=== PATIENT | female | born 1940 | race Hispanic/Latino ===

== ENCOUNTER 2018-12-24 17:27 | Inpatient (IN) | payer MEDICARE, OTHER ==
[~2018-12-24] VITALS: Ht 157.5 cm; Wt 79.4 kg
--- OUTSIDE RECORDS SUMMARY | 2018-12-24 17:30 | XMS REPORT | Summary of Care ---
Author Organization Unknown Address Unknown Phone Unavailable Encounter HQ Encntr_charito([facility]) [id number] Date(s): 07/16/14 - 07/16/14 [facility] Outpatient Imaging - [address] [address]- [place] Discharge Disposition: Home Physician Attending: Miki Hathaway MD Reason for Visit 719.46 - JOINT PAIN-L/LE 443.8 - PERIPH VASCULAR Problem List No data available for this section Allergies, Adverse Reactions, Alerts No data available for this section Medications No data available for this section Medications Administered During Your Visit No data available for this section Immunizations No data available for this section
--- OUTSIDE RECORDS SUMMARY | 2018-12-24 17:30 | XMS REPORT | Summary of Care ---
Author Author [facility] [place] Organization [facility] [place] Address Unknown Phone Unavailable Encounter HQ Encntr_alias(FIN) [id number] Date(s): 10/06/18 - 10/06/18 [facility] - [place] [address] [place] [address] [phone] Discharge Disposition: Home or Self Care Attending Physician: Miki Hathaway MD Referring Physician: Miki Hathaway MD Vital Signs No data available for this section Problem List No data available for this section Allergies, Adverse Reactions, Alerts No data available for this section Medications No data available for this section Results No data available for this section Immunizations No data available for this section Procedures No data available for this section Social History No data available for this section Assessment and Plan No data available for this section
--- OUTSIDE RECORDS SUMMARY | 2018-12-24 17:30 | XMS REPORT | Continuity of Care Document ---
Author Author Madhu gus [facility] Interface Address Unknown Phone Unavailable Problems Problem Status Onset Date Classification Date Reported Comments Source Bronchitis, not specified as acute or chronic 06/10/2018 12/22/2018 [facility] Z00.00 - [facility] Active 12/06/2016 [facility] Spencer Medications Medication Details Route Status Patient Instructions Ordering Provider Order Date Source Allergies, Adverse Reactions, Alerts Substance Category Reaction Severity Reaction type Status Date Reported Comments Source Immunizations Immunization Date Given Site Status Last Updated Comments Source Results Order Name Results Value Reference Range Date Interpretation Comments Source Chest 2 views DX Chest 2 views DX STUDY: Chest, 2 views. COMPARISON: 10/06/2018 HISTORY: - J44.9 Chronic obstructive pulmonary disease, unspecified; J96.11 Chronic respiratory failure with hypoxia. FINDINGS: Prominent lung interstitium, likely related to chronic obstructive pulmonary disease. Small bilateral pleural effusions with bibasilar opacities suggestive of bibasilar subsegmental atelectasis versus consolidations. No pneumothorax is seen. Mild cardiomegaly. No pulmonary edema. Degenerative changes of spine are seen. IMPRESSION: Prominent lung interstitium, likely related to chronic obstructive pulmonary disease. Small bilateral pleural effusions with bibasilar subsegmental atelectasis versus consolidations. Mild cardiomegaly. No pulmonary edema. 12/22/2018 - - Read by: Tasha Garduno MD Dictated Date/time: 12/22/18 13:10 Electronically Signed by: Tasha Garduno MD 12/22/18 13:42 FINAL REPORT C[facility] Spencer Bone Density DXA [employer] MA Bone Density [employer] MA BONE DENSITY ASSESSMENT: 10/06/2018 CLINICAL DATA: Post menopausal and clinical risk for osteoporosis. Encounter For Screening For Osteoporosis, Age-Related Osteoporosis Without Current Pathological Fracture/Z13.820,M81.0 FINDINGS: Bone density evaluation was performed 10/06/2018 on the right femur neck using a Hologic unit. The BMD average for the exam is 0.785 g/cm2. The T-score is -0.60 and the Z-score is 1.50. This matches the World Health Organization's criteria for normal bone density and places the patient within normal limits of fracture risk. An additional bone density evaluation was performed 10/06/2018 on the left femur neck using a Hologic unit. The BMD average for the exam is 0.725 g/cm2. The T- score is -1.10 and the Z-score is 1.00. This matches the World Health Organization's criteria for osteopenia and places the patient at a medium risk for fracture. An additional bone density evaluation was performed 10/06/2018 on the right hip using a Hologic unit. The BMD average for the exam is 0.825 g/cm2. The T-score is -1.00 and the Z-score is 1.00. This matches the World Health Organization's criteria for normal bone density and places the patient within normal limits of fracture risk. An additional bone density evaluation was performed 10/06/2018 on the left hip using a Hologic unit. The BMD average for the exam is 0.767 g/cm2. The T-score is -1.40 and the Z-score is 0.60. This matches the World Health Organization's criteria for osteopenia and places the patient at a medium risk for fracture. An additional bone density evaluation was performed 10/06/2018 on the AP L1-L4 region of spine using a Hologic unit. The BMD average for the exam is 0.923 g/cm2. The T-score is -1.10 and the Z-score is 1.60. This matches the World Health Organization's criteria for osteopenia and places the patient at a medium risk for fracture. FRAX 10 year probability of major osteoporotic fracture is 6.3% and hip fracture is 1.1%. IMPRESSION: OSTEOPENIA Patient is at medium risk for fracture. Patient consult w/primary care provider is recommended. This exam was interpreted at [id number] for ERIC Spencer 15. Rena Dunham M.D., ms/bam:10/06/2018 09:34:51 Dispatcher Maintenance Service(s): Irais LUCIANO(Virgil)(M), [facility] 10/06/2018 - - Read by: Rena Dunham MD Dictated Date/time: 10/06/18 09:34 Electronically Signed by: Rena Dunham MD 10/06/18 09:34 FINAL REPORT [place] Spencer Chest 2 views DX Chest 2 views DX EXAM: Chest 2 views DX HISTORY: - Z00.00 Encounter for general adult medical examination without abnormal findings COMPARISON: 06/04/2018 Cardiac silhouette is at the upper limits of normal for size. Mild pulmonary vascular congestion. No pleural effusion identified. No appreciable evidence seen for pneumothorax. Mild amount of calcified plaque seen within the thoracic aortic arch. No acute bony abnormalities. IMPRESSION: Mild pulmonary vascular congestion. 10/06/2018 - - Read by: Ian Holcomb MD Dictated Date/time: 10/06/18 08:54 Electronically Signed by: Ian Holcomb MD 10/06/18 08:56 FINAL REPORT [place] Spencer Chest 2 views DX Chest 2 views DX Exam: Two-view chest x-ray Reason for Exam: - J40 Bronchitis, not specified as acute or chronic Comparison Exam: X-ray 01/04/2017 Discussion: Cardiac silhouette is at the upper limits of normal for size. Mild pulmonary vascular congestion. No pleural effusion identified. No appreciable evidence seen for pneumothorax. Mild amount of calcified plaque seen within the thoracic aortic arch. No acute bony abnormalities. Impression: 1. Mild pulmonary vascular congestion. 06/04/2018 - - Read by: Marek Gardner MD Dictated Date/time: 06/04/18 16:10 Electronically Signed by: Marek Gardner MD 06/04/18 16:50 FINAL REPORT [place] Spencer Chest 2 views DX Chest 2 views DX EXAM: XR CHEST 2 VIEWS DATE: 01/04/2017 10:45 AM CDT INDICATION: Z00.00 Encounter for general adult medical examination without abnormal findings COMPARISON: 12/06/2016 TECHNIQUE: PA and lateral chest radiographs FINDINGS: The lungs are clear without focal consolidation or pleural effusion. The cardiomediastinal silhouette is stable. The hilar regions are again noted to be prominent, likely due to prominent vascular structures. There is no acute bony abnormality. IMPRESSION: No acute abnormality SL: [id number] 01/04/2017 - - Read by: Bryan Davies Dictated Date/time: 01/04/17 12:55 Electronically Signed by: Bryan Davies 01/04/17 12:56 FINAL REPORT CARROLL Corbina Chest 2 views DX Chest 2 views DX EXAM: 2 view(s) of the chest. CLINICAL HX: Z00.00 Encounter for general adult medical examination without abnormal findings. . . COMPARISON: Chest x-ray: 05/31/2016. FINDINGS: Support apparatus: None. Cardiac silhouette: Unremarkable. Mediastinum: -- Lorrie: Bronchial wall thickening. -- Other: None. Lungs: -- Consolidation: Negative. -- Pleural effusion: Negative. -- Pneumothorax: Negative. -- Other: Negative. Bones: Unremarkable. Other: None. IMPRESSION: 1. Bronchial wall thickening which can be seen with bronchitis/bronchiolitis and mild interstitial edema. 12/06/2016 - - Read by: Aaron Alanis MD Dictated Date/time: 12/06/16 11:10 Electronically Signed by: Aaron Alanis MD 12/06/16 11:23 FINAL REPORT RUPALIDixie Johanna Chest 2 views DX Chest 2 views DX Exam: Two-view chest x-ray Reason for Exam: R07.9 Chest pain, unspecified Comparison Exam: 05/04/2013 Discussion: Cardiac silhouette is at upper limits of normal for size. Mild pulmonary vascular congestion. No pleural effusions nor focal lung consolidations identified. No appreciable evidence seen for pneumothorax. Mild amount of calcified plaque seen within the thoracic aortic arch. Mild multilevel degenerative disc disease seen within the thoracic spine. No acute bony abnormalities. Impression: 1. Mild pulmonary vascular congestion. 05/31/2016 - - Read by: Marek Gardner MD Dictated Date/time: 05/31/16 09:56 Electronically Signed by: Marek Gardner MD 05/31/16 09:58 FINAL REPORT CARROLL Johanna Spine lumbar series DX Spine lumbar series DX EXAM: Spine lumbar series DX HISTORY: M54.9 Dorsalgia, unspecified COMPARISON: 05/10/2011 AP alignment is normal. No fracture is seen. There is disc space narrowing at L5-S1. Vertebral body heights are maintained. Mild discogenic degenerative changes are present throughout the spine. There are advanced facet degenerative changes of the lower lumbar spine. IMPRESSION: Degenerative change as above. 09/29/2015 - - Read by: Ian Holcomb MD Dictated Date/time: 09/29/15 12:34 Electronically Signed by: Ian Holcomb MD 09/29/15 12:35 FINAL REPORT [place] C[facility] Spencer Foot series DX Foot series DX EXAMINATION: Right foot series. HISTORY: Right foot pain. FINDINGS: 3 view nonweightbearing examination of the right foot is performed without comparison. There are no acute fractures or dislocations. There is mild periosteal thickening along the third and fourth metatarsal shafts which may represent old healed metatarsal fractures. 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 There is mild interphalangeal joint osteoarthritis. There is no ankle effusion. There is heterotopic ossification at the Achilles insertion. There are no radiopaque foreign bodies identified. IMPRESSION: 1. Mild periosteal thickening along the right third and fourth metatarsal shafts which represent old healed metatarsal fractures. There are no acute fractures or dislocations of the right foot. 2. 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 12/07/2014 - - Read by: Rashi Hutchins MD Dictated Date/time: 12/07/14 12:34 Electronically Signed by: Rashi Hutchins MD 12/07/14 12:37 FINAL REPORT [place] CARRO[facility] Spencer Ext Lower Venous Doppler Bilat US Ext Lower Venous Doppler Bilat US EXAM: Bilateral lower extremity venous doppler. INDICATION: Pain. TECHNIQUE: The bilateral lower extremity deep venous system was evaluated with grayscale and Doppler ultrasound. FINDINGS: No evidence of DVT. IMPRESSION: 1. No evidence of DVT. 07/16/2014 - - Read by: Aaron Alanis MD Dictated Date/time: 07/16/14 15:11 Electronically Signed by: Aaron Alanis MD 07/16/14 15:12 FINAL REPORT [place] Spencer Chest 2 views Chest 2 views Exam: Two-view chest x-ray Reason for Exam: Hypertensive heart disease Comparison Exam: None Discussion: Cardiac silhouette is enlarged. Mild pulmonary vascular congestion. Both hemidiaphragms well visualized. No pulmonary edema or pleural effusions. No focal lung consolidations. Trachea is midline. No acute bony abnormalities. Impression: 1. Cardiac silhouette is enlarged. Mild pulmonary vascular congestion. 09/30/2013 - - Read by: Marek Gardner Dictated Date/time: 09/30/13 09:00 Electronically Signed by: Marek Gardner MD 09/30/13 09:01 FINAL REPORT [facility] [place] Vital Signs Vital Sign Value Date Comments Source Encounters Location Location Details Encounter Type Encounter Number Reason For Visit Attending Provider ADM Date DC Date Status Source [facility] [place] [facility] [id number] Miki Hathaway 07/16/2014 07/17/2014 [facility] [place] [facility] [place] [facility] [id number] Miki Hathaway 12/07/2014 12/08/2014 [facility] [place] [facility] [place] [facility] [id number] Miki Hathaway 09/29/2015 09/30/2015 [facility] [place] [facility] [place] [facility] [id number] Miki Hathaway 05/31/2016 06/01/2016 [facility] [place] [facility] [place] [facility] [id number] Miki Hathaway 12/06/2016 12/07/2016 [facility] [place] [facility] [place] [facility] [id number] Miki Hathaway 01/04/2017 01/05/2017 [facility] [place] [facility] [place] [facility] [id number] Miki Hathaway 06/04/2018 06/05/2018 [facility] [place] [facility] [place] [facility] [id number] Miki Hathaway 10/06/2018 10/07/2018 [facility] [place] Procedures Procedure Code Date Perfomer Comments Source
--- OUTSIDE RECORDS SUMMARY | 2018-12-24 17:30 | XMS REPORT | Summary of Care ---
Author Author [facility] - [place] Organization [facility] [place] Address Unknown Phone Unavailable Encounter HQ Encntr_charito(FIN) [id number] Date(s): 05/31/16 - 05/31/16 [facility] Outpatient Imaging - [place] [address] [place] [address] [phone] Discharge Disposition: Home or Self Care Attending Physician: Miki Hathaway MD Vital Signs No [...]
--- OUTSIDE RECORDS SUMMARY | 2018-12-24 17:30 | XMS REPORT | Summary of Care ---
Author Organization Unknown Address Unknown Phone Unavailable Encounter HQ Encntr_alias([facility]) [id number] Date(s): 12/07/14 - 12/07/14 [facility] Outpatient Imaging - [address] [address]- [facility] [phone] Discharge Disposition: Home Physician Attending: Miki Hathaway MD Vital Signs No data [...]
--- OUTSIDE RECORDS SUMMARY | 2018-12-24 17:30 | XMS REPORT | Summary of Care ---
Author Author [facility] Outpatient Imaging - [place] Organization [facility] - [place] Address Unknown Phone Unavailable Encounter HQ Encntr_alicriselda(FIN) [id number] Date(s): 01/04/17 - 01/04/17 [facility] Outpatient Imaging - [place] [address] [place] [address] [phone] Discharge Disposition: Home or Self Care Attending [...]
--- OUTSIDE RECORDS SUMMARY | 2018-12-24 17:30 | XMS REPORT | Summary of Care ---
Author Author [facility] Outpatient Imaging - [place] Organization [facility] - [place] Address Unknown Phone Unavailable Encounter HQ Encntr_charito([place]) [id number] Date(s): 09/29/15 - 09/29/15 [facility] Outpatient Imaging - [place] [address] [place] [address] [phone] Discharge Disposition: Home Attending Physician: Miki Hathaway MD Vital Signs [...]
--- OUTSIDE RECORDS SUMMARY | 2018-12-24 17:30 | XMS REPORT | Summary of Care ---
Author Author [facility] - [place] Organization [facility] [place] Address Unknown Phone Unavailable Encounter HQ Encntr_alicriselda(FIN) [id number] Date(s): 12/06/16 - 12/06/16 [facility] Out[facility] - [place] [address] [place] [address]- [phone] Discharge Disposition: Home or Self Care Attending [...]
--- OUTSIDE RECORDS SUMMARY | 2018-12-24 17:30 | XMS REPORT | Summary of Care ---
Author Author [facility] - [place] Organization [facility] [place] Address Unknown Phone Unavailable Encounter HQ Encntr_alicriselda(FIN) [id number] Date(s): 06/04/18 - 06/04/18 [facility] - [place] [address] [place] [address] [phone] Encounter Diagnosis Bronchitis, not specified as acute or chronic (Final) - 06/09/18 Discharge Disposition: Home or Self Care Attending [...]
--- OUTSIDE RECORDS SUMMARY | 2018-12-24 17:34 | XMS REPORT ---
[facility] Address Unknown Phone Unavailable Care Team Providers Care Plastering Contractor Name Role Phone Unavailable Unavailable Payers Payer Name Policy Type Policy Number Effective Date Expiration Date Problems This patient has no known problems. Allergies, Adverse Reactions, Alerts Allergy Name Allergy Type Status Severity Reaction(s) Onset Date Inactive Date Treating Clinician Comments No Known Allergies DA Active U 2018-11-04 00:00:00 No Known Allergies DA Active U 2018-11-03 00:00:00 No Known Allergies DA Active U 2017-01-15 00:00:00 Medications This patient has no known medications. Results Test Description Test Time Test Comments Text Results Atomic Results Result Comments GLUBED 2018-11-20 16:46:00 GLUBED (test code=GLUBED) 194 mg/dL 74-[address] 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 [facility] [id number] 11:52:00* Test Item Value Reference Range Comments GLUBED (test code=GLUBED) 278 mg/dL 74-[address] 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 [facility] [id number] 09:47:00* Test Item Value Reference Range Comments GLUBED (test code=GLUBED) 209 mg/dL 74-[address] 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 [facility] BASIC METABOLIC [id number] 06:18:00* Test Item Value Reference Range Comments SODIUM (test code=NA) 134 mmol/L 136-145 POTASSIUM (test code=K) 4.1 mmol/L 3.5-5.1 CHLORIDE (test code=CL) 100.0 mmol/L 98-107 CARBON DIOXIDE (test code=CO2) 26.0 mmol/L 21-32 ANION GAP (test code=GAP) 12.1 10-20 GLUCOSE (test code=GLU) 210 mg/dL 74-106 BLOOD UREA NITROGEN (test code=BUN) 46 mg/dL 7-18 GLOMERULAR FILTRATION RATE (test code=GFR) 20 mL/min >=60 Estimated GFR by using Modified MDRD formula.Chronic kidney disease is defined as either kidney damageor GFR <60 mL/min/1.73 m2 for >3 months. CREATININE (test code=CREAT) 2.30 mg/dL 0.55-1.02 Note change in reference range due to change in reagent. BUN/CREATININE RATIO (test code=BUN/CREA) 20.0 10-20 CALCIUM (test code=CA) 8.6 mg/dL 8.5-10.1 BASIC METABOLIC [id number] 06:07:00* Test Item Value Reference Range Comments SODIUM (test code=NA) 134 mmol/L 136-145 POTASSIUM (test code=K) 4.1 mmol/L 3.5-5.1 CHLORIDE (test code=CL) 100.0 mmol/L 98-107 CARBON DIOXIDE (test code=CO2) mmol/L 21-32 ANION GAP (test code=GAP) 10-20 GLUCOSE (test code=GLU) mg/dL 74-106 BLOOD UREA NITROGEN (test code=BUN) mg/dL 7-18 GLOMERULAR FILTRATION RATE (test code=GFR) mL/min >=60 CREATININE (test code=CREAT) mg/dL 0.55-1.02 BUN/CREATININE RATIO (test code=BUN/CREA) 10-20 CALCIUM (test code=CA) mg/dL 8.5-10.1 [id number] 21:17:00* Test Item Value Reference Range Comments GLUBED (test code=GLUBED) 262 mg/dL 74-[address] 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 [facility] [id number] 17:37:00* Test Item Value Reference Range Comments GLUBED (test code=GLUBED) 262 mg/dL 74-[address] 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 [facility] [id number] 11:56:00* Test Item Value Reference Range Comments GLUBED (test code=GLUBED) 176 mg/dL 74-[address] 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 [facility] [id number] 08:59:00* Test Item Value Reference Range Comments GLUBED (test code=GLUBED) 202 mg/dL 74-[address] 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 [facility] BASIC METABOLIC [id number] 07:32:00* Test Item Value Reference Range Comments SODIUM (test code=NA) 135 mmol/L 136-145 POTASSIUM (test code=K) 4.6 mmol/L 3.5-5.1 CHLORIDE (test code=CL) 102.0 mmol/L 98-107 CARBON DIOXIDE (test code=CO2) 25.0 mmol/L 21-32 ANION GAP (test code=GAP) 12.6 10-20 GLUCOSE (test code=GLU) 205 mg/dL 74-106 BLOOD UREA NITROGEN (test code=BUN) 46 mg/dL 7-18 GLOMERULAR FILTRATION RATE (test code=GFR) 25 mL/min >=60 Estimated GFR by using Modified MDRD formula.Chronic kidney disease is defined as either kidney damageor GFR <60 mL/min/1.73 m2 for >3 months. CREATININE (test code=CREAT) 1.90 mg/dL 0.55-1.02 Note change in reference range due to change in reagent. BUN/CREATININE RATIO (test code=BUN/CREA) 24.2 10-20 CALCIUM (test code=CA) 8.7 mg/dL 8.5-10.1 BASIC METABOLIC [id number] 07:24:00* Test Item Value Reference Range Comments SODIUM (test code=NA) 135 mmol/L 136-145 POTASSIUM (test code=K) 4.6 mmol/L 3.5-5.1 CHLORIDE (test code=CL) 102.0 mmol/L 98-107 CARBON DIOXIDE (test code=CO2) mmol/L 21-32 ANION GAP (test code=GAP) 10-20 GLUCOSE (test code=GLU) mg/dL 74-106 BLOOD UREA NITROGEN (test code=BUN) mg/dL 7-18 GLOMERULAR FILTRATION RATE (test code=GFR) mL/min >=60 CREATININE (test code=CREAT) mg/dL 0.55-1.02 BUN/CREATININE RATIO (test code=BUN/CREA) 10-20 CALCIUM (test code=CA) mg/dL 8.5-10.1 CBC W/AUTO [id number] 06:59:00* Test Item Value Reference Range Comments WHITE BLOOD CELL (test code=WBC) 8.7 K/mm3 4.5-12.5 RED BLOOD CELL (test code=RBC) 3.06 mill/mm3 3.7-5.2 HEMOGLOBIN (test code=HGB) 8.9 gram/dL 11.5-15.5 HEMATOCRIT (test code=HCT) 29.5 % 36.0-46.0 MEAN CELL VOLUME (test code=MCV) 96.4 fL 80-98 MEAN CELL HGB (test code=MCH) 29.1 picogram 27.0-33.0 MEAN CELL HGB CONCETRATION (test code=MCHC) 30.2 gram/dL 33.0-36.0 RED CELL DISTRIBUTION WIDTH (test code=RDW) 17.9 % 11.6-16.2 RED CELL DISTRIBUTION WIDTH SD (test code=RDW-SD) 63.1 fL 37.0-51.0 PLATELET COUNT (test code=PLT) 148 K/mm3 150-450 MEAN PLATELET VOLUME (test code=MPV) 11.4 fL 6.7-11.0 NEUTROPHIL % (test code=NT%) 79.8 % 39.0-69.0 IMMATURE GRANULOCYTE % (test code=IG%) 0.7 % 0.0-5.0 LYMPHOCYTE % (test code=LY%) 8.3 % 25.0-55.0 MONOCYTE % (test code=MO%) 10.0 % 0.0-10.0 EOSINOPHIL % (test code=EO%) 1.0 % 0.0-5.0 BASOPHIL % (test code=BA%) 0.2 % 0.0-1.0 NUCLEATED RBC % (test code=NRBC%) 0.0 % 0-0 NEUTROPHIL # (test code=NT#) 6.91 K/mm3 1.8-7.7 IMMATURE GRANULOCYTE # (test code=IG#) 0.06 x10 3/uL 0-0.03 LYMPHOCYTE # (test code=LY#) 0.72 K/mm3 1.0-5.0 MONOCYTE # (test code=MO#) 0.87 K/mm3 0-0.8 EOSINOPHIL # (test code=EO#) 0.09 K/mm3 0.0-0.5 BASOPHIL # (test code=BA#) 0.02 K/mm3 0.0-0.2 NUCLEATED RBC # (test code=NRBC#) 0.00 K/mm3 0.0-0.1 MANUAL DIFF REQUIRED (test code=MDIFF) NO [id number] 00:21:00* Test Item Value Reference Range Comments GLUBED (test code=GLUBED) 246 mg/dL 74-[address] 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 [facility] [id number] 16:41:00* Test Item Value Reference Range Comments GLUBED (test code=GLUBED) 179 mg/dL 74-[address] 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 [facility] [id number] 11:15:00* Test Item Value Reference Range Comments GLUBED (test code=GLUBED) 190 mg/dL 74-[address] 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 [facility] [id number] 06:43:00* Test Item Value Reference Range Comments GLUBED (test code=GLUBED) 142 mg/dL 74-[address] 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 [facility] BASIC METABOLIC [id number] 06:21:00* Test Item Value Reference Range Comments SODIUM (test code=NA) 135 mmol/L 136-145 POTASSIUM (test code=K) 4.1 mmol/L 3.5-5.1 CHLORIDE (test code=CL) 101.0 mmol/L 98-107 CARBON DIOXIDE (test code=CO2) 27.0 mmol/L 21-32 ANION GAP (test code=GAP) 11.1 10-20 GLUCOSE (test code=GLU) 119 mg/dL 74-106 BLOOD UREA NITROGEN (test code=BUN) 48 mg/dL 7-18 GLOMERULAR FILTRATION RATE (test code=GFR) 25 mL/min >=60 Estimated GFR by using Modified MDRD formula.Chronic kidney disease is defined as either kidney damageor GFR <60 mL/min/1.73 m2 for >3 months. CREATININE (test code=CREAT) 1.90 mg/dL 0.55-1.02 Note change in reference range due to change in reagent. BUN/CREATININE RATIO (test code=BUN/CREA) 25.3 10-20 CALCIUM (test code=CA) 9.0 mg/dL 8.5-10.1 BASIC METABOLIC [id number] 06:14:00* Test Item Value Reference Range Comments SODIUM (test code=NA) 135 mmol/L 136-145 POTASSIUM (test code=K) 4.1 mmol/L 3.5-5.1 CHLORIDE (test code=CL) 101.0 mmol/L 98-107 CARBON DIOXIDE (test code=CO2) mmol/L 21-32 ANION GAP (test code=GAP) 10-20 GLUCOSE (test code=GLU) mg/dL 74-106 BLOOD UREA NITROGEN (test code=BUN) mg/dL 7-18 GLOMERULAR FILTRATION RATE (test code=GFR) mL/min >=60 CREATININE (test code=CREAT) mg/dL 0.55-1.02 BUN/CREATININE RATIO (test code=BUN/CREA) 10-20 CALCIUM (test code=CA) mg/dL 8.5-10.1 [id number] 02:29:00* Test Item Value Reference Range Comments GLUBED (test code=GLUBED) 196 mg/dL 74-[address] 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 [facility] [id number] 16:15:00* Test Item Value Reference Range Comments GLUBED (test code=GLUBED) 241 mg/dL 74-[address] 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 [facility] [id number] 14:39:00* Test Item Value Reference Range Comments GLUBED (test code=GLUBED) 222 mg/dL 74-[address] 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 [facility] UR CREATININE CLEARANCE [id number] 10:16:00* Test Item Value Reference Range Comments CREATININE CLEARANCE RESULT (test code=CREATCLR) 26 mL/min 100-120 CREATININE (test code=CREAT) 2.20 mg/dL 0.55-1.02 Note change in reference range due to change in reagent. UR CREATININE RANDOM (test code=CREATU) 101.0 mg/dL 30-125 UR VOLUME 24HR (test code=VOL) 800 mL/24hrs [id number] UR CREATININE CLEARANCE [id number] 09:59:00* Test Item Value Reference Range Comments CREATININE CLEARANCE RESULT (test code=CREATCLR) mL/min 100-120 CREATININE (test code=CREAT) mg/dL 0.55-1.02 UR CREATININE RANDOM (test code=CREATU) 101.0 mg/dL 30-125 UR VOLUME 24HR (test code=VOL) mL/24hrs 3054-8074 BASIC METABOLIC [id number] 06:28:00* Test Item Value Reference Range Comments SODIUM (test code=NA) 133 mmol/L 136-145 POTASSIUM (test code=K) 4.3 mmol/L 3.5-5.1 CHLORIDE (test code=CL) 99.0 mmol/L 98-107 CARBON DIOXIDE (test code=CO2) 25.0 mmol/L 21-32 ANION GAP (test code=GAP) 13.3 10-20 GLUCOSE (test code=GLU) 263 mg/dL 74-106 BLOOD UREA NITROGEN (test code=BUN) 51 mg/dL 7-18 GLOMERULAR FILTRATION RATE (test code=GFR) 21 mL/min >=60 Estimated GFR by using Modified MDRD formula.Chronic kidney disease is defined as either kidney damageor GFR <60 mL/min/1.73 m2 for >3 months. CREATININE (test code=CREAT) 2.20 mg/dL 0.55-1.02 Note change in reference range due to change in reagent. BUN/CREATININE RATIO (test code=BUN/CREA) 23.2 10-20 CALCIUM (test code=CA) 9.3 mg/dL 8.5-10.1 BASIC METABOLIC [id number] 06:22:00* Test Item Value Reference Range Comments SODIUM (test code=NA) 133 mmol/L 136-145 POTASSIUM (test code=K) 4.3 mmol/L 3.5-5.1 CHLORIDE (test code=CL) 99.0 mmol/L 98-107 CARBON DIOXIDE (test code=CO2) mmol/L 21-32 ANION GAP (test code=GAP) 10-20 GLUCOSE (test code=GLU) mg/dL 74-106 BLOOD UREA NITROGEN (test code=BUN) mg/dL 7-18 GLOMERULAR FILTRATION RATE (test code=GFR) mL/min >=60 CREATININE (test code=CREAT) mg/dL 0.55-1.02 BUN/CREATININE RATIO (test code=BUN/CREA) 10-20 CALCIUM (test code=CA) mg/dL 8.5-10.1 [id number] 06:00:00* Test Item Value Reference Range Comments GLUBED (test code=GLUBED) 273 mg/dL 74-[address] 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 [facility] [id number] 20:30:00* Test Item Value Reference Range Comments GLUBED (test code=GLUBED) 181 mg/dL 74-[address] 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 [facility] [id number] 16:15:00* Test Item Value Reference Range Comments GLUBED (test code=GLUBED) 207 mg/dL 74-[address] 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 [facility] [id number] 11:43:00* Test Item Value Reference Range Comments GLUBED (test code=GLUBED) 197 mg/dL 74-[address] 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 [facility] [id number] 06:14:00* Test Item Value Reference Range Comments GLUBED (test code=GLUBED) 242 mg/dL 74-[address] 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 [facility] BASIC METABOLIC [id number] 05:22:00* Test Item Value Reference Range Comments SODIUM (test code=NA) 134 mmol/L 136-145 POTASSIUM (test code=K) 4.1 mmol/L 3.5-5.1 CHLORIDE (test code=CL) 100.0 mmol/L 98-107 CARBON DIOXIDE (test code=CO2) 27.0 mmol/L 21-32 ANION GAP (test code=GAP) 11.1 10-20 GLUCOSE (test code=GLU) 236 mg/dL 74-106 BLOOD UREA NITROGEN (test code=BUN) 44 mg/dL 7-18 RESULT VERIFIED BY REPEAT ANALYSIS GLOMERULAR FILTRATION RATE (test code=GFR) 23 mL/min >=60 Estimated GFR by using Modified MDRD formula.Chronic kidney disease is defined as either kidney damageor GFR <60 mL/min/1.73 m2 for >3 months. CREATININE (test code=CREAT) 2.10 mg/dL 0.55-1.02 Note change in reference range due to change in reagent. BUN/CREATININE RATIO (test code=BUN/CREA) 21.0 10-20 CALCIUM (test code=CA) 8.5 mg/dL 8.5-10.1 [id number] 22:12:00* Test Item Value Reference Range Comments GLUBED (test code=GLUBED) 216 mg/dL 74-[address] 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 [facility] [id number] 16:38:00* Test Item Value Reference Range Comments GLUBED (test code=GLUBED) 210 mg/dL 74-[address] 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 [facility] [id number] 11:30:00* Test Item Value Reference Range Comments GLUBED (test code=GLUBED) 239 mg/dL 74-[address] 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 [facility] BASIC METABOLIC [id number] 07:51:00* Test Item Value Reference Range Comments SODIUM (test code=NA) 137 mmol/L 136-145 POTASSIUM (test code=K) 3.9 mmol/L 3.5-5.1 CHLORIDE (test code=CL) 104.0 mmol/L 98-107 CARBON DIOXIDE (test code=CO2) 28.0 mmol/L 21-32 ANION GAP (test code=GAP) 8.9 10-20 GLUCOSE (test code=GLU) 176 mg/dL 74-106 BLOOD UREA NITROGEN (test code=BUN) 32 mg/dL 7-18 RESULT VERIFIED BY REPEAT ANALYSIS GLOMERULAR FILTRATION RATE (test code=GFR) 27 mL/min >=60 Estimated GFR by using Modified MDRD formula.Chronic kidney disease is defined as either kidney damageor GFR <60 mL/min/1.73 m2 for >3 months. CREATININE (test code=CREAT) 1.80 mg/dL 0.55-1.02 Note change in reference range due to change in reagent. BUN/CREATININE RATIO (test code=BUN/CREA) 17.8 10-20 CALCIUM (test code=CA) 8.1 mg/dL 8.5-10.1 BASIC METABOLIC [id number] 07:31:00* Test Item Value Reference Range Comments SODIUM (test code=NA) 137 mmol/L 136-145 POTASSIUM (test code=K) 3.9 mmol/L 3.5-5.1 CHLORIDE (test code=CL) 104.0 mmol/L 98-107 CARBON DIOXIDE (test code=CO2) mmol/L 21-32 ANION GAP (test code=GAP) 10-20 GLUCOSE (test code=GLU) mg/dL 74-106 BLOOD UREA NITROGEN (test code=BUN) mg/dL 7-18 GLOMERULAR FILTRATION RATE (test code=GFR) mL/min >=60 CREATININE (test code=CREAT) mg/dL 0.55-1.02 BUN/CREATININE RATIO (test code=BUN/CREA) 10-20 CALCIUM (test code=CA) mg/dL 8.5-10.1 [id number] 05:45:00* Test Item Value Reference Range Comments GLUBED (test code=GLUBED) 155 mg/dL 74-[address] 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 [facility] [id number] 20:19:00* Test Item Value Reference Range Comments GLUBED (test code=GLUBED) 264 mg/dL 74-[address] 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 [facility] [id number] 16:08:00* Test Item Value Reference Range Comments GLUBED (test code=GLUBED) 277 mg/dL 74-[address] 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 [facility] BASIC METABOLIC [id number] 12:21:00* Test Item Value Reference Range Comments SODIUM (test code=NA) 134 mmol/L 136-145 POTASSIUM (test code=K) 4.0 mmol/L 3.5-5.1 CHLORIDE (test code=CL) 99.0 mmol/L 98-107 CARBON DIOXIDE (test code=CO2) 30.0 mmol/L 21-32 ANION GAP (test code=GAP) 9.0 10-20 GLUCOSE (test code=GLU) 289 mg/dL 74-106 BLOOD UREA NITROGEN (test code=BUN) 53 mg/dL 7-18 GLOMERULAR FILTRATION RATE (test code=GFR) 25 mL/min >=60 Estimated GFR by using Modified MDRD formula.Chronic kidney disease is defined as either kidney damageor GFR <60 mL/min/1.73 m2 for >3 months. CREATININE (test code=CREAT) 1.90 mg/dL 0.55-1.02 Note change in reference range due to change in reagent. BUN/CREATININE RATIO (test code=BUN/CREA) 27.9 10-20 CALCIUM (test code=CA) 8.5 mg/dL 8.5-10.1 11/14/18 0649CBC W/AUTO [id number] 11:09:00* Test Item Value Reference Range Comments WHITE BLOOD CELL (test code=WBC) 11.6 K/mm3 4.5-12.5 RED BLOOD CELL (test code=RBC) 3.01 mill/mm3 3.7-5.2 HEMOGLOBIN (test code=HGB) 8.7 gram/dL 11.5-15.5 HEMATOCRIT (test code=HCT) 28.4 % 36.0-46.0 MEAN CELL VOLUME (test code=MCV) 94.4 fL 80-98 MEAN CELL HGB (test code=MCH) 28.9 picogram 27.0-33.0 MEAN CELL HGB CONCETRATION (test code=MCHC) 30.6 gram/dL 33.0-36.0 RED CELL DISTRIBUTION WIDTH (test code=RDW) 15.9 % 11.6-16.2 RED CELL DISTRIBUTION WIDTH SD (test code=RDW-SD) 53.7 fL 37.0-51.0 PLATELET COUNT (test code=PLT) 132 K/mm3 150-450 RESULT VERIFIED BY REPEAT ANALYSIS MEAN PLATELET VOLUME (test code=MPV) 11.5 fL 6.7-11.0 NEUTROPHIL % (test code=NT%) 77.4 % 39.0-69.0 IMMATURE GRANULOCYTE % (test code=IG%) 1.7 % 0.0-5.0 LYMPHOCYTE % (test code=LY%) 11.1 % 25.0-55.0 MONOCYTE % (test code=MO%) 7.9 % 0.0-10.0 EOSINOPHIL % (test code=EO%) 1.8 % 0.0-5.0 BASOPHIL % (test code=BA%) 0.1 % 0.0-1.0 NUCLEATED RBC % (test code=NRBC%) 0.0 % 0-0 NEUTROPHIL # (test code=NT#) 8.98 K/mm3 1.8-7.7 IMMATURE GRANULOCYTE # (test code=IG#) 0.20 x10 3/uL 0-0.03 LYMPHOCYTE # (test code=LY#) 1.29 K/mm3 1.0-5.0 MONOCYTE # (test code=MO#) 0.92 K/mm3 0-0.8 EOSINOPHIL # (test code=EO#) 0.21 K/mm3 0.0-0.5 BASOPHIL # (test code=BA#) 0.01 K/mm3 0.0-0.2 NUCLEATED RBC # (test code=NRBC#) 0.00 K/mm3 0.0-0.1 MANUAL DIFF REQUIRED (test code=MDIFF) [place] [id number] 09:19:00* Test Item Value Reference Range Comments GLUBED (test code=GLUBED) 221 mg/dL 74-[address] 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 [facility] HEPATITIS B [id number] 05:14:00* Test Item Value Reference Range Comments AB HEPATITIS B SURFACE (test code=HBSAB) Non Reactive () Non Reactive: Inconsistent with immunity, less than 10 mIU/mL Reactive: Consistent with immunity, greater than 9.9 mIU/mLPerformed At: [facility] [address] [id number] Kyle L MD Ph:[phone] At: [facility] [address] [id number] Sanjai MD P h:[phone] AG HEPAT B SURF (test code=HBSAG) Negative Negative HEPATITIS B CORE ANTIBODY,TOT (test code=HBCAB) Negative Negative HEPATITIS B CORE ANTIBODY,IGM (test code=HBCMAB) Negative Negative AG HEPATITIS BE (test code=HBEAG) Negative Negative AB HEPATITIS BE (test code=HBEAB) Negative Negative [id number] 21:19:00* Test Item Value Reference Range Comments GLUBED (test code=GLUBED) 229 mg/dL 74-[address] 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 [facility] [id number] 16:12:00* Test Item Value Reference Range Comments GLUBED (test code=GLUBED) 374 mg/dL 74-[address] 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 [facility] CBC W/AUTO [id number] 07:19:00* Test Item Value Reference Range Comments WHITE BLOOD CELL (test code=WBC) 8.0 K/mm3 4.5-12.5 RED BLOOD CELL (test code=RBC) 2.97 mill/mm3 3.7-5.2 HEMOGLOBIN (test code=HGB) 8.6 gram/dL 11.5-15.5 HEMATOCRIT (test code=HCT) 27.7 % 36.0-46.0 MEAN CELL VOLUME (test code=MCV) 93.3 fL 80-98 MEAN CELL HGB (test code=MCH) 29.0 picogram 27.0-33.0 MEAN CELL HGB CONCETRATION (test code=MCHC) 31.0 gram/dL 33.0-36.0 RED CELL DISTRIBUTION WIDTH (test code=RDW) 15.9 % 11.6-16.2 RED CELL DISTRIBUTION WIDTH SD (test code=RDW-SD) 52.8 fL 37.0-51.0 PLATELET COUNT (test code=PLT) 86 K/mm3 150-450 MEAN PLATELET VOLUME (test code=MPV) 11.7 fL 6.7-11.0 NEUTROPHIL % (test code=NT%) 69.9 % 39.0-69.0 IMMATURE GRANULOCYTE % (test code=IG%) 2.0 % 0.0-5.0 LYMPHOCYTE % (test code=LY%) 14.0 % 25.0-55.0 MONOCYTE % (test code=MO%) 11.1 % 0.0-10.0 EOSINOPHIL % (test code=EO%) 2.9 % 0.0-5.0 BASOPHIL % (test code=BA%) 0.1 % 0.0-1.0 NUCLEATED RBC % (test code=NRBC%) 0.0 % 0-0 NEUTROPHIL # (test code=NT#) 5.59 K/mm3 1.8-7.7 IMMATURE GRANULOCYTE # (test code=IG#) 0.16 x10 3/uL 0-0.03 LYMPHOCYTE # (test code=LY#) 1.12 K/mm3 1.0-5.0 MONOCYTE # (test code=MO#) 0.89 K/mm3 0-0.8 EOSINOPHIL # (test code=EO#) 0.23 K/mm3 0.0-0.5 BASOPHIL # (test code=BA#) 0.01 K/mm3 0.0-0.2 NUCLEATED RBC # (test code=NRBC#) 0.00 K/mm3 0.0-0.1 MANUAL DIFF REQUIRED (test code=MDIFF) NO, ONLY SCAN NEEDED DIFFERENTIAL [id number] 07:19:00* Test Item Value Reference Range Comments STAIN ACCEPTABILITY (test code=STN ACCEPTABLE) STAIN ACCEPTABLE CRENATED CELLS (test code=CREN) 1+ PLATELET ESTIMATE (test code=PLTEST) DECREASED PLATELET MORPHOLOGY (test code=PLTMORPH) NORMAL BASIC METABOLIC [id number] 06:15:00* Test Item Value Reference Range Comments SODIUM (test code=NA) 137 mmol/L 136-145 POTASSIUM (test code=K) 3.9 mmol/L 3.5-5.1 CHLORIDE (test code=CL) 103.0 mmol/L 98-107 CARBON DIOXIDE (test code=CO2) 30.0 mmol/L 21-32 ANION GAP (test code=GAP) 7.9 10-20 GLUCOSE (test code=GLU) 200 mg/dL 74-106 BLOOD UREA NITROGEN (test code=BUN) 30 mg/dL 7-18 GLOMERULAR FILTRATION RATE (test code=GFR) 36 mL/min >=60 Estimated GFR by using Modified MDRD formula.Chronic kidney disease is defined as either kidney damageor GFR <60 mL/min/1.73 m2 for >3 months. CREATININE (test code=CREAT) 1.40 mg/dL 0.55-1.02 Note change in reference range due to change in reagent. BUN/CREATININE RATIO (test code=BUN/CREA) 22.2 10-20 CALCIUM (test code=CA) 8.0 mg/dL 8.5-10.1 CBC W/AUTO [id number] 05:41:00* Test Item Value Reference Range Comments WHITE BLOOD CELL (test code=WBC) 8.0 K/mm3 4.5-12.5 RED BLOOD CELL (test code=RBC) 2.97 mill/mm3 3.7-5.2 HEMOGLOBIN (test code=HGB) 8.6 gram/dL 11.5-15.5 HEMATOCRIT (test code=HCT) 27.7 % 36.0-46.0 MEAN CELL VOLUME (test code=MCV) 93.3 fL 80-98 MEAN CELL HGB (test code=MCH) 29.0 picogram 27.0-33.0 MEAN CELL HGB CONCETRATION (test code=MCHC) 31.0 gram/dL 33.0-36.0 RED CELL DISTRIBUTION WIDTH (test code=RDW) 15.9 % 11.6-16.2 RED CELL DISTRIBUTION WIDTH SD (test code=RDW-SD) 52.8 fL 37.0-51.0 PLATELET COUNT (test code=PLT) 86 K/mm3 150-450 MEAN PLATELET VOLUME (test code=MPV) 11.7 fL 6.7-11.0 NEUTROPHIL % (test code=NT%) 69.9 % 39.0-69.0 IMMATURE GRANULOCYTE % (test code=IG%) 2.0 % 0.0-5.0 LYMPHOCYTE % (test code=LY%) 14.0 % 25.0-55.0 MONOCYTE % (test code=MO%) 11.1 % 0.0-10.0 EOSINOPHIL % (test code=EO%) 2.9 % 0.0-5.0 BASOPHIL % (test code=BA%) 0.1 % 0.0-1.0 NUCLEATED RBC % (test code=NRBC%) 0.0 % 0-0 NEUTROPHIL # (test code=NT#) 5.59 K/mm3 1.8-7.7 IMMATURE GRANULOCYTE # (test code=IG#) 0.16 x10 3/uL 0-0.03 LYMPHOCYTE # (test code=LY#) 1.12 K/mm3 1.0-5.0 MONOCYTE # (test code=MO#) 0.89 K/mm3 0-0.8 EOSINOPHIL # (test code=EO#) 0.23 K/mm3 0.0-0.5 BASOPHIL # (test code=BA#) 0.01 K/mm3 0.0-0.2 NUCLEATED RBC # (test code=NRBC#) 0.00 K/mm3 0.0-0.1 MANUAL DIFF REQUIRED (test code=MDIFF) NO, ONLY SCAN NEEDED DIFFERENTIAL [id number] 05:41:00* Test Item Value Reference Range Comments STAIN ACCEPTABILITY (test code=STN ACCEPTABLE) CABOT RINGS (test code=CAB) MORPHOLOGY COMMENT (test code=MOC) PLATELET ESTIMATE (test code=PLTEST) PLATELET MORPHOLOGY (test code=PLTMORPH) CBC W/AUTO [id number] 05:41:00* Test Item Value Reference Range Comments WHITE BLOOD CELL (test code=WBC) 8.0 K/mm3 4.5-12.5 RED BLOOD CELL (test code=RBC) 2.97 mill/mm3 3.7-5.2 HEMOGLOBIN (test code=HGB) 8.6 gram/dL 11.5-15.5 HEMATOCRIT (test code=HCT) 27.7 % 36.0-46.0 MEAN CELL VOLUME (test code=MCV) 93.3 fL 80-98 MEAN CELL HGB (test code=MCH) 29.0 picogram 27.0-33.0 MEAN CELL HGB CONCETRATION (test code=MCHC) 31.0 gram/dL 33.0-36.0 RED CELL DISTRIBUTION WIDTH (test code=RDW) 15.9 % 11.6-16.2 RED CELL DISTRIBUTION WIDTH SD (test code=RDW-SD) 52.8 fL 37.0-51.0 PLATELET COUNT (test code=PLT) 86 K/mm3 150-450 MEAN PLATELET VOLUME (test code=MPV) 11.7 fL 6.7-11.0 NEUTROPHIL % (test code=NT%) 69.9 % 39.0-69.0 IMMATURE GRANULOCYTE % (test code=IG%) 2.0 % 0.0-5.0 LYMPHOCYTE % (test code=LY%) 14.0 % 25.0-55.0 MONOCYTE % (test code=MO%) 11.1 % 0.0-10.0 EOSINOPHIL % (test code=EO%) 2.9 % 0.0-5.0 BASOPHIL % (test code=BA%) 0.1 % 0.0-1.0 NUCLEATED RBC % (test code=NRBC%) 0.0 % 0-0 NEUTROPHIL # (test code=NT#) 5.59 K/mm3 1.8-7.7 IMMATURE GRANULOCYTE # (test code=IG#) 0.16 x10 3/uL 0-0.03 LYMPHOCYTE # (test code=LY#) 1.12 K/mm3 1.0-5.0 MONOCYTE # (test code=MO#) 0.89 K/mm3 0-0.8 EOSINOPHIL # (test code=EO#) 0.23 K/mm3 0.0-0.5 BASOPHIL # (test code=BA#) 0.01 K/mm3 0.0-0.2 NUCLEATED RBC # (test code=NRBC#) 0.00 K/mm3 0.0-0.1 MANUAL DIFF REQUIRED (test code=MDIFF) NO, ONLY SCAN NEEDED DIFFERENTIAL [id number] 05:41:00* Test Item Value Reference Range Comments STAIN ACCEPTABILITY (test code=STN ACCEPTABLE) MORPHOLOGY COMMENT (test code=MOC) PLATELET ESTIMATE (test code=PLTEST) PLATELET MORPHOLOGY (test code=PLTMORPH) CBC W/AUTO [id number] 05:40:00* Test Item Value Reference Range Comments WHITE BLOOD CELL (test code=WBC) 8.0 K/mm3 4.5-12.5 RED BLOOD CELL (test code=RBC) 2.97 mill/mm3 3.7-5.2 HEMOGLOBIN (test code=HGB) 8.6 gram/dL 11.5-15.5 HEMATOCRIT (test code=HCT) 27.7 % 36.0-46.0 MEAN CELL VOLUME (test code=MCV) 93.3 fL 80-98 MEAN CELL HGB (test code=MCH) 29.0 picogram 27.0-33.0 MEAN CELL HGB CONCETRATION (test code=MCHC) 31.0 gram/dL 33.0-36.0 RED CELL DISTRIBUTION WIDTH (test code=RDW) 15.9 % 11.6-16.2 RED CELL DISTRIBUTION WIDTH SD (test code=RDW-SD) 52.8 fL 37.0-51.0 PLATELET COUNT (test code=PLT) 86 K/mm3 150-450 MEAN PLATELET VOLUME (test code=MPV) 11.7 fL 6.7-11.0 NEUTROPHIL % (test code=NT%) 69.9 % 39.0-69.0 IMMATURE GRANULOCYTE % (test code=IG%) 2.0 % 0.0-5.0 LYMPHOCYTE % (test code=LY%) 14.0 % 25.0-55.0 MONOCYTE % (test code=MO%) 11.1 % 0.0-10.0 EOSINOPHIL % (test code=EO%) 2.9 % 0.0-5.0 BASOPHIL % (test code=BA%) 0.1 % 0.0-1.0 NUCLEATED RBC % (test code=NRBC%) 0.0 % 0-0 NEUTROPHIL # (test code=NT#) 5.59 K/mm3 1.8-7.7 IMMATURE GRANULOCYTE # (test code=IG#) 0.16 x10 3/uL 0-0.03 LYMPHOCYTE # (test code=LY#) 1.12 K/mm3 1.0-5.0 MONOCYTE # (test code=MO#) 0.89 K/mm3 0-0.8 EOSINOPHIL # (test code=EO#) 0.23 K/mm3 0.0-0.5 BASOPHIL # (test code=BA#) 0.01 K/mm3 0.0-0.2 NUCLEATED RBC # (test code=NRBC#) 0.00 K/mm3 0.0-0.1 MANUAL DIFF REQUIRED (test code=MDIFF) NO, ONLY SCAN NEEDED DIFFERENTIAL [id number] 05:40:00* Test Item Value Reference Range Comments STAIN ACCEPTABILITY (test code=STN ACCEPTABLE) CABOT RINGS (test code=CAB) MORPHOLOGY COMMENT (test code=MOC) PLATELET ESTIMATE (test code=PLTEST) PLATELET MORPHOLOGY (test code=PLTMORPH) CBC W/AUTO [id number] 05:40:00* Test Item Value Reference Range Comments WHITE BLOOD CELL (test code=WBC) 8.0 K/mm3 4.5-12.5 RED BLOOD CELL (test code=RBC) 2.97 mill/mm3 3.7-5.2 HEMOGLOBIN (test code=HGB) 8.6 gram/dL 11.5-15.5 HEMATOCRIT (test code=HCT) 27.7 % 36.0-46.0 MEAN CELL VOLUME (test code=MCV) 93.3 fL 80-98 MEAN CELL HGB (test code=MCH) 29.0 picogram 27.0-33.0 MEAN CELL HGB CONCETRATION (test code=MCHC) 31.0 gram/dL 33.0-36.0 RED CELL DISTRIBUTION WIDTH (test code=RDW) 15.9 % 11.6-16.2 RED CELL DISTRIBUTION WIDTH SD (test code=RDW-SD) 52.8 fL 37.0-51.0 PLATELET COUNT (test code=PLT) 86 K/mm3 150-450 MEAN PLATELET VOLUME (test code=MPV) 11.7 fL 6.7-11.0 NEUTROPHIL % (test code=NT%) 69.9 % 39.0-69.0 IMMATURE GRANULOCYTE % (test code=IG%) 2.0 % 0.0-5.0 LYMPHOCYTE % (test code=LY%) 14.0 % 25.0-55.0 MONOCYTE % (test code=MO%) 11.1 % 0.0-10.0 EOSINOPHIL % (test code=EO%) 2.9 % 0.0-5.0 BASOPHIL % (test code=BA%) 0.1 % 0.0-1.0 NUCLEATED RBC % (test code=NRBC%) 0.0 % 0-0 NEUTROPHIL # (test code=NT#) 5.59 K/mm3 1.8-7.7 IMMATURE GRANULOCYTE # (test code=IG#) 0.16 x10 3/uL 0-0.03 LYMPHOCYTE # (test code=LY#) 1.12 K/mm3 1.0-5.0 MONOCYTE # (test code=MO#) 0.89 K/mm3 0-0.8 EOSINOPHIL # (test code=EO#) 0.23 K/mm3 0.0-0.5 BASOPHIL # (test code=BA#) 0.01 K/mm3 0.0-0.2 NUCLEATED RBC # (test code=NRBC#) 0.00 K/mm3 0.0-0.1 MANUAL DIFF REQUIRED (test code=MDIFF) NO, ONLY SCAN NEEDED DIFFERENTIAL [id number] 05:40:00* Test Item Value Reference Range Comments STAIN ACCEPTABILITY (test code=STN ACCEPTABLE) CABOT RINGS (test code=CAB) MORPHOLOGY COMMENT (test code=MOC) PLATELET ESTIMATE (test code=PLTEST) PLATELET MORPHOLOGY (test code=PLTMORPH) [id number] 05:17:00* Test Item Value Reference Range Comments GLUBED (test code=GLUBED) 202 mg/dL 74-[address] 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 [facility] [id number] 23:43:00* Test Item Value Reference Range Comments GLUBED (test code=GLUBED) 167 mg/dL 74-[address] 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 [facility] [id number] 16:41:00* Test Item Value Reference Range Comments GLUBED (test code=GLUBED) 214 mg/dL 74-[address] 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 [facility] [id number] 06:09:00* Test Item Value Reference Range Comments GLUBED (test code=GLUBED) 216 mg/dL 74-[address] 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 [facility] CBC W/AUTO [id number] 05:23:00* Test Item Value Reference Range Comments WHITE BLOOD CELL (test code=WBC) 8.7 K/mm3 4.5-12.5 RED BLOOD CELL (test code=RBC) 3.09 mill/mm3 3.7-5.2 HEMOGLOBIN (test code=HGB) 8.6 gram/dL 11.5-15.5 HEMATOCRIT (test code=HCT) 29.3 % 36.0-46.0 MEAN CELL VOLUME (test code=MCV) 94.8 fL 80-98 MEAN CELL HGB (test code=MCH) 27.8 picogram 27.0-33.0 MEAN CELL HGB CONCETRATION (test code=MCHC) 29.4 gram/dL 33.0-36.0 RED CELL DISTRIBUTION WIDTH (test code=RDW) 15.8 % 11.6-16.2 RED CELL DISTRIBUTION WIDTH SD (test code=RDW-SD) 52.6 fL 37.0-51.0 PLATELET COUNT (test code=PLT) 87 K/mm3 150-450 RESULT VERIFIED BY REPEAT ANALYSIS MEAN PLATELET VOLUME (test code=MPV) 12.0 fL 6.7-11.0 NEUTROPHIL % (test code=NT%) 68.5 % 39.0-69.0 IMMATURE GRANULOCYTE % (test code=IG%) 3.3 % 0.0-5.0 LYMPHOCYTE % (test code=LY%) 12.8 % 25.0-55.0 MONOCYTE % (test code=MO%) 12.0 % 0.0-10.0 EOSINOPHIL % (test code=EO%) 3.3 % 0.0-5.0 BASOPHIL % (test code=BA%) 0.1 % 0.0-1.0 NUCLEATED RBC % (test code=NRBC%) 0.0 % 0-0 NEUTROPHIL # (test code=NT#) 5.96 K/mm3 1.8-7.7 IMMATURE GRANULOCYTE # (test code=IG#) 0.29 x10 3/uL 0-0.03 LYMPHOCYTE # (test code=LY#) 1.12 K/mm3 1.0-5.0 MONOCYTE # (test code=MO#) 1.05 K/mm3 0-0.8 EOSINOPHIL # (test code=EO#) 0.29 K/mm3 0.0-0.5 BASOPHIL # (test code=BA#) 0.01 K/mm3 0.0-0.2 NUCLEATED RBC # (test code=NRBC#) 0.00 K/mm3 0.0-0.1 MANUAL DIFF REQUIRED (test code=MDIFF) NO, ONLY SCAN NEEDED DIFFERENTIAL [id number] 05:23:00* Test Item Value Reference Range Comments STAIN ACCEPTABILITY (test code=STN ACCEPTABLE) STAIN NOT PERFORMED ANISOCYTOSIS (test code=ANISO) 1+ MACROCYTOSIS (test code=MACR) 1+ PLATELET ESTIMATE (test code=PLTEST) DECREASED PLATELET MORPHOLOGY (test code=PLTMORPH) NORMAL BASIC METABOLIC [id number] 05:10:00* Test Item Value Reference Range Comments SODIUM (test code=NA) 135 mmol/L 136-145 POTASSIUM (test code=K) 4.1 mmol/L 3.5-5.1 CHLORIDE (test code=CL) 102.0 mmol/L 98-107 CARBON DIOXIDE (test code=CO2) 27.0 mmol/L 21-32 ANION GAP (test code=GAP) 10.1 10-20 GLUCOSE (test code=GLU) 166 mg/dL 74-106 BLOOD UREA NITROGEN (test code=BUN) 52 mg/dL 7-18 RESULT VERIFIED BY REPEAT ANALYSIS GLOMERULAR FILTRATION RATE (test code=GFR) 24 mL/min >=60 Estimated GFR by using Modified MDRD formula.Chronic kidney disease is defined as either kidney damageor GFR <60 mL/min/1.73 m2 for >3 months. CREATININE (test code=CREAT) 2.00 mg/dL 0.55-1.02 Note change in reference range due to change in reagent. BUN/CREATININE RATIO (test code=BUN/CREA) 26.0 10-20 CALCIUM (test code=CA) 8.2 mg/dL 8.5-10.1 BASIC METABOLIC [id number] 04:55:00* Test Item Value Reference Range Comments SODIUM (test code=NA) 135 mmol/L 136-145 POTASSIUM (test code=K) 4.1 mmol/L 3.5-5.1 CHLORIDE (test code=CL) 102.0 mmol/L 98-107 CARBON DIOXIDE (test code=CO2) mmol/L 21-32 ANION GAP (test code=GAP) 10-20 GLUCOSE (test code=GLU) mg/dL 74-106 BLOOD UREA NITROGEN (test code=BUN) mg/dL 7-18 GLOMERULAR FILTRATION RATE (test code=GFR) mL/min >=60 CREATININE (test code=CREAT) mg/dL 0.55-1.02 BUN/CREATININE RATIO (test code=BUN/CREA) 10-20 CALCIUM (test code=CA) mg/dL 8.5-10.1 CBC W/AUTO [id number] 04:40:00* Test Item Value Reference Range Comments WHITE BLOOD CELL (test code=WBC) 8.7 K/mm3 4.5-12.5 RED BLOOD CELL (test code=RBC) 3.09 mill/mm3 3.7-5.2 HEMOGLOBIN (test code=HGB) 8.6 gram/dL 11.5-15.5 HEMATOCRIT (test code=HCT) 29.3 % 36.0-46.0 MEAN CELL VOLUME (test code=MCV) 94.8 fL 80-98 MEAN CELL HGB (test code=MCH) 27.8 picogram 27.0-33.0 MEAN CELL HGB CONCETRATION (test code=MCHC) 29.4 gram/dL 33.0-36.0 RED CELL DISTRIBUTION WIDTH (test code=RDW) 15.8 % 11.6-16.2 RED CELL DISTRIBUTION WIDTH SD (test code=RDW-SD) 52.6 fL 37.0-51.0 PLATELET COUNT (test code=PLT) 87 K/mm3 150-450 RESULT VERIFIED BY REPEAT ANALYSIS MEAN PLATELET VOLUME (test code=MPV) 12.0 fL 6.7-11.0 NEUTROPHIL % (test code=NT%) 68.5 % 39.0-69.0 IMMATURE GRANULOCYTE % (test code=IG%) 3.3 % 0.0-5.0 LYMPHOCYTE % (test code=LY%) 12.8 % 25.0-55.0 MONOCYTE % (test code=MO%) 12.0 % 0.0-10.0 EOSINOPHIL % (test code=EO%) 3.3 % 0.0-5.0 BASOPHIL % (test code=BA%) 0.1 % 0.0-1.0 NUCLEATED RBC % (test code=NRBC%) 0.0 % 0-0 NEUTROPHIL # (test code=NT#) 5.96 K/mm3 1.8-7.7 IMMATURE GRANULOCYTE # (test code=IG#) 0.29 x10 3/uL 0-0.03 LYMPHOCYTE # (test code=LY#) 1.12 K/mm3 1.0-5.0 MONOCYTE # (test code=MO#) 1.05 K/mm3 0-0.8 EOSINOPHIL # (test code=EO#) 0.29 K/mm3 0.0-0.5 BASOPHIL # (test code=BA#) 0.01 K/mm3 0.0-0.2 NUCLEATED RBC # (test code=NRBC#) 0.00 K/mm3 0.0-0.1 MANUAL DIFF REQUIRED (test code=MDIFF) NO, ONLY SCAN NEEDED DIFFERENTIAL [id number] 04:40:00* Test Item Value Reference Range Comments STAIN ACCEPTABILITY (test code=STN ACCEPTABLE) MORPHOLOGY COMMENT (test code=MOC) PLATELET ESTIMATE (test code=PLTEST) PLATELET MORPHOLOGY (test code=PLTMORPH) CBC W/AUTO [id number] 04:38:00* Test Item Value Reference Range Comments WHITE BLOOD CELL (test code=WBC) 8.7 K/mm3 4.5-12.5 RED BLOOD CELL (test code=RBC) 3.09 mill/mm3 3.7-5.2 HEMOGLOBIN (test code=HGB) 8.6 gram/dL 11.5-15.5 HEMATOCRIT (test code=HCT) 29.3 % 36.0-46.0 MEAN CELL VOLUME (test code=MCV) 94.8 fL 80-98 MEAN CELL HGB (test code=MCH) 27.8 picogram 27.0-33.0 MEAN CELL HGB CONCETRATION (test code=MCHC) 29.4 gram/dL 33.0-36.0 RED CELL DISTRIBUTION WIDTH (test code=RDW) 15.8 % 11.6-16.2 RED CELL DISTRIBUTION WIDTH SD (test code=RDW-SD) 52.6 fL 37.0-51.0 PLATELET COUNT (test code=PLT) 87 K/mm3 150-450 RESULT VERIFIED BY REPEAT ANALYSIS MEAN PLATELET VOLUME (test code=MPV) 12.0 fL 6.7-11.0 NEUTROPHIL % (test code=NT%) 68.5 % 39.0-69.0 IMMATURE GRANULOCYTE % (test code=IG%) 3.3 % 0.0-5.0 LYMPHOCYTE % (test code=LY%) 12.8 % 25.0-55.0 MONOCYTE % (test code=MO%) 12.0 % 0.0-10.0 EOSINOPHIL % (test code=EO%) 3.3 % 0.0-5.0 BASOPHIL % (test code=BA%) 0.1 % 0.0-1.0 NUCLEATED RBC % (test code=NRBC%) 0.0 % 0-0 NEUTROPHIL # (test code=NT#) 5.96 K/mm3 1.8-7.7 IMMATURE GRANULOCYTE # (test code=IG#) 0.29 x10 3/uL 0-0.03 LYMPHOCYTE # (test code=LY#) 1.12 K/mm3 1.0-5.0 MONOCYTE # (test code=MO#) 1.05 K/mm3 0-0.8 EOSINOPHIL # (test code=EO#) 0.29 K/mm3 0.0-0.5 BASOPHIL # (test code=BA#) 0.01 K/mm3 0.0-0.2 NUCLEATED RBC # (test code=NRBC#) 0.00 K/mm3 0.0-0.1 MANUAL DIFF REQUIRED (test code=MDIFF) NO, ONLY SCAN NEEDED DIFFERENTIAL [id number] 04:38:00* Test Item Value Reference Range Comments STAIN ACCEPTABILITY (test code=STN ACCEPTABLE) CABOT RINGS (test code=CAB) MORPHOLOGY COMMENT (test code=MOC) PLATELET ESTIMATE (test code=PLTEST) PLATELET MORPHOLOGY (test code=PLTMORPH) CBC W/AUTO [id number] 04:38:00* Test Item Value Reference Range Comments WHITE BLOOD CELL (test code=WBC) 8.7 K/mm3 4.5-12.5 RED BLOOD CELL (test code=RBC) 3.09 mill/mm3 3.7-5.2 HEMOGLOBIN (test code=HGB) 8.6 gram/dL 11.5-15.5 HEMATOCRIT (test code=HCT) 29.3 % 36.0-46.0 MEAN CELL VOLUME (test code=MCV) 94.8 fL 80-98 MEAN CELL HGB (test code=MCH) 27.8 picogram 27.0-33.0 MEAN CELL HGB CONCETRATION (test code=MCHC) 29.4 gram/dL 33.0-36.0 RED CELL DISTRIBUTION WIDTH (test code=RDW) 15.8 % 11.6-16.2 RED CELL DISTRIBUTION WIDTH SD (test code=RDW-SD) 52.6 fL 37.0-51.0 PLATELET COUNT (test code=PLT) 87 K/mm3 150-450 RESULT VERIFIED BY REPEAT ANALYSIS MEAN PLATELET VOLUME (test code=MPV) 12.0 fL 6.7-11.0 NEUTROPHIL % (test code=NT%) 68.5 % 39.0-69.0 IMMATURE GRANULOCYTE % (test code=IG%) 3.3 % 0.0-5.0 LYMPHOCYTE % (test code=LY%) 12.8 % 25.0-55.0 MONOCYTE % (test code=MO%) 12.0 % 0.0-10.0 EOSINOPHIL % (test code=EO%) 3.3 % 0.0-5.0 BASOPHIL % (test code=BA%) 0.1 % 0.0-1.0 NUCLEATED RBC % (test code=NRBC%) 0.0 % 0-0 NEUTROPHIL # (test code=NT#) 5.96 K/mm3 1.8-7.7 IMMATURE GRANULOCYTE # (test code=IG#) 0.29 x10 3/uL 0-0.03 LYMPHOCYTE # (test code=LY#) 1.12 K/mm3 1.0-5.0 MONOCYTE # (test code=MO#) 1.05 K/mm3 0-0.8 EOSINOPHIL # (test code=EO#) 0.29 K/mm3 0.0-0.5 BASOPHIL # (test code=BA#) 0.01 K/mm3 0.0-0.2 NUCLEATED RBC # (test code=NRBC#) 0.00 K/mm3 0.0-0.1 MANUAL DIFF REQUIRED (test code=MDIFF) NO, ONLY SCAN NEEDED DIFFERENTIAL [id number] 04:38:00* Test Item Value Reference Range Comments STAIN ACCEPTABILITY (test code=STN ACCEPTABLE) MORPHOLOGY COMMENT (test code=MOC) PLATELET ESTIMATE (test code=PLTEST) PLATELET MORPHOLOGY (test code=PLTMORPH) CBC W/AUTO [id number] 04:38:00* Test Item Value Reference Range Comments WHITE BLOOD CELL (test code=WBC) 8.7 K/mm3 4.5-12.5 RED BLOOD CELL (test code=RBC) 3.09 mill/mm3 3.7-5.2 HEMOGLOBIN (test code=HGB) 8.6 gram/dL 11.5-15.5 HEMATOCRIT (test code=HCT) 29.3 % 36.0-46.0 MEAN CELL VOLUME (test code=MCV) 94.8 fL 80-98 MEAN CELL HGB (test code=MCH) 27.8 picogram 27.0-33.0 MEAN CELL HGB CONCETRATION (test code=MCHC) 29.4 gram/dL 33.0-36.0 RED CELL DISTRIBUTION WIDTH (test code=RDW) 15.8 % 11.6-16.2 RED CELL DISTRIBUTION WIDTH SD (test code=RDW-SD) 52.6 fL 37.0-51.0 PLATELET COUNT (test code=PLT) 87 K/mm3 150-450 RESULT VERIFIED BY REPEAT ANALYSIS MEAN PLATELET VOLUME (test code=MPV) 12.0 fL 6.7-11.0 NEUTROPHIL % (test code=NT%) 68.5 % 39.0-69.0 IMMATURE GRANULOCYTE % (test code=IG%) 3.3 % 0.0-5.0 LYMPHOCYTE % (test code=LY%) 12.8 % 25.0-55.0 MONOCYTE % (test code=MO%) 12.0 % 0.0-10.0 EOSINOPHIL % (test code=EO%) 3.3 % 0.0-5.0 BASOPHIL % (test code=BA%) 0.1 % 0.0-1.0 NUCLEATED RBC % (test code=NRBC%) 0.0 % 0-0 NEUTROPHIL # (test code=NT#) 5.96 K/mm3 1.8-7.7 IMMATURE GRANULOCYTE # (test code=IG#) 0.29 x10 3/uL 0-0.03 LYMPHOCYTE # (test code=LY#) 1.12 K/mm3 1.0-5.0 MONOCYTE # (test code=MO#) 1.05 K/mm3 0-0.8 EOSINOPHIL # (test code=EO#) 0.29 K/mm3 0.0-0.5 BASOPHIL # (test code=BA#) 0.01 K/mm3 0.0-0.2 NUCLEATED RBC # (test code=NRBC#) 0.00 K/mm3 0.0-0.1 MANUAL DIFF REQUIRED (test code=MDIFF) NO, ONLY SCAN NEEDED DIFFERENTIAL [id number] 04:38:00* Test Item Value Reference Range Comments STAIN ACCEPTABILITY (test code=STN ACCEPTABLE) CABOT RINGS (test code=CAB) MORPHOLOGY COMMENT (test code=MOC) PLATELET ESTIMATE (test code=PLTEST) PLATELET MORPHOLOGY (test code=PLTMORPH) [id number] 21:37:00* Test Item Value Reference Range Comments GLUBED (test code=GLUBED) 224 mg/dL 74-[address] 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 [facility] [id number] 19:17:00* Test Item Value Reference Range Comments GLUBED (test code=GLUBED) 253 mg/dL 74-[address] 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 [facility] [id number] 19:17:00* Test Item Value Reference Range Comments GLUBED (test code=GLUBED) 256 mg/dL 74-[address] 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 [facility] [id number] 12:49:00* Test Item Value Reference Range Comments GLUBED (test code=GLUBED) 235 mg/dL 74-[address] 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 [facility] BASIC METABOLIC [id number] 10:05:00* Test Item Value Reference Range Comments SODIUM (test code=NA) 136 mmol/L 136-145 POTASSIUM (test code=K) 4.0 mmol/L 3.5-5.1 CHLORIDE (test code=CL) 102.0 mmol/L 98-107 CARBON DIOXIDE (test code=CO2) 29.0 mmol/L 21-32 ANION GAP (test code=GAP) 9.0 10-20 GLUCOSE (test code=GLU) 310 mg/dL 74-106 BLOOD UREA NITROGEN (test code=BUN) 42 mg/dL 7-18 GLOMERULAR FILTRATION RATE (test code=GFR) 29 mL/min >=60 Estimated GFR by using Modified MDRD formula.Chronic kidney disease is defined as either kidney damageor GFR <60 mL/min/1.73 m2 for >3 months. CREATININE (test code=CREAT) 1.70 mg/dL 0.55-1.02 Note change in reference range due to change in reagent. BUN/CREATININE RATIO (test code=BUN/CREA) 24.7 10-20 CALCIUM (test code=CA) 8.0 mg/dL 8.5-10.1 BASIC METABOLIC [id number] 10:02:00* Test Item Value Reference Range Comments SODIUM (test code=NA) 136 mmol/L 136-145 POTASSIUM (test code=K) 4.0 mmol/L 3.5-5.1 CHLORIDE (test code=CL) 102.0 mmol/L 98-107 CARBON DIOXIDE (test code=CO2) mmol/L 21-32 ANION GAP (test code=GAP) 10-20 GLUCOSE (test code=GLU) mg/dL 74-106 BLOOD UREA NITROGEN (test code=BUN) mg/dL 7-18 GLOMERULAR FILTRATION RATE (test code=GFR) mL/min >=60 CREATININE (test code=CREAT) mg/dL 0.55-1.02 BUN/CREATININE RATIO (test code=BUN/CREA) 10-20 CALCIUM (test code=CA) 8.0 mg/dL 8.5-10.1 CBC W/AUTO [id number] 09:48:00* Test Item Value Reference Range Comments WHITE BLOOD CELL (test code=WBC) 7.1 K/mm3 4.5-12.5 RED BLOOD CELL (test code=RBC) 2.86 mill/mm3 3.7-5.2 HEMOGLOBIN (test code=HGB) 8.1 gram/dL 11.5-15.5 HEMATOCRIT (test code=HCT) 27.0 % 36.0-46.0 MEAN CELL VOLUME (test code=MCV) 94.4 fL 80-98 MEAN CELL HGB (test code=MCH) 28.3 picogram 27.0-33.0 MEAN CELL HGB CONCETRATION (test code=MCHC) 30.0 gram/dL 33.0-36.0 RED CELL DISTRIBUTION WIDTH (test code=RDW) 15.9 % 11.6-16.2 RED CELL DISTRIBUTION WIDTH SD (test code=RDW-SD) 52.6 fL 37.0-51.0 PLATELET COUNT (test code=PLT) 60 K/mm3 150-450 MEAN PLATELET VOLUME (test code=MPV) 12.0 fL 6.7-11.0 NEUTROPHIL % (test code=NT%) 75.4 % 39.0-69.0 IMMATURE GRANULOCYTE % (test code=IG%) 2.0 % 0.0-5.0 LYMPHOCYTE % (test code=LY%) 10.6 % 25.0-55.0 MONOCYTE % (test code=MO%) 9.9 % 0.0-10.0 EOSINOPHIL % (test code=EO%) 2.0 % 0.0-5.0 BASOPHIL % (test code=BA%) 0.1 % 0.0-1.0 NUCLEATED RBC % (test code=NRBC%) 0.0 % 0-0 NEUTROPHIL # (test code=NT#) 5.31 K/mm3 1.8-7.7 IMMATURE GRANULOCYTE # (test code=IG#) 0.14 x10 3/uL 0-0.03 LYMPHOCYTE # (test code=LY#) 0.75 K/mm3 1.0-5.0 MONOCYTE # (test code=MO#) 0.70 K/mm3 0-0.8 EOSINOPHIL # (test code=EO#) 0.14 K/mm3 0.0-0.5 BASOPHIL # (test code=BA#) 0.01 K/mm3 0.0-0.2 NUCLEATED RBC # (test code=NRBC#) 0.00 K/mm3 0.0-0.1 MANUAL DIFF REQUIRED (test code=MDIFF) NO [id number] 06:01:00* Test Item Value Reference Range Comments GLUBED (test code=GLUBED) 217 mg/dL 74-[address] 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 [facility] [id number] 21:42:00* Test Item Value Reference Range Comments GLUBED (test code=GLUBED) 196 mg/dL 74-[address] 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 [facility] [id number] 16:46:00* Test Item Value Reference Range Comments GLUBED (test code=GLUBED) 225 mg/dL 74-[address] 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 [facility] VANCOMYCIN [id number] 15:12:00* Test Item Value Reference Range Comments VANCOMYCIN TROUGH (test code=VANCT) 3.3 ug/mL 10-20 [id number] 06:56:00* Test Item Value Reference Range Comments GLUBED (test code=GLUBED) 265 mg/dL 74-[address] 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 [facility] CBC W/AUTO [id number] 05:22:00* Test Item Value Reference Range Comments WHITE BLOOD CELL (test code=WBC) 11.3 K/mm3 4.5-12.5 RED BLOOD CELL (test code=RBC) 3.29 mill/mm3 3.7-5.2 HEMOGLOBIN (test code=HGB) 9.2 gram/dL 11.5-15.5 HEMATOCRIT (test code=HCT) 30.3 % 36.0-46.0 MEAN CELL VOLUME (test code=MCV) 92.1 fL 80-98 MEAN CELL HGB (test code=MCH) 28.0 picogram 27.0-33.0 MEAN CELL HGB CONCETRATION (test code=MCHC) 30.4 gram/dL 33.0-36.0 RED CELL DISTRIBUTION WIDTH (test code=RDW) 15.2 % 11.6-16.2 RED CELL DISTRIBUTION WIDTH SD (test code=RDW-SD) 49.1 fL 37.0-51.0 PLATELET COUNT (test code=PLT) 59 K/mm3 150-450 MEAN PLATELET VOLUME (test code=MPV) 11.5 fL 6.7-11.0 NEUTROPHIL % (test code=NT%) 75.6 % 39.0-69.0 IMMATURE GRANULOCYTE % (test code=IG%) 4.0 % 0.0-5.0 LYMPHOCYTE % (test code=LY%) 10.2 % 25.0-55.0 MONOCYTE % (test code=MO%) 9.3 % 0.0-10.0 EOSINOPHIL % (test code=EO%) 0.5 % 0.0-5.0 BASOPHIL % (test code=BA%) 0.4 % 0.0-1.0 NUCLEATED RBC % (test code=NRBC%) 0.3 % 0-0 NEUTROPHIL # (test code=NT#) 8.58 K/mm3 1.8-7.7 IMMATURE GRANULOCYTE # (test code=IG#) 0.45 x10 3/uL 0-0.03 LYMPHOCYTE # (test code=LY#) 1.15 K/mm3 1.0-5.0 MONOCYTE # (test code=MO#) 1.05 K/mm3 0-0.8 EOSINOPHIL # (test code=EO#) 0.06 K/mm3 0.0-0.5 BASOPHIL # (test code=BA#) 0.04 K/mm3 0.0-0.2 NUCLEATED RBC # (test code=NRBC#) 0.03 K/mm3 0.0-0.1 MANUAL DIFF REQUIRED (test code=MDIFF) NO, ONLY SCAN NEEDED DIFFERENTIAL [id number] 05:22:00* Test Item Value Reference Range Comments STAIN ACCEPTABILITY (test code=STN ACCEPTABLE) STAIN ACCEPTABLE PLATELET ESTIMATE (test code=PLTEST) DECREASED PLATELET MORPHOLOGY (test code=PLTMORPH) NORMAL COMPREHENSIVE METABOLIC [id number] 05:21:00* Test Item Value Reference Range Comments SODIUM (test code=NA) 137 mmol/L 136-145 POTASSIUM (test code=K) 4.2 mmol/L 3.5-5.1 CHLORIDE (test code=CL) 103.0 mmol/L 98-107 CARBON DIOXIDE (test code=CO2) 26.0 mmol/L 21-32 ANION GAP (test code=GAP) 12.2 10-20 GLUCOSE (test code=GLU) 225 mg/dL 74-106 BLOOD UREA NITROGEN (test code=BUN) 61 mg/dL 7-18 GLOMERULAR FILTRATION RATE (test code=GFR) 24 mL/min >=60 Estimated GFR by using Modified MDRD formula.Chronic kidney disease is defined as either kidney damageor GFR <60 mL/min/1.73 m2 for >3 months. CREATININE (test code=CREAT) 2.00 mg/dL 0.55-1.02 Note change in reference range due to change in reagent. BUN/CREATININE RATIO (test code=BUN/CREA) 31.1 10-20 TOTAL PROTEIN (test code=PROT) 5.9 gram/dL 6.4-8.2 ALBUMIN (test code=ALB) 2.7 g/dL 3.4-5.0 GLOBULIN (test code=GLOB) 3.2 gram/dL 2.7-4.2 ALBUMIN/GLOBULIN RATIO (test code=A/G) 0.8 0.75-1.50 CALCIUM (test code=CA) 8.2 mg/dL 8.5-10.1 BILIRUBIN TOTAL (test code=BILT) 1.90 mg/dL 0.0-1.0 SGOT/AST (test code=AST) 74 IUnit/L 15-37 SGPT/ALT (test code=ALT) 299 IUnit/L 12-78 ALKALINE PHOSPHATASE TOTAL (test code=ALKP) 78 IUnit/L 45-117 Note change in reference range due to change in reagent. COMPREHENSIVE METABOLIC [id number] 05:08:00* Test Item Value Reference Range Comments SODIUM (test code=NA) 137 mmol/L 136-145 POTASSIUM (test code=K) 4.2 mmol/L 3.5-5.1 CHLORIDE (test code=CL) 103.0 mmol/L 98-107 CARBON DIOXIDE (test code=CO2) mmol/L 21-32 ANION GAP (test code=GAP) 10-20 GLUCOSE (test code=GLU) mg/dL 74-106 BLOOD UREA NITROGEN (test code=BUN) mg/dL 7-18 GLOMERULAR FILTRATION RATE (test code=GFR) mL/min >=60 CREATININE (test code=CREAT) mg/dL 0.55-1.02 BUN/CREATININE RATIO (test code=BUN/CREA) 10-20 TOTAL PROTEIN (test code=PROT) gram/dL 6.4-8.2 ALBUMIN (test code=ALB) g/dL 3.4-5.0 GLOBULIN (test code=GLOB) gram/dL 2.7-4.2 ALBUMIN/GLOBULIN RATIO (test code=A/G) 0.75-1.50 CALCIUM (test code=CA) mg/dL 8.5-10.1 BILIRUBIN TOTAL (test code=BILT) mg/dL 0.0-1.0 SGOT/AST (test code=AST) IUnit/L 15-37 SGPT/ALT (test code=ALT) IUnit/L 12-78 ALKALINE PHOSPHATASE TOTAL (test code=ALKP) IUnit/L 45-117 CBC W/AUTO [id number] 04:44:00* Test Item Value Reference Range Comments WHITE BLOOD CELL (test code=WBC) 11.3 K/mm3 4.5-12.5 RED BLOOD CELL (test code=RBC) 3.29 mill/mm3 3.7-5.2 HEMOGLOBIN (test code=HGB) 9.2 gram/dL 11.5-15.5 HEMATOCRIT (test code=HCT) 30.3 % 36.0-46.0 MEAN CELL VOLUME (test code=MCV) 92.1 fL 80-98 MEAN CELL HGB (test code=MCH) 28.0 picogram 27.0-33.0 MEAN CELL HGB CONCETRATION (test code=MCHC) 30.4 gram/dL 33.0-36.0 RED CELL DISTRIBUTION WIDTH (test code=RDW) 15.2 % 11.6-16.2 RED CELL DISTRIBUTION WIDTH SD (test code=RDW-SD) 49.1 fL 37.0-51.0 PLATELET COUNT (test code=PLT) 59 K/mm3 150-450 MEAN PLATELET VOLUME (test code=MPV) 11.5 fL 6.7-11.0 NEUTROPHIL % (test code=NT%) 75.6 % 39.0-69.0 IMMATURE GRANULOCYTE % (test code=IG%) 4.0 % 0.0-5.0 LYMPHOCYTE % (test code=LY%) 10.2 % 25.0-55.0 MONOCYTE % (test code=MO%) 9.3 % 0.0-10.0 EOSINOPHIL % (test code=EO%) 0.5 % 0.0-5.0 BASOPHIL % (test code=BA%) 0.4 % 0.0-1.0 NUCLEATED RBC % (test code=NRBC%) 0.3 % 0-0 NEUTROPHIL # (test code=NT#) 8.58 K/mm3 1.8-7.7 IMMATURE GRANULOCYTE # (test code=IG#) 0.45 x10 3/uL 0-0.03 LYMPHOCYTE # (test code=LY#) 1.15 K/mm3 1.0-5.0 MONOCYTE # (test code=MO#) 1.05 K/mm3 0-0.8 EOSINOPHIL # (test code=EO#) 0.06 K/mm3 0.0-0.5 BASOPHIL # (test code=BA#) 0.04 K/mm3 0.0-0.2 NUCLEATED RBC # (test code=NRBC#) 0.03 K/mm3 0.0-0.1 MANUAL DIFF REQUIRED (test code=MDIFF) NO, ONLY SCAN NEEDED DIFFERENTIAL [id number] 04:44:00* Test Item Value Reference Range Comments STAIN ACCEPTABILITY (test code=STN ACCEPTABLE) CABOT RINGS (test code=CAB) MORPHOLOGY COMMENT (test code=MOC) PLATELET ESTIMATE (test code=PLTEST) PLATELET MORPHOLOGY (test code=PLTMORPH) CBC W/AUTO [id number] 04:44:00* Test Item Value Reference Range Comments WHITE BLOOD CELL (test code=WBC) 11.3 K/mm3 4.5-12.5 RED BLOOD CELL (test code=RBC) 3.29 mill/mm3 3.7-5.2 HEMOGLOBIN (test code=HGB) 9.2 gram/dL 11.5-15.5 HEMATOCRIT (test code=HCT) 30.3 % 36.0-46.0 MEAN CELL VOLUME (test code=MCV) 92.1 fL 80-98 MEAN CELL HGB (test code=MCH) 28.0 picogram 27.0-33.0 MEAN CELL HGB CONCETRATION (test code=MCHC) 30.4 gram/dL 33.0-36.0 RED CELL DISTRIBUTION WIDTH (test code=RDW) 15.2 % 11.6-16.2 RED CELL DISTRIBUTION WIDTH SD (test code=RDW-SD) 49.1 fL 37.0-51.0 PLATELET COUNT (test code=PLT) 59 K/mm3 150-450 MEAN PLATELET VOLUME (test code=MPV) 11.5 fL 6.7-11.0 NEUTROPHIL % (test code=NT%) 75.6 % 39.0-69.0 IMMATURE GRANULOCYTE % (test code=IG%) 4.0 % 0.0-5.0 LYMPHOCYTE % (test code=LY%) 10.2 % 25.0-55.0 MONOCYTE % (test code=MO%) 9.3 % 0.0-10.0 EOSINOPHIL % (test code=EO%) 0.5 % 0.0-5.0 BASOPHIL % (test code=BA%) 0.4 % 0.0-1.0 NUCLEATED RBC % (test code=NRBC%) 0.3 % 0-0 NEUTROPHIL # (test code=NT#) 8.58 K/mm3 1.8-7.7 IMMATURE GRANULOCYTE # (test code=IG#) 0.45 x10 3/uL 0-0.03 LYMPHOCYTE # (test code=LY#) 1.15 K/mm3 1.0-5.0 MONOCYTE # (test code=MO#) 1.05 K/mm3 0-0.8 EOSINOPHIL # (test code=EO#) 0.06 K/mm3 0.0-0.5 BASOPHIL # (test code=BA#) 0.04 K/mm3 0.0-0.2 NUCLEATED RBC # (test code=NRBC#) 0.03 K/mm3 0.0-0.1 MANUAL DIFF REQUIRED (test code=MDIFF) NO, ONLY SCAN NEEDED DIFFERENTIAL [id number] 04:44:00* Test Item Value Reference Range Comments STAIN ACCEPTABILITY (test code=STN ACCEPTABLE) CABOT RINGS (test code=CAB) MORPHOLOGY COMMENT (test code=MOC) PLATELET ESTIMATE (test code=PLTEST) PLATELET MORPHOLOGY (test code=PLTMORPH) CBC W/AUTO [id number] 04:44:00* Test Item Value Reference Range Comments WHITE BLOOD CELL (test code=WBC) 11.3 K/mm3 4.5-12.5 RED BLOOD CELL (test code=RBC) 3.29 mill/mm3 3.7-5.2 HEMOGLOBIN (test code=HGB) 9.2 gram/dL 11.5-15.5 HEMATOCRIT (test code=HCT) 30.3 % 36.0-46.0 MEAN CELL VOLUME (test code=MCV) 92.1 fL 80-98 MEAN CELL HGB (test code=MCH) 28.0 picogram 27.0-33.0 MEAN CELL HGB CONCETRATION (test code=MCHC) 30.4 gram/dL 33.0-36.0 RED CELL DISTRIBUTION WIDTH (test code=RDW) 15.2 % 11.6-16.2 RED CELL DISTRIBUTION WIDTH SD (test code=RDW-SD) 49.1 fL 37.0-51.0 PLATELET COUNT (test code=PLT) 59 K/mm3 150-450 MEAN PLATELET VOLUME (test code=MPV) 11.5 fL 6.7-11.0 NEUTROPHIL % (test code=NT%) 75.6 % 39.0-69.0 IMMATURE GRANULOCYTE % (test code=IG%) 4.0 % 0.0-5.0 LYMPHOCYTE % (test code=LY%) 10.2 % 25.0-55.0 MONOCYTE % (test code=MO%) 9.3 % 0.0-10.0 EOSINOPHIL % (test code=EO%) 0.5 % 0.0-5.0 BASOPHIL % (test code=BA%) 0.4 % 0.0-1.0 NUCLEATED RBC % (test code=NRBC%) 0.3 % 0-0 NEUTROPHIL # (test code=NT#) 8.58 K/mm3 1.8-7.7 IMMATURE GRANULOCYTE # (test code=IG#) 0.45 x10 3/uL 0-0.03 LYMPHOCYTE # (test code=LY#) 1.15 K/mm3 1.0-5.0 MONOCYTE # (test code=MO#) 1.05 K/mm3 0-0.8 EOSINOPHIL # (test code=EO#) 0.06 K/mm3 0.0-0.5 BASOPHIL # (test code=BA#) 0.04 K/mm3 0.0-0.2 NUCLEATED RBC # (test code=NRBC#) 0.03 K/mm3 0.0-0.1 MANUAL DIFF REQUIRED (test code=MDIFF) NO, ONLY SCAN NEEDED DIFFERENTIAL [id number] 04:44:00* Test Item Value Reference Range Comments STAIN ACCEPTABILITY (test code=STN ACCEPTABLE) MORPHOLOGY COMMENT (test code=MOC) PLATELET ESTIMATE (test code=PLTEST) PLATELET MORPHOLOGY (test code=PLTMORPH) CBC W/AUTO [id number] 04:44:00* Test Item Value Reference Range Comments WHITE BLOOD CELL (test code=WBC) 11.3 K/mm3 4.5-12.5 RED BLOOD CELL (test code=RBC) 3.29 mill/mm3 3.7-5.2 HEMOGLOBIN (test code=HGB) 9.2 gram/dL 11.5-15.5 HEMATOCRIT (test code=HCT) 30.3 % 36.0-46.0 MEAN CELL VOLUME (test code=MCV) 92.1 fL 80-98 MEAN CELL HGB (test code=MCH) 28.0 picogram 27.0-33.0 MEAN CELL HGB CONCETRATION (test code=MCHC) 30.4 gram/dL 33.0-36.0 RED CELL DISTRIBUTION WIDTH (test code=RDW) 15.2 % 11.6-16.2 RED CELL DISTRIBUTION WIDTH SD (test code=RDW-SD) 49.1 fL 37.0-51.0 PLATELET COUNT (test code=PLT) 59 K/mm3 150-450 MEAN PLATELET VOLUME (test code=MPV) 11.5 fL 6.7-11.0 NEUTROPHIL % (test code=NT%) 75.6 % 39.0-69.0 IMMATURE GRANULOCYTE % (test code=IG%) 4.0 % 0.0-5.0 LYMPHOCYTE % (test code=LY%) 10.2 % 25.0-55.0 MONOCYTE % (test code=MO%) 9.3 % 0.0-10.0 EOSINOPHIL % (test code=EO%) 0.5 % 0.0-5.0 BASOPHIL % (test code=BA%) 0.4 % 0.0-1.0 NUCLEATED RBC % (test code=NRBC%) 0.3 % 0-0 NEUTROPHIL # (test code=NT#) 8.58 K/mm3 1.8-7.7 IMMATURE GRANULOCYTE # (test code=IG#) 0.45 x10 3/uL 0-0.03 LYMPHOCYTE # (test code=LY#) 1.15 K/mm3 1.0-5.0 MONOCYTE # (test code=MO#) 1.05 K/mm3 0-0.8 EOSINOPHIL # (test code=EO#) 0.06 K/mm3 0.0-0.5 BASOPHIL # (test code=BA#) 0.04 K/mm3 0.0-0.2 NUCLEATED RBC # (test code=NRBC#) 0.03 K/mm3 0.0-0.1 MANUAL DIFF REQUIRED (test code=MDIFF) NO, ONLY SCAN NEEDED DIFFERENTIAL [id number] 04:44:00* Test Item Value Reference Range Comments STAIN ACCEPTABILITY (test code=STN ACCEPTABLE) CABOT RINGS (test code=CAB) MORPHOLOGY COMMENT (test code=MOC) PLATELET ESTIMATE (test code=PLTEST) PLATELET MORPHOLOGY (test code=PLTMORPH) [id number] 20:26:00* Test Item Value Reference Range Comments GLUBED (test code=GLUBED) 184 mg/dL 74-[address] 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 [facility] [id number] 18:28:00* Test Item Value Reference Range Comments GLUBED (test code=GLUBED) 229 mg/dL 74-[address] 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 [facility] [id number] 12:39:00* Test Item Value Reference Range Comments GLUBED (test code=GLUBED) 199 mg/dL 74-[address] 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 [facility] - XR CHEST 1 [id number] 08:12:00 FAX: Lucero Webb MD [place]: [address] St: ADM FAX: Eb Mckeon MD [phone] FAX: Miki Aldrich MD [phone] Name: NEREIDA CHANG [facility] : 1940 Age/S: 78/F [address] [facility] Unit #: [id number] Loc: V [place] [address] Phys: Lucero Webb MD Acct: [id number] Dis Date: Status: ADM IN ONE #: [phone] Exam Date: 11/09/2018 0735 FAX #: [phone] Reason: NEW CONSOLIDATION EXAMS: CPT CODE: [id number] XR CHEST 1 V 10980 CLINICAL HISTO RY: NEW CONSOLIDATION TECHNIQUE: AP chest x-ray COMP ARISON: Previous day. IMPRESSION: Partial reso lution of right lung consolidation. No pleural effusion. Cardiomegaly. A therosclerotic vascular calcification of the thoracic aorta. Left centra l venous catheter. at 0812 Reported and signed by: Comfort Chan D.O. CC: Lucero Webb MD; Eb Mckeon MD; Miki Hathaway MD Technologist: SANYA RODRIGUEZ RT (R); RADHA TAVERAS RT(R) Trnokrd Date/Time/By: 11/09/2018 (0812) : By: [email or web address] Orig Print D/T : S: 11/09/2018 (0815) PAGE 1 Sig gisella Report [id number] 07:34:00* Test Item Value Reference Range Comments GLUBED (test code=GLUBED) 246 mg/dL 74-[address] 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 [facility] OSMOLALITY [id number] 06:44:00* Test Item Value Reference Range Comments OSMOLALITY SERUM (test code=OSMO) 306 mOsm/kg 275-295 CBC W/AUTO [id number] 06:16:00* Test Item Value Reference Range Comments WHITE BLOOD CELL (test code=WBC) 17.4 K/mm3 4.5-12.5 RED BLOOD CELL (test code=RBC) 3.47 mill/mm3 3.7-5.2 HEMOGLOBIN (test code=HGB) 9.8 gram/dL 11.5-15.5 HEMATOCRIT (test code=HCT) 32.0 % 36.0-46.0 MEAN CELL VOLUME (test code=MCV) 92.2 fL 80-98 MEAN CELL HGB (test code=MCH) 28.2 picogram 27.0-33.0 MEAN CELL HGB CONCETRATION (test code=MCHC) 30.6 gram/dL 33.0-36.0 RED CELL DISTRIBUTION WIDTH (test code=RDW) 15.1 % 11.6-16.2 RED CELL DISTRIBUTION WIDTH SD (test code=RDW-SD) 49.4 fL 37.0-51.0 PLATELET COUNT (test code=PLT) 64 K/mm3 150-450 MEAN PLATELET VOLUME (test code=MPV) 11.4 fL 6.7-11.0 NEUTROPHIL % (test code=NT%) 79.3 % 39.0-69.0 IMMATURE GRANULOCYTE % (test code=IG%) 4.8 % 0.0-5.0 LYMPHOCYTE % (test code=LY%) 8.6 % 25.0-55.0 MONOCYTE % (test code=MO%) 6.9 % 0.0-10.0 EOSINOPHIL % (test code=EO%) 0.1 % 0.0-5.0 BASOPHIL % (test code=BA%) 0.3 % 0.0-1.0 NUCLEATED RBC % (test code=NRBC%) 0.9 % 0-0 NEUTROPHIL # (test code=NT#) 13.78 K/mm3 1.8-7.7 IMMATURE GRANULOCYTE # (test code=IG#) 0.83 x10 3/uL 0-0.03 LYMPHOCYTE # (test code=LY#) 1.49 K/mm3 1.0-5.0 MONOCYTE # (test code=MO#) 1.19 K/mm3 0-0.8 EOSINOPHIL # (test code=EO#) 0.01 K/mm3 0.0-0.5 BASOPHIL # (test code=BA#) 0.06 K/mm3 0.0-0.2 NUCLEATED RBC # (test code=NRBC#) 0.15 K/mm3 0.0-0.1 MANUAL DIFF REQUIRED (test code=MDIFF) NO, ONLY SCAN NEEDED DIFFERENTIAL [id number] 06:16:00* Test Item Value Reference Range Comments STAIN ACCEPTABILITY (test code=STN ACCEPTABLE) STAIN ACCEPTABLE PLATELET ESTIMATE (test code=PLTEST) DECREASED PLATELET MORPHOLOGY (test code=PLTMORPH) NORMAL CBC W/AUTO [id number] 05:47:00* Test Item Value Reference Range Comments WHITE BLOOD CELL (test code=WBC) 17.4 K/mm3 4.5-12.5 RED BLOOD CELL (test code=RBC) 3.47 mill/mm3 3.7-5.2 HEMOGLOBIN (test code=HGB) 9.8 gram/dL 11.5-15.5 HEMATOCRIT (test code=HCT) 32.0 % 36.0-46.0 MEAN CELL VOLUME (test code=MCV) 92.2 fL 80-98 MEAN CELL HGB (test code=MCH) 28.2 picogram 27.0-33.0 MEAN CELL HGB CONCETRATION (test code=MCHC) 30.6 gram/dL 33.0-36.0 RED CELL DISTRIBUTION WIDTH (test code=RDW) 15.1 % 11.6-16.2 RED CELL DISTRIBUTION WIDTH SD (test code=RDW-SD) 49.4 fL 37.0-51.0 PLATELET COUNT (test code=PLT) 64 K/mm3 150-450 MEAN PLATELET VOLUME (test code=MPV) 11.4 fL 6.7-11.0 NEUTROPHIL % (test code=NT%) 79.3 % 39.0-69.0 IMMATURE GRANULOCYTE % (test code=IG%) 4.8 % 0.0-5.0 LYMPHOCYTE % (test code=LY%) 8.6 % 25.0-55.0 MONOCYTE % (test code=MO%) 6.9 % 0.0-10.0 EOSINOPHIL % (test code=EO%) 0.1 % 0.0-5.0 BASOPHIL % (test code=BA%) 0.3 % 0.0-1.0 NUCLEATED RBC % (test code=NRBC%) 0.9 % 0-0 NEUTROPHIL # (test code=NT#) 13.78 K/mm3 1.8-7.7 IMMATURE GRANULOCYTE # (test code=IG#) 0.83 x10 3/uL 0-0.03 LYMPHOCYTE # (test code=LY#) 1.49 K/mm3 1.0-5.0 MONOCYTE # (test code=MO#) 1.19 K/mm3 0-0.8 EOSINOPHIL # (test code=EO#) 0.01 K/mm3 0.0-0.5 BASOPHIL # (test code=BA#) 0.06 K/mm3 0.0-0.2 NUCLEATED RBC # (test code=NRBC#) 0.15 K/mm3 0.0-0.1 MANUAL DIFF REQUIRED (test code=MDIFF) NO, ONLY SCAN NEEDED DIFFERENTIAL [id number] 05:47:00* Test Item Value Reference Range Comments STAIN ACCEPTABILITY (test code=STN ACCEPTABLE) CABOT RINGS (test code=CAB) MORPHOLOGY COMMENT (test code=MOC) PLATELET ESTIMATE (test code=PLTEST) PLATELET MORPHOLOGY (test code=PLTMORPH) CBC W/AUTO [id number] 05:47:00* Test Item Value Reference Range Comments WHITE BLOOD CELL (test code=WBC) 17.4 K/mm3 4.5-12.5 RED BLOOD CELL (test code=RBC) 3.47 mill/mm3 3.7-5.2 HEMOGLOBIN (test code=HGB) 9.8 gram/dL 11.5-15.5 HEMATOCRIT (test code=HCT) 32.0 % 36.0-46.0 MEAN CELL VOLUME (test code=MCV) 92.2 fL 80-98 MEAN CELL HGB (test code=MCH) 28.2 picogram 27.0-33.0 MEAN CELL HGB CONCETRATION (test code=MCHC) 30.6 gram/dL 33.0-36.0 RED CELL DISTRIBUTION WIDTH (test code=RDW) 15.1 % 11.6-16.2 RED CELL DISTRIBUTION WIDTH SD (test code=RDW-SD) 49.4 fL 37.0-51.0 PLATELET COUNT (test code=PLT) 64 K/mm3 150-450 MEAN PLATELET VOLUME (test code=MPV) 11.4 fL 6.7-11.0 NEUTROPHIL % (test code=NT%) 79.3 % 39.0-69.0 IMMATURE GRANULOCYTE % (test code=IG%) 4.8 % 0.0-5.0 LYMPHOCYTE % (test code=LY%) 8.6 % 25.0-55.0 MONOCYTE % (test code=MO%) 6.9 % 0.0-10.0 EOSINOPHIL % (test code=EO%) 0.1 % 0.0-5.0 BASOPHIL % (test code=BA%) 0.3 % 0.0-1.0 NUCLEATED RBC % (test code=NRBC%) 0.9 % 0-0 NEUTROPHIL # (test code=NT#) 13.78 K/mm3 1.8-7.7 IMMATURE GRANULOCYTE # (test code=IG#) 0.83 x10 3/uL 0-0.03 LYMPHOCYTE # (test code=LY#) 1.49 K/mm3 1.0-5.0 MONOCYTE # (test code=MO#) 1.19 K/mm3 0-0.8 EOSINOPHIL # (test code=EO#) 0.01 K/mm3 0.0-0.5 BASOPHIL # (test code=BA#) 0.06 K/mm3 0.0-0.2 NUCLEATED RBC # (test code=NRBC#) 0.15 K/mm3 0.0-0.1 MANUAL DIFF REQUIRED (test code=MDIFF) NO, ONLY SCAN NEEDED DIFFERENTIAL [id number] 05:47:00* Test Item Value Reference Range Comments STAIN ACCEPTABILITY (test code=STN ACCEPTABLE) CABOT RINGS (test code=CAB) MORPHOLOGY COMMENT (test code=MOC) PLATELET ESTIMATE (test code=PLTEST) PLATELET MORPHOLOGY (test code=PLTMORPH) CBC W/AUTO [id number] 05:47:00* Test Item Value Reference Range Comments WHITE BLOOD CELL (test code=WBC) 17.4 K/mm3 4.5-12.5 RED BLOOD CELL (test code=RBC) 3.47 mill/mm3 3.7-5.2 HEMOGLOBIN (test code=HGB) 9.8 gram/dL 11.5-15.5 HEMATOCRIT (test code=HCT) 32.0 % 36.0-46.0 MEAN CELL VOLUME (test code=MCV) 92.2 fL 80-98 MEAN CELL HGB (test code=MCH) 28.2 picogram 27.0-33.0 MEAN CELL HGB CONCETRATION (test code=MCHC) 30.6 gram/dL 33.0-36.0 RED CELL DISTRIBUTION WIDTH (test code=RDW) 15.1 % 11.6-16.2 RED CELL DISTRIBUTION WIDTH SD (test code=RDW-SD) 49.4 fL 37.0-51.0 PLATELET COUNT (test code=PLT) 64 K/mm3 150-450 MEAN PLATELET VOLUME (test code=MPV) 11.4 fL 6.7-11.0 NEUTROPHIL % (test code=NT%) 79.3 % 39.0-69.0 IMMATURE GRANULOCYTE % (test code=IG%) 4.8 % 0.0-5.0 LYMPHOCYTE % (test code=LY%) 8.6 % 25.0-55.0 MONOCYTE % (test code=MO%) 6.9 % 0.0-10.0 EOSINOPHIL % (test code=EO%) 0.1 % 0.0-5.0 BASOPHIL % (test code=BA%) 0.3 % 0.0-1.0 NUCLEATED RBC % (test code=NRBC%) 0.9 % 0-0 NEUTROPHIL # (test code=NT#) 13.78 K/mm3 1.8-7.7 IMMATURE GRANULOCYTE # (test code=IG#) 0.83 x10 3/uL 0-0.03 LYMPHOCYTE # (test code=LY#) 1.49 K/mm3 1.0-5.0 MONOCYTE # (test code=MO#) 1.19 K/mm3 0-0.8 EOSINOPHIL # (test code=EO#) 0.01 K/mm3 0.0-0.5 BASOPHIL # (test code=BA#) 0.06 K/mm3 0.0-0.2 NUCLEATED RBC # (test code=NRBC#) 0.15 K/mm3 0.0-0.1 MANUAL DIFF REQUIRED (test code=MDIFF) NO, ONLY SCAN NEEDED DIFFERENTIAL [id number] 05:47:00* Test Item Value Reference Range Comments STAIN ACCEPTABILITY (test code=STN ACCEPTABLE) MORPHOLOGY COMMENT (test code=MOC) PLATELET ESTIMATE (test code=PLTEST) PLATELET MORPHOLOGY (test code=PLTMORPH) CBC W/AUTO [id number] 05:47:00* Test Item Value Reference Range Comments WHITE BLOOD CELL (test code=WBC) 17.4 K/mm3 4.5-12.5 RED BLOOD CELL (test code=RBC) 3.47 mill/mm3 3.7-5.2 HEMOGLOBIN (test code=HGB) 9.8 gram/dL 11.5-15.5 HEMATOCRIT (test code=HCT) 32.0 % 36.0-46.0 MEAN CELL VOLUME (test code=MCV) 92.2 fL 80-98 MEAN CELL HGB (test code=MCH) 28.2 picogram 27.0-33.0 MEAN CELL HGB CONCETRATION (test code=MCHC) 30.6 gram/dL 33.0-36.0 RED CELL DISTRIBUTION WIDTH (test code=RDW) 15.1 % 11.6-16.2 RED CELL DISTRIBUTION WIDTH SD (test code=RDW-SD) 49.4 fL 37.0-51.0 PLATELET COUNT (test code=PLT) 64 K/mm3 150-450 MEAN PLATELET VOLUME (test code=MPV) 11.4 fL 6.7-11.0 NEUTROPHIL % (test code=NT%) 79.3 % 39.0-69.0 IMMATURE GRANULOCYTE % (test code=IG%) 4.8 % 0.0-5.0 LYMPHOCYTE % (test code=LY%) 8.6 % 25.0-55.0 MONOCYTE % (test code=MO%) 6.9 % 0.0-10.0 EOSINOPHIL % (test code=EO%) 0.1 % 0.0-5.0 BASOPHIL % (test code=BA%) 0.3 % 0.0-1.0 NUCLEATED RBC % (test code=NRBC%) 0.9 % 0-0 NEUTROPHIL # (test code=NT#) 13.78 K/mm3 1.8-7.7 IMMATURE GRANULOCYTE # (test code=IG#) 0.83 x10 3/uL 0-0.03 LYMPHOCYTE # (test code=LY#) 1.49 K/mm3 1.0-5.0 MONOCYTE # (test code=MO#) 1.19 K/mm3 0-0.8 EOSINOPHIL # (test code=EO#) 0.01 K/mm3 0.0-0.5 BASOPHIL # (test code=BA#) 0.06 K/mm3 0.0-0.2 NUCLEATED RBC # (test code=NRBC#) 0.15 K/mm3 0.0-0.1 MANUAL DIFF REQUIRED (test code=MDIFF) NO, ONLY SCAN NEEDED DIFFERENTIAL [id number] 05:47:00* Test Item Value Reference Range Comments STAIN ACCEPTABILITY (test code=STN ACCEPTABLE) CABOT RINGS (test code=CAB) MORPHOLOGY COMMENT (test code=MOC) PLATELET ESTIMATE (test code=PLTEST) PLATELET MORPHOLOGY (test code=PLTMORPH) BASIC METABOLIC [id number] 05:35:00* Test Item Value Reference Range Comments SODIUM (test code=NA) 135 mmol/L 136-145 POTASSIUM (test code=K) 4.4 mmol/L 3.5-5.1 CHLORIDE (test code=CL) 100.0 mmol/L 98-107 CARBON DIOXIDE (test code=CO2) 26.0 mmol/L 21-32 ANION GAP (test code=GAP) 13.4 10-20 GLUCOSE (test code=GLU) 234 mg/dL 74-106 BLOOD UREA NITROGEN (test code=BUN) 44 mg/dL 7-18 GLOMERULAR FILTRATION RATE (test code=GFR) 24 mL/min >=60 Estimated GFR by using Modified MDRD formula.Chronic kidney disease is defined as either kidney damageor GFR <60 mL/min/1.73 m2 for >3 months. CREATININE (test code=CREAT) 2.00 mg/dL 0.55-1.02 Note change in reference range due to change in reagent. BUN/CREATININE RATIO (test code=BUN/CREA) 22.6 10-20 CALCIUM (test code=CA) 7.8 mg/dL 8.5-10.1 [id number] 05:35:00* Test Item Value Reference Range Comments PHOSPHORUS (test code=PHOS) 3.2 mg/dL 2.5-4.9 [id number] 05:35:00* Test Item Value Reference Range Comments MAGNESIUM (test code=MAG) 1.8 mg/dL 1.8-2.4 CALCIUM [id number] 05:35:00* Test Item Value Reference Range Comments CALCIUM IONIZED (test code=LON) 1.13 mmol/L 1.12-1.32 BASIC METABOLIC [id number] 05:31:00* Test Item Value Reference Range Comments SODIUM (test code=NA) 135 mmol/L 136-145 POTASSIUM (test code=K) 4.4 mmol/L 3.5-5.1 CHLORIDE (test code=CL) 100.0 mmol/L 98-107 CARBON DIOXIDE (test code=CO2) mmol/L 21-32 ANION GAP (test code=GAP) 10-20 GLUCOSE (test code=GLU) mg/dL 74-106 BLOOD UREA NITROGEN (test code=BUN) mg/dL 7-18 GLOMERULAR FILTRATION RATE (test code=GFR) mL/min >=60 CREATININE (test code=CREAT) mg/dL 0.55-1.02 BUN/CREATININE RATIO (test code=BUN/CREA) 10-20 CALCIUM (test code=CA) mg/dL 8.5-10.1 [id number] 05:31:00* Test Item Value Reference Range Comments PHOSPHORUS (test code=PHOS) mg/dL 2.5-4.9 [id number] 05:31:00* Test Item Value Reference Range Comments MAGNESIUM (test code=MAG) mg/dL 1.8-2.4 CALCIUM [id number] 05:31:00* Test Item Value Reference Range Comments CALCIUM IONIZED (test code=LON) mmol/L 1.12-1.32 BASIC METABOLIC [id number] 05:31:00* Test Item Value Reference Range Comments SODIUM (test code=NA) 135 mmol/L 136-145 POTASSIUM (test code=K) 4.4 mmol/L 3.5-5.1 CHLORIDE (test code=CL) 100.0 mmol/L 98-107 CARBON DIOXIDE (test code=CO2) mmol/L 21-32 ANION GAP (test code=GAP) 10-20 GLUCOSE (test code=GLU) mg/dL 74-106 BLOOD UREA NITROGEN (test code=BUN) mg/dL 7-18 GLOMERULAR FILTRATION RATE (test code=GFR) mL/min >=60 CREATININE (test code=CREAT) mg/dL 0.55-1.02 BUN/CREATININE RATIO (test code=BUN/CREA) 10-20 CALCIUM (test code=CA) mg/dL 8.5-10.1 [id number] 05:31:00* Test Item Value Reference Range Comments PHOSPHORUS (test code=PHOS) mg/dL 2.5-4.9 [id number] 05:31:00* Test Item Value Reference Range Comments MAGNESIUM (test code=MAG) mg/dL 1.8-2.4 CALCIUM [id number] 05:31:00* Test Item Value Reference Range Comments CALCIUM IONIZED (test code=LON) 1.13 mmol/L 1.12-1.32 [id number] 21:06:00* Test Item Value Reference Range Comments GLUBED (test code=GLUBED) 275 mg/dL 74-[address] 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 [facility] [id number] 16:10:00* Test Item Value Reference Range Comments GLUBED (test code=GLUBED) 191 mg/dL 74-[address] 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 [facility] [id number] 11:55:00* Test Item Value Reference Range Comments GLUBED (test code=GLUBED) 162 mg/dL 74-[address] 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 [facility] HEPARIN INDUCED [id number] 11:11:00* Test Item Value Reference Range Comments HEPARIN INDUCED THROMBOCYTOPEN (test code=HIT) NEGATIVE NEGATIVE [id number] 11:09:00* Test Item Value Reference Range Comments GLUBED (test code=GLUBED) 165 mg/dL 74-[address] 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 [facility] AG HEPAT B [id number] 09:46:00* Test Item Value Reference Range Comments AG HEPAT B SURF (test code=HBSAG) Nonreactive Index Nonreactive - XR CHEST 1 [id number] 07:13:00 FAX: Nahun Malave MD [phone] [place]: [address]: ADM FAX: Nusrat Rey NP [phone] FAX: Miki Aldrich MD [phone] Name: NEREIDA CHANG [facility] : 1940 Age/S: 78/F [address] [facility] Unit #: [id number] Loc: V.S03 [place] Chavez [address] Phys: Nusrat Rey CUT PRESSMAN Acct: [id number] Dis Date: Status: ADM IN ONE #: [phone] Exam Date: 11/08/2018441 FAX #: [phone] Reason: sob EXAMS: CPT CODE: [id number] XR CHEST 1 V [id number] REASON FOR EXAM: sob EXAM ORDER DATE: 11/08/2018 5:00 AM Or bryn Nunez: Nusrat Rey NP PROCEDURE: - XR CHEST 1 V COMPARISON: 11/07/2018 FINDINGS: Portable AP frontal view of the chest obtained at 4:07 AM shows dense airspace opacity at the right m id and lower lung russell. There is no evidence of effusion. The heart size is minimally enlarged. Stable appearance of the left IJ dialysis cathete r. Pulmonary vasculatures are minimally congested. IMPRES ROSY: New development of dense airspace opacity at the right mid and low er lung russell suggestive of consolidation at 0713 Reported and signed b y: Fito Antonio M.D. CC: Nahun Malave MD; Nusrat Rey CUT PRESSMAN; Miki Berger ra, MD Technologist: RT JOSE G(R); Savita Paul Trnlroi Date/Time/By: 11/08/2018 (0713) : By: Raquel Orig Print D/T: S: 11/08/2018 (0716) PAGE 1 Signed Report COMPREHENSIVE METABOLIC PANEL 2018-11-08 05:11:00* Test Item Value Reference Range Comments SODIUM (test code=NA) 135 mmol/L 136-145 POTASSIUM (test code=K) 4.8 mmol/L 3.5-5.1 CHLORIDE (test code=CL) 102.0 mmol/L 98-107 CARBON DIOXIDE (test code=CO2) 25.0 mmol/L 21-32 ANION GAP (test code=GAP) 12.8 10-20 GLUCOSE (test code=GLU) 192 mg/dL 74-106 BLOOD UREA NITROGEN (test code=BUN) 39 mg/dL 7-18 RESULT VERIFIED BY REPEAT ANALYSIS GLOMERULAR FILTRATION RATE (test code=GFR) 24 mL/min >=60 Estimated GFR by using Modified MDRD formula.Chronic kidney disease is defined as either kidney damageor GFR <60 mL/min/1.73 m2 for >3 months. CREATININE (test code=CREAT) 2.00 mg/dL 0.55-1.02 Note change in reference range due to change in reagent. BUN/CREATININE RATIO (test code=BUN/CREA) 19.5 10-20 TOTAL PROTEIN (test code=PROT) 6.1 gram/dL 6.4-8.2 ALBUMIN (test code=ALB) 3.0 g/dL 3.4-5.0 GLOBULIN (test code=GLOB) 3.1 gram/dL 2.7-4.2 ALBUMIN/GLOBULIN RATIO (test code=A/G) 1.0 0.75-1.50 CALCIUM (test code=CA) 8.4 mg/dL 8.5-10.1 BILIRUBIN TOTAL (test code=BILT) 1.50 mg/dL 0.0-1.0 SGOT/AST (test code=AST) 411 IUnit/L 15-37 SGPT/ALT (test code=ALT) 682 IUnit/L 12-78 ALKALINE PHOSPHATASE TOTAL (test code=ALKP) 84 IUnit/L 45-117 Note change in reference range due to change in reagent. [id number] 05:11:00* Test Item Value Reference Range Comments PHOSPHORUS (test code=PHOS) 4.3 mg/dL 2.5-4.9 [id number] 05:11:00* Test Item Value Reference Range Comments MAGNESIUM (test code=MAG) 2.0 mg/dL 1.8-2.4 CALCIUM [id number] 05:11:00* Test Item Value Reference Range Comments CALCIUM IONIZED (test code=LON) 1.28 mmol/L 1.12-1.32 CBC W/MANUAL [id number] 04:43:00* Test Item Value Reference Range Comments WHITE BLOOD CELL (test code=WBC) 14.5 K/mm3 4.5-12.5 RED BLOOD CELL (test code=RBC) 3.19 mill/mm3 3.7-5.2 HEMOGLOBIN (test code=HGB) 9.2 gram/dL 11.5-15.5 HEMATOCRIT (test code=HCT) 29.0 % 36.0-46.0 MEAN CELL VOLUME (test code=MCV) 90.9 fL 80-98 MEAN CELL HGB (test code=MCH) 28.8 picogram 27.0-33.0 MEAN CELL HGB CONCETRATION (test code=MCHC) 31.7 gram/dL 33.0-36.0 RED CELL DISTRIBUTION WIDTH (test code=RDW) 14.6 % 11.6-16.2 RED CELL DISTRIBUTION WIDTH SD (test code=RDW-SD) 47.2 fL 37.0-51.0 PLATELET COUNT (test code=PLT) 63 K/mm3 150-450 MEAN PLATELET VOLUME (test code=MPV) 12.2 fL 6.7-11.0 IMMATURE GRANULOCYTE % (test code=IG%) 2.6 % 0.0-5.0 NUCLEATED RBC % (test code=NRBC%) 1.3 % 0-0 NEUTROPHIL # (test code=NT#) 12.15 K/mm3 1.8-7.7 IMMATURE GRANULOCYTE # (test code=IG#) 0.38 x10 3/uL 0-0.03 LYMPHOCYTE # (test code=LY#) 1.23 K/mm3 1.0-5.0 MONOCYTE # (test code=MO#) 0.65 K/mm3 0-0.8 EOSINOPHIL # (test code=EO#) 0.00 K/mm3 0.0-0.5 BASOPHIL # (test code=BA#) 0.04 K/mm3 0.0-0.2 NUCLEATED RBC # (test code=NRBC#) 0.19 K/mm3 0.0-0.1 MANUAL DIFF REQUIRED (test code=MDIFF) YES STAIN ACCEPTABILITY (test code=STN ACCEPTABLE) STAIN ACCEPTABLE TOTAL CELLS COUNTED (test code=TCC) 113 #CELLS SEGMENTED NEUTROPHILS (test code=SEG) 77.9 % 39-69 BAND NEUTROPHIL (test code=BAND) 8.0 % 0-10 LYMPHOCYTE (test code=LYMPH) 7.1 % 25-55 REACTIVE LYMPH (test code=RELYMPH) 0 % MONOCYTE (test code=MON) 2.6 % 0-10 EOSINOPHIL (test code=EOS) 0 % 0.0-5.0 BASOPHIL (test code=BASO) 0 % 0-1.0 METAMYELOCYTE (test code=META) 0 % 0-0 MYELOCYTE (test code=MYELO) 2.6 % 0.0-0.0 PROMYELOCYTE (test code=PROM) 0.9 % 0-0 PLATELET ESTIMATE (test code=PLTEST) DECREASED PLATELET MORPHOLOGY (test code=PLTMORPH) NORMAL IMMATURE FORMS (test code=IMMAT) 0.9 % [id number] 04:27:00* Test Item Value Reference Range Comments GLUBED (test code=GLUBED) 183 mg/dL 74-106 Performed by 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 [facility] COMPREHENSIVE METABOLIC [id number] 04:24:00* Test Item Value Reference Range Comments SODIUM (test code=NA) mmol/L 136-145 POTASSIUM (test code=K) mmol/L 3.5-5.1 CHLORIDE (test code=CL) mmol/L 98-107 CARBON DIOXIDE (test code=CO2) mmol/L 21-32 ANION GAP (test code=GAP) 10-20 GLUCOSE (test code=GLU) mg/dL 74-106 BLOOD UREA NITROGEN (test code=BUN) mg/dL 7-18 GLOMERULAR FILTRATION RATE (test code=GFR) mL/min >=60 CREATININE (test code=CREAT) mg/dL 0.55-1.02 BUN/CREATININE RATIO (test code=BUN/CREA) 10-20 TOTAL PROTEIN (test code=PROT) gram/dL 6.4-8.2 ALBUMIN (test code=ALB) g/dL 3.4-5.0 GLOBULIN (test code=GLOB) gram/dL 2.7-4.2 ALBUMIN/GLOBULIN RATIO (test code=A/G) 0.75-1.50 CALCIUM (test code=CA) mg/dL 8.5-10.1 BILIRUBIN TOTAL (test code=BILT) mg/dL 0.0-1.0 SGOT/AST (test code=AST) IUnit/L 15-37 SGPT/ALT (test code=ALT) IUnit/L 12-78 ALKALINE PHOSPHATASE TOTAL (test code=ALKP) IUnit/L 45-117 [id number] 04:24:00* Test Item Value Reference Range Comments PHOSPHORUS (test code=PHOS) mg/dL 2.5-4.9 [id number] 04:24:00* Test Item Value Reference Range Comments MAGNESIUM (test code=MAG) mg/dL 1.8-2.4 CALCIUM [id number] 04:24:00* Test Item Value Reference Range Comments CALCIUM IONIZED (test code=LON) 1.28 mmol/L 1.12-1.32 CBC W/MANUAL [id number] 04:23:00* Test Item Value Reference Range Comments WHITE BLOOD CELL (test code=WBC) 14.5 K/mm3 4.5-12.5 RED BLOOD CELL (test code=RBC) 3.19 mill/mm3 3.7-5.2 HEMOGLOBIN (test code=HGB) 9.2 gram/dL 11.5-15.5 HEMATOCRIT (test code=HCT) 29.0 % 36.0-46.0 MEAN CELL VOLUME (test code=MCV) 90.9 fL 80-98 MEAN CELL HGB (test code=MCH) 28.8 picogram 27.0-33.0 MEAN CELL HGB CONCETRATION (test code=MCHC) 31.7 gram/dL 33.0-36.0 RED CELL DISTRIBUTION WIDTH (test code=RDW) 14.6 % 11.6-16.2 RED CELL DISTRIBUTION WIDTH SD (test code=RDW-SD) 47.2 fL 37.0-51.0 PLATELET COUNT (test code=PLT) 63 K/mm3 150-450 MEAN PLATELET VOLUME (test code=MPV) 12.2 fL 6.7-11.0 IMMATURE GRANULOCYTE % (test code=IG%) 2.6 % 0.0-5.0 NUCLEATED RBC % (test code=NRBC%) 1.3 % 0-0 NEUTROPHIL # (test code=NT#) 12.15 K/mm3 1.8-7.7 IMMATURE GRANULOCYTE # (test code=IG#) 0.38 x10 3/uL 0-0.03 LYMPHOCYTE # (test code=LY#) 1.23 K/mm3 1.0-5.0 MONOCYTE # (test code=MO#) 0.65 K/mm3 0-0.8 EOSINOPHIL # (test code=EO#) 0.00 K/mm3 0.0-0.5 BASOPHIL # (test code=BA#) 0.04 K/mm3 0.0-0.2 NUCLEATED RBC # (test code=NRBC#) 0.19 K/mm3 0.0-0.1 MANUAL DIFF REQUIRED (test code=MDIFF) YES STAIN ACCEPTABILITY (test code=STN ACCEPTABLE) TOTAL CELLS COUNTED (test code=TCC) #CELLS SEGMENTED NEUTROPHILS (test code=SEG) % 39-69 LYMPHOCYTE (test code=LYMPH) % 25-55 MONOCYTE (test code=MON) % 0-10 EOSINOPHIL (test code=EOS) % 0.0-5.0 CABOT RINGS (test code=CAB) MORPHOLOGY COMMENT (test code=MOC) PLATELET ESTIMATE (test code=PLTEST) PLATELET MORPHOLOGY (test code=PLTMORPH) CBC W/MANUAL [id number] 04:23:00* Test Item Value Reference Range Comments WHITE BLOOD CELL (test code=WBC) 14.5 K/mm3 4.5-12.5 RED BLOOD CELL (test code=RBC) 3.19 mill/mm3 3.7-5.2 HEMOGLOBIN (test code=HGB) 9.2 gram/dL 11.5-15.5 HEMATOCRIT (test code=HCT) 29.0 % 36.0-46.0 MEAN CELL VOLUME (test code=MCV) 90.9 fL 80-98 MEAN CELL HGB (test code=MCH) 28.8 picogram 27.0-33.0 MEAN CELL HGB CONCETRATION (test code=MCHC) 31.7 gram/dL 33.0-36.0 RED CELL DISTRIBUTION WIDTH (test code=RDW) 14.6 % 11.6-16.2 RED CELL DISTRIBUTION WIDTH SD (test code=RDW-SD) 47.2 fL 37.0-51.0 PLATELET COUNT (test code=PLT) 63 K/mm3 150-450 MEAN PLATELET VOLUME (test code=MPV) 12.2 fL 6.7-11.0 IMMATURE GRANULOCYTE % (test code=IG%) 2.6 % 0.0-5.0 NUCLEATED RBC % (test code=NRBC%) 1.3 % 0-0 NEUTROPHIL # (test code=NT#) 12.15 K/mm3 1.8-7.7 IMMATURE GRANULOCYTE # (test code=IG#) 0.38 x10 3/uL 0-0.03 LYMPHOCYTE # (test code=LY#) 1.23 K/mm3 1.0-5.0 MONOCYTE # (test code=MO#) 0.65 K/mm3 0-0.8 EOSINOPHIL # (test code=EO#) 0.00 K/mm3 0.0-0.5 BASOPHIL # (test code=BA#) 0.04 K/mm3 0.0-0.2 NUCLEATED RBC # (test code=NRBC#) 0.19 K/mm3 0.0-0.1 MANUAL DIFF REQUIRED (test code=MDIFF) YES STAIN ACCEPTABILITY (test code=STN ACCEPTABLE) TOTAL CELLS COUNTED (test code=TCC) #CELLS SEGMENTED NEUTROPHILS (test code=SEG) % 39-69 LYMPHOCYTE (test code=LYMPH) % 25-55 MONOCYTE (test code=MON) % 0-10 EOSINOPHIL (test code=EOS) % 0.0-5.0 MORPHOLOGY COMMENT (test code=MOC) PLATELET ESTIMATE (test code=PLTEST) PLATELET MORPHOLOGY (test code=PLTMORPH) CBC W/MANUAL [id number] 04:23:00* Test Item Value Reference Range Comments WHITE BLOOD CELL (test code=WBC) 14.5 K/mm3 4.5-12.5 RED BLOOD CELL (test code=RBC) 3.19 mill/mm3 3.7-5.2 HEMOGLOBIN (test code=HGB) 9.2 gram/dL 11.5-15.5 HEMATOCRIT (test code=HCT) 29.0 % 36.0-46.0 MEAN CELL VOLUME (test code=MCV) 90.9 fL 80-98 MEAN CELL HGB (test code=MCH) 28.8 picogram 27.0-33.0 MEAN CELL HGB CONCETRATION (test code=MCHC) 31.7 gram/dL 33.0-36.0 RED CELL DISTRIBUTION WIDTH (test code=RDW) 14.6 % 11.6-16.2 RED CELL DISTRIBUTION WIDTH SD (test code=RDW-SD) 47.2 fL 37.0-51.0 PLATELET COUNT (test code=PLT) 63 K/mm3 150-450 MEAN PLATELET VOLUME (test code=MPV) 12.2 fL 6.7-11.0 IMMATURE GRANULOCYTE % (test code=IG%) 2.6 % 0.0-5.0 NUCLEATED RBC % (test code=NRBC%) 1.3 % 0-0 NEUTROPHIL # (test code=NT#) 12.15 K/mm3 1.8-7.7 IMMATURE GRANULOCYTE # (test code=IG#) 0.38 x10 3/uL 0-0.03 LYMPHOCYTE # (test code=LY#) 1.23 K/mm3 1.0-5.0 MONOCYTE # (test code=MO#) 0.65 K/mm3 0-0.8 EOSINOPHIL # (test code=EO#) 0.00 K/mm3 0.0-0.5 BASOPHIL # (test code=BA#) 0.04 K/mm3 0.0-0.2 NUCLEATED RBC # (test code=NRBC#) 0.19 K/mm3 0.0-0.1 MANUAL DIFF REQUIRED (test code=MDIFF) YES STAIN ACCEPTABILITY (test code=STN ACCEPTABLE) TOTAL CELLS COUNTED (test code=TCC) #CELLS SEGMENTED NEUTROPHILS (test code=SEG) % 39-69 LYMPHOCYTE (test code=LYMPH) % 25-55 MONOCYTE (test code=MON) % 0-10 MORPHOLOGY COMMENT (test code=MOC) PLATELET ESTIMATE (test code=PLTEST) PLATELET MORPHOLOGY (test code=PLTMORPH) CBC W/MANUAL [id number] 04:22:00* Test Item Value Reference Range Comments WHITE BLOOD CELL (test code=WBC) 14.5 K/mm3 4.5-12.5 RED BLOOD CELL (test code=RBC) 3.19 mill/mm3 3.7-5.2 HEMOGLOBIN (test code=HGB) 9.2 gram/dL 11.5-15.5 HEMATOCRIT (test code=HCT) 29.0 % 36.0-46.0 MEAN CELL VOLUME (test code=MCV) 90.9 fL 80-98 MEAN CELL HGB (test code=MCH) 28.8 picogram 27.0-33.0 MEAN CELL HGB CONCETRATION (test code=MCHC) 31.7 gram/dL 33.0-36.0 RED CELL DISTRIBUTION WIDTH (test code=RDW) 14.6 % 11.6-16.2 RED CELL DISTRIBUTION WIDTH SD (test code=RDW-SD) 47.2 fL 37.0-51.0 PLATELET COUNT (test code=PLT) 63 K/mm3 150-450 MEAN PLATELET VOLUME (test code=MPV) 12.2 fL 6.7-11.0 IMMATURE GRANULOCYTE % (test code=IG%) 2.6 % 0.0-5.0 NUCLEATED RBC % (test code=NRBC%) 1.3 % 0-0 NEUTROPHIL # (test code=NT#) 12.15 K/mm3 1.8-7.7 IMMATURE GRANULOCYTE # (test code=IG#) 0.38 x10 3/uL 0-0.03 LYMPHOCYTE # (test code=LY#) 1.23 K/mm3 1.0-5.0 MONOCYTE # (test code=MO#) 0.65 K/mm3 0-0.8 EOSINOPHIL # (test code=EO#) 0.00 K/mm3 0.0-0.5 BASOPHIL # (test code=BA#) 0.04 K/mm3 0.0-0.2 NUCLEATED RBC # (test code=NRBC#) 0.19 K/mm3 0.0-0.1 MANUAL DIFF REQUIRED (test code=MDIFF) YES STAIN ACCEPTABILITY (test code=STN ACCEPTABLE) TOTAL CELLS COUNTED (test code=TCC) #CELLS SEGMENTED NEUTROPHILS (test code=SEG) % 39-69 LYMPHOCYTE (test code=LYMPH) % 25-55 MONOCYTE (test code=MON) % 0-10 EOSINOPHIL (test code=EOS) % 0.0-5.0 CABOT RINGS (test code=CAB) MORPHOLOGY COMMENT (test code=MOC) PLATELET ESTIMATE (test code=PLTEST) PLATELET MORPHOLOGY (test code=PLTMORPH) CBC W/MANUAL [id number] 04:22:00* Test Item Value Reference Range Comments WHITE BLOOD CELL (test code=WBC) 14.5 K/mm3 4.5-12.5 RED BLOOD CELL (test code=RBC) 3.19 mill/mm3 3.7-5.2 HEMOGLOBIN (test code=HGB) 9.2 gram/dL 11.5-15.5 HEMATOCRIT (test code=HCT) 29.0 % 36.0-46.0 MEAN CELL VOLUME (test code=MCV) 90.9 fL 80-98 MEAN CELL HGB (test code=MCH) 28.8 picogram 27.0-33.0 MEAN CELL HGB CONCETRATION (test code=MCHC) 31.7 gram/dL 33.0-36.0 RED CELL DISTRIBUTION WIDTH (test code=RDW) 14.6 % 11.6-16.2 RED CELL DISTRIBUTION WIDTH SD (test code=RDW-SD) 47.2 fL 37.0-51.0 PLATELET COUNT (test code=PLT) 63 K/mm3 150-450 MEAN PLATELET VOLUME (test code=MPV) 12.2 fL 6.7-11.0 IMMATURE GRANULOCYTE % (test code=IG%) 2.6 % 0.0-5.0 NUCLEATED RBC % (test code=NRBC%) 1.3 % 0-0 NEUTROPHIL # (test code=NT#) 12.15 K/mm3 1.8-7.7 IMMATURE GRANULOCYTE # (test code=IG#) 0.38 x10 3/uL 0-0.03 LYMPHOCYTE # (test code=LY#) 1.23 K/mm3 1.0-5.0 MONOCYTE # (test code=MO#) 0.65 K/mm3 0-0.8 EOSINOPHIL # (test code=EO#) 0.00 K/mm3 0.0-0.5 BASOPHIL # (test code=BA#) 0.04 K/mm3 0.0-0.2 NUCLEATED RBC # (test code=NRBC#) 0.19 K/mm3 0.0-0.1 MANUAL DIFF REQUIRED (test code=MDIFF) YES STAIN ACCEPTABILITY (test code=STN ACCEPTABLE) TOTAL CELLS COUNTED (test code=TCC) #CELLS SEGMENTED NEUTROPHILS (test code=SEG) % 39-69 LYMPHOCYTE (test code=LYMPH) % 25-55 MONOCYTE (test code=MON) % 0-10 EOSINOPHIL (test code=EOS) % 0.0-5.0 CABOT RINGS (test code=CAB) MORPHOLOGY COMMENT (test code=MOC) PLATELET ESTIMATE (test code=PLTEST) PLATELET MORPHOLOGY (test code=PLTMORPH) [id number] 23:49:00* Test Item Value Reference Range Comments GLUBED (test code=GLUBED) 201 mg/dL 74-[address] 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 [facility] [id number] 19:37:00* Test Item Value Reference Range Comments GLUBED (test code=GLUBED) 188 mg/dL 74-[address] 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 [facility] [id number] 15:08:00* Test Item Value Reference Range Comments GLUBED (test code=GLUBED) 212 mg/dL 74-[address] 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 [facility] HGB [id number] 14:10:00* Test Item Value Reference Range Comments HEMOGLOBIN (test code=HGB) 7.9 gram/dL 11.5-15.5 HEMATOCRIT (test code=HCT) 24.3 % 36.0-46.0 BASIC METABOLIC [id number] 12:39:00* Test Item Value Reference Range Comments SODIUM (test code=NA) 137 mmol/L 136-145 POTASSIUM (test code=K) 4.6 mmol/L 3.5-5.1 CHLORIDE (test code=CL) 104.0 mmol/L 98-107 CARBON DIOXIDE (test code=CO2) 28.0 mmol/L 21-32 ANION GAP (test code=GAP) 9.6 10-20 GLUCOSE (test code=GLU) 176 mg/dL 74-106 BLOOD UREA NITROGEN (test code=BUN) 27 mg/dL 7-18 GLOMERULAR FILTRATION RATE (test code=GFR) 43 mL/min >=60 Estimated GFR by using Modified MDRD formula.Chronic kidney disease is defined as either kidney damageor GFR <60 mL/min/1.73 m2 for >3 months. CREATININE (test code=CREAT) 1.20 mg/dL 0.55-1.02 Note change in reference range due to change in reagent. BUN/CREATININE RATIO (test code=BUN/CREA) 22.3 10-20 CALCIUM (test code=CA) 8.1 mg/dL 8.5-10.1 [id number] 12:39:00* Test Item Value Reference Range Comments PHOSPHORUS (test code=PHOS) 2.2 mg/dL 2.5-4.9 [id number] 12:39:00* Test Item Value Reference Range Comments MAGNESIUM (test code=MAG) 1.9 mg/dL 1.8-2.4 CALCIUM [id number] 12:39:00* Test Item Value Reference Range Comments CALCIUM IONIZED (test code=LON) 1.05 mmol/L 1.12-1.32 BASIC METABOLIC [id number] 12:35:00* Test Item Value Reference Range Comments SODIUM (test code=NA) 137 mmol/L 136-145 POTASSIUM (test code=K) 4.6 mmol/L 3.5-5.1 CHLORIDE (test code=CL) 104.0 mmol/L 98-107 CARBON DIOXIDE (test code=CO2) 28.0 mmol/L 21-32 ANION GAP (test code=GAP) 9.6 10-20 GLUCOSE (test code=GLU) 176 mg/dL 74-106 BLOOD UREA NITROGEN (test code=BUN) 27 mg/dL 7-18 GLOMERULAR FILTRATION RATE (test code=GFR) 43 mL/min >=60 Estimated GFR by using Modified MDRD formula.Chronic kidney disease is defined as either kidney damageor GFR <60 mL/min/1.73 m2 for >3 months. CREATININE (test code=CREAT) 1.20 mg/dL 0.55-1.02 Note change in reference range due to change in reagent. BUN/CREATININE RATIO (test code=BUN/CREA) 22.3 10-20 CALCIUM (test code=CA) 8.1 mg/dL 8.5-10.1 [id number] 12:35:00* Test Item Value Reference Range Comments PHOSPHORUS (test code=PHOS) 2.2 mg/dL 2.5-4.9 [id number] 12:35:00* Test Item Value Reference Range Comments MAGNESIUM (test code=MAG) 1.9 mg/dL 1.8-2.4 CALCIUM [id number] 12:35:00* Test Item Value Reference Range Comments CALCIUM IONIZED (test code=LON) mmol/L 1.12-1.32 BASIC METABOLIC [id number] 12:31:00* Test Item Value Reference Range Comments SODIUM (test code=NA) 137 mmol/L 136-145 POTASSIUM (test code=K) 4.6 mmol/L 3.5-5.1 CHLORIDE (test code=CL) 104.0 mmol/L 98-107 CARBON DIOXIDE (test code=CO2) mmol/L 21-32 ANION GAP (test code=GAP) 10-20 GLUCOSE (test code=GLU) mg/dL 74-106 BLOOD UREA NITROGEN (test code=BUN) mg/dL 7-18 GLOMERULAR FILTRATION RATE (test code=GFR) mL/min >=60 CREATININE (test code=CREAT) mg/dL 0.55-1.02 BUN/CREATININE RATIO (test code=BUN/CREA) 10-20 CALCIUM (test code=CA) mg/dL 8.5-10.1 [id number] 12:31:00* Test Item Value Reference Range Comments PHOSPHORUS (test code=PHOS) mg/dL 2.5-4.9 [id number] 12:31:00* Test Item Value Reference Range Comments MAGNESIUM (test code=MAG) mg/dL 1.8-2.4 CALCIUM [id number] 12:31:00* Test Item Value Reference Range Comments CALCIUM IONIZED (test code=LON) mmol/L 1.12-1.32 [id number] 11:01:00* Test Item Value Reference Range Comments GLUBED (test code=GLUBED) 164 mg/dL 74-[address] 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 [facility] [id number] 08:01:00* Test Item Value Reference Range Comments GLUBED (test code=GLUBED) 176 mg/dL 74-[address] 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 [facility] - XR CHEST 1 [id number] 06:12:00 FAX: Nahun Malave MD [phone] [place]: [address]: ADM FAX: Dean Perez FAX: Miki Aldrich MD [phone] Name: NEREIDA CHANG [facility] : 1940 Age/S: 78/F [address] Unit #: [id number] Loc: V.S03 [place] [address] Phys: Dean Perez Acct: [id number] Dis Date: Status: ADM IN PH ONE #: [phone] Exam Date: 11/07/2018529 FAX #: [phone] Reason: intubated EXAMS: CPT CODE: [id number] XR CHEST 1 V [id number] REASON FOR EXAM: intubated EXAM ORDER DATE: 11/07/2018 5:00 AM Ordering Enrique: STEPH Templeton PROCEDURE: - XR CHEST 1 V COMPARISON: 11/06/2018 FINDINGS: Portable AP frontal view of the chest obtained at 5:30 AM shows diffuse haziness of the lungs. The heart size is minimally enlarged. Pulmonary vasculatures are minimally congested. Stable appearance of the left IJ dialysis catheter. IMPRESSION: Status post extubation. Persistent congestive heart failure with pulmonary edema at 0612 Reported and signed by: Fito Antonio M.D. CC: Nahun Malave MD; Dean Perez; Miki Hathaway MD Technologist: Emily Billings RT(R); Kim Keller Trnscrd Date/Time/By: 11/07/2018 (0612) : By: Chilo.VTL Orig Print D/T: S: (0615) PAGE 1 Signed Rep ort THROMBOPLASTIN TIME [id number] 06:05:00 * Test Item Value Reference Range Comments THROMBOPLASTIN TIME PARTIAL (test code=PTT) 53.5 seconds 25.0-36.5 IS PATIENT ON ANTICOAGULANTS? YLIST ANTICOAGULANTS HEPARINBASIC METABOLIC [id number] 05:58:00* Test Item Value Reference Range Comments SODIUM (test code=NA) 136 mmol/L 136-145 POTASSIUM (test code=K) 4.9 mmol/L 3.5-5.1 CHLORIDE (test code=CL) 104.0 mmol/L 98-107 CARBON DIOXIDE (test code=CO2) 25.0 mmol/L 21-32 ANION GAP (test code=GAP) 11.9 10-20 GLUCOSE (test code=GLU) 202 mg/dL 74-106 BLOOD UREA NITROGEN (test code=BUN) 26 mg/dL 7-18 GLOMERULAR FILTRATION RATE (test code=GFR) 39 mL/min >=60 Estimated GFR by using Modified MDRD formula.Chronic kidney disease is defined as either kidney damageor GFR <60 mL/min/1.73 m2 for >3 months. CREATININE (test code=CREAT) 1.30 mg/dL 0.55-1.02 Note change in reference range due to change in reagent. BUN/CREATININE RATIO (test code=BUN/CREA) 20.6 10-20 CALCIUM (test code=CA) 8.0 mg/dL 8.5-10.1 [id number] 05:58:00* Test Item Value Reference Range Comments PHOSPHORUS (test code=PHOS) 2.3 mg/dL 2.5-4.9 [id number] 05:58:00* Test Item Value Reference Range Comments MAGNESIUM (test code=MAG) 1.9 mg/dL 1.8-2.4 CALCIUM [id number] 05:58:00* Test Item Value Reference Range Comments CALCIUM IONIZED (test code=LON) 1.18 mmol/L 1.12-1.32 BASIC METABOLIC [id number] 05:48:00* Test Item Value Reference Range Comments SODIUM (test code=NA) 136 mmol/L 136-145 POTASSIUM (test code=K) 4.9 mmol/L 3.5-5.1 CHLORIDE (test code=CL) 104.0 mmol/L 98-107 CARBON DIOXIDE (test code=CO2) mmol/L 21-32 ANION GAP (test code=GAP) 10-20 GLUCOSE (test code=GLU) mg/dL 74-106 BLOOD UREA NITROGEN (test code=BUN) mg/dL 7-18 GLOMERULAR FILTRATION RATE (test code=GFR) mL/min >=60 CREATININE (test code=CREAT) mg/dL 0.55-1.02 BUN/CREATININE RATIO (test code=BUN/CREA) 10-20 CALCIUM (test code=CA) mg/dL 8.5-10.1 [id number] 05:48:00* Test Item Value Reference Range Comments PHOSPHORUS (test code=PHOS) mg/dL 2.5-4.9 [id number] 05:48:00* Test Item Value Reference Range Comments MAGNESIUM (test code=MAG) mg/dL 1.8-2.4 CALCIUM [id number] 05:48:00* Test Item Value Reference Range Comments CALCIUM IONIZED (test code=LON) 1.18 mmol/L 1.12-1.32 BASIC METABOLIC [id number] 05:45:00* Test Item Value Reference Range Comments SODIUM (test code=NA) mmol/L 136-145 POTASSIUM (test code=K) mmol/L 3.5-5.1 CHLORIDE (test code=CL) mmol/L 98-107 CARBON DIOXIDE (test code=CO2) mmol/L 21-32 ANION GAP (test code=GAP) 10-20 GLUCOSE (test code=GLU) mg/dL 74-106 BLOOD UREA NITROGEN (test code=BUN) mg/dL 7-18 GLOMERULAR FILTRATION RATE (test code=GFR) mL/min >=60 CREATININE (test code=CREAT) mg/dL 0.55-1.02 BUN/CREATININE RATIO (test code=BUN/CREA) 10-20 CALCIUM (test code=CA) mg/dL 8.5-10.1 [id number] 05:45:00* Test Item Value Reference Range Comments PHOSPHORUS (test code=PHOS) mg/dL 2.5-4.9 [id number] 05:45:00* Test Item Value Reference Range Comments MAGNESIUM (test code=MAG) mg/dL 1.8-2.4 CALCIUM [id number] 05:45:00* Test Item Value Reference Range Comments CALCIUM IONIZED (test code=LON) 1.18 mmol/L 1.12-1.32 CBC W/AUTO [id number] 05:41:00* Test Item Value Reference Range Comments WHITE BLOOD CELL (test code=WBC) 12.4 K/mm3 4.5-12.5 RED BLOOD CELL (test code=RBC) 2.39 mill/mm3 3.7-5.2 HEMOGLOBIN (test code=HGB) 6.9 gram/dL 11.5-15.5 HEMATOCRIT (test code=HCT) 21.3 % 36.0-46.0 Results called to [id number] by LINDSEY 11/07/18 0541Critical results verified and read back by Nurse? Y MEAN CELL VOLUME (test code=MCV) 89.1 fL 80-98 MEAN CELL HGB (test code=MCH) 28.9 picogram 27.0-33.0 MEAN CELL HGB CONCETRATION (test code=MCHC) 32.4 gram/dL 33.0-36.0 RED CELL DISTRIBUTION WIDTH (test code=RDW) 14.8 % 11.6-16.2 RED CELL DISTRIBUTION WIDTH SD (test code=RDW-SD) 47.7 fL 37.0-51.0 PLATELET COUNT (test code=PLT) 78 K/mm3 150-450 RESULT VERIFIED BY REPEAT ANALYSIS MEAN PLATELET VOLUME (test code=MPV) 11.6 fL 6.7-11.0 NEUTROPHIL % (test code=NT%) 80.7 % 39.0-69.0 IMMATURE GRANULOCYTE % (test code=IG%) 6.2 % 0.0-5.0 "The appearance of immature granulocytes (myelocytes,pro-myelocytes, meta-myelocytes) in the peripheral blood ofnon- individuals can indicate a response toinfection, inflammation, or other stimulus to the bonemarrow" LYMPHOCYTE % (test code=LY%) 9.3 % 25.0-55.0 MONOCYTE % (test code=MO%) 3.7 % 0.0-10.0 EOSINOPHIL % (test code=EO%) 0.0 % 0.0-5.0 BASOPHIL % (test code=BA%) 0.1 % 0.0-1.0 NUCLEATED RBC % (test code=NRBC%) 1.5 % 0-0 RESULT VERIFIED BY REPEAT ANALYSIS NEUTROPHIL # (test code=NT#) 9.97 K/mm3 1.8-7.7 IMMATURE GRANULOCYTE # (test code=IG#) 0.77 x10 3/uL 0-0.03 LYMPHOCYTE # (test code=LY#) 1.15 K/mm3 1.0-5.0 MONOCYTE # (test code=MO#) 0.46 K/mm3 0-0.8 EOSINOPHIL # (test code=EO#) 0.00 K/mm3 0.0-0.5 BASOPHIL # (test code=BA#) 0.01 K/mm3 0.0-0.2 NUCLEATED RBC # (test code=NRBC#) 0.19 K/mm3 0.0-0.1 [id number] 05:21:00* Test Item Value Reference Range Comments GLUBED (test code=GLUBED) 185 mg/dL 74-[address] 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 [facility] BASIC METABOLIC [id number] 00:18:00* Test Item Value Reference Range Comments SODIUM (test code=NA) 136 mmol/L 136-145 POTASSIUM (test code=K) 4.4 mmol/L 3.5-5.1 CHLORIDE (test code=CL) 104.0 mmol/L 98-107 CARBON DIOXIDE (test code=CO2) 24.0 mmol/L 21-32 ANION GAP (test code=GAP) 12.4 10-20 GLUCOSE (test code=GLU) 214 mg/dL 74-106 BLOOD UREA NITROGEN (test code=BUN) 27 mg/dL 7-18 GLOMERULAR FILTRATION RATE (test code=GFR) 39 mL/min >=60 Estimated GFR by using Modified MDRD formula.Chronic kidney disease is defined as either kidney damageor GFR <60 mL/min/1.73 m2 for >3 months. CREATININE (test code=CREAT) 1.30 mg/dL 0.55-1.02 Note change in reference range due to change in reagent. BUN/CREATININE RATIO (test code=BUN/CREA) 20.1 10-20 CALCIUM (test code=CA) 8.0 mg/dL 8.5-10.1 [id number] 00:18:00* Test Item Value Reference Range Comments PHOSPHORUS (test code=PHOS) 2.1 mg/dL 2.5-4.9 [id number] 00:18:00* Test Item Value Reference Range Comments MAGNESIUM (test code=MAG) 1.9 mg/dL 1.8-2.4 CALCIUM [id number] 00:18:00* Test Item Value Reference Range Comments CALCIUM IONIZED (test code=LON) 1.20 mmol/L 1.12-1.32 THROMBOPLASTIN TIME [id number] 00:10:00* Test Item Value Reference Range Comments THROMBOPLASTIN TIME PARTIAL (test code=PTT) 50.5 seconds 25.0-36.5 IS PATIENT ON ANTICOAGULANTS? YLIST ANTICOAGULANTS HEPARINBASIC METABOLIC [id number] 00:10:00* Test Item Value Reference Range Comments SODIUM (test code=NA) 136 mmol/L 136-145 POTASSIUM (test code=K) 4.4 mmol/L 3.5-5.1 CHLORIDE (test code=CL) 104.0 mmol/L 98-107 CARBON DIOXIDE (test code=CO2) 24.0 mmol/L 21-32 ANION GAP (test code=GAP) 12.4 10-20 GLUCOSE (test code=GLU) 214 mg/dL 74-106 BLOOD UREA NITROGEN (test code=BUN) 27 mg/dL 7-18 GLOMERULAR FILTRATION RATE (test code=GFR) 39 mL/min >=60 Estimated GFR by using Modified MDRD formula.Chronic kidney disease is defined as either kidney damageor GFR <60 mL/min/1.73 m2 for >3 months. CREATININE (test code=CREAT) 1.30 mg/dL 0.55-1.02 Note change in reference range due to change in reagent. BUN/CREATININE RATIO (test code=BUN/CREA) 20.1 10-20 CALCIUM (test code=CA) 8.0 mg/dL 8.5-10.1 [id number] 00:10:00* Test Item Value Reference Range Comments PHOSPHORUS (test code=PHOS) 2.1 mg/dL 2.5-4.9 [id number] 00:10:00* Test Item Value Reference Range Comments MAGNESIUM (test code=MAG) 1.9 mg/dL 1.8-2.4 CALCIUM [id number] 00:10:00* Test Item Value Reference Range Comments CALCIUM IONIZED (test code=LON) mmol/L 1.12-1.32 BASIC METABOLIC [id number] 00:03:00* Test Item Value Reference Range Comments SODIUM (test code=NA) 136 mmol/L 136-145 POTASSIUM (test code=K) 4.4 mmol/L 3.5-5.1 CHLORIDE (test code=CL) 104.0 mmol/L 98-107 CARBON DIOXIDE (test code=CO2) mmol/L 21-32 ANION GAP (test code=GAP) 10-20 GLUCOSE (test code=GLU) mg/dL 74-106 BLOOD UREA NITROGEN (test code=BUN) mg/dL 7-18 GLOMERULAR FILTRATION RATE (test code=GFR) mL/min >=60 CREATININE (test code=CREAT) mg/dL 0.55-1.02 BUN/CREATININE RATIO (test code=BUN/CREA) 10-20 CALCIUM (test code=CA) mg/dL 8.5-10.1 [id number] 00:03:00* Test Item Value Reference Range Comments PHOSPHORUS (test code=PHOS) mg/dL 2.5-4.9 [id number] 00:03:00* Test Item Value Reference Range Comments MAGNESIUM (test code=MAG) mg/dL 1.8-2.4 CALCIUM [id number] 00:03:00* Test Item Value Reference Range Comments CALCIUM IONIZED (test code=LON) mmol/L 1.12-1.32 [id number] 20:13:00* Test Item Value Reference Range Comments GLUBED (test code=GLUBED) 245 mg/dL 74-[address] 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 [facility] BASIC METABOLIC [id number] 18:54:00* Test Item Value Reference Range Comments SODIUM (test code=NA) 139 mmol/L 136-145 POTASSIUM (test code=K) 4.4 mmol/L 3.5-5.1 CHLORIDE (test code=CL) 106.0 mmol/L 98-107 CARBON DIOXIDE (test code=CO2) 25.0 mmol/L 21-32 ANION GAP (test code=GAP) 12.4 10-20 GLUCOSE (test code=GLU) 216 mg/dL 74-106 BLOOD UREA NITROGEN (test code=BUN) 25 mg/dL 7-18 GLOMERULAR FILTRATION RATE (test code=GFR) 39 mL/min >=60 Estimated GFR by using Modified MDRD formula.Chronic kidney disease is defined as either kidney damageor GFR <60 mL/min/1.73 m2 for >3 months. CREATININE (test code=CREAT) 1.30 mg/dL 0.55-1.02 Note change in reference range due to change in reagent. BUN/CREATININE RATIO (test code=BUN/CREA) 19.4 10-20 CALCIUM (test code=CA) 7.5 mg/dL 8.5-10.1 [id number] 18:54:00* Test Item Value Reference Range Comments PHOSPHORUS (test code=PHOS) 2.3 mg/dL 2.5-4.9 [id number] 18:54:00* Test Item Value Reference Range Comments MAGNESIUM (test code=MAG) 1.8 mg/dL 1.8-2.4 CALCIUM [id number] 18:54:00* Test Item Value Reference Range Comments CALCIUM IONIZED (test code=LON) 1.18 mmol/L 1.12-1.32 THROMBOPLASTIN TIME [id number] 18:49:00* Test Item Value Reference Range Comments THROMBOPLASTIN TIME PARTIAL (test code=PTT) 46.9 seconds 25.0-36.5 IS PATIENT ON ANTICOAGULANTS? YLIST ANTICOAGULANTS HEPARINBASIC METABOLIC [id number] 18:45:00* Test Item Value Reference Range Comments SODIUM (test code=NA) mmol/L 136-145 POTASSIUM (test code=K) mmol/L 3.5-5.1 CHLORIDE (test code=CL) mmol/L 98-107 CARBON DIOXIDE (test code=CO2) mmol/L 21-32 ANION GAP (test code=GAP) 10-20 GLUCOSE (test code=GLU) mg/dL 74-106 BLOOD UREA NITROGEN (test code=BUN) mg/dL 7-18 GLOMERULAR FILTRATION RATE (test code=GFR) mL/min >=60 CREATININE (test code=CREAT) mg/dL 0.55-1.02 BUN/CREATININE RATIO (test code=BUN/CREA) 10-20 CALCIUM (test code=CA) mg/dL 8.5-10.1 [id number] 18:45:00* Test Item Value Reference Range Comments PHOSPHORUS (test code=PHOS) mg/dL 2.5-4.9 [id number] 18:45:00* Test Item Value Reference Range Comments MAGNESIUM (test code=MAG) mg/dL 1.8-2.4 CALCIUM [id number] 18:45:00* Test Item Value Reference Range Comments CALCIUM IONIZED (test code=LON) 1.18 mmol/L 1.12-1.32 [id number] 16:17:00* Test Item Value Reference Range Comments GLUBED (test code=GLUBED) 215 mg/dL 74-[address]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 YLIST ANTICOAGULANTS HEPARINBASIC METABOLIC [id number] 13:06:00* Test Item Value Reference Range Comments SODIUM (test code=NA) 138 mmol/L 136-145 POTASSIUM (test code=K) 4.6 mmol/L 3.5-5.1 CHLORIDE (test code=CL) 103.0 mmol/L 98-107 CARBON DIOXIDE (test code=CO2) 24.0 mmol/L 21-32 ANION GAP (test code=GAP) 15.6 10-20 GLUCOSE (test code=GLU) 212 mg/dL 74-106 BLOOD UREA NITROGEN (test code=BUN) 26 mg/dL 7-18 GLOMERULAR FILTRATION RATE (test code=GFR) 39 mL/min >=60 Estimated GFR by using Modified MDRD formula.Chronic kidney disease is defined as either kidney damageor GFR <60 mL/min/1.73 m2 for >3 months. CREATININE (test code=CREAT) 1.30 mg/dL 0.55-1.02 Note change in reference range due to change in reagent. BUN/CREATININE RATIO (test code=BUN/CREA) 19.7 10-20 CALCIUM (test code=CA) 8.2 mg/dL 8.5-10.1 [id number] 13:06:00* Test Item Value Reference Range Comments PHOSPHORUS (test code=PHOS) 2.5 mg/dL 2.5-4.9 [id number] 13:06:00* Test Item Value Reference Range Comments MAGNESIUM (test code=MAG) 2.0 mg/dL 1.8-2.4 CALCIUM [id number] 13:06:00* Test Item Value Reference Range Comments CALCIUM IONIZED (test code=LON) 1.18 mmol/L 1.12-1.32 BASIC METABOLIC [id number] 13:00:00* Test Item Value Reference Range Comments SODIUM (test code=NA) 138 mmol/L 136-145 POTASSIUM (test code=K) 4.6 mmol/L 3.5-5.1 CHLORIDE (test code=CL) 103.0 mmol/L 98-107 CARBON DIOXIDE (test code=CO2) mmol/L 21-32 ANION GAP (test code=GAP) 10-20 GLUCOSE (test code=GLU) mg/dL 74-106 BLOOD UREA NITROGEN (test code=BUN) mg/dL 7-18 GLOMERULAR FILTRATION RATE (test code=GFR) mL/min >=60 CREATININE (test code=CREAT) mg/dL 0.55-1.02 BUN/CREATININE RATIO (test code=BUN/CREA) 10-20 CALCIUM (test code=CA) mg/dL 8.5-10.1 [id number] 13:00:00* Test Item Value Reference Range Comments PHOSPHORUS (test code=PHOS) mg/dL 2.5-4.9 [id number] 13:00:00* Test Item Value Reference Range Comments MAGNESIUM (test code=MAG) mg/dL 1.8-2.4 CALCIUM [id number] 13:00:00* Test Item Value Reference Range Comments CALCIUM IONIZED (test code=LON) 1.18 mmol/L 1.12-1.32 BASIC METABOLIC [id number] 12:56:00* Test Item Value Reference Range Comments SODIUM (test code=NA) mmol/L 136-145 POTASSIUM (test code=K) mmol/L 3.5-5.1 CHLORIDE (test code=CL) mmol/L 98-107 CARBON DIOXIDE (test code=CO2) mmol/L 21-32 ANION GAP (test code=GAP) 10-20 GLUCOSE (test code=GLU) mg/dL 74-106 BLOOD UREA NITROGEN (test code=BUN) mg/dL 7-18 GLOMERULAR FILTRATION RATE (test code=GFR) mL/min >=60 CREATININE (test code=CREAT) mg/dL 0.55-1.02 BUN/CREATININE RATIO (test code=BUN/CREA) 10-20 CALCIUM (test code=CA) mg/dL 8.5-10.1 [id number] 12:56:00* Test Item Value Reference Range Comments PHOSPHORUS (test code=PHOS) mg/dL 2.5-4.9 [id number] 12:56:00* Test Item Value Reference Range Comments MAGNESIUM (test code=MAG) mg/dL 1.8-2.4 CALCIUM [id number] 12:56:00* Test Item Value Reference Range Comments CALCIUM IONIZED (test code=LON) 1.18 mmol/L 1.12-1.32 [id number] 11:50:00* Test Item Value Reference Range Comments GLUBED (test code=GLUBED) 187 mg/dL 74-[address] 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 [facility] BASIC METABOLIC [id number] 11:20:00* Test Item Value Reference Range Comments SODIUM (test code=NA) 141 mmol/L 136-145 POTASSIUM (test code=K) 3.9 mmol/L 3.5-5.1 CHLORIDE (test code=CL) 107.0 mmol/L 98-107 CARBON DIOXIDE (test code=CO2) 18.0 mmol/L 21-32 ANION GAP (test code=GAP) 19.9 10-20 GLUCOSE (test code=GLU) 214 mg/dL 74-106 BLOOD UREA NITROGEN (test code=BUN) 46 mg/dL 7-18 GLOMERULAR FILTRATION RATE (test code=GFR) 20 mL/min >=60 Estimated GFR by using Modified MDRD formula.Chronic kidney disease is defined as either kidney damageor GFR <60 mL/min/1.73 m2 for >3 months. CREATININE (test code=CREAT) 2.30 mg/dL 0.55-1.02 Note change in reference range due to change in reagent. BUN/CREATININE RATIO (test code=BUN/CREA) 20.1 10-20 CALCIUM (test code=CA) 8.3 mg/dL 8.5-10.1 [id number] 11:20:00* Test Item Value Reference Range Comments TROPONIN-T (test code=TROPT) 1.400 ng/mL <0.011 Verified by repeat analysisPerformed At: [facility] [address] [place], [place] [id number] Sanjai MD Ph:[phone] performed at: [facility] [address] [place] [address] [id number] W/MANUAL [id number] 07:17:00* Test Item Value Reference Range Comments WHITE BLOOD CELL (test code=WBC) 13.7 K/mm3 4.5-12.5 RED BLOOD CELL (test code=RBC) 2.70 mill/mm3 3.7-5.2 HEMOGLOBIN (test code=HGB) 7.7 gram/dL 11.5-15.5 HEMATOCRIT (test code=HCT) 24.1 % 36.0-46.0 MEAN CELL VOLUME (test code=MCV) 89.3 fL 80-98 MEAN CELL HGB (test code=MCH) 28.5 picogram 27.0-33.0 MEAN CELL HGB CONCETRATION (test code=MCHC) 32.0 gram/dL 33.0-36.0 RED CELL DISTRIBUTION WIDTH (test code=RDW) 14.8 % 11.6-16.2 RED CELL DISTRIBUTION WIDTH SD (test code=RDW-SD) 47.6 fL 37.0-51.0 PLATELET COUNT (test code=PLT) 113 K/mm3 150-450 MEAN PLATELET VOLUME (test code=MPV) 12.0 fL 6.7-11.0 IMMATURE GRANULOCYTE % (test code=IG%) 1.4 % 0.0-5.0 NUCLEATED RBC % (test code=NRBC%) 0.4 % 0-0 NEUTROPHIL # (test code=NT#) 11.93 K/mm3 1.8-7.7 IMMATURE GRANULOCYTE # (test code=IG#) 0.19 x10 3/uL 0-0.03 LYMPHOCYTE # (test code=LY#) 1.21 K/mm3 1.0-5.0 MONOCYTE # (test code=MO#) 0.36 K/mm3 0-0.8 EOSINOPHIL # (test code=EO#) 0.00 K/mm3 0.0-0.5 BASOPHIL # (test code=BA#) 0.01 K/mm3 0.0-0.2 NUCLEATED RBC # (test code=NRBC#) 0.05 K/mm3 0.0-0.1 MANUAL DIFF REQUIRED (test code=MDIFF) YES STAIN ACCEPTABILITY (test code=STN ACCEPTABLE) STAIN ACCEPTABLE TOTAL CELLS COUNTED (test code=TCC) 114 #CELLS SEGMENTED NEUTROPHILS (test code=SEG) 91.2 % 39-69 BAND NEUTROPHIL (test code=BAND) 5.3 % 0-10 LYMPHOCYTE (test code=LYMPH) 3.5 % 25-55 REACTIVE LYMPH (test code=RELYMPH) 0 % MONOCYTE (test code=MON) 0 % 0-10 EOSINOPHIL (test code=EOS) 0 % 0.0-5.0 BASOPHIL (test code=BASO) 0 % 0-1.0 METAMYELOCYTE (test code=META) 0 % 0-0 MYELOCYTE (test code=MYELO) 0 % 0.0-0.0 PROMYELOCYTE (test code=PROM) 0 % 0-0 POLYCHROMASIA (test code=POLC) 1+ HYPOCHROMIA (test code=HYPO) 1+ PLATELET ESTIMATE (test code=PLTEST) DECREASED PLATELET MORPHOLOGY (test code=PLTMORPH) NORMAL IMMATURE FORMS (test code=IMMAT) 0 % THROMBOPLASTIN TIME [id number] 07:03:00* Test Item Value Reference Range Comments THROMBOPLASTIN TIME PARTIAL (test code=PTT) 37.8 seconds 25.0-36.5 IS PATIENT ON ANTICOAGULANTS? YLIST ANTICOAGULANTS HEPARINCOMPREHENSIVE METABOLIC [id number] 06:45:00* Test Item Value Reference Range Comments SODIUM (test code=NA) 138 mmol/L 136-145 POTASSIUM (test code=K) 4.2 mmol/L 3.5-5.1 CHLORIDE (test code=CL) 104.0 mmol/L 98-107 CARBON DIOXIDE (test code=CO2) 24.0 mmol/L 21-32 ANION GAP (test code=GAP) 14.2 10-20 GLUCOSE (test code=GLU) 171 mg/dL 74-106 BLOOD UREA NITROGEN (test code=BUN) 26 mg/dL 7-18 GLOMERULAR FILTRATION RATE (test code=GFR) 36 mL/min >=60 Estimated GFR by using Modified MDRD formula.Chronic kidney disease is defined as either kidney damageor GFR <60 mL/min/1.73 m2 for >3 months. CREATININE (test code=CREAT) 1.40 mg/dL 0.55-1.02 Note change in reference range due to change in reagent. BUN/CREATININE RATIO (test code=BUN/CREA) 19.3 10-20 TOTAL PROTEIN (test code=PROT) 5.3 gram/dL 6.4-8.2 ALBUMIN (test code=ALB) 2.8 g/dL 3.4-5.0 GLOBULIN (test code=GLOB) 2.5 gram/dL 2.7-4.2 ALBUMIN/GLOBULIN RATIO (test code=A/G) 1.1 0.75-1.50 CALCIUM (test code=CA) 8.0 mg/dL 8.5-10.1 BILIRUBIN TOTAL (test code=BILT) 1.40 mg/dL 0.0-1.0 SGOT/AST (test code=AST) 1605 IUnit/L 15-37 SGPT/ALT (test code=ALT) 1072 IUnit/L 12-78 ALKALINE PHOSPHATASE TOTAL (test code=ALKP) 63 IUnit/L 45-117 Note change in reference range due to change in reagent. CALCIUM [id number] 06:38:00* Test Item Value Reference Range Comments CALCIUM IONIZED (test code=LON) 1.17 mmol/L 1.12-1.32 - XR CHEST 1 [id number] 06:36:00 FAX: Nahun Malave MD [phone] [place]: St: ADM FAX: Lucero Webb MD FAX: Miki Aldrich MD [phone] Name: NEREIDA CHANG [facility] : 1940 Age/S: 78/F [address] [facility] Unit #: [id number] Loc: .[address] [address] Phys: Lucero Webb MD Acct: [id number] Dis Date: Status: ADM IN ONE #: [phone] Exam Date: 11/06/2018 0506 FAX #: [phone] Reason: intubation EXAMS: CPT CODE: [id number] XR CHEST 1 V [id number] REASON FOR EXAM: intubation EXAM ORDER DATE: 11/06/2018 6:00 AM Ordering Enrique: Lucero Webb MD PROCEDURE: - XR CHEST 1 V COMPARISON: 11/05/2018 FINDINGS: Portable AP frontal view of the chest obtained at 5:06 AM shows diffuse airspace opacities. The heart size is minimally enlarged. Stable appearance of the [place]-Ramila catheter, ET tube, OG tube, and left IJ dialysis catheter. Pulmonary vascu latures are minimally congested. IMPRESSION: Congestive h eart failure with pulmonary edema at 0636 Reported and signed by: Fito dyson M.D. CC: Nahun Malave MD; Lucero Webb MD; Savanah Hathaway MD Technologist: Emily Billings RT(R); Kim Keller Trns crd Date/Time/By: 11/06/2018 (0636) : By: Raquel Orig Print D/T: S: 11/06/2018 (0639) PAGE 1 Signed Report CBC W/MANUAL [id number] 06:35:00* Test Item Value Reference Range Comments WHITE BLOOD CELL (test code=WBC) 13.7 K/mm3 4.5-12.5 RED BLOOD CELL (test code=RBC) 2.70 mill/mm3 3.7-5.2 HEMOGLOBIN (test code=HGB) 7.7 gram/dL 11.5-15.5 HEMATOCRIT (test code=HCT) 24.1 % 36.0-46.0 MEAN CELL VOLUME (test code=MCV) 89.3 fL 80-98 MEAN CELL HGB (test code=MCH) 28.5 picogram 27.0-33.0 MEAN CELL HGB CONCETRATION (test code=MCHC) 32.0 gram/dL 33.0-36.0 RED CELL DISTRIBUTION WIDTH (test code=RDW) 14.8 % 11.6-16.2 RED CELL DISTRIBUTION WIDTH SD (test code=RDW-SD) 47.6 fL 37.0-51.0 PLATELET COUNT (test code=PLT) 113 K/mm3 150-450 MEAN PLATELET VOLUME (test code=MPV) 12.0 fL 6.7-11.0 IMMATURE GRANULOCYTE % (test code=IG%) 1.4 % 0.0-5.0 NUCLEATED RBC % (test code=NRBC%) 0.4 % 0-0 NEUTROPHIL # (test code=NT#) 11.93 K/mm3 1.8-7.7 IMMATURE GRANULOCYTE # (test code=IG#) 0.19 x10 3/uL 0-0.03 LYMPHOCYTE # (test code=LY#) 1.21 K/mm3 1.0-5.0 MONOCYTE # (test code=MO#) 0.36 K/mm3 0-0.8 EOSINOPHIL # (test code=EO#) 0.00 K/mm3 0.0-0.5 BASOPHIL # (test code=BA#) 0.01 K/mm3 0.0-0.2 NUCLEATED RBC # (test code=NRBC#) 0.05 K/mm3 0.0-0.1 MANUAL DIFF REQUIRED (test code=MDIFF) YES STAIN ACCEPTABILITY (test code=STN ACCEPTABLE) TOTAL CELLS COUNTED (test code=TCC) #CELLS SEGMENTED NEUTROPHILS (test code=SEG) % 39-69 LYMPHOCYTE (test code=LYMPH) % 25-55 MONOCYTE (test code=MON) % 0-10 EOSINOPHIL (test code=EOS) % 0.0-5.0 CABOT RINGS (test code=CAB) MORPHOLOGY COMMENT (test code=MOC) PLATELET ESTIMATE (test code=PLTEST) PLATELET MORPHOLOGY (test code=PLTMORPH) CBC W/MANUAL [id number] 06:35:00* Test Item Value Reference Range Comments WHITE BLOOD CELL (test code=WBC) 13.7 K/mm3 4.5-12.5 RED BLOOD CELL (test code=RBC) 2.70 mill/mm3 3.7-5.2 HEMOGLOBIN (test code=HGB) 7.7 gram/dL 11.5-15.5 HEMATOCRIT (test code=HCT) 24.1 % 36.0-46.0 MEAN CELL VOLUME (test code=MCV) 89.3 fL 80-98 MEAN CELL HGB (test code=MCH) 28.5 picogram 27.0-33.0 MEAN CELL HGB CONCETRATION (test code=MCHC) 32.0 gram/dL 33.0-36.0 RED CELL DISTRIBUTION WIDTH (test code=RDW) 14.8 % 11.6-16.2 RED CELL DISTRIBUTION WIDTH SD (test code=RDW-SD) 47.6 fL 37.0-51.0 PLATELET COUNT (test code=PLT) 113 K/mm3 150-450 MEAN PLATELET VOLUME (test code=MPV) 12.0 fL 6.7-11.0 IMMATURE GRANULOCYTE % (test code=IG%) 1.4 % 0.0-5.0 NUCLEATED RBC % (test code=NRBC%) 0.4 % 0-0 NEUTROPHIL # (test code=NT#) 11.93 K/mm3 1.8-7.7 IMMATURE GRANULOCYTE # (test code=IG#) 0.19 x10 3/uL 0-0.03 LYMPHOCYTE # (test code=LY#) 1.21 K/mm3 1.0-5.0 MONOCYTE # (test code=MO#) 0.36 K/mm3 0-0.8 EOSINOPHIL # (test code=EO#) 0.00 K/mm3 0.0-0.5 BASOPHIL # (test code=BA#) 0.01 K/mm3 0.0-0.2 NUCLEATED RBC # (test code=NRBC#) 0.05 K/mm3 0.0-0.1 MANUAL DIFF REQUIRED (test code=MDIFF) YES STAIN ACCEPTABILITY (test code=STN ACCEPTABLE) TOTAL CELLS COUNTED (test code=TCC) #CELLS SEGMENTED NEUTROPHILS (test code=SEG) % 39-69 LYMPHOCYTE (test code=LYMPH) % 25-55 MONOCYTE (test code=MON) % 0-10 EOSINOPHIL (test code=EOS) % 0.0-5.0 MORPHOLOGY COMMENT (test code=MOC) PLATELET ESTIMATE (test code=PLTEST) PLATELET MORPHOLOGY (test code=PLTMORPH) CBC W/MANUAL [id number] 06:35:00* Test Item Value Reference Range Comments WHITE BLOOD CELL (test code=WBC) 13.7 K/mm3 4.5-12.5 RED BLOOD CELL (test code=RBC) 2.70 mill/mm3 3.7-5.2 HEMOGLOBIN (test code=HGB) 7.7 gram/dL 11.5-15.5 HEMATOCRIT (test code=HCT) 24.1 % 36.0-46.0 MEAN CELL VOLUME (test code=MCV) 89.3 fL 80-98 MEAN CELL HGB (test code=MCH) 28.5 picogram 27.0-33.0 MEAN CELL HGB CONCETRATION (test code=MCHC) 32.0 gram/dL 33.0-36.0 RED CELL DISTRIBUTION WIDTH (test code=RDW) 14.8 % 11.6-16.2 RED CELL DISTRIBUTION WIDTH SD (test code=RDW-SD) 47.6 fL 37.0-51.0 PLATELET COUNT (test code=PLT) 113 K/mm3 150-450 MEAN PLATELET VOLUME (test code=MPV) 12.0 fL 6.7-11.0 IMMATURE GRANULOCYTE % (test code=IG%) 1.4 % 0.0-5.0 NUCLEATED RBC % (test code=NRBC%) 0.4 % 0-0 NEUTROPHIL # (test code=NT#) 11.93 K/mm3 1.8-7.7 IMMATURE GRANULOCYTE # (test code=IG#) 0.19 x10 3/uL 0-0.03 LYMPHOCYTE # (test code=LY#) 1.21 K/mm3 1.0-5.0 MONOCYTE # (test code=MO#) 0.36 K/mm3 0-0.8 EOSINOPHIL # (test code=EO#) 0.00 K/mm3 0.0-0.5 BASOPHIL # (test code=BA#) 0.01 K/mm3 0.0-0.2 NUCLEATED RBC # (test code=NRBC#) 0.05 K/mm3 0.0-0.1 MANUAL DIFF REQUIRED (test code=MDIFF) YES STAIN ACCEPTABILITY (test code=STN ACCEPTABLE) TOTAL CELLS COUNTED (test code=TCC) #CELLS SEGMENTED NEUTROPHILS (test code=SEG) % 39-69 LYMPHOCYTE (test code=LYMPH) % 25-55 MONOCYTE (test code=MON) % 0-10 MORPHOLOGY COMMENT (test code=MOC) PLATELET ESTIMATE (test code=PLTEST) PLATELET MORPHOLOGY (test code=PLTMORPH) COMPREHENSIVE METABOLIC [id number] 06:34:00* Test Item Value Reference Range Comments SODIUM (test code=NA) 138 mmol/L 136-145 POTASSIUM (test code=K) 4.2 mmol/L 3.5-5.1 CHLORIDE (test code=CL) 104.0 mmol/L 98-107 CARBON DIOXIDE (test code=CO2) mmol/L 21-32 ANION GAP (test code=GAP) 10-20 GLUCOSE (test code=GLU) mg/dL 74-106 BLOOD UREA NITROGEN (test code=BUN) mg/dL 7-18 GLOMERULAR FILTRATION RATE (test code=GFR) mL/min >=60 CREATININE (test code=CREAT) mg/dL 0.55-1.02 BUN/CREATININE RATIO (test code=BUN/CREA) 10-20 TOTAL PROTEIN (test code=PROT) gram/dL 6.4-8.2 ALBUMIN (test code=ALB) g/dL 3.4-5.0 GLOBULIN (test code=GLOB) gram/dL 2.7-4.2 ALBUMIN/GLOBULIN RATIO (test code=A/G) 0.75-1.50 CALCIUM (test code=CA) mg/dL 8.5-10.1 BILIRUBIN TOTAL (test code=BILT) mg/dL 0.0-1.0 SGOT/AST (test code=AST) IUnit/L 15-37 SGPT/ALT (test code=ALT) IUnit/L 12-78 ALKALINE PHOSPHATASE TOTAL (test code=ALKP) IUnit/L 45-117 CBC W/MANUAL [id number] 06:34:00* Test Item Value Reference Range Comments WHITE BLOOD CELL (test code=WBC) 13.7 K/mm3 4.5-12.5 RED BLOOD CELL (test code=RBC) 2.70 mill/mm3 3.7-5.2 HEMOGLOBIN (test code=HGB) 7.7 gram/dL 11.5-15.5 HEMATOCRIT (test code=HCT) 24.1 % 36.0-46.0 MEAN CELL VOLUME (test code=MCV) 89.3 fL 80-98 MEAN CELL HGB (test code=MCH) 28.5 picogram 27.0-33.0 MEAN CELL HGB CONCETRATION (test code=MCHC) 32.0 gram/dL 33.0-36.0 RED CELL DISTRIBUTION WIDTH (test code=RDW) 14.8 % 11.6-16.2 RED CELL DISTRIBUTION WIDTH SD (test code=RDW-SD) 47.6 fL 37.0-51.0 PLATELET COUNT (test code=PLT) 113 K/mm3 150-450 MEAN PLATELET VOLUME (test code=MPV) 12.0 fL 6.7-11.0 IMMATURE GRANULOCYTE % (test code=IG%) 1.4 % 0.0-5.0 NUCLEATED RBC % (test code=NRBC%) 0.4 % 0-0 NEUTROPHIL # (test code=NT#) 11.93 K/mm3 1.8-7.7 IMMATURE GRANULOCYTE # (test code=IG#) 0.19 x10 3/uL 0-0.03 LYMPHOCYTE # (test code=LY#) 1.21 K/mm3 1.0-5.0 MONOCYTE # (test code=MO#) 0.36 K/mm3 0-0.8 EOSINOPHIL # (test code=EO#) 0.00 K/mm3 0.0-0.5 BASOPHIL # (test code=BA#) 0.01 K/mm3 0.0-0.2 NUCLEATED RBC # (test code=NRBC#) 0.05 K/mm3 0.0-0.1 MANUAL DIFF REQUIRED (test code=MDIFF) YES STAIN ACCEPTABILITY (test code=STN ACCEPTABLE) TOTAL CELLS COUNTED (test code=TCC) #CELLS SEGMENTED NEUTROPHILS (test code=SEG) % 39-69 LYMPHOCYTE (test code=LYMPH) % 25-55 MONOCYTE (test code=MON) % 0-10 EOSINOPHIL (test code=EOS) % 0.0-5.0 CABOT RINGS (test code=CAB) MORPHOLOGY COMMENT (test code=MOC) PLATELET ESTIMATE (test code=PLTEST) PLATELET MORPHOLOGY (test code=PLTMORPH) [id number] 06:34:00* Test Item Value Reference Range Comments PHOSPHORUS (test code=PHOS) 2.5 mg/dL 2.5-4.9 [id number] 06:34:00* Test Item Value Reference Range Comments MAGNESIUM (test code=MAG) 2.2 mg/dL 1.8-2.4 CBC W/MANUAL [id number] 06:34:00* Test Item Value Reference Range Comments WHITE BLOOD CELL (test code=WBC) 13.7 K/mm3 4.5-12.5 RED BLOOD CELL (test code=RBC) 2.70 mill/mm3 3.7-5.2 HEMOGLOBIN (test code=HGB) 7.7 gram/dL 11.5-15.5 HEMATOCRIT (test code=HCT) 24.1 % 36.0-46.0 MEAN CELL VOLUME (test code=MCV) 89.3 fL 80-98 MEAN CELL HGB (test code=MCH) 28.5 picogram 27.0-33.0 MEAN CELL HGB CONCETRATION (test code=MCHC) 32.0 gram/dL 33.0-36.0 RED CELL DISTRIBUTION WIDTH (test code=RDW) 14.8 % 11.6-16.2 RED CELL DISTRIBUTION WIDTH SD (test code=RDW-SD) 47.6 fL 37.0-51.0 PLATELET COUNT (test code=PLT) 113 K/mm3 150-450 MEAN PLATELET VOLUME (test code=MPV) 12.0 fL 6.7-11.0 IMMATURE GRANULOCYTE % (test code=IG%) 1.4 % 0.0-5.0 NUCLEATED RBC % (test code=NRBC%) 0.4 % 0-0 NEUTROPHIL # (test code=NT#) 11.93 K/mm3 1.8-7.7 IMMATURE GRANULOCYTE # (test code=IG#) 0.19 x10 3/uL 0-0.03 LYMPHOCYTE # (test code=LY#) 1.21 K/mm3 1.0-5.0 MONOCYTE # (test code=MO#) 0.36 K/mm3 0-0.8 EOSINOPHIL # (test code=EO#) 0.00 K/mm3 0.0-0.5 BASOPHIL # (test code=BA#) 0.01 K/mm3 0.0-0.2 NUCLEATED RBC # (test code=NRBC#) 0.05 K/mm3 0.0-0.1 MANUAL DIFF REQUIRED (test code=MDIFF) YES STAIN ACCEPTABILITY (test code=STN ACCEPTABLE) TOTAL CELLS COUNTED (test code=TCC) #CELLS SEGMENTED NEUTROPHILS (test code=SEG) % 39-69 LYMPHOCYTE (test code=LYMPH) % 25-55 MONOCYTE (test code=MON) % 0-10 EOSINOPHIL (test code=EOS) % 0.0-5.0 CABOT RINGS (test code=CAB) MORPHOLOGY COMMENT (test code=MOC) PLATELET ESTIMATE (test code=PLTEST) PLATELET MORPHOLOGY (test code=PLTMORPH) [id number] 04:32:00* Test Item Value Reference Range Comments GLUBED (test code=GLUBED) 161 mg/dL 74-[address] 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 [facility] [id number] 00:20:00* Test Item Value Reference Range Comments GLUBED (test code=GLUBED) 167 mg/dL 74-[address] 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 [facility] BASIC METABOLIC [id number] 23:46:00* Test Item Value Reference Range Comments SODIUM (test code=NA) 138 mmol/L 136-145 POTASSIUM (test code=K) 4.0 mmol/L 3.5-5.1 CHLORIDE (test code=CL) 105.0 mmol/L 98-107 CARBON DIOXIDE (test code=CO2) 24.0 mmol/L 21-32 ANION GAP (test code=GAP) 13.0 10-20 GLUCOSE (test code=GLU) 191 mg/dL 74-106 BLOOD UREA NITROGEN (test code=BUN) 28 mg/dL 7-18 GLOMERULAR FILTRATION RATE (test code=GFR) 33 mL/min >=60 Estimated GFR by using Modified MDRD formula.Chronic kidney disease is defined as either kidney damageor GFR <60 mL/min/1.73 m2 for >3 months. CREATININE (test code=CREAT) 1.50 mg/dL 0.55-1.02 Note change in reference range due to change in reagent. BUN/CREATININE RATIO (test code=BUN/CREA) 18.9 10-20 CALCIUM (test code=CA) 7.9 mg/dL 8.5-10.1 [id number] 23:46:00* Test Item Value Reference Range Comments PHOSPHORUS (test code=PHOS) 3.1 mg/dL 2.5-4.9 [id number] 23:46:00* Test Item Value Reference Range Comments MAGNESIUM (test code=MAG) 2.2 mg/dL 1.8-2.4 CALCIUM [id number] 23:46:00* Test Item Value Reference Range Comments CALCIUM IONIZED (test code=LON) 1.21 mmol/L 1.12-1.32 BASIC METABOLIC [id number] 23:14:00* Test Item Value Reference Range Comments SODIUM (test code=NA) 138 mmol/L 136-145 POTASSIUM (test code=K) 4.0 mmol/L 3.5-5.1 CHLORIDE (test code=CL) 105.0 mmol/L 98-107 CARBON DIOXIDE (test code=CO2) 24.0 mmol/L 21-32 ANION GAP (test code=GAP) 13.0 10-20 GLUCOSE (test code=GLU) 191 mg/dL 74-106 BLOOD UREA NITROGEN (test code=BUN) 28 mg/dL 7-18 GLOMERULAR FILTRATION RATE (test code=GFR) 33 mL/min >=60 Estimated GFR by using Modified MDRD formula.Chronic kidney disease is defined as either kidney damageor GFR <60 mL/min/1.73 m2 for >3 months. CREATININE (test code=CREAT) 1.50 mg/dL 0.55-1.02 Note change in reference range due to change in reagent. BUN/CREATININE RATIO (test code=BUN/CREA) 18.9 10-20 CALCIUM (test code=CA) 7.9 mg/dL 8.5-10.1 [id number] 23:14:00* Test Item Value Reference Range Comments PHOSPHORUS (test code=PHOS) 3.1 mg/dL 2.5-4.9 [id number] 23:14:00* Test Item Value Reference Range Comments MAGNESIUM (test code=MAG) 2.2 mg/dL 1.8-2.4 CALCIUM [id number] 23:14:00* Test Item Value Reference Range Comments CALCIUM IONIZED (test code=LON) mmol/L 1.12-1.32 BASIC METABOLIC [id number] 23:12:00* Test Item Value Reference Range Comments SODIUM (test code=NA) 138 mmol/L 136-145 POTASSIUM (test code=K) 4.0 mmol/L 3.5-5.1 CHLORIDE (test code=CL) 105.0 mmol/L 98-107 CARBON DIOXIDE (test code=CO2) mmol/L 21-32 ANION GAP (test code=GAP) 10-20 GLUCOSE (test code=GLU) mg/dL 74-106 BLOOD UREA NITROGEN (test code=BUN) mg/dL 7-18 GLOMERULAR FILTRATION RATE (test code=GFR) mL/min >=60 CREATININE (test code=CREAT) mg/dL 0.55-1.02 BUN/CREATININE RATIO (test code=BUN/CREA) 10-20 CALCIUM (test code=CA) mg/dL 8.5-10.1 [id number] 23:12:00* Test Item Value Reference Range Comments PHOSPHORUS (test code=PHOS) mg/dL 2.5-4.9 [id number] 23:12:00* Test Item Value Reference Range Comments MAGNESIUM (test code=MAG) mg/dL 1.8-2.4 CALCIUM [id number] 23:12:00* Test Item Value Reference Range Comments CALCIUM IONIZED (test code=LON) mmol/L 1.12-1.32 THROMBOPLASTIN TIME [id number] 22:57:00* Test Item Value Reference Range Comments THROMBOPLASTIN TIME PARTIAL (test code=PTT) 34.8 seconds 25.0-36.5 IS PATIENT ON ANTICOAGULANTS? YLIST ANTICOAGULANTS [id number] 20:11:00* Test Item Value Reference Range Comments GLUBED (test code=GLUBED) 221 mg/dL 74-[address] 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 [facility] BASIC METABOLIC [id number] 17:47:00* Test Item Value Reference Range Comments SODIUM (test code=NA) 139 mmol/L 136-145 POTASSIUM (test code=K) 4.5 mmol/L 3.5-5.1 CHLORIDE (test code=CL) 103.0 mmol/L 98-107 CARBON DIOXIDE (test code=CO2) 26.0 mmol/L 21-32 ANION GAP (test code=GAP) 14.5 10-20 GLUCOSE (test code=GLU) 210 mg/dL 74-106 BLOOD UREA NITROGEN (test code=BUN) 29 mg/dL 7-18 GLOMERULAR FILTRATION RATE (test code=GFR) 31 mL/min >=60 Estimated GFR by using Modified MDRD formula.Chronic kidney disease is defined as either kidney damageor GFR <60 mL/min/1.73 m2 for >3 months. CREATININE (test code=CREAT) 1.60 mg/dL 0.55-1.02 Note change in reference range due to change in reagent. BUN/CREATININE RATIO (test code=BUN/CREA) 18.4 10-20 CALCIUM (test code=CA) 8.0 mg/dL 8.5-10.1 [id number] 17:47:00* Test Item Value Reference Range Comments PHOSPHORUS (test code=PHOS) 4.3 mg/dL 2.5-4.9 [id number] 17:47:00* Test Item Value Reference Range Comments MAGNESIUM (test code=MAG) 2.3 mg/dL 1.8-2.4 CALCIUM [id number] 17:47:00* Test Item Value Reference Range Comments CALCIUM IONIZED (test code=LON) 1.11 mmol/L 1.12-1.32 THROMBOPLASTIN TIME [id number] 17:47:00* Test Item Value Reference Range Comments THROMBOPLASTIN TIME PARTIAL (test code=PTT) 106.2 seconds 25.0-36.5 Results called to [id number] by [email or web address] 11/05/18 1747Critical results verified and read back by Nurse? Y IS PATIENT ON ANTICOAGULANTS? YLIST ANTICOAGULANTS HEPARINBASIC METABOLIC [id number] 17:32:00* Test Item Value Reference Range Comments SODIUM (test code=NA) 139 mmol/L 136-145 POTASSIUM (test code=K) 4.5 mmol/L 3.5-5.1 CHLORIDE (test code=CL) 103.0 mmol/L 98-107 CARBON DIOXIDE (test code=CO2) 26.0 mmol/L 21-32 ANION GAP (test code=GAP) 14.5 10-20 GLUCOSE (test code=GLU) 210 mg/dL 74-106 BLOOD UREA NITROGEN (test code=BUN) 29 mg/dL 7-18 GLOMERULAR FILTRATION RATE (test code=GFR) 31 mL/min >=60 Estimated GFR by using Modified MDRD formula.Chronic kidney disease is defined as either kidney damageor GFR <60 mL/min/1.73 m2 for >3 months. CREATININE (test code=CREAT) 1.60 mg/dL 0.55-1.02 Note change in reference range due to change in reagent. 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 [facility] BASIC METABOLIC [id number] 12:16:00* Test Item Value Reference Range Comments SODIUM (test code=NA) 145 mmol/L 136-145 POTASSIUM (test code=K) 4.3 mmol/L 3.5-5.1 CHLORIDE (test code=CL) 108.0 mmol/L 98-107 CARBON DIOXIDE (test code=CO2) 26.0 mmol/L 21-32 ANION GAP (test code=GAP) 15.3 10-20 GLUCOSE (test code=GLU) 209 mg/dL 74-106 BLOOD UREA NITROGEN (test code=BUN) 32 mg/dL 7-18 GLOMERULAR FILTRATION RATE (test code=GFR) 28 mL/min >=60 Estimated GFR by using Modified MDRD formula.Chronic kidney disease is defined as either kidney damageor GFR <60 mL/min/1.73 m2 for >3 months. CREATININE (test code=CREAT) 1.75 mg/dL 0.55-1.02 Note change in reference range due to change in reagent. BUN/CREATININE RATIO (test code=BUN/CREA) 18.3 10-20 CALCIUM (test code=CA) 8.1 mg/dL 8.5-10.1 [id number] 12:16:00* Test Item Value Reference Range Comments PHOSPHORUS (test code=PHOS) 2.4 mg/dL 2.5-4.9 [id number] 12:16:00* Test Item Value Reference Range Comments MAGNESIUM (test code=MAG) 2.2 mg/dL 1.8-2.4 CALCIUM [id number] 12:16:00* Test Item Value Reference Range Comments CALCIUM IONIZED (test code=LON) 1.18 mmol/L 1.12-1.32 BASIC METABOLIC [id number] 12:08:00* Test Item Value Reference Range Comments SODIUM (test code=NA) 145 mmol/L 136-145 POTASSIUM (test code=K) 4.3 mmol/L 3.5-5.1 CHLORIDE (test code=CL) 108.0 mmol/L 98-107 CARBON DIOXIDE (test code=CO2) 26.0 mmol/L 21-32 ANION GAP (test code=GAP) 15.3 10-20 GLUCOSE (test code=GLU) 209 mg/dL 74-106 BLOOD UREA NITROGEN (test code=BUN) 32 mg/dL 7-18 GLOMERULAR FILTRATION RATE (test code=GFR) 28 mL/min >=60 Estimated GFR by using Modified MDRD formula.Chronic kidney disease is defined as either kidney damageor GFR <60 mL/min/1.73 m2 for >3 months. CREATININE (test code=CREAT) 1.75 mg/dL 0.55-1.02 Note change in reference range due to change in reagent. 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 YLIST ANTICOAGULANTS HEPARINCBC W/O DIFF 2018-11-05 11:34:00* Test Item Value Reference Range Comments WHITE BLOOD CELL (test code=WBC) 23.3 K/mm3 4.5-12.5 RED BLOOD CELL (test code=RBC) 2.80 mill/mm3 3.7-5.2 HEMOGLOBIN (test code=HGB) 8.0 gram/dL 11.5-15.5 HEMATOCRIT (test code=HCT) 25.2 % 36.0-46.0 MEAN CELL VOLUME (test code=MCV) 90.0 fL 80-98 MEAN CELL HGB (test code=MCH) 28.6 picogram 27.0-33.0 MEAN CELL HGB CONCETRATION (test code=MCHC) 31.7 gram/dL 33.0-36.0 RED CELL DISTRIBUTION WIDTH (test code=RDW) 14.6 % 11.6-16.2 PLATELET COUNT (test code=PLT) 129 K/mm3 150-450 MEAN PLATELET VOLUME (test code=MPV) 12.0 fL 6.7-11.0 ARTERIAL BLOOD [id number] 11:19:00* Test Item Value Reference Range Comments ARTERIAL BLOOD GAS PH (test code=PHA) 7.45 7.35-7.45 ARTERIAL BLOOD GAS PCO2 (test code=PCO2A) 38.1 mm Hg 35-45 ARTERIAL BLOOD GAS PO2 (test code=PO2A) 76.6 mmHg 80-100 BICARBONATE TOTAL HCO3 (test code=HCO3) 26.1 mmol/L 23.0-27.0 BASE EXCESS (test code=QUINTON) 2.1 mmol/L -3.0-5.0 ABG O2 SATURATION (test code=SATA) 93.6 % 90.0-98.0 ABG TYPE (test code=TYPEA) Arterial FIO2 (test code=FIO2A) 40.0 ABG VENT MODE (test code=MODEA) Assist Control ABG VENT RESP RATE (test code=RRA) 20.0 per min ABG TIDAL VOLUME (test code=TVA) 400.0 mL ABG PEEP (test code=PEEPA) 6.0 cmH2O ABG SITE (test code=SITEA) ARTERIAL LINE HEMATOCRIT (test code=HCT/ABG) 25 % 35-47 TOTAL HGB (test code=THB) 8.5 gram/dL 11.5-15.5 HGB O2 SAT (test code=HBOSAT) 92.9 % 94.00-98.00 CARBOXYHEMOGLOBIN (test code=HOHGBT) 0.3 %totalHg 0.5-1.5 Results called to and read back by Paul 11:19 - 11/05/2018; by DAVION METHEMOGLOBIN (test code=METHGB) 0.5 % 0.0-1.50 O2 CONTENT (test code=O2CT) 11.2 % vol 18.0-22.0 LACTIC [id number] 10:45:00* Test Item Value Reference Range Comments LACTIC ACID (test code=LACT) 2.7 mmol/L 0.4-1.9 Results called to [id number] by TERRI 11/05/18 1044Critical results verified and read back by Nurse? Y THROMBOPLASTIN TIME [id number] 10:44:00* Test Item Value Reference Range Comments THROMBOPLASTIN TIME PARTIAL (test code=PTT) 38.4 seconds 25.0-36.5 IS PATIENT ON ANTICOAGULANTS? 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 [facility] - XR CHEST 1 [id number] 07:51:00 FAX: Nahun Malave MD [phone] [place]: St: ADM FAX: Miki Aldrich MD [phone] FAX: Hari Price NP [phone] Name: CHARLENENEREIDA [facility] : 1940 Age/S: 78/F [address] [facility] [place] [facility] Unit #: [id number] Loc: V.[address] [address] Phys: Hari Rosenberg CUT PRESSMAN Acct: [id number] Dis Date: Status: ADM IN ONE #: [phone] Exam Date: 11/05/2018 06 FAX #: [phone] Reason: PNA EXAMS: CPT CODE: [id number] XR CHEST 1 V 66625 REASON FOR EXAM: PNA EXAM ORDER DATE: 11/05/2018 12:00 AM Concepción prince M.D.: Hari Rosenberg NP PROCEDURE: - XR CHEST 1 V COMPARISON: FINDINGS: Portable AP frontal view of the [facility] obtained at 6:21 AM shows diffuse airspace opacity. There is no evidenc e of effusion. The heart size is minimally enlarged. Pulmonary vasculature s are minimally congested. Stable appearance of the right IJ sheath, right IJ [place]-Ramila catheter, ET tube, OG tube, and left IJ dialysis catheter. IMPRESSION: Congestive heart failure with pulmonary edema at 0751 Reported and signed by: Fito Antonio M.D. CC: Nahun Malave MD; Miki Hathaway MD; Hari Rosenberg NP Technologist: Alexander Guidry RT(R) Trnscrd Date/Time/By: 11/05/2018 (0751) : By: Raquel Orig Print D/T: S: 11/05/2018 (0754) PAGE 1 Signed Report LACTIC [id number] 06:19:00* Test Item Value Reference Range Comments LACTIC ACID (test code=LACT) 3.3 mmol/L 0.4-1.9 Results called to [id number] by V.LAB.AG1 11/05/18 0618Critical results verified and read back by Nurse? Y COMPREHENSIVE METABOLIC [id number] 06:18:00* Test Item Value Reference Range Comments SODIUM (test code=NA) 143 mmol/L 136-145 POTASSIUM (test code=K) 4.1 mmol/L 3.5-5.1 CHLORIDE (test code=CL) 106.0 mmol/L 98-107 CARBON DIOXIDE (test code=CO2) 25.0 mmol/L 21-32 ANION GAP (test code=GAP) 16.1 10-20 GLUCOSE (test code=GLU) 241 mg/dL 74-106 BLOOD UREA NITROGEN (test code=BUN) 34 mg/dL 7-18 GLOMERULAR FILTRATION RATE (test code=GFR) 25 mL/min >=60 Estimated GFR by using Modified MDRD formula.Chronic kidney disease is defined as either kidney damageor GFR <60 mL/min/1.73 m2 for >3 months. CREATININE (test code=CREAT) 1.90 mg/dL 0.55-1.02 Note change in reference range due to change in reagent. BUN/CREATININE RATIO (test code=BUN/CREA) 17.9 10-20 TOTAL PROTEIN (test code=PROT) 5.2 gram/dL 6.4-8.2 ALBUMIN (test code=ALB) 2.8 g/dL 3.4-5.0 GLOBULIN (test code=GLOB) 2.4 gram/dL 2.7-4.2 ALBUMIN/GLOBULIN RATIO (test code=A/G) 1.2 0.75-1.50 CALCIUM (test code=CA) 7.9 mg/dL 8.5-10.1 BILIRUBIN TOTAL (test code=BILT) 1.60 mg/dL 0.0-1.0 SGOT/AST (test code=AST) 2262 IUnit/L 15-37 SGPT/ALT (test code=ALT) 996 IUnit/L 12-78 ALKALINE PHOSPHATASE TOTAL (test code=ALKP) 46 IUnit/L 45-117 Note change in reference range due to change in reagent. LIPID PROFILE (CORONARY RISK)2018-11-05 06:18:00* Test Item Value Reference Range Comments TRIGLYCERIDES (test code=TRIG) 123 mg/dL 20-150 CHOLESTEROL (test code=CHOL) 86 mg/dL 0-200 CHOLESTEROL/HDL RATIO (test code=CHOLHDL) 3.0 RATIO 0-4.9 RISK ASSOCIATED WITH CHOL/HDL RATIOS: Risk Male Female1/2 AVERAGE 3.43 3.27AVERAGE 4.97 4.442X AVERAGE 9.55 7.053X AVERAGE 23.39 11.04 REFERENCE VALUE IS RELATED TO RISK LEVELS ASRECOMMENDED BY THE YESI. HEART, LUNG, AND BLOOD INST. HDL CHOLESTEROL (test code=HDL) 22 mg/dL 40-60 LIPOPROTEIN LDL (test code=LDL) 53 mg/dL 100-129 Reference Interval: mg/dL mmol/L Optimal <100 <2.6Near/above optimal 100-129 2.6- 3.3Borderline High 130-159 3.4-4.1High 160-189 4.1-4.9Very High >=190 >=4.9=========This LDL result is a direct measurement.========= [id number] 06:18:00* Test Item Value Reference Range Comments PHOSPHORUS (test code=PHOS) 3.0 mg/dL 2.5-4.9 CBC W/MANUAL [id number] 06:12:00* Test Item Value Reference Range Comments WHITE BLOOD CELL (test code=WBC) 23.0 K/mm3 4.5-12.5 RED BLOOD CELL (test code=RBC) 2.82 mill/mm3 3.7-5.2 HEMOGLOBIN (test code=HGB) 8.1 gram/dL 11.5-15.5 HEMATOCRIT (test code=HCT) 25.2 % 36.0-46.0 MEAN CELL VOLUME (test code=MCV) 89.4 fL 80-98 MEAN CELL HGB (test code=MCH) 28.7 picogram 27.0-33.0 MEAN CELL HGB CONCETRATION (test code=MCHC) 32.1 gram/dL 33.0-36.0 RED CELL DISTRIBUTION WIDTH (test code=RDW) 14.6 % 11.6-16.2 RED CELL DISTRIBUTION WIDTH SD (test code=RDW-SD) 46.7 fL 37.0-51.0 PLATELET COUNT (test code=PLT) 133 K/mm3 150-450 RESULT VERIFIED BY REPEAT ANALYSIS MEAN PLATELET VOLUME (test code=MPV) 11.8 fL 6.7-11.0 IMMATURE GRANULOCYTE % (test code=IG%) 0.5 % 0.0-5.0 NUCLEATED RBC % (test code=NRBC%) 0.0 % 0-0 NEUTROPHIL # (test code=NT#) 20.49 K/mm3 1.8-7.7 IMMATURE GRANULOCYTE # (test code=IG#) 0.12 x10 3/uL 0-0.03 LYMPHOCYTE # (test code=LY#) 1.75 K/mm3 1.0-5.0 MONOCYTE # (test code=MO#) 0.60 K/mm3 0-0.8 EOSINOPHIL # (test code=EO#) 0.00 K/mm3 0.0-0.5 BASOPHIL # (test code=BA#) 0.03 K/mm3 0.0-0.2 NUCLEATED RBC # (test code=NRBC#) 0.00 K/mm3 0.0-0.1 MANUAL DIFF REQUIRED (test code=MDIFF) YES STAIN ACCEPTABILITY (test code=STN ACCEPTABLE) STAIN ACCEPTABLE TOTAL CELLS COUNTED (test code=TCC) 115 #CELLS SEGMENTED NEUTROPHILS (test code=SEG) 93.0 % 39-69 BAND NEUTROPHIL (test code=BAND) 0.9 % 0-10 LYMPHOCYTE (test code=LYMPH) 5.2 % 25-55 REACTIVE LYMPH (test code=RELYMPH) 0 % MONOCYTE (test code=MON) 0.9 % 0-10 EOSINOPHIL (test code=EOS) 0 % 0.0-5.0 BASOPHIL (test code=BASO) 0 % 0-1.0 METAMYELOCYTE (test code=META) 0 % 0-0 MYELOCYTE (test code=MYELO) 0 % 0.0-0.0 PROMYELOCYTE (test code=PROM) 0 % 0-0 POLYCHROMASIA (test code=POLC) 1+ HYPOCHROMIA (test code=HYPO) 1+ PLATELET ESTIMATE (test code=PLTEST) DECREASED PLATELET MORPHOLOGY (test code=PLTMORPH) NORMAL IMMATURE FORMS (test code=IMMAT) 0 % CALCIUM [id number] 06:07:00* Test Item Value Reference Range Comments CALCIUM IONIZED (test code=LON) 1.17 mmol/L 1.12-1.32 CBC W/MANUAL [id number] 06:01:00* Test Item Value Reference Range Comments WHITE BLOOD CELL (test code=WBC) 23.0 K/mm3 4.5-12.5 RED BLOOD CELL (test code=RBC) 2.82 mill/mm3 3.7-5.2 HEMOGLOBIN (test code=HGB) 8.1 gram/dL 11.5-15.5 HEMATOCRIT (test code=HCT) 25.2 % 36.0-46.0 MEAN CELL VOLUME (test code=MCV) 89.4 fL 80-98 MEAN CELL HGB (test code=MCH) 28.7 picogram 27.0-33.0 MEAN CELL HGB CONCETRATION (test code=MCHC) 32.1 gram/dL 33.0-36.0 RED CELL DISTRIBUTION WIDTH (test code=RDW) 14.6 % 11.6-16.2 RED CELL DISTRIBUTION WIDTH SD (test code=RDW-SD) 46.7 fL 37.0-51.0 PLATELET COUNT (test code=PLT) 133 K/mm3 150-450 RESULT VERIFIED BY REPEAT ANALYSIS MEAN PLATELET VOLUME (test code=MPV) 11.8 fL 6.7-11.0 IMMATURE GRANULOCYTE % (test code=IG%) 0.5 % 0.0-5.0 NUCLEATED RBC % (test code=NRBC%) 0.0 % 0-0 NEUTROPHIL # (test code=NT#) 20.49 K/mm3 1.8-7.7 IMMATURE GRANULOCYTE # (test code=IG#) 0.12 x10 3/uL 0-0.03 LYMPHOCYTE # (test code=LY#) 1.75 K/mm3 1.0-5.0 MONOCYTE # (test code=MO#) 0.60 K/mm3 0-0.8 EOSINOPHIL # (test code=EO#) 0.00 K/mm3 0.0-0.5 BASOPHIL # (test code=BA#) 0.03 K/mm3 0.0-0.2 NUCLEATED RBC # (test code=NRBC#) 0.00 K/mm3 0.0-0.1 MANUAL DIFF REQUIRED (test code=MDIFF) YES STAIN ACCEPTABILITY (test code=STN ACCEPTABLE) TOTAL CELLS COUNTED (test code=TCC) #CELLS SEGMENTED NEUTROPHILS (test code=SEG) % 39-69 LYMPHOCYTE (test code=LYMPH) % 25-55 MONOCYTE (test code=MON) % 0-10 EOSINOPHIL (test code=EOS) % 0.0-5.0 CABOT RINGS (test code=CAB) MORPHOLOGY COMMENT (test code=MOC) PLATELET ESTIMATE (test code=PLTEST) PLATELET MORPHOLOGY (test code=PLTMORPH) CBC W/MANUAL [id number] 06:01:00* Test Item Value Reference Range Comments WHITE BLOOD CELL (test code=WBC) 23.0 K/mm3 4.5-12.5 RED BLOOD CELL (test code=RBC) 2.82 mill/mm3 3.7-5.2 HEMOGLOBIN (test code=HGB) 8.1 gram/dL 11.5-15.5 HEMATOCRIT (test code=HCT) 25.2 % 36.0-46.0 MEAN CELL VOLUME (test code=MCV) 89.4 fL 80-98 MEAN CELL HGB (test code=MCH) 28.7 picogram 27.0-33.0 MEAN CELL HGB CONCETRATION (test code=MCHC) 32.1 gram/dL 33.0-36.0 RED CELL DISTRIBUTION WIDTH (test code=RDW) 14.6 % 11.6-16.2 RED CELL DISTRIBUTION WIDTH SD (test code=RDW-SD) 46.7 fL 37.0-51.0 PLATELET COUNT (test code=PLT) 133 K/mm3 150-450 RESULT VERIFIED BY REPEAT ANALYSIS MEAN PLATELET VOLUME (test code=MPV) 11.8 fL 6.7-11.0 IMMATURE GRANULOCYTE % (test code=IG%) 0.5 % 0.0-5.0 NUCLEATED RBC % (test code=NRBC%) 0.0 % 0-0 NEUTROPHIL # (test code=NT#) 20.49 K/mm3 1.8-7.7 IMMATURE GRANULOCYTE # (test code=IG#) 0.12 x10 3/uL 0-0.03 LYMPHOCYTE # (test code=LY#) 1.75 K/mm3 1.0-5.0 MONOCYTE # (test code=MO#) 0.60 K/mm3 0-0.8 EOSINOPHIL # (test code=EO#) 0.00 K/mm3 0.0-0.5 BASOPHIL # (test code=BA#) 0.03 K/mm3 0.0-0.2 NUCLEATED RBC # (test code=NRBC#) 0.00 K/mm3 0.0-0.1 MANUAL DIFF REQUIRED (test code=MDIFF) YES STAIN ACCEPTABILITY (test code=STN ACCEPTABLE) TOTAL CELLS COUNTED (test code=TCC) #CELLS SEGMENTED NEUTROPHILS (test code=SEG) % 39-69 LYMPHOCYTE (test code=LYMPH) % 25-55 MONOCYTE (test code=MON) % 0-10 EOSINOPHIL (test code=EOS) % 0.0-5.0 MORPHOLOGY COMMENT (test code=MOC) PLATELET ESTIMATE (test code=PLTEST) PLATELET MORPHOLOGY (test code=PLTMORPH) CBC W/MANUAL [id number] 06:01:00* Test Item Value Reference Range Comments WHITE BLOOD CELL (test code=WBC) 23.0 K/mm3 4.5-12.5 RED BLOOD CELL (test code=RBC) 2.82 mill/mm3 3.7-5.2 HEMOGLOBIN (test code=HGB) 8.1 gram/dL 11.5-15.5 HEMATOCRIT (test code=HCT) 25.2 % 36.0-46.0 MEAN CELL VOLUME (test code=MCV) 89.4 fL 80-98 MEAN CELL HGB (test code=MCH) 28.7 picogram 27.0-33.0 MEAN CELL HGB CONCETRATION (test code=MCHC) 32.1 gram/dL 33.0-36.0 RED CELL DISTRIBUTION WIDTH (test code=RDW) 14.6 % 11.6-16.2 RED CELL DISTRIBUTION WIDTH SD (test code=RDW-SD) 46.7 fL 37.0-51.0 PLATELET COUNT (test code=PLT) 133 K/mm3 150-450 RESULT VERIFIED BY REPEAT ANALYSIS MEAN PLATELET VOLUME (test code=MPV) 11.8 fL 6.7-11.0 IMMATURE GRANULOCYTE % (test code=IG%) 0.5 % 0.0-5.0 NUCLEATED RBC % (test code=NRBC%) 0.0 % 0-0 NEUTROPHIL # (test code=NT#) 20.49 K/mm3 1.8-7.7 IMMATURE GRANULOCYTE # (test code=IG#) 0.12 x10 3/uL 0-0.03 LYMPHOCYTE # (test code=LY#) 1.75 K/mm3 1.0-5.0 MONOCYTE # (test code=MO#) 0.60 K/mm3 0-0.8 EOSINOPHIL # (test code=EO#) 0.00 K/mm3 0.0-0.5 BASOPHIL # (test code=BA#) 0.03 K/mm3 0.0-0.2 NUCLEATED RBC # (test code=NRBC#) 0.00 K/mm3 0.0-0.1 MANUAL DIFF REQUIRED (test code=MDIFF) YES STAIN ACCEPTABILITY (test code=STN ACCEPTABLE) TOTAL CELLS COUNTED (test code=TCC) #CELLS SEGMENTED NEUTROPHILS (test code=SEG) % 39-69 LYMPHOCYTE (test code=LYMPH) % 25-55 MONOCYTE (test code=MON) % 0-10 MORPHOLOGY COMMENT (test code=MOC) PLATELET ESTIMATE (test code=PLTEST) PLATELET MORPHOLOGY (test code=PLTMORPH) CBC W/MANUAL [id number] 06:00:00* Test Item Value Reference Range Comments WHITE BLOOD CELL (test code=WBC) 23.0 K/mm3 4.5-12.5 RED BLOOD CELL (test code=RBC) 2.82 mill/mm3 3.7-5.2 HEMOGLOBIN (test code=HGB) 8.1 gram/dL 11.5-15.5 HEMATOCRIT (test code=HCT) 25.2 % 36.0-46.0 MEAN CELL VOLUME (test code=MCV) 89.4 fL 80-98 MEAN CELL HGB (test code=MCH) 28.7 picogram 27.0-33.0 MEAN CELL HGB CONCETRATION (test code=MCHC) 32.1 gram/dL 33.0-36.0 RED CELL DISTRIBUTION WIDTH (test code=RDW) 14.6 % 11.6-16.2 RED CELL DISTRIBUTION WIDTH SD (test code=RDW-SD) 46.7 fL 37.0-51.0 PLATELET COUNT (test code=PLT) 133 K/mm3 150-450 RESULT VERIFIED BY REPEAT ANALYSIS MEAN PLATELET VOLUME (test code=MPV) 11.8 fL 6.7-11.0 IMMATURE GRANULOCYTE % (test code=IG%) 0.5 % 0.0-5.0 NUCLEATED RBC % (test code=NRBC%) 0.0 % 0-0 NEUTROPHIL # (test code=NT#) 20.49 K/mm3 1.8-7.7 IMMATURE GRANULOCYTE # (test code=IG#) 0.12 x10 3/uL 0-0.03 LYMPHOCYTE # (test code=LY#) 1.75 K/mm3 1.0-5.0 MONOCYTE # (test code=MO#) 0.60 K/mm3 0-0.8 EOSINOPHIL # (test code=EO#) 0.00 K/mm3 0.0-0.5 BASOPHIL # (test code=BA#) 0.03 K/mm3 0.0-0.2 NUCLEATED RBC # (test code=NRBC#) 0.00 K/mm3 0.0-0.1 MANUAL DIFF REQUIRED (test code=MDIFF) YES STAIN ACCEPTABILITY (test code=STN ACCEPTABLE) TOTAL CELLS COUNTED (test code=TCC) #CELLS SEGMENTED NEUTROPHILS (test code=SEG) % 39-69 LYMPHOCYTE (test code=LYMPH) % 25-55 MONOCYTE (test code=MON) % 0-10 EOSINOPHIL (test code=EOS) % 0.0-5.0 CABOT RINGS (test code=CAB) MORPHOLOGY COMMENT (test code=MOC) PLATELET ESTIMATE (test code=PLTEST) PLATELET MORPHOLOGY (test code=PLTMORPH) CBC W/MANUAL [id number] 06:00:00* Test Item Value Reference Range Comments WHITE BLOOD CELL (test code=WBC) 23.0 K/mm3 4.5-12.5 RED BLOOD CELL (test code=RBC) 2.82 mill/mm3 3.7-5.2 HEMOGLOBIN (test code=HGB) 8.1 gram/dL 11.5-15.5 HEMATOCRIT (test code=HCT) 25.2 % 36.0-46.0 MEAN CELL VOLUME (test code=MCV) 89.4 fL 80-98 MEAN CELL HGB (test code=MCH) 28.7 picogram 27.0-33.0 MEAN CELL HGB CONCETRATION (test code=MCHC) 32.1 gram/dL 33.0-36.0 RED CELL DISTRIBUTION WIDTH (test code=RDW) 14.6 % 11.6-16.2 RED CELL DISTRIBUTION WIDTH SD (test code=RDW-SD) 46.7 fL 37.0-51.0 PLATELET COUNT (test code=PLT) 133 K/mm3 150-450 RESULT VERIFIED BY REPEAT ANALYSIS MEAN PLATELET VOLUME (test code=MPV) 11.8 fL 6.7-11.0 IMMATURE GRANULOCYTE % (test code=IG%) 0.5 % 0.0-5.0 NUCLEATED RBC % (test code=NRBC%) 0.0 % 0-0 NEUTROPHIL # (test code=NT#) 20.49 K/mm3 1.8-7.7 IMMATURE GRANULOCYTE # (test code=IG#) 0.12 x10 3/uL 0-0.03 LYMPHOCYTE # (test code=LY#) 1.75 K/mm3 1.0-5.0 MONOCYTE # (test code=MO#) 0.60 K/mm3 0-0.8 EOSINOPHIL # (test code=EO#) 0.00 K/mm3 0.0-0.5 BASOPHIL # (test code=BA#) 0.03 K/mm3 0.0-0.2 NUCLEATED RBC # (test code=NRBC#) 0.00 K/mm3 0.0-0.1 MANUAL DIFF REQUIRED (test code=MDIFF) YES STAIN ACCEPTABILITY (test code=STN ACCEPTABLE) TOTAL CELLS COUNTED (test code=TCC) #CELLS SEGMENTED NEUTROPHILS (test code=SEG) % 39-69 LYMPHOCYTE (test code=LYMPH) % 25-55 MONOCYTE (test code=MON) % 0-10 EOSINOPHIL (test code=EOS) % 0.0-5.0 CABOT RINGS (test code=CAB) MORPHOLOGY COMMENT (test code=MOC) PLATELET ESTIMATE (test code=PLTEST) PLATELET MORPHOLOGY (test code=PLTMORPH) COMPREHENSIVE METABOLIC [id number] 05:56:00* Test Item Value Reference Range Comments SODIUM (test code=NA) 143 mmol/L 136-145 POTASSIUM (test code=K) 4.1 mmol/L 3.5-5.1 CHLORIDE (test code=CL) 106.0 mmol/L 98-107 CARBON DIOXIDE (test code=CO2) mmol/L 21-32 ANION GAP (test code=GAP) 10-20 GLUCOSE (test code=GLU) mg/dL 74-106 BLOOD UREA NITROGEN (test code=BUN) mg/dL 7-18 GLOMERULAR FILTRATION RATE (test code=GFR) mL/min >=60 CREATININE (test code=CREAT) mg/dL 0.55-1.02 BUN/CREATININE RATIO (test code=BUN/CREA) 10-20 TOTAL PROTEIN (test code=PROT) gram/dL 6.4-8.2 ALBUMIN (test code=ALB) g/dL 3.4-5.0 GLOBULIN (test code=GLOB) gram/dL 2.7-4.2 ALBUMIN/GLOBULIN RATIO (test code=A/G) 0.75-1.50 CALCIUM (test code=CA) mg/dL 8.5-10.1 BILIRUBIN TOTAL (test code=BILT) mg/dL 0.0-1.0 SGOT/AST (test code=AST) IUnit/L 15-37 SGPT/ALT (test code=ALT) IUnit/L 12-78 ALKALINE PHOSPHATASE TOTAL (test code=ALKP) IUnit/L 45-117 LIPID PROFILE (CORONARY RISK)2018-11-05 05:56:00* Test Item Value Reference Range Comments TRIGLYCERIDES (test code=TRIG) mg/dL 20-150 CHOLESTEROL (test code=CHOL) mg/dL 0-200 CHOLESTEROL/HDL RATIO (test code=CHOLHDL) RATIO 0-4.9 HDL CHOLESTEROL (test code=HDL) mg/dL 40-60 LIPOPROTEIN LDL (test code=LDL) mg/dL 100-129 [id number] 05:56:00* Test Item Value Reference Range Comments PHOSPHORUS (test code=PHOS) mg/dL 2.5-4.9 T3 [id number] 05:14:00* Test Item Value Reference Range Comments T3 FREE (test code=T3F) 2.5 pg/mL 2.0-4.4 Performed At: [facility] [address] [id number] César Pack MD Ph:[phone] BASIC METABOLIC [id number] 04:07:00* Test Item Value Reference Range Comments SODIUM (test code=NA) 144 mmol/L 136-145 POTASSIUM (test code=K) 4.3 mmol/L 3.5-5.1 CHLORIDE (test code=CL) 107.0 mmol/L 98-107 CARBON DIOXIDE (test code=CO2) 24.0 mmol/L 21-32 ANION GAP (test code=GAP) 17.3 10-20 GLUCOSE (test code=GLU) 262 mg/dL 74-106 BLOOD UREA NITROGEN (test code=BUN) 38 mg/dL 7-18 GLOMERULAR FILTRATION RATE (test code=GFR) 20 mL/min >=60 Estimated GFR by using Modified MDRD formula.Chronic kidney disease is defined as either kidney damageor GFR <60 mL/min/1.73 m2 for >3 months. CREATININE (test code=CREAT) 2.30 mg/dL 0.55-1.02 Note change in reference range due to change in reagent. BUN/CREATININE RATIO (test code=BUN/CREA) 16.5 10-20 CALCIUM (test code=CA) 8.3 mg/dL 8.5-10.1 [id number] 04:07:00* Test Item Value Reference Range Comments PHOSPHORUS (test code=PHOS) 4.0 mg/dL 2.5-4.9 [id number] 04:07:00* Test Item Value Reference Range Comments MAGNESIUM (test code=MAG) 2.2 mg/dL 1.8-2.4 CALCIUM [id number] 04:07:00* Test Item Value Reference Range Comments CALCIUM IONIZED (test code=LON) 1.18 mmol/L 1.12-1.32 BASIC METABOLIC [id number] 04:01:00* Test Item Value Reference Range Comments SODIUM (test code=NA) 144 mmol/L 136-145 POTASSIUM (test code=K) 4.3 mmol/L 3.5-5.1 CHLORIDE (test code=CL) 107.0 mmol/L 98-107 CARBON DIOXIDE (test code=CO2) mmol/L 21-32 ANION GAP (test code=GAP) 10-20 GLUCOSE (test code=GLU) mg/dL 74-106 BLOOD UREA NITROGEN (test code=BUN) mg/dL 7-18 GLOMERULAR FILTRATION RATE (test code=GFR) mL/min >=60 CREATININE (test code=CREAT) mg/dL 0.55-1.02 BUN/CREATININE RATIO (test code=BUN/CREA) 10-20 CALCIUM (test code=CA) mg/dL 8.5-10.1 [id number] 04:01:00* Test Item Value Reference Range Comments PHOSPHORUS (test code=PHOS) mg/dL 2.5-4.9 [id number] 04:01:00* Test Item Value Reference Range Comments MAGNESIUM (test code=MAG) mg/dL 1.8-2.4 CALCIUM [id number] 04:01:00* Test Item Value Reference Range Comments CALCIUM IONIZED (test code=LON) 1.18 mmol/L 1.12-1.32 THROMBOPLASTIN TIME [id number] 03:59:00* Test Item Value Reference Range Comments THROMBOPLASTIN TIME PARTIAL (test code=PTT) 84.4 seconds 25.0-36.5 IS PATIENT ON ANTICOAGULANTS? YLIST ANTICOAGULANTS HEPARINBASIC METABOLIC [id number] 03:59:00* Test Item Value Reference Range Comments SODIUM (test code=NA) mmol/L 136-145 POTASSIUM (test code=K) mmol/L 3.5-5.1 CHLORIDE (test code=CL) mmol/L 98-107 CARBON DIOXIDE (test code=CO2) mmol/L 21-32 ANION GAP (test code=GAP) 10-20 GLUCOSE (test code=GLU) mg/dL 74-106 BLOOD UREA NITROGEN (test code=BUN) mg/dL 7-18 GLOMERULAR FILTRATION RATE (test code=GFR) mL/min >=60 CREATININE (test code=CREAT) mg/dL 0.55-1.02 BUN/CREATININE RATIO (test code=BUN/CREA) 10-20 CALCIUM (test code=CA) mg/dL 8.5-10.1 [id number] 03:59:00* Test Item Value Reference Range Comments PHOSPHORUS (test code=PHOS) mg/dL 2.5-4.9 [id number] 03:59:00* Test Item Value Reference Range Comments MAGNESIUM (test code=MAG) mg/dL 1.8-2.4 CALCIUM [id number] 03:59:00* Test Item Value Reference Range Comments CALCIUM IONIZED (test code=LON) 1.18 mmol/L 1.12-1.32 [id number] 03:58:00* Test Item Value Reference Range Comments GLUBED (test code=GLUBED) 240 mg/dL 74-[address] 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~ LACTIC [id number] 01:18:00* Test Item Value Reference Range Comments LACTIC ACID (test code=LACT) 5.3 mmol/L 0.4-1.9 Results called to [id number] by V.LAB.AG1 11/05/18 0116Critical results verified and read back by Nurse? Y [id number] 00:33:00* Test Item Value Reference Range Comments GLUBED (test code=GLUBED) 226 mg/dL 74-[address] 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 [facility] CHEMISTRY 8 [id number] 23:30:00* Test Item Value Reference Range Comments ISTAT-SODIUM (test code=NAP) mmol/L 135-148 ISTAT-POTASSIUM (test code=KP) mmol/L 3.5-5.5 ISTAT-CHLORIDE (test code=CLP) mmol/L 101-109 ISTAT CARBON DIOXIDE (test code=ISTAT-CO2) mmol/L 21-32 ISTAT CALCIUM IONIZED (test code=ISTAT-LON) mg/dL 1.12-1.32 ISTAT-ANION GAP (test code=GAPP) MEQ/L 10-20 ISTAT-GLUCOSE (test code=GLUP) mg/dL 74-106 ISTAT-BUN (test code=BUNP) mg/dL 3-21 BEDSIDE CREATININE (test code=CREATBED) mg/dL 0.7-1.3 GLOMERULAR FILTRATION RATE POC (test code=GFRBED) 23 >60 CHEMISTRY 8 [id number] 23:30:00* Test Item Value Reference Range Comments ISTAT-SODIUM (test code=NAP) 143 mmol/L 135-148 ISTAT-POTASSIUM (test code=KP) 3.9 mmol/L 3.5-5.5 ISTAT-CHLORIDE (test code=CLP) 103 mmol/L 101-109 ISTAT CARBON DIOXIDE (test code=ISTAT-CO2) 25.0 mmol/L 21-32 ISTAT CALCIUM IONIZED (test code=ISTAT-LON) 1.14 mg/dL 1.12-1.32 ISTAT-ANION GAP (test code=GAPP) 20.0 MEQ/L 10-20 ISTAT-GLUCOSE (test code=GLUP) 219 mg/dL 74-106 ISTAT-BUN (test code=BUNP) 43 mg/dL 3-21 BEDSIDE CREATININE (test code=CREATBED) 2.1 mg/dL 0.7-1.3 GLOMERULAR FILTRATION RATE POC (test code=GFRBED) 23 >60 LACTIC [id number] 21:54:00* Test Item Value Reference Range Comments LACTIC ACID (test code=LACT) 6.7 mmol/L 0.4-1.9 Results called to [id number] by V.LAB.SPR 11/04/18 2153Critical results verified and read back by Nurse? Y [id number] 21:25:00* Test Item Value Reference Range Comments GLUBED (test code=GLUBED) 259 mg/dL 74-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 BASIC METABOLIC [id number] 19:51:00* Test Item Value Reference Range Comments SODIUM (test code=NA) 145 mmol/L 136-145 POTASSIUM (test code=K) 3.9 mmol/L 3.5-5.1 CHLORIDE (test code=CL) 109.0 mmol/L 98-107 CARBON DIOXIDE (test code=CO2) 21.0 mmol/L 21-32 ANION GAP (test code=GAP) 18.9 10-20 GLUCOSE (test code=GLU) 281 mg/dL 74-106 BLOOD UREA NITROGEN (test code=BUN) 45 mg/dL 7-18 GLOMERULAR FILTRATION RATE (test code=GFR) 18 mL/min >=60 Estimated GFR by using Modified MDRD formula.Chronic kidney disease is defined as either kidney damageor GFR <60 mL/min/1.73 m2 for >3 months. CREATININE (test code=CREAT) 2.60 mg/dL 0.55-1.02 Note change in reference range due to change in reagent. BUN/CREATININE RATIO (test code=BUN/CREA) 17.3 10-20 CALCIUM (test code=CA) 8.3 mg/dL 8.5-10.1 [id number] 19:51:00* Test Item Value Reference Range Comments PHOSPHORUS (test code=PHOS) 4.1 mg/dL 2.5-4.9 [id number] 19:51:00* Test Item Value Reference Range Comments MAGNESIUM (test code=MAG) 1.9 mg/dL 1.8-2.4 CALCIUM [id number] 19:51:00* Test Item Value Reference Range Comments CALCIUM IONIZED (test code=LON) 1.20 mmol/L 1.12-1.32 BASIC METABOLIC [id number] 19:46:00* Test Item Value Reference Range Comments SODIUM (test code=NA) 145 mmol/L 136-145 POTASSIUM (test code=K) 3.9 mmol/L 3.5-5.1 CHLORIDE (test code=CL) 109.0 mmol/L 98-107 CARBON DIOXIDE (test code=CO2) 21.0 mmol/L 21-32 ANION GAP (test code=GAP) 18.9 10-20 GLUCOSE (test code=GLU) 281 mg/dL 74-106 BLOOD UREA NITROGEN (test code=BUN) 45 mg/dL 7-18 GLOMERULAR FILTRATION RATE (test code=GFR) 18 mL/min >=60 Estimated GFR by using Modified MDRD formula.Chronic kidney disease is defined as either kidney damageor GFR <60 mL/min/1.73 m2 for >3 months. CREATININE (test code=CREAT) 2.60 mg/dL 0.55-1.02 Note change in reference range due to change in reagent. BUN/CREATININE RATIO (test code=BUN/CREA) 17.3 10-20 CALCIUM (test code=CA) 8.3 mg/dL 8.5-10.1 [id number] 19:46:00* Test Item Value Reference Range Comments PHOSPHORUS (test code=PHOS) 4.1 mg/dL 2.5-4.9 [id number] 19:46:00* Test Item Value Reference Range Comments MAGNESIUM (test code=MAG) 1.9 mg/dL 1.8-2.4 CALCIUM [id number] 19:46:00* Test Item Value Reference Range Comments CALCIUM IONIZED (test code=LON) mmol/L 1.12-1.32 BASIC METABOLIC [id number] 19:41:00* Test Item Value Reference Range Comments SODIUM (test code=NA) 145 mmol/L 136-145 POTASSIUM (test code=K) 3.9 mmol/L 3.5-5.1 CHLORIDE (test code=CL) 109.0 mmol/L 98-107 CARBON DIOXIDE (test code=CO2) mmol/L 21-32 ANION GAP (test code=GAP) 10-20 GLUCOSE (test code=GLU) mg/dL 74-106 BLOOD UREA NITROGEN (test code=BUN) mg/dL 7-18 GLOMERULAR FILTRATION RATE (test code=GFR) mL/min >=60 CREATININE (test code=CREAT) mg/dL 0.55-1.02 BUN/CREATININE RATIO (test code=BUN/CREA) 10-20 CALCIUM (test code=CA) mg/dL 8.5-10.1 [id number] 19:41:00* Test Item Value Reference Range Comments PHOSPHORUS (test code=PHOS) mg/dL 2.5-4.9 [id number] 19:41:00* Test Item Value Reference Range Comments MAGNESIUM (test code=MAG) mg/dL 1.8-2.4 CALCIUM [id number] 19:41:00* Test Item Value Reference Range Comments CALCIUM IONIZED (test code=LON) mmol/L 1.12-1.32 VENOUS BLOOD [id number] 18:35:00* Test Item Value Reference Range Comments VENOUS BLOOD GAS PH (test code=PHV) 7.35 7.30-7.40 VENOUS BLOOD GAS PCO2 (test code=PCO2V) 25.3 mm Hg 39.0-51.0 Results called to and read back by dr flores 16:11/04/2018; by yang VENOUS BLOOD GAS PO2 (test code=PO2V) 48.1 mm Hg 30.0-50.0 VBG HCO3 (test code=HCO3V) 13.7 mmol/L 17.0-30.0 VBG BASE EXCESS (test code=PETR) -10.5 mmol/L -5.0-5.0 VENOUS BLOOD GAS O2 SAT. (test code=O2SATV) 82 % 94-98 VENOUS BLOOD GAS FIO2 (test code=FIO2V) 60.0 PT. HGB (test code=PHGBVBG) 9.4 gram/dL 11.5-15.5 VENOUS BLOOD GAS SITE (test code=SITEV) IVC HEMATOCRIT (test code=HCT/VBG) 28 % 42-52 HGB O2 SAT (test code=HBOSAT) 81.2 % 94.00-98.00 CARBOXYHEMOGLOBIN (test code=HOHGBT) 0.3 %totalHg 0.5-1.5 Results called to and read back by dr flores 16:11/04/2018; by yang METHEMOGLOBIN (test code=METHGB) 0.4 % 0.0-1.50 VENOUS BLOOD [id number] 18:34:00* Test Item Value Reference Range Comments VENOUS BLOOD GAS PH (test code=PHV) 7.36 7.30-7.40 VENOUS BLOOD GAS PCO2 (test code=PCO2V) 25.4 mm Hg 39.0-51.0 Results called to and read back by dr flores 16:11/04/2018; by yang VENOUS BLOOD GAS PO2 (test code=PO2V) < 39.6 mm Hg 30.0-50.0 VBG HCO3 (test code=HCO3V) 13.9 mmol/L 17.0-30.0 VBG BASE EXCESS (test code=PETR) -10.3 mmol/L -5.0-5.0 VENOUS BLOOD GAS O2 SAT. (test code=O2SATV) 63 % 94-98 VENOUS BLOOD GAS FIO2 (test code=FIO2V) 60.0 PT. HGB (test code=PHGBVBG) 9.5 gram/dL 11.5-15.5 VENOUS BLOOD GAS SITE (test code=SITEV) IVC HEMATOCRIT (test code=HCT/VBG) 28 % 42-52 HGB O2 SAT (test code=HBOSAT) 62.8 % 94.00-98.00 CARBOXYHEMOGLOBIN (test code=HOHGBT) 0.3 %totalHg 0.5-1.5 Results called to and read back by dr flores 16:25 - 11/04/2018; by yang METHEMOGLOBIN (test code=METHGB) 0.5 % 0.0-1.50 CBC W/AUTO [id number] 18:33:00* Test Item Value Reference Range Comments WHITE BLOOD CELL (test code=WBC) 7.4 K/mm3 4.5-12.5 RED BLOOD CELL (test code=RBC) 2.83 mill/mm3 3.7-5.2 HEMOGLOBIN (test code=HGB) 8.1 gram/dL 11.5-15.5 HEMATOCRIT (test code=HCT) 25.6 % 36.0-46.0 MEAN CELL VOLUME (test code=MCV) 90.5 fL 80-98 MEAN CELL HGB (test code=MCH) 28.6 picogram 27.0-33.0 MEAN CELL HGB CONCETRATION (test code=MCHC) 31.6 gram/dL 33.0-36.0 RED CELL DISTRIBUTION WIDTH (test code=RDW) 14.5 % 11.6-16.2 RED CELL DISTRIBUTION WIDTH SD (test code=RDW-SD) 48.2 fL 37.0-51.0 PLATELET COUNT (test code=PLT) 74 K/mm3 150-450 RESULT VERIFIED BY REPEAT ANALYSIS MEAN PLATELET VOLUME (test code=MPV) 11.4 fL 6.7-11.0 NEUTROPHIL % (test code=NT%) 84.8 % 39.0-69.0 IMMATURE GRANULOCYTE % (test code=IG%) 0.8 % 0.0-5.0 LYMPHOCYTE % (test code=LY%) 11.7 % 25.0-55.0 MONOCYTE % (test code=MO%) 2.6 % 0.0-10.0 EOSINOPHIL % (test code=EO%) 0.0 % 0.0-5.0 BASOPHIL % (test code=BA%) 0.1 % 0.0-1.0 NUCLEATED RBC % (test code=NRBC%) 0.0 % 0-0 NEUTROPHIL # (test code=NT#) 6.23 K/mm3 1.8-7.7 IMMATURE GRANULOCYTE # (test code=IG#) 0.06 x10 3/uL 0-0.03 LYMPHOCYTE # (test code=LY#) 0.86 K/mm3 1.0-5.0 MONOCYTE # (test code=MO#) 0.19 K/mm3 0-0.8 EOSINOPHIL # (test code=EO#) 0.00 K/mm3 0.0-0.5 BASOPHIL # (test code=BA#) 0.01 K/mm3 0.0-0.2 NUCLEATED RBC # (test code=NRBC#) 0.00 K/mm3 0.0-0.1 MANUAL DIFF REQUIRED (test code=MDIFF) NO, ONLY SCAN NEEDED DIFFERENTIAL [id number] 18:33:00* Test Item Value Reference Range Comments STAIN ACCEPTABILITY (test code=STN ACCEPTABLE) STAIN ACCEPTABLE POIKILOCYTOSIS (test code=POIK) 1+ ANISOCYTOSIS (test code=ANISO) 1+ MICROCYTOSIS (test code=MICR) 1+ PLATELET ESTIMATE (test code=PLTEST) DECREASED PLATELET MORPHOLOGY (test code=PLTMORPH) NORMAL LACTIC [id number] 18:18:00* Test Item Value Reference Range Comments LACTIC ACID (test code=LACT) 8.4 mmol/L 0.4-1.9 Results called to [id number] by ABBY 11/04/18 1818Critical results verified and read back by Nurse? Y CBC W/AUTO [id number] 17:43:00* Test Item Value Reference Range Comments WHITE BLOOD CELL (test code=WBC) 7.4 K/mm3 4.5-12.5 RED BLOOD CELL (test code=RBC) 2.83 mill/mm3 3.7-5.2 HEMOGLOBIN (test code=HGB) 8.1 gram/dL 11.5-15.5 HEMATOCRIT (test code=HCT) 25.6 % 36.0-46.0 MEAN CELL VOLUME (test code=MCV) 90.5 fL 80-98 MEAN CELL HGB (test code=MCH) 28.6 picogram 27.0-33.0 MEAN CELL HGB CONCETRATION (test code=MCHC) 31.6 gram/dL 33.0-36.0 RED CELL DISTRIBUTION WIDTH (test code=RDW) 14.5 % 11.6-16.2 RED CELL DISTRIBUTION WIDTH SD (test code=RDW-SD) 48.2 fL 37.0-51.0 PLATELET COUNT (test code=PLT) 74 K/mm3 150-450 RESULT VERIFIED BY REPEAT ANALYSIS MEAN PLATELET VOLUME (test code=MPV) 11.4 fL 6.7-11.0 NEUTROPHIL % (test code=NT%) 84.8 % 39.0-69.0 IMMATURE GRANULOCYTE % (test code=IG%) 0.8 % 0.0-5.0 LYMPHOCYTE % (test code=LY%) 11.7 % 25.0-55.0 MONOCYTE % (test code=MO%) 2.6 % 0.0-10.0 EOSINOPHIL % (test code=EO%) 0.0 % 0.0-5.0 BASOPHIL % (test code=BA%) 0.1 % 0.0-1.0 NUCLEATED RBC % (test code=NRBC%) 0.0 % 0-0 NEUTROPHIL # (test code=NT#) 6.23 K/mm3 1.8-7.7 IMMATURE GRANULOCYTE # (test code=IG#) 0.06 x10 3/uL 0-0.03 LYMPHOCYTE # (test code=LY#) 0.86 K/mm3 1.0-5.0 MONOCYTE # (test code=MO#) 0.19 K/mm3 0-0.8 EOSINOPHIL # (test code=EO#) 0.00 K/mm3 0.0-0.5 BASOPHIL # (test code=BA#) 0.01 K/mm3 0.0-0.2 NUCLEATED RBC # (test code=NRBC#) 0.00 K/mm3 0.0-0.1 MANUAL DIFF REQUIRED (test code=MDIFF) NO, ONLY SCAN NEEDED DIFFERENTIAL [id number] 17:43:00* Test Item Value Reference Range Comments STAIN ACCEPTABILITY (test code=STN ACCEPTABLE) CABOT RINGS (test code=CAB) MORPHOLOGY COMMENT (test code=MOC) PLATELET ESTIMATE (test code=PLTEST) PLATELET MORPHOLOGY (test code=PLTMORPH) CBC W/AUTO [id number] 17:43:00* Test Item Value Reference Range Comments WHITE BLOOD CELL (test code=WBC) 7.4 K/mm3 4.5-12.5 RED BLOOD CELL (test code=RBC) 2.83 mill/mm3 3.7-5.2 HEMOGLOBIN (test code=HGB) 8.1 gram/dL 11.5-15.5 HEMATOCRIT (test code=HCT) 25.6 % 36.0-46.0 MEAN CELL VOLUME (test code=MCV) 90.5 fL 80-98 MEAN CELL HGB (test code=MCH) 28.6 picogram 27.0-33.0 MEAN CELL HGB CONCETRATION (test code=MCHC) 31.6 gram/dL 33.0-36.0 RED CELL DISTRIBUTION WIDTH (test code=RDW) 14.5 % 11.6-16.2 RED CELL DISTRIBUTION WIDTH SD (test code=RDW-SD) 48.2 fL 37.0-51.0 PLATELET COUNT (test code=PLT) 74 K/mm3 150-450 RESULT VERIFIED BY REPEAT ANALYSIS MEAN PLATELET VOLUME (test code=MPV) 11.4 fL 6.7-11.0 NEUTROPHIL % (test code=NT%) 84.8 % 39.0-69.0 IMMATURE GRANULOCYTE % (test code=IG%) 0.8 % 0.0-5.0 LYMPHOCYTE % (test code=LY%) 11.7 % 25.0-55.0 MONOCYTE % (test code=MO%) 2.6 % 0.0-10.0 EOSINOPHIL % (test code=EO%) 0.0 % 0.0-5.0 BASOPHIL % (test code=BA%) 0.1 % 0.0-1.0 NUCLEATED RBC % (test code=NRBC%) 0.0 % 0-0 NEUTROPHIL # (test code=NT#) 6.23 K/mm3 1.8-7.7 IMMATURE GRANULOCYTE # (test code=IG#) 0.06 x10 3/uL 0-0.03 LYMPHOCYTE # (test code=LY#) 0.86 K/mm3 1.0-5.0 MONOCYTE # (test code=MO#) 0.19 K/mm3 0-0.8 EOSINOPHIL # (test code=EO#) 0.00 K/mm3 0.0-0.5 BASOPHIL # (test code=BA#) 0.01 K/mm3 0.0-0.2 NUCLEATED RBC # (test code=NRBC#) 0.00 K/mm3 0.0-0.1 MANUAL DIFF REQUIRED (test code=MDIFF) NO, ONLY SCAN NEEDED DIFFERENTIAL [id number] 17:43:00* Test Item Value Reference Range Comments STAIN ACCEPTABILITY (test code=STN ACCEPTABLE) MORPHOLOGY COMMENT (test code=MOC) PLATELET ESTIMATE (test code=PLTEST) PLATELET MORPHOLOGY (test code=PLTMORPH) - CTA [id number] 17:43:00 Name: NEREIDA CHANG [facility] : 1940 Age/S: 78 / F [address] [address] [facility] Unit #: [id number] Loc: [place] [address] Phys: Alexander Matson MD Acct: [id number] Dis Date: Status: ADM IN PHONE #: [phone] Exam Date: 11/04/2018 1500 FAX #: [phone] Reason: respiratory failure EXAMS: CPT CODE: [id number] CTA CHEST 80142 EXAM: CT of the chest; INFORMATION: Respiratory failure, pneumonia, PE? Graft TECHNIQUE AND FINDINGS: CT dose reduction protocol; 2.5 mm axial scans during intravenous infusion of contrast material. Multiplanar reconstructions; in addition, 3-D angiographic studies were generated on an independent workstation, using volume rendering and maximum intensity projection algorithms. The pulmonary arteries a densely enhancing. No filling defects. Segmental branches are also patent and without filling defects. The thoracic aorta shows wall calcification; no evidence of aneurysm or dissection. Slightly prominent retrocaval pretracheal lymph nodes but no obvious adenopathy. Lung windows show dependent atelectasis and there are also patchy groundglass opacities bilaterally. There are small bilateral pleural effusions. Scans through the upper abdomen show a distended gallbladder; no calcified stones. IMPRESSION: 1. No evidence of pulmonary embolism, aortic dissection or other acute cardiothoracic abnormalities. 2. Mild dependent atelectasis in both lower lobes. Patchy groundglass opacities probably also represent atelectatic changes but could also indicate mild edema. 3. Small pleural effusions. 4. Distended gallbladder. at 1743 Reported and signed by: Ramses Allen M.D. CC: Nahun Malave MD; Miki Hathaway MD; Alexander Matson MD Technologist:Sharonda richardson RT(R) CTDI: DLP: Trnscb Date/Time: 11/04/2018 (1 744) YossiGRW Orig Print D/T: S: 11/04/2018 (1800) CTDI: DLP: PAGE 1 Signed Report CBC W/AUTO [id number] 17:42:00* Test Item Value Reference Range Comments WHITE BLOOD CELL (test code=WBC) 7.4 K/mm3 4.5-12.5 RED BLOOD CELL (test code=RBC) 2.83 mill/mm3 3.7-5.2 HEMOGLOBIN (test code=HGB) 8.1 gram/dL 11.5-15.5 HEMATOCRIT (test code=HCT) 25.6 % 36.0-46.0 MEAN CELL VOLUME (test code=MCV) 90.5 fL 80-98 MEAN CELL HGB (test code=MCH) 28.6 picogram 27.0-33.0 MEAN CELL HGB CONCETRATION (test code=MCHC) 31.6 gram/dL 33.0-36.0 RED CELL DISTRIBUTION WIDTH (test code=RDW) 14.5 % 11.6-16.2 RED CELL DISTRIBUTION WIDTH SD (test code=RDW-SD) 48.2 fL 37.0-51.0 PLATELET COUNT (test code=PLT) 74 K/mm3 150-450 RESULT VERIFIED BY REPEAT ANALYSIS MEAN PLATELET VOLUME (test code=MPV) 11.4 fL 6.7-11.0 NEUTROPHIL % (test code=NT%) 84.8 % 39.0-69.0 IMMATURE GRANULOCYTE % (test code=IG%) 0.8 % 0.0-5.0 LYMPHOCYTE % (test code=LY%) 11.7 % 25.0-55.0 MONOCYTE % (test code=MO%) 2.6 % 0.0-10.0 EOSINOPHIL % (test code=EO%) 0.0 % 0.0-5.0 BASOPHIL % (test code=BA%) 0.1 % 0.0-1.0 NUCLEATED RBC % (test code=NRBC%) 0.0 % 0-0 NEUTROPHIL # (test code=NT#) 6.23 K/mm3 1.8-7.7 IMMATURE GRANULOCYTE # (test code=IG#) 0.06 x10 3/uL 0-0.03 LYMPHOCYTE # (test code=LY#) 0.86 K/mm3 1.0-5.0 MONOCYTE # (test code=MO#) 0.19 K/mm3 0-0.8 EOSINOPHIL # (test code=EO#) 0.00 K/mm3 0.0-0.5 BASOPHIL # (test code=BA#) 0.01 K/mm3 0.0-0.2 NUCLEATED RBC # (test code=NRBC#) 0.00 K/mm3 0.0-0.1 MANUAL DIFF REQUIRED (test code=MDIFF) NO, ONLY SCAN NEEDED DIFFERENTIAL [id number] 17:42:00* Test Item Value Reference Range Comments STAIN ACCEPTABILITY (test code=STN ACCEPTABLE) CABOT RINGS (test code=CAB) MORPHOLOGY COMMENT (test code=MOC) PLATELET ESTIMATE (test code=PLTEST) PLATELET MORPHOLOGY (test code=PLTMORPH) CBC W/AUTO [id number] 17:42:00* Test Item Value Reference Range Comments WHITE BLOOD CELL (test code=WBC) 7.4 K/mm3 4.5-12.5 RED BLOOD CELL (test code=RBC) 2.83 mill/mm3 3.7-5.2 HEMOGLOBIN (test code=HGB) 8.1 gram/dL 11.5-15.5 HEMATOCRIT (test code=HCT) 25.6 % 36.0-46.0 MEAN CELL VOLUME (test code=MCV) 90.5 fL 80-98 MEAN CELL HGB (test code=MCH) 28.6 picogram 27.0-33.0 MEAN CELL HGB CONCETRATION (test code=MCHC) 31.6 gram/dL 33.0-36.0 RED CELL DISTRIBUTION WIDTH (test code=RDW) 14.5 % 11.6-16.2 RED CELL DISTRIBUTION WIDTH SD (test code=RDW-SD) 48.2 fL 37.0-51.0 PLATELET COUNT (test code=PLT) 74 K/mm3 150-450 RESULT VERIFIED BY REPEAT ANALYSIS MEAN PLATELET VOLUME (test code=MPV) 11.4 fL 6.7-11.0 NEUTROPHIL % (test code=NT%) 84.8 % 39.0-69.0 IMMATURE GRANULOCYTE % (test code=IG%) 0.8 % 0.0-5.0 LYMPHOCYTE % (test code=LY%) 11.7 % 25.0-55.0 MONOCYTE % (test code=MO%) 2.6 % 0.0-10.0 EOSINOPHIL % (test code=EO%) 0.0 % 0.0-5.0 BASOPHIL % (test code=BA%) 0.1 % 0.0-1.0 NUCLEATED RBC % (test code=NRBC%) 0.0 % 0-0 NEUTROPHIL # (test code=NT#) 6.23 K/mm3 1.8-7.7 IMMATURE GRANULOCYTE # (test code=IG#) 0.06 x10 3/uL 0-0.03 LYMPHOCYTE # (test code=LY#) 0.86 K/mm3 1.0-5.0 MONOCYTE # (test code=MO#) 0.19 K/mm3 0-0.8 EOSINOPHIL # (test code=EO#) 0.00 K/mm3 0.0-0.5 BASOPHIL # (test code=BA#) 0.01 K/mm3 0.0-0.2 NUCLEATED RBC # (test code=NRBC#) 0.00 K/mm3 0.0-0.1 MANUAL DIFF REQUIRED (test code=MDIFF) NO, ONLY SCAN NEEDED DIFFERENTIAL [id number] 17:42:00* Test Item Value Reference Range Comments STAIN ACCEPTABILITY (test code=STN ACCEPTABLE) CABOT RINGS (test code=CAB) MORPHOLOGY COMMENT (test code=MOC) PLATELET ESTIMATE (test code=PLTEST) PLATELET MORPHOLOGY (test code=PLTMORPH) [id number] 17:34:00* Test Item Value Reference Range Comments GLUBED (test code=GLUBED) 286 mg/dL 74-[address] 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 Y IS PATIENT ON ANTICOAGULANTS? YLIST ANTICOAGULANTS HEPARINLACTIC ACID 2018-11-04 16:02:00* Test Item Value Reference Range Comments LACTIC ACID (test code=LACT) 13.4 mmol/L 0.4-1.9 Results called to [id number] by V.[email or web address] 11/04/18 1602Critical results verified and read back by Nurse? Y BASIC METABOLIC [id number] 15:46:00* Test Item Value Reference Range Comments SODIUM (test code=NA) 146 mmol/L 136-145 POTASSIUM (test code=K) 4.8 mmol/L 3.5-5.1 CHLORIDE (test code=CL) 110.0 mmol/L 98-107 CARBON DIOXIDE (test code=CO2) 11.0 mmol/L 21-32 Previously reported result: 11.0 mmol/LEdited by: [email or web address] on 11/04/18:93638211/04/18 1546: CO2 previously reported as: 11.0 L mmol/L ANION GAP (test code=GAP) 29.8 10-20 GLUCOSE (test code=GLU) 187 mg/dL 74-106 BLOOD UREA NITROGEN (test code=BUN) 48 mg/dL 7-18 GLOMERULAR FILTRATION RATE (test code=GFR) 15 mL/min >=60 Estimated GFR by using Modified MDRD formula.Chronic kidney disease is defined as either kidney damageor GFR <60 mL/min/1.73 m2 for >3 months. CREATININE (test code=CREAT) 3.00 mg/dL 0.55-1.02 Note change in reference range due to change in reagent. BUN/CREATININE RATIO (test code=BUN/CREA) 16.0 10-20 CALCIUM (test code=CA) 7.0 mg/dL 8.5-10.1 [id number] 15:46:00* Test Item Value Reference Range Comments PHOSPHORUS (test code=PHOS) 6.4 mg/dL 2.5-4.9 CALCIUM [id number] 15:46:00* Test Item Value Reference Range Comments CALCIUM IONIZED (test code=LON) 1.08 mmol/L 1.12-1.32 BASIC METABOLIC [id number] 14:29:00* Test Item Value Reference Range Comments SODIUM (test code=NA) mmol/L 136-145 POTASSIUM (test code=K) mmol/L 3.5-5.1 CHLORIDE (test code=CL) mmol/L 98-107 CARBON DIOXIDE (test code=CO2) mmol/L 21-32 ANION GAP (test code=GAP) 10-20 GLUCOSE (test code=GLU) mg/dL 74-106 BLOOD UREA NITROGEN (test code=BUN) mg/dL 7-18 GLOMERULAR FILTRATION RATE (test code=GFR) mL/min >=60 CREATININE (test code=CREAT) mg/dL 0.55-1.02 BUN/CREATININE RATIO (test code=BUN/CREA) 10-20 CALCIUM (test code=CA) mg/dL 8.5-10.1 [id number] 14:29:00* Test Item Value Reference Range Comments PHOSPHORUS (test code=PHOS) mg/dL 2.5-4.9 CALCIUM [id number] 14:29:00* Test Item Value Reference Range Comments CALCIUM IONIZED (test code=LON) 1.08 mmol/L 1.12-1.32 BASIC METABOLIC [id number] 14:29:00* Test Item Value Reference Range Comments SODIUM (test code=NA) 146 mmol/L 136-145 POTASSIUM (test code=K) 4.8 mmol/L 3.5-5.1 CHLORIDE (test code=CL) 110.0 mmol/L 98-107 CARBON DIOXIDE (test code=CO2) mmol/L 21-32 ANION GAP (test code=GAP) 10-20 GLUCOSE (test code=GLU) mg/dL 74-106 BLOOD UREA NITROGEN (test code=BUN) mg/dL 7-18 GLOMERULAR FILTRATION RATE (test code=GFR) mL/min >=60 CREATININE (test code=CREAT) mg/dL 0.55-1.02 BUN/CREATININE RATIO (test code=BUN/CREA) 10-20 CALCIUM (test code=CA) mg/dL 8.5-10.1 [id number] 14:29:00* Test Item Value Reference Range Comments PHOSPHORUS (test code=PHOS) mg/dL 2.5-4.9 CALCIUM [id number] 14:29:00* Test Item Value Reference Range Comments CALCIUM IONIZED (test code=LON) 1.08 mmol/L 1.12-1.32 BASIC METABOLIC [id number] 14:29:00* Test Item Value Reference Range Comments SODIUM (test code=NA) 146 mmol/L 136-145 POTASSIUM (test code=K) 4.8 mmol/L 3.5-5.1 CHLORIDE (test code=CL) 110.0 mmol/L 98-107 CARBON DIOXIDE (test code=CO2) 11.0 mmol/L 21-32 ANION GAP (test code=GAP) 10-20 GLUCOSE (test code=GLU) 187 mg/dL 74-106 BLOOD UREA NITROGEN (test code=BUN) 48 mg/dL 7-18 GLOMERULAR FILTRATION RATE (test code=GFR) 15 mL/min >=60 Estimated GFR by using Modified MDRD formula.Chronic kidney disease is defined as either kidney damageor GFR <60 mL/min/1.73 m2 for >3 months. CREATININE (test code=CREAT) 3.00 mg/dL 0.55-1.02 Note change in reference range due to change in reagent. BUN/CREATININE RATIO (test code=BUN/CREA) 16.0 10-20 CALCIUM (test code=CA) 7.0 mg/dL 8.5-10.1 [id number] 14:29:00* Test Item Value Reference Range Comments PHOSPHORUS (test code=PHOS) 6.4 mg/dL 2.5-4.9 CALCIUM [id number] 14:29:00* Test Item Value Reference Range Comments CALCIUM IONIZED (test code=LON) 1.08 mmol/L 1.12-1.32 [id number] 14:29:00* Test Item Value Reference Range Comments MAGNESIUM (test code=MAG) 2.0 mg/dL 1.8-2.4 - XR CHEST 1 [id number] 13:41:00 FAX: Nahun Malave MD [phone] [place]: St: ADM FAX: Dean Perez FAX: Miki Aldrich MD [phone] Name: NEREIDA CHANG [facility] : 1940 Age/S: 78/F [address] Unit #: [id number] Loc: [facility] Case [id number] Phys: Dean Perez Acct: [id number] Dis Date: Status: ADM IN ONE #: [phone] Exam Date: 11/04/2018 1327 FAX #: [phone] Reason: LINE INSERTION EXAMS: CPT CODE: [id number] XR CHEST 1 V [id number] HISTORY: Line insertion. COMPARISON: Same day. Left jugular large- bore catheter with the tip projected over the SVC without pneumothorax. ET tube and NG tube are in good position. Right line is no longer visi ble. Patchy bilateral infiltrates. No effusion or congestion. Card iomegaly. IMPRESSION: New left jugular cathete r with the tip projected over the SVC without pneumothorax. Right cathet er has been removed. Electronically Signed by Enrique Tomas on 0 11/04/2018 at 1341 Reported and signed by: Remi Tomas M.D. 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 [facility] [id number] 10:59:00* Test Item Value Reference Range Comments GLYCOSYLATED HEMOGLOBIN (HA1C) (test code=GLYHGB) 8.4 % HbA1 4.8-6.0 ESTIMATED AVERAGE GLUCOSE (test code=EAG) 194 MG/DL CBC W/MANUAL [id number] 10:54:00* Test Item Value Reference Range Comments WHITE BLOOD CELL (test code=WBC) 18.9 K/mm3 4.5-12.5 RED BLOOD CELL (test code=RBC) 3.42 mill/mm3 3.7-5.2 HEMOGLOBIN (test code=HGB) 9.8 gram/dL 11.5-15.5 HEMATOCRIT (test code=HCT) 33.1 % 36.0-46.0 MEAN CELL VOLUME (test code=MCV) 96.8 fL 80-98 MEAN CELL HGB (test code=MCH) 28.7 picogram 27.0-33.0 MEAN CELL HGB CONCETRATION (test code=MCHC) 29.6 gram/dL 33.0-36.0 RED CELL DISTRIBUTION WIDTH (test code=RDW) 14.6 % 11.6-16.2 RED CELL DISTRIBUTION WIDTH SD (test code=RDW-SD) 51.4 fL 37.0-51.0 PLATELET COUNT (test code=PLT) 178 K/mm3 150-450 RESULT VERIFIED BY REPEAT ANALYSIS MEAN PLATELET VOLUME (test code=MPV) 11.8 fL 6.7-11.0 IMMATURE GRANULOCYTE % (test code=IG%) 1.6 % 0.0-5.0 NUCLEATED RBC % (test code=NRBC%) 0.0 % 0-0 NEUTROPHIL # (test code=NT#) 15.35 K/mm3 1.8-7.7 IMMATURE GRANULOCYTE # (test code=IG#) 0.31 x10 3/uL 0-0.03 LYMPHOCYTE # (test code=LY#) 2.46 K/mm3 1.0-5.0 MONOCYTE # (test code=MO#) 0.70 K/mm3 0-0.8 EOSINOPHIL # (test code=EO#) 0.01 K/mm3 0.0-0.5 BASOPHIL # (test code=BA#) 0.03 K/mm3 0.0-0.2 NUCLEATED RBC # (test code=NRBC#) 0.00 K/mm3 0.0-0.1 MANUAL DIFF REQUIRED (test code=MDIFF) YES STAIN ACCEPTABILITY (test code=STN ACCEPTABLE) STAIN ACCEPTABLE TOTAL CELLS COUNTED (test code=TCC) 115 #CELLS SEGMENTED NEUTROPHILS (test code=SEG) 89.6 % 39-69 BAND NEUTROPHIL (test code=BAND) 0 % 0-10 LYMPHOCYTE (test code=LYMPH) 7.0 % 25-55 REACTIVE LYMPH (test code=RELYMPH) 0 % MONOCYTE (test code=MON) 1.7 % 0-10 EOSINOPHIL (test code=EOS) 0 % 0.0-5.0 BASOPHIL (test code=BASO) 0 % 0-1.0 METAMYELOCYTE (test code=META) 1.7 % 0-0 MYELOCYTE (test code=MYELO) 0 % 0.0-0.0 PROMYELOCYTE (test code=PROM) 0 % 0-0 POIKILOCYTOSIS (test code=POIK) 1+ GT CELLS (test code=GT) 1+ NONE PLATELET ESTIMATE (test code=PLTEST) ADEQUATE PLATELET MORPHOLOGY (test code=PLTMORPH) NORMAL IMMATURE FORMS (test code=IMMAT) 0 % COMPREHENSIVE METABOLIC [id number] 10:50:00* Test Item Value Reference Range Comments SODIUM (test code=NA) 145 mmol/L 136-145 POTASSIUM (test code=K) 4.5 mmol/L 3.5-5.1 CHLORIDE (test code=CL) 110.0 mmol/L 98-107 CARBON DIOXIDE (test code=CO2) 11.0 mmol/L 21-32 ANION GAP (test code=GAP) 28.5 10-20 GLUCOSE (test code=GLU) 202 mg/dL 74-106 BLOOD UREA NITROGEN (test code=BUN) 46 mg/dL 7-18 GLOMERULAR FILTRATION RATE (test code=GFR) 15 mL/min >=60 Estimated GFR by using Modified MDRD formula.Chronic kidney disease is defined as either kidney damageor GFR <60 mL/min/1.73 m2 for >3 months. CREATININE (test code=CREAT) 3.00 mg/dL 0.55-1.02 Note change in reference range due to change in reagent. BUN/CREATININE RATIO (test code=BUN/CREA) 15.3 10-20 TOTAL PROTEIN (test code=PROT) 5.7 gram/dL 6.4-8.2 ALBUMIN (test code=ALB) 2.6 g/dL 3.4-5.0 GLOBULIN (test code=GLOB) 3.1 gram/dL 2.7-4.2 ALBUMIN/GLOBULIN RATIO (test code=A/G) 0.8 0.75-1.50 CALCIUM (test code=CA) 7.1 mg/dL 8.5-10.1 BILIRUBIN TOTAL (test code=BILT) 2.10 mg/dL 0.0-1.0 SGOT/AST (test code=AST) 558 IUnit/L 15-37 SGPT/ALT (test code=ALT) 226 IUnit/L 12-78 ALKALINE PHOSPHATASE TOTAL (test code=ALKP) 48 IUnit/L 45-117 Note change in reference range due to change in reagent. [id number] 10:50:00* Test Item Value Reference Range Comments LIPASE (test code=LIP) 64 U/L 73.0-393.0 [id number] 10:50:00* Test Item Value Reference Range Comments MAGNESIUM (test code=MAG) 2.2 mg/dL 1.8-2.4 THYROID PROFILE [id number] 10:50:00* Test Item Value Reference Range Comments T3 UPTAKE (test code=T3UP) 39.0 % 30.0-40.0 T4 (THYROXINE) (test code=T4) 14.9 ug/dL 4.5-13.9 T7 (FREE THYROXINE INDEX) (test code=T7) 5.81 FTI 1.3-5.1 THYROID STIMULATING HORMONE (test code=TSH) 1.680 uIU/mL 0.36-3.74 TSH REFERENCE RANGES: EUTHYROID: 0.35 - 4.3 mIU/mL HYPO : > 5.5 mIU/mL HYPER : < 0.35 mIU/mL T4 [id number] 10:50:00* Test Item Value Reference Range Comments T4 FREE (test code=T4F) 2.83 ng/dL 0.76-1.46 [id number] 10:50:00* Test Item Value Reference Range Comments TROPONIN-I (test code=TROPI) 10.300 ng/mL 0-0.045 THROMBOPLASTIN TIME [id number] 10:47:00* Test Item Value Reference Range Comments THROMBOPLASTIN TIME PARTIAL (test code=PTT) 65.5 seconds 25.0-36.5 IS PATIENT ON ANTICOAGULANTS? NLACTIC [id number] 10:43:00* Test Item Value Reference Range Comments LACTIC ACID (test code=LACT) 12.0 mmol/L 0.4-1.9 Results called to [id number] by FangLABSENG 11/04/18 1043Critical results verified and read back by Nurse? Y COMPREHENSIVE METABOLIC [id number] 10:37:00* Test Item Value Reference Range Comments SODIUM (test code=NA) 145 mmol/L 136-145 POTASSIUM (test code=K) 4.5 mmol/L 3.5-5.1 CHLORIDE (test code=CL) 110.0 mmol/L 98-107 CARBON DIOXIDE (test code=CO2) mmol/L 21-32 ANION GAP (test code=GAP) 10-20 GLUCOSE (test code=GLU) mg/dL 74-106 BLOOD UREA NITROGEN (test code=BUN) mg/dL 7-18 GLOMERULAR FILTRATION RATE (test code=GFR) mL/min >=60 CREATININE (test code=CREAT) mg/dL 0.55-1.02 BUN/CREATININE RATIO (test code=BUN/CREA) 10-20 TOTAL PROTEIN (test code=PROT) gram/dL 6.4-8.2 ALBUMIN (test code=ALB) g/dL 3.4-5.0 GLOBULIN (test code=GLOB) gram/dL 2.7-4.2 ALBUMIN/GLOBULIN RATIO (test code=A/G) 0.75-1.50 CALCIUM (test code=CA) mg/dL 8.5-10.1 BILIRUBIN TOTAL (test code=BILT) mg/dL 0.0-1.0 SGOT/AST (test code=AST) IUnit/L 15-37 SGPT/ALT (test code=ALT) IUnit/L 12-78 ALKALINE PHOSPHATASE TOTAL (test code=ALKP) IUnit/L 45-117 [id number] 10:37:00* Test Item Value Reference Range Comments LIPASE (test code=LIP) U/L 73.0-393.0 [id number] 10:37:00* Test Item Value Reference Range Comments MAGNESIUM (test code=MAG) mg/dL 1.8-2.4 THYROID PROFILE [id number] 10:37:00* Test Item Value Reference Range Comments T3 UPTAKE (test code=T3UP) % 30.0-40.0 T4 (THYROXINE) (test code=T4) ug/dL 4.5-13.9 T7 (FREE THYROXINE INDEX) (test code=T7) FTI 1.3-5.1 THYROID STIMULATING HORMONE (test code=TSH) uIU/mL 0.36-3.74 T4 [id number] 10:37:00* Test Item Value Reference Range Comments T4 FREE (test code=T4F) ng/dL 0.76-1.46 [id number] 10:37:00* Test Item Value Reference Range Comments TROPONIN-I (test code=TROPI) ng/mL 0-0.045 ARTERIAL BLOOD [id number] 10:31:00* Test Item Value Reference Range Comments ARTERIAL BLOOD GAS PH (test code=PHA) 7.24 7.35-7.45 ARTERIAL BLOOD GAS PCO2 (test code=PCO2A) 26.1 mm Hg 35-45 ARTERIAL BLOOD GAS PO2 (test code=PO2A) 256.9 mmHg 80-100 BICARBONATE TOTAL HCO3 (test code=HCO3) 10.9 mmol/L 23.0-27.0 BASE EXCESS (test code=QUINTON) -15.1 mmol/L -3.0-5.0 Results called to and read back by dr flores 10:28 - 11/04/2018; by yang ABG O2 SATURATION (test code=SATA) 98.4 % 90.0-98.0 ABG TYPE (test code=TYPEA) Arterial FIO2 (test code=FIO2A) 80.0 ABG VENT MODE (test code=MODEA) Assist Control ABG VENT RESP RATE (test code=RRA) 26.0 per min ABG TIDAL VOLUME (test code=TVA) 500.0 mL ABG PEEP (test code=PEEPA) 10.0 cmH2O ABG SITE (test code=SITEA) ARTERIAL LINE HEMATOCRIT (test code=HCT/ABG) 29 % 35-47 TOTAL HGB (test code=THB) 9.7 gram/dL 11.5-15.5 HGB O2 SAT (test code=HBOSAT) 97.6 % 94.00-98.00 CARBOXYHEMOGLOBIN (test code=HOHGBT) 0.3 %totalHg 0.5-1.5 Results called to and read back by dr flores 10:28 - 11/04/2018; by yang METHEMOGLOBIN (test code=METHGB) 0.5 % 0.0-1.50 O2 CONTENT (test code=O2CT) 14.0 % vol 18.0-22.0 CBC W/MANUAL [id number] 10:31:00* Test Item Value Reference Range Comments WHITE BLOOD CELL (test code=WBC) 18.9 K/mm3 4.5-12.5 RED BLOOD CELL (test code=RBC) 3.42 mill/mm3 3.7-5.2 HEMOGLOBIN (test code=HGB) 9.8 gram/dL 11.5-15.5 HEMATOCRIT (test code=HCT) 33.1 % 36.0-46.0 MEAN CELL VOLUME (test code=MCV) 96.8 fL 80-98 MEAN CELL HGB (test code=MCH) 28.7 picogram 27.0-33.0 MEAN CELL HGB CONCETRATION (test code=MCHC) 29.6 gram/dL 33.0-36.0 RED CELL DISTRIBUTION WIDTH (test code=RDW) 14.6 % 11.6-16.2 RED CELL DISTRIBUTION WIDTH SD (test code=RDW-SD) 51.4 fL 37.0-51.0 PLATELET COUNT (test code=PLT) 178 K/mm3 150-450 RESULT VERIFIED BY REPEAT ANALYSIS MEAN PLATELET VOLUME (test code=MPV) 11.8 fL 6.7-11.0 IMMATURE GRANULOCYTE % (test code=IG%) 1.6 % 0.0-5.0 NUCLEATED RBC % (test code=NRBC%) 0.0 % 0-0 NEUTROPHIL # (test code=NT#) 15.35 K/mm3 1.8-7.7 IMMATURE GRANULOCYTE # (test code=IG#) 0.31 x10 3/uL 0-0.03 LYMPHOCYTE # (test code=LY#) 2.46 K/mm3 1.0-5.0 MONOCYTE # (test code=MO#) 0.70 K/mm3 0-0.8 EOSINOPHIL # (test code=EO#) 0.01 K/mm3 0.0-0.5 BASOPHIL # (test code=BA#) 0.03 K/mm3 0.0-0.2 NUCLEATED RBC # (test code=NRBC#) 0.00 K/mm3 0.0-0.1 MANUAL DIFF REQUIRED (test code=MDIFF) YES STAIN ACCEPTABILITY (test code=STN ACCEPTABLE) TOTAL CELLS COUNTED (test code=TCC) #CELLS SEGMENTED NEUTROPHILS (test code=SEG) % 39-69 LYMPHOCYTE (test code=LYMPH) % 25-55 MONOCYTE (test code=MON) % 0-10 EOSINOPHIL (test code=EOS) % 0.0-5.0 CABOT RINGS (test code=CAB) MORPHOLOGY COMMENT (test code=MOC) PLATELET ESTIMATE (test code=PLTEST) PLATELET MORPHOLOGY (test code=PLTMORPH) CBC W/MANUAL [id number] 10:31:00* Test Item Value Reference Range Comments WHITE BLOOD CELL (test code=WBC) 18.9 K/mm3 4.5-12.5 RED BLOOD CELL (test code=RBC) 3.42 mill/mm3 3.7-5.2 HEMOGLOBIN (test code=HGB) 9.8 gram/dL 11.5-15.5 HEMATOCRIT (test code=HCT) 33.1 % 36.0-46.0 MEAN CELL VOLUME (test code=MCV) 96.8 fL 80-98 MEAN CELL HGB (test code=MCH) 28.7 picogram 27.0-33.0 MEAN CELL HGB CONCETRATION (test code=MCHC) 29.6 gram/dL 33.0-36.0 RED CELL DISTRIBUTION WIDTH (test code=RDW) 14.6 % 11.6-16.2 RED CELL DISTRIBUTION WIDTH SD (test code=RDW-SD) 51.4 fL 37.0-51.0 PLATELET COUNT (test code=PLT) 178 K/mm3 150-450 RESULT VERIFIED BY REPEAT ANALYSIS MEAN PLATELET VOLUME (test code=MPV) 11.8 fL 6.7-11.0 IMMATURE GRANULOCYTE % (test code=IG%) 1.6 % 0.0-5.0 NUCLEATED RBC % (test code=NRBC%) 0.0 % 0-0 NEUTROPHIL # (test code=NT#) 15.35 K/mm3 1.8-7.7 IMMATURE GRANULOCYTE # (test code=IG#) 0.31 x10 3/uL 0-0.03 LYMPHOCYTE # (test code=LY#) 2.46 K/mm3 1.0-5.0 MONOCYTE # (test code=MO#) 0.70 K/mm3 0-0.8 EOSINOPHIL # (test code=EO#) 0.01 K/mm3 0.0-0.5 BASOPHIL # (test code=BA#) 0.03 K/mm3 0.0-0.2 NUCLEATED RBC # (test code=NRBC#) 0.00 K/mm3 0.0-0.1 MANUAL DIFF REQUIRED (test code=MDIFF) YES STAIN ACCEPTABILITY (test code=STN ACCEPTABLE) TOTAL CELLS COUNTED (test code=TCC) #CELLS SEGMENTED NEUTROPHILS (test code=SEG) % 39-69 LYMPHOCYTE (test code=LYMPH) % 25-55 MONOCYTE (test code=MON) % 0-10 EOSINOPHIL (test code=EOS) % 0.0-5.0 CABOT RINGS (test code=CAB) MORPHOLOGY COMMENT (test code=MOC) PLATELET ESTIMATE (test code=PLTEST) PLATELET MORPHOLOGY (test code=PLTMORPH) CBC W/MANUAL [id number] 10:31:00* Test Item Value Reference Range Comments WHITE BLOOD CELL (test code=WBC) 18.9 K/mm3 4.5-12.5 RED BLOOD CELL (test code=RBC) 3.42 mill/mm3 3.7-5.2 HEMOGLOBIN (test code=HGB) 9.8 gram/dL 11.5-15.5 HEMATOCRIT (test code=HCT) 33.1 % 36.0-46.0 MEAN CELL VOLUME (test code=MCV) 96.8 fL 80-98 MEAN CELL HGB (test code=MCH) 28.7 picogram 27.0-33.0 MEAN CELL HGB CONCETRATION (test code=MCHC) 29.6 gram/dL 33.0-36.0 RED CELL DISTRIBUTION WIDTH (test code=RDW) 14.6 % 11.6-16.2 RED CELL DISTRIBUTION WIDTH SD (test code=RDW-SD) 51.4 fL 37.0-51.0 PLATELET COUNT (test code=PLT) 178 K/mm3 150-450 RESULT VERIFIED BY REPEAT ANALYSIS MEAN PLATELET VOLUME (test code=MPV) 11.8 fL 6.7-11.0 IMMATURE GRANULOCYTE % (test code=IG%) 1.6 % 0.0-5.0 NUCLEATED RBC % (test code=NRBC%) 0.0 % 0-0 NEUTROPHIL # (test code=NT#) 15.35 K/mm3 1.8-7.7 IMMATURE GRANULOCYTE # (test code=IG#) 0.31 x10 3/uL 0-0.03 LYMPHOCYTE # (test code=LY#) 2.46 K/mm3 1.0-5.0 MONOCYTE # (test code=MO#) 0.70 K/mm3 0-0.8 EOSINOPHIL # (test code=EO#) 0.01 K/mm3 0.0-0.5 BASOPHIL # (test code=BA#) 0.03 K/mm3 0.0-0.2 NUCLEATED RBC # (test code=NRBC#) 0.00 K/mm3 0.0-0.1 MANUAL DIFF REQUIRED (test code=MDIFF) YES STAIN ACCEPTABILITY (test code=STN ACCEPTABLE) TOTAL CELLS COUNTED (test code=TCC) #CELLS SEGMENTED NEUTROPHILS (test code=SEG) % 39-69 LYMPHOCYTE (test code=LYMPH) % 25-55 MONOCYTE (test code=MON) % 0-10 EOSINOPHIL (test code=EOS) % 0.0-5.0 MORPHOLOGY COMMENT (test code=MOC) PLATELET ESTIMATE (test code=PLTEST) PLATELET MORPHOLOGY (test code=PLTMORPH) CBC W/MANUAL [id number] 10:31:00* Test Item Value Reference Range Comments WHITE BLOOD CELL (test code=WBC) 18.9 K/mm3 4.5-12.5 RED BLOOD CELL (test code=RBC) 3.42 mill/mm3 3.7-5.2 HEMOGLOBIN (test code=HGB) 9.8 gram/dL 11.5-15.5 HEMATOCRIT (test code=HCT) 33.1 % 36.0-46.0 MEAN CELL VOLUME (test code=MCV) 96.8 fL 80-98 MEAN CELL HGB (test code=MCH) 28.7 picogram 27.0-33.0 MEAN CELL HGB CONCETRATION (test code=MCHC) 29.6 gram/dL 33.0-36.0 RED CELL DISTRIBUTION WIDTH (test code=RDW) 14.6 % 11.6-16.2 RED CELL DISTRIBUTION WIDTH SD (test code=RDW-SD) 51.4 fL 37.0-51.0 PLATELET COUNT (test code=PLT) 178 K/mm3 150-450 RESULT VERIFIED BY REPEAT ANALYSIS MEAN PLATELET VOLUME (test code=MPV) 11.8 fL 6.7-11.0 IMMATURE GRANULOCYTE % (test code=IG%) 1.6 % 0.0-5.0 NUCLEATED RBC % (test code=NRBC%) 0.0 % 0-0 NEUTROPHIL # (test code=NT#) 15.35 K/mm3 1.8-7.7 IMMATURE GRANULOCYTE # (test code=IG#) 0.31 x10 3/uL 0-0.03 LYMPHOCYTE # (test code=LY#) 2.46 K/mm3 1.0-5.0 MONOCYTE # (test code=MO#) 0.70 K/mm3 0-0.8 EOSINOPHIL # (test code=EO#) 0.01 K/mm3 0.0-0.5 BASOPHIL # (test code=BA#) 0.03 K/mm3 0.0-0.2 NUCLEATED RBC # (test code=NRBC#) 0.00 K/mm3 0.0-0.1 MANUAL DIFF REQUIRED (test code=MDIFF) YES STAIN ACCEPTABILITY (test code=STN ACCEPTABLE) TOTAL CELLS COUNTED (test code=TCC) #CELLS SEGMENTED NEUTROPHILS (test code=SEG) % 39-69 LYMPHOCYTE (test code=LYMPH) % 25-55 MONOCYTE (test code=MON) % 0-10 MORPHOLOGY COMMENT (test code=MOC) PLATELET ESTIMATE (test code=PLTEST) PLATELET MORPHOLOGY (test code=PLTMORPH) CBC W/MANUAL [id number] 10:31:00* Test Item Value Reference Range Comments WHITE BLOOD CELL (test code=WBC) 18.9 K/mm3 4.5-12.5 RED BLOOD CELL (test code=RBC) 3.42 mill/mm3 3.7-5.2 HEMOGLOBIN (test code=HGB) 9.8 gram/dL 11.5-15.5 HEMATOCRIT (test code=HCT) 33.1 % 36.0-46.0 MEAN CELL VOLUME (test code=MCV) 96.8 fL 80-98 MEAN CELL HGB (test code=MCH) 28.7 picogram 27.0-33.0 MEAN CELL HGB CONCETRATION (test code=MCHC) 29.6 gram/dL 33.0-36.0 RED CELL DISTRIBUTION WIDTH (test code=RDW) 14.6 % 11.6-16.2 RED CELL DISTRIBUTION WIDTH SD (test code=RDW-SD) 51.4 fL 37.0-51.0 PLATELET COUNT (test code=PLT) 178 K/mm3 150-450 RESULT VERIFIED BY REPEAT ANALYSIS MEAN PLATELET VOLUME (test code=MPV) 11.8 fL 6.7-11.0 IMMATURE GRANULOCYTE % (test code=IG%) 1.6 % 0.0-5.0 NUCLEATED RBC % (test code=NRBC%) 0.0 % 0-0 NEUTROPHIL # (test code=NT#) 15.35 K/mm3 1.8-7.7 IMMATURE GRANULOCYTE # (test code=IG#) 0.31 x10 3/uL 0-0.03 LYMPHOCYTE # (test code=LY#) 2.46 K/mm3 1.0-5.0 MONOCYTE # (test code=MO#) 0.70 K/mm3 0-0.8 EOSINOPHIL # (test code=EO#) 0.01 K/mm3 0.0-0.5 BASOPHIL # (test code=BA#) 0.03 K/mm3 0.0-0.2 NUCLEATED RBC # (test code=NRBC#) 0.00 K/mm3 0.0-0.1 MANUAL DIFF REQUIRED (test code=MDIFF) YES STAIN ACCEPTABILITY (test code=STN ACCEPTABLE) TOTAL CELLS COUNTED (test code=TCC) #CELLS SEGMENTED NEUTROPHILS (test code=SEG) % 39-69 LYMPHOCYTE (test code=LYMPH) % 25-55 MONOCYTE (test code=MON) % 0-10 EOSINOPHIL (test code=EOS) % 0.0-5.0 CABOT RINGS (test code=CAB) MORPHOLOGY COMMENT (test code=MOC) PLATELET ESTIMATE (test code=PLTEST) PLATELET MORPHOLOGY (test code=PLTMORPH) VENOUS BLOOD [id number] 10:29:00* Test Item Value Reference Range Comments VENOUS BLOOD GAS PH (test code=PHV) 7.20 7.30-7.40 Results called to and read back by dr flores 10: - 11/04/2018; by yang VENOUS BLOOD GAS PCO2 (test code=PCO2V) 34.0 mm Hg 39.0-51.0 VENOUS BLOOD GAS PO2 (test code=PO2V) 47.3 mm Hg 30.0-50.0 VBG HCO3 (test code=HCO3V) 12.9 mmol/L 17.0-30.0 VBG BASE EXCESS (test code=PETR) -14.0 mmol/L -5.0-5.0 VENOUS BLOOD GAS O2 SAT. (test code=O2SATV) 76 % 94-98 VENOUS BLOOD GAS FIO2 (test code=FIO2V) 80.0 VBG VENT MODE (test code=MODEV) Assist Control FREDDY. BLOOD GAS RESP. RATE (test code=RRV) 26.0 per min VBG TIDAL VOLUME (test code=TVV) 500.0 VENOUS BLOOD GAS PEEP (test code=PEEPV) 10.0 cmH2O PT. HGB (test code=PHGBVBG) 9.9 gram/dL 11.5-15.5 VENOUS BLOOD GAS SITE (test code=SITEV) IVC HEMATOCRIT (test code=HCT/VBG) 29 % 42-52 HGB O2 SAT (test code=HBOSAT) 75.8 % 94.00-98.00 CARBOXYHEMOGLOBIN (test code=HOHGBT) 0.3 %totalHg 0.5-1.5 Results called to and read back by dr flores 10:11/04/2018; by yang METHEMOGLOBIN (test code=METHGB) 0.5 % 0.0-1.50 - CT ABD PELVIS W/O [id number] 09:06:00 Name: CHARLENENEREIDA PIETRO [facility] : 1940 Age/S: 78 / F [address] [facility] Unit #: [id number] Loc: [place] [address] Phys: Alexander Matson MD Acct: [id number] Dis Date: Status: ADM IN PHONE #: [phone] Exam Date: 11/04/2018 0825 FAX #: [phone] Reason: Septic shock EXAMS: CPT CODE: [id number] CT ABD PELVIS W/O CONT 62497 HISTORY: Septic. COMPARISON: November 17, 2008. CT of abdomen and pelvis: Stone protocol. Automated exposure control. CT of abdomen: The noncontrast hepatic parenchyma is without discrete mass or lesions but is being obscured by beam hardening artifact from patient's overlying arms. The liver is not enlarged. Moderately distended gallbladder is without calcified small layering stones. Unremarkable spleen. The stomach distended incompletely with NG tube noted within it. Marked ly atrophied pancreas. Adrenals are normal. Kidneys are free from hydroureteronephrosis with renal pelvic calcification measuring 1 cm on th e right. Chronic perinephric fat stranding. Cortical atrophy bilaterally. No pathologic adenopathy. Atherosclerotic change of the abdominal and pelvic vasculature. No bowel obstruction or colitis or d iverticulitis or enteritis. CT PELVIS: Appendix is n ormal. Pelvic bowel loops are unobstructed. Unremarkable atrophied uterus. Prominent ovaries which is unusual for postmenopausal woman. No f ree fluid or free air. Decompressed urinary bladder with Trevizo catheter. N o pelvic pathologic adenopathy. Subcutaneous tissues and the muscu lature demonstrating enlarged right rectus musculature which may suggest h emorrhage. Average Hounsfield unit measurement ranging up to 30. The rectu s muscle measuring approximately 13 cm in width as compared 6 cm on the le ft. Hemorrhage spanning nearly the entire length of the rectus muscle. No lytic or blastic lesions are noted within the bony skeleton. DJD. IMPRESSION: Hemorrhage within the right rectus muscle spanning the entire length PAGE 1 Signed Report (CONTINUED) Name: CHANGNEREIDASHRUTI WESTBROOK [facility] : 1940 Age/S: 78 / F [address] [facility] Unit #: [id number] Loc: [place], [place] [address] Phys: Alexander Matson MD Acct: [id number] Dis Date: Status: ADM IN PHONE #: [phone] Exam Date: 11/04/2018824 FAX #: [phone] Reason: Septic shock EXAMS: CPT CODE: [id number] CT ABD PELVIS W/O CONT 77049 < Continued> with average Hounsfield unit measurement of 30. Mild enlargement in relation to the left side. Normal appendix without bowel obstruction or colitis or diverticulitis or enteritis. Atrophied kidneys without hydroureteronephrosis. Decompressed urinary bladder is nondiagnostic. Gallstones within moderately distended gallbladder. at 0906 Reported and signed by: Remi Tomas M.D. CC: Nahun Malave MD; Miki Hathaway MD; Alexander Matson MD Technologist:Ruby Scott,RT(R),CT CTDI: DLP: Trnscb Date/Time: 11/04/2018 (0906) t.SDR.TH4 Orig Print D/T: S: 11/04/2018 (1202) CTDI: DLP: PAGE 2 Signed Report - CT CHEST W/O [id number] 08:58:00 Name: NEREIDA CHANG [facility] : 1940 Age/S: 78 / F [address] [facility] Unit #: [id number] Loc: [place] [address] Phys: Alexander Matson MD Acct: [id number] Dis Date: Status: ADM IN PHONE #: [phone] Exam Date: 11/04/2018829 FAX #: [phone] Reason: Acute respiratory failure EXAMS: CPT CODE: [id number] CT CHEST W/O CONTRAST 25008 HISTORY: Acute respiratory failure. COMPARISON: December 19, 2011. CT chest without contrast: Automated exposure control. Patchy bilateral nodular infiltrates with small bibasal effusions with subsegmental lower lobe atelectasis, greater on the left. No bronchiectasis, honeycombing or fibrosis or endobronchial lesions are noted. Normal caliber unopacified aorta and pulmonary arteries with atherosclerotic change. The thyroid glands are unremarkable. Patient is intubated. ET tube is above the david. NG tube noted within the esophagus. Esophageal wall is not thickened. No pathologic adenopathy. Shotty adenopathy. Cardiomegaly without pericardial effusion. Subcutaneous tissues and the musculature demonstrating normal appearance. No lytic or blastic lesions are noted within the bony skeleton. Multiple anterolateral bilateral upper and mid rib fractures of indeterminate age. Correlate clinically. DJD. IMPRESSION: Nodular infiltrates scattered bilaterally. Small bibasal effusions with subsegmental atelectasis as well. No pathologic adenopathy. Bilateral upper to mid anterolateral rib fractures of indeterminate age. at 0858 Reported and signed by: Remi Tomas M.D. CC: Nahun Malave MD; Miki Hathaway MD; Alexander Matson MD Technologist:Karen Victoria RT(R),CT; CTDI: DLP: Trnscb Date/Time: 11/04/2018 (08) t.SDR.TH4 Orig Print D/T: S: 11/04/2018 (901) CTDI: DLP: PAGE 1 Signed Report - CT HEAD/BRAIN W/O [id number] 08:50:00 Name: NEREIDA CHANG [facility] : 1940 Age/S: 78 / F [address] [facility] [place] Unit #: [id number] Loc: [place] Ch[place] [address] Phys: Neetu Matson MD Acct: [id number] Di s Date: Status: ADM IN PHONE #: [phone] Exam Date: 11/04/2018829 FAX #: Reason: Acute respiratory failure - Altered mental stat EXAMS: CPT CODE: [id number] CT HEAD/BRAIN W/O CONT [id number] HISTORY: Confusion. COMPARISON: None available. CT brain without contrast: Au tomated exposure control. No acute intracranial bleeds or extra-ax ial collections are noted. No acute territorial vascular infarction is not ed. The sulci, gyri, ventricles and subarachnoid spaces and the ba silar cisterns are normal for patient's age. No herniation or hydrocephalu s or midline shift is noted. Mild periventricular ischemic g liosis is noted. Age-appropriate atrophy is noted as well. P ortions of the visualized paranasal sinuses demonstrated polysinusitis. No obvious bony calvarial defect is noted. IMPRESSIO N: No acute intracranial bleeds or extra-axial collections. No acute territorial vascular infarction. No h erniation or hydrocephalus or midline shift. 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 Electronical ly Signed by Enrique Tomas on 11/04/2018 at 0850 Rep orted and signed by: Remi Tomas M.D. CC: Nahun Malave MD; Miki Hathaway MD; Alexander Matson MD Technologist:Karen Victoria RT(R),CT; CTDI: DLP: Trnscb Date/Time: 11/04/2018 (0850) [email or web address] Orig Print D/T: S: 11/04/2018 (0853) CTDI: DLP: PAGE 1 Signed Report VENOUS BLOOD [id number] 07:20:00* Test Item Value Reference Range Comments VENOUS BLOOD GAS PH (test code=PHV) 7.16 7.30-7.40 Results called to and read back by DR Flores 07:17 - 11/04/2018; by YANG VENOUS BLOOD GAS PCO2 (test code=PCO2V) 43.4 mm Hg 39.0-51.0 VENOUS BLOOD GAS PO2 (test code=PO2V) 51.8 mm Hg 30.0-50.0 VBG HCO3 (test code=HCO3V) 15.2 mmol/L 17.0-30.0 VBG BASE EXCESS (test code=PETR) -12.8 mmol/L -5.0-5.0 VENOUS BLOOD GAS O2 SAT. (test code=O2SATV) 77 % 94-98 VENOUS BLOOD GAS FIO2 (test code=FIO2V) 60.0 VBG VENT MODE (test code=MODEV) Assist Control FREDDY. BLOOD GAS RESP. RATE (test code=RRV) 14.0 per min VBG TIDAL VOLUME (test code=TVV) 500.0 VENOUS BLOOD GAS PEEP (test code=PEEPV) 7.0 cmH2O PT. HGB (test code=PHGBVBG) 10.8 gram/dL 11.5-15.5 VENOUS BLOOD GAS SITE (test code=SITEV) IVC HEMATOCRIT (test code=HCT/VBG) 32 % 42-52 HGB O2 SAT (test code=HBOSAT) 76.3 % 94.00-98.00 CARBOXYHEMOGLOBIN (test code=HOHGBT) 0.3 %totalHg 0.5-1.5 Results called to and read back by DR Flores 07:11/04/2018; by YANG METHEMOGLOBIN (test code=METHGB) 0.5 % 0.0-1.50 ARTERIAL BLOOD [id number] 07:18:00* Test Item Value Reference Range Comments ARTERIAL BLOOD GAS PH (test code=PHA) 7.20 7.35-7.45 Results called to and read back by DR Flores 07:11/04/2018; by YANG ARTERIAL BLOOD GAS PCO2 (test code=PCO2A) 37.7 mm Hg 35-45 ARTERIAL BLOOD GAS PO2 (test code=PO2A) 105.2 mmHg 80-100 BICARBONATE TOTAL HCO3 (test code=HCO3) 14.3 mmol/L 23.0-27.0 BASE EXCESS (test code=QUINTON) -12.9 mmol/L -3.0-5.0 Results called to and read back by DR Flores 07:11/04/2018; by YANG ABG O2 SATURATION (test code=SATA) 95.8 % 90.0-98.0 ABG TYPE (test code=TYPEA) Arterial FIO2 (test code=FIO2A) 60.0 ABG VENT MODE (test code=MODEA) Assist Control ABG VENT RESP RATE (test code=RRA) 14.0 per min ABG TIDAL VOLUME (test code=TVA) 500.0 mL ABG PEEP (test code=PEEPA) 7.0 cmH2O ABG SITE (test code=SITEA) ARTERIAL LINE HEMATOCRIT (test code=HCT/ABG) 31 % 35-47 TOTAL HGB (test code=THB) 10.4 gram/dL 11.5-15.5 HGB O2 SAT (test code=HBOSAT) 95.1 % 94.00-98.00 CARBOXYHEMOGLOBIN (test code=HOHGBT) 0.3 %totalHg 0.5-1.5 Results called to and read back by DR Flores 07:11/04/2018; by YANG METHEMOGLOBIN (test code=METHGB) 0.4 % 0.0-1.50 O2 CONTENT (test code=O2CT) 14.1 % vol 18.0-22.0 [id number] 07:16:00* Test Item Value Reference Range Comments GLUBED (test code=GLUBED) 179 mg/dL 74-106 Performed by 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 [facility] CBC W/AUTO [id number] 06:39:00* Test Item Value Reference Range Comments WHITE BLOOD CELL (test code=WBC) 10.6 K/mm3 4.5-12.5 RED BLOOD CELL (test code=RBC) 3.11 mill/mm3 3.7-5.2 HEMOGLOBIN (test code=HGB) 8.8 gram/dL 11.5-15.5 HEMATOCRIT (test code=HCT) 29.5 % 36.0-46.0 MEAN CELL VOLUME (test code=MCV) 94.9 fL 80-98 MEAN CELL HGB (test code=MCH) 28.3 picogram 27.0-33.0 MEAN CELL HGB CONCETRATION (test code=MCHC) 29.8 gram/dL 33.0-36.0 RED CELL DISTRIBUTION WIDTH (test code=RDW) 14.3 % 11.6-16.2 RED CELL DISTRIBUTION WIDTH SD (test code=RDW-SD) 50.1 fL 37.0-51.0 PLATELET COUNT (test code=PLT) 111 K/mm3 150-450 MEAN PLATELET VOLUME (test code=MPV) 11.2 fL 6.7-11.0 NEUTROPHIL % (test code=NT%) 75.6 % 39.0-69.0 IMMATURE GRANULOCYTE % (test code=IG%) 1.4 % 0.0-5.0 LYMPHOCYTE % (test code=LY%) 20.1 % 25.0-55.0 MONOCYTE % (test code=MO%) 2.7 % 0.0-10.0 EOSINOPHIL % (test code=EO%) 0.1 % 0.0-5.0 BASOPHIL % (test code=BA%) 0.1 % 0.0-1.0 NUCLEATED RBC % (test code=NRBC%) 0.0 % 0-0 NEUTROPHIL # (test code=NT#) 8.03 K/mm3 1.8-7.7 IMMATURE GRANULOCYTE # (test code=IG#) 0.15 x10 3/uL 0-0.03 LYMPHOCYTE # (test code=LY#) 2.14 K/mm3 1.0-5.0 MONOCYTE # (test code=MO#) 0.29 K/mm3 0-0.8 EOSINOPHIL # (test code=EO#) 0.01 K/mm3 0.0-0.5 BASOPHIL # (test code=BA#) 0.01 K/mm3 0.0-0.2 NUCLEATED RBC # (test code=NRBC#) 0.00 K/mm3 0.0-0.1 MANUAL DIFF REQUIRED (test code=MDIFF) NO, ONLY SCAN NEEDED WBC [id number] 06:39:00* Test Item Value Reference Range Comments STAIN ACCEPTABILITY (test code=STN ACCEPTABLE) STAIN ACCEPTABLE TOTAL CELLS COUNTED (test code=TCC) 115 #CELLS SEGMENTED NEUTROPHILS (test code=SEG) 71.3 % 39-69 BAND NEUTROPHIL (test code=BAND) 24.3 % 0-10 LYMPHOCYTE (test code=LYMPH) 3.5 % 25-55 REACTIVE LYMPH (test code=RELYMPH) 0 % MONOCYTE (test code=MON) 0.9 % 0-10 EOSINOPHIL (test code=EOS) 0 % 0.0-5.0 BASOPHIL (test code=BASO) 0 % 0-1.0 METAMYELOCYTE (test code=META) 0 % 0-0 MYELOCYTE (test code=MYELO) 0 % 0.0-0.0 PROMYELOCYTE (test code=PROM) 0 % 0-0 POLYCHROMASIA (test code=POLC) 1+ POIKILOCYTOSIS (test code=POIK) 1+ ANISOCYTOSIS (test code=ANISO) 1+ ELLIPTOCYTES (test code=ELL) 1+ PLATELET ESTIMATE (test code=PLTEST) SLIGHTLY DECREASED PLATELET MORPHOLOGY (test code=PLTMORPH) NORMAL IMMATURE FORMS (test code=IMMAT) 0 % CBC W/AUTO [id number] 06:31:00* Test Item Value Reference Range Comments WHITE BLOOD CELL (test code=WBC) 10.6 K/mm3 4.5-12.5 RED BLOOD CELL (test code=RBC) 3.11 mill/mm3 3.7-5.2 HEMOGLOBIN (test code=HGB) 8.8 gram/dL 11.5-15.5 HEMATOCRIT (test code=HCT) 29.5 % 36.0-46.0 MEAN CELL VOLUME (test code=MCV) 94.9 fL 80-98 MEAN CELL HGB (test code=MCH) 28.3 picogram 27.0-33.0 MEAN CELL HGB CONCETRATION (test code=MCHC) 29.8 gram/dL 33.0-36.0 RED CELL DISTRIBUTION WIDTH (test code=RDW) 14.3 % 11.6-16.2 RED CELL DISTRIBUTION WIDTH SD (test code=RDW-SD) 50.1 fL 37.0-51.0 PLATELET COUNT (test code=PLT) 111 K/mm3 150-450 MEAN PLATELET VOLUME (test code=MPV) 11.2 fL 6.7-11.0 NEUTROPHIL % (test code=NT%) 75.6 % 39.0-69.0 IMMATURE GRANULOCYTE % (test code=IG%) 1.4 % 0.0-5.0 LYMPHOCYTE % (test code=LY%) 20.1 % 25.0-55.0 MONOCYTE % (test code=MO%) 2.7 % 0.0-10.0 EOSINOPHIL % (test code=EO%) 0.1 % 0.0-5.0 BASOPHIL % (test code=BA%) 0.1 % 0.0-1.0 NUCLEATED RBC % (test code=NRBC%) 0.0 % 0-0 NEUTROPHIL # (test code=NT#) 8.03 K/mm3 1.8-7.7 IMMATURE GRANULOCYTE # (test code=IG#) 0.15 x10 3/uL 0-0.03 LYMPHOCYTE # (test code=LY#) 2.14 K/mm3 1.0-5.0 MONOCYTE # (test code=MO#) 0.29 K/mm3 0-0.8 EOSINOPHIL # (test code=EO#) 0.01 K/mm3 0.0-0.5 BASOPHIL # (test code=BA#) 0.01 K/mm3 0.0-0.2 NUCLEATED RBC # (test code=NRBC#) 0.00 K/mm3 0.0-0.1 MANUAL DIFF REQUIRED (test code=MDIFF) NO, ONLY SCAN NEEDED WBC [id number] 06:31:00* Test Item Value Reference Range Comments STAIN ACCEPTABILITY (test code=STN ACCEPTABLE) TOTAL CELLS COUNTED (test code=TCC) #CELLS SEGMENTED NEUTROPHILS (test code=SEG) % 39-69 LYMPHOCYTE (test code=LYMPH) % 25-55 MONOCYTE (test code=MON) % 0-10 MORPHOLOGY COMMENT (test code=MOC) PLATELET ESTIMATE (test code=PLTEST) PLATELET MORPHOLOGY (test code=PLTMORPH) LACTIC [id number] 06:25:00* Test Item Value Reference Range Comments LACTIC ACID (test code=LACT) 9.9 mmol/L 0.4-1.9 Results called to [id number] by ROSA 11/04/18 0625Critical results verified and read back by Nurse? Y CBC W/AUTO [id number] 05:10:00* Test Item Value Reference Range Comments WHITE BLOOD CELL (test code=WBC) 10.6 K/mm3 4.5-12.5 RED BLOOD CELL (test code=RBC) 3.11 mill/mm3 3.7-5.2 HEMOGLOBIN (test code=HGB) 8.8 gram/dL 11.5-15.5 HEMATOCRIT (test code=HCT) 29.5 % 36.0-46.0 MEAN CELL VOLUME (test code=MCV) 94.9 fL 80-98 MEAN CELL HGB (test code=MCH) 28.3 picogram 27.0-33.0 MEAN CELL HGB CONCETRATION (test code=MCHC) 29.8 gram/dL 33.0-36.0 RED CELL DISTRIBUTION WIDTH (test code=RDW) 14.3 % 11.6-16.2 RED CELL DISTRIBUTION WIDTH SD (test code=RDW-SD) 50.1 fL 37.0-51.0 PLATELET COUNT (test code=PLT) 111 K/mm3 150-450 MEAN PLATELET VOLUME (test code=MPV) 11.2 fL 6.7-11.0 NEUTROPHIL % (test code=NT%) 75.6 % 39.0-69.0 IMMATURE GRANULOCYTE % (test code=IG%) 1.4 % 0.0-5.0 LYMPHOCYTE % (test code=LY%) 20.1 % 25.0-55.0 MONOCYTE % (test code=MO%) 2.7 % 0.0-10.0 EOSINOPHIL % (test code=EO%) 0.1 % 0.0-5.0 BASOPHIL % (test code=BA%) 0.1 % 0.0-1.0 NUCLEATED RBC % (test code=NRBC%) 0.0 % 0-0 NEUTROPHIL # (test code=NT#) 8.03 K/mm3 1.8-7.7 IMMATURE GRANULOCYTE # (test code=IG#) 0.15 x10 3/uL 0-0.03 LYMPHOCYTE # (test code=LY#) 2.14 K/mm3 1.0-5.0 MONOCYTE # (test code=MO#) 0.29 K/mm3 0-0.8 EOSINOPHIL # (test code=EO#) 0.01 K/mm3 0.0-0.5 BASOPHIL # (test code=BA#) 0.01 K/mm3 0.0-0.2 NUCLEATED RBC # (test code=NRBC#) 0.00 K/mm3 0.0-0.1 MANUAL DIFF REQUIRED (test code=MDIFF) NO, ONLY SCAN NEEDED DIFFERENTIAL [id number] 05:10:00* Test Item Value Reference Range Comments STAIN ACCEPTABILITY (test code=STN ACCEPTABLE) CABOT RINGS (test code=CAB) MORPHOLOGY COMMENT (test code=MOC) PLATELET ESTIMATE (test code=PLTEST) PLATELET MORPHOLOGY (test code=PLTMORPH) CBC W/AUTO [id number] 05:10:00* Test Item Value Reference Range Comments WHITE BLOOD CELL (test code=WBC) 10.6 K/mm3 4.5-12.5 RED BLOOD CELL (test code=RBC) 3.11 mill/mm3 3.7-5.2 HEMOGLOBIN (test code=HGB) 8.8 gram/dL 11.5-15.5 HEMATOCRIT (test code=HCT) 29.5 % 36.0-46.0 MEAN CELL VOLUME (test code=MCV) 94.9 fL 80-98 MEAN CELL HGB (test code=MCH) 28.3 picogram 27.0-33.0 MEAN CELL HGB CONCETRATION (test code=MCHC) 29.8 gram/dL 33.0-36.0 RED CELL DISTRIBUTION WIDTH (test code=RDW) 14.3 % 11.6-16.2 RED CELL DISTRIBUTION WIDTH SD (test code=RDW-SD) 50.1 fL 37.0-51.0 PLATELET COUNT (test code=PLT) 111 K/mm3 150-450 MEAN PLATELET VOLUME (test code=MPV) 11.2 fL 6.7-11.0 NEUTROPHIL % (test code=NT%) 75.6 % 39.0-69.0 IMMATURE GRANULOCYTE % (test code=IG%) 1.4 % 0.0-5.0 LYMPHOCYTE % (test code=LY%) 20.1 % 25.0-55.0 MONOCYTE % (test code=MO%) 2.7 % 0.0-10.0 EOSINOPHIL % (test code=EO%) 0.1 % 0.0-5.0 BASOPHIL % (test code=BA%) 0.1 % 0.0-1.0 NUCLEATED RBC % (test code=NRBC%) 0.0 % 0-0 NEUTROPHIL # (test code=NT#) 8.03 K/mm3 1.8-7.7 IMMATURE GRANULOCYTE # (test code=IG#) 0.15 x10 3/uL 0-0.03 LYMPHOCYTE # (test code=LY#) 2.14 K/mm3 1.0-5.0 MONOCYTE # (test code=MO#) 0.29 K/mm3 0-0.8 EOSINOPHIL # (test code=EO#) 0.01 K/mm3 0.0-0.5 BASOPHIL # (test code=BA#) 0.01 K/mm3 0.0-0.2 NUCLEATED RBC # (test code=NRBC#) 0.00 K/mm3 0.0-0.1 MANUAL DIFF REQUIRED (test code=MDIFF) NO, ONLY SCAN NEEDED DIFFERENTIAL [id number] 05:10:00* Test Item Value Reference Range Comments STAIN ACCEPTABILITY (test code=STN ACCEPTABLE) MORPHOLOGY COMMENT (test code=MOC) PLATELET ESTIMATE (test code=PLTEST) PLATELET MORPHOLOGY (test code=PLTMORPH) CBC W/AUTO [id number] 05:10:00* Test Item Value Reference Range Comments WHITE BLOOD CELL (test code=WBC) 10.6 K/mm3 4.5-12.5 RED BLOOD CELL (test code=RBC) 3.11 mill/mm3 3.7-5.2 HEMOGLOBIN (test code=HGB) 8.8 gram/dL 11.5-15.5 HEMATOCRIT (test code=HCT) 29.5 % 36.0-46.0 MEAN CELL VOLUME (test code=MCV) 94.9 fL 80-98 MEAN CELL HGB (test code=MCH) 28.3 picogram 27.0-33.0 MEAN CELL HGB CONCETRATION (test code=MCHC) 29.8 gram/dL 33.0-36.0 RED CELL DISTRIBUTION WIDTH (test code=RDW) 14.3 % 11.6-16.2 RED CELL DISTRIBUTION WIDTH SD (test code=RDW-SD) 50.1 fL 37.0-51.0 PLATELET COUNT (test code=PLT) 111 K/mm3 150-450 MEAN PLATELET VOLUME (test code=MPV) 11.2 fL 6.7-11.0 NEUTROPHIL % (test code=NT%) 75.6 % 39.0-69.0 IMMATURE GRANULOCYTE % (test code=IG%) 1.4 % 0.0-5.0 LYMPHOCYTE % (test code=LY%) 20.1 % 25.0-55.0 MONOCYTE % (test code=MO%) 2.7 % 0.0-10.0 EOSINOPHIL % (test code=EO%) 0.1 % 0.0-5.0 BASOPHIL % (test code=BA%) 0.1 % 0.0-1.0 NUCLEATED RBC % (test code=NRBC%) 0.0 % 0-0 NEUTROPHIL # (test code=NT#) 8.03 K/mm3 1.8-7.7 IMMATURE GRANULOCYTE # (test code=IG#) 0.15 x10 3/uL 0-0.03 LYMPHOCYTE # (test code=LY#) 2.14 K/mm3 1.0-5.0 MONOCYTE # (test code=MO#) 0.29 K/mm3 0-0.8 EOSINOPHIL # (test code=EO#) 0.01 K/mm3 0.0-0.5 BASOPHIL # (test code=BA#) 0.01 K/mm3 0.0-0.2 NUCLEATED RBC # (test code=NRBC#) 0.00 K/mm3 0.0-0.1 MANUAL DIFF REQUIRED (test code=MDIFF) NO, ONLY SCAN NEEDED DIFFERENTIAL [id number] 05:10:00* Test Item Value Reference Range Comments STAIN ACCEPTABILITY (test code=STN ACCEPTABLE) MORPHOLOGY COMMENT (test code=MOC) PLATELET ESTIMATE (test code=PLTEST) PLATELET MORPHOLOGY (test code=PLTMORPH) CBC W/AUTO [id number] 05:10:00* Test Item Value Reference Range Comments WHITE BLOOD CELL (test code=WBC) 10.6 K/mm3 4.5-12.5 RED BLOOD CELL (test code=RBC) 3.11 mill/mm3 3.7-5.2 HEMOGLOBIN (test code=HGB) 8.8 gram/dL 11.5-15.5 HEMATOCRIT (test code=HCT) 29.5 % 36.0-46.0 MEAN CELL VOLUME (test code=MCV) 94.9 fL 80-98 MEAN CELL HGB (test code=MCH) 28.3 picogram 27.0-33.0 MEAN CELL HGB CONCETRATION (test code=MCHC) 29.8 gram/dL 33.0-36.0 RED CELL DISTRIBUTION WIDTH (test code=RDW) 14.3 % 11.6-16.2 RED CELL DISTRIBUTION WIDTH SD (test code=RDW-SD) 50.1 fL 37.0-51.0 PLATELET COUNT (test code=PLT) 111 K/mm3 150-450 MEAN PLATELET VOLUME (test code=MPV) 11.2 fL 6.7-11.0 NEUTROPHIL % (test code=NT%) 75.6 % 39.0-69.0 IMMATURE GRANULOCYTE % (test code=IG%) 1.4 % 0.0-5.0 LYMPHOCYTE % (test code=LY%) 20.1 % 25.0-55.0 MONOCYTE % (test code=MO%) 2.7 % 0.0-10.0 EOSINOPHIL % (test code=EO%) 0.1 % 0.0-5.0 BASOPHIL % (test code=BA%) 0.1 % 0.0-1.0 NUCLEATED RBC % (test code=NRBC%) 0.0 % 0-0 NEUTROPHIL # (test code=NT#) 8.03 K/mm3 1.8-7.7 IMMATURE GRANULOCYTE # (test code=IG#) 0.15 x10 3/uL 0-0.03 LYMPHOCYTE # (test code=LY#) 2.14 K/mm3 1.0-5.0 MONOCYTE # (test code=MO#) 0.29 K/mm3 0-0.8 EOSINOPHIL # (test code=EO#) 0.01 K/mm3 0.0-0.5 BASOPHIL # (test code=BA#) 0.01 K/mm3 0.0-0.2 NUCLEATED RBC # (test code=NRBC#) 0.00 K/mm3 0.0-0.1 MANUAL DIFF REQUIRED (test code=MDIFF) NO, ONLY SCAN NEEDED DIFFERENTIAL [id number] 05:10:00* Test Item Value Reference Range Comments STAIN ACCEPTABILITY (test code=STN ACCEPTABLE) CABOT RINGS (test code=CAB) MORPHOLOGY COMMENT (test code=MOC) PLATELET ESTIMATE (test code=PLTEST) PLATELET MORPHOLOGY (test code=PLTMORPH) [id number] 04:45:00* Test Item Value Reference Range Comments GLUBED (test code=GLUBED) 160 mg/dL 74-[address] 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 [facility] [id number] 04:45:00* Test Item Value Reference Range Comments GLUBED (test code=GLUBED) 190 mg/dL 74-[address] 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 [facility] ARTERIAL BLOOD [id number] 04:30:00* Test Item Value Reference Range Comments ARTERIAL BLOOD GAS PH (test code=PHA) 7.36 7.35-7.45 ARTERIAL BLOOD GAS PCO2 (test code=PCO2A) 34.1 mm Hg 35-45 ARTERIAL BLOOD GAS PO2 (test code=PO2A) 94.7 mmHg 80-100 BICARBONATE TOTAL HCO3 (test code=HCO3) 18.9 mmol/L 23.0-27.0 BASE EXCESS (test code=QUINTON) -5.9 mmol/L -3.0-5.0 Results called to and read back by Rajesh 04:30 - 11/04/2018; by Mary ABG O2 SATURATION (test code=SATA) 95.7 % 90.0-98.0 ABG TYPE (test code=TYPEA) Arterial FIO2 (test code=FIO2A) 60.0 ABG VENT MODE (test code=MODEA) Assist Control ABG VENT RESP RATE (test code=RRA) 14.0 per min ABG TIDAL VOLUME (test code=TVA) 500.0 mL ABG PEEP (test code=PEEPA) 7.0 cmH2O ABG SITE (test code=SITEA) ARTERIAL LINE HEMATOCRIT (test code=HCT/ABG) 27 % 35-47 TOTAL HGB (test code=THB) 9.2 gram/dL 11.5-15.5 HGB O2 SAT (test code=HBOSAT) 94.9 % 94.00-98.00 CARBOXYHEMOGLOBIN (test code=HOHGBT) 0.3 %totalHg 0.5-1.5 Results called to and read back by Rajesh 04:30 - 11/04/2018; by Mary METHEMOGLOBIN (test code=METHGB) 0.5 % 0.0-1.50 O2 CONTENT (test code=O2CT) 12.4 % vol 18.0-22.0 COMPREHENSIVE METABOLIC [id number] 04:07:00* Test Item Value Reference Range Comments SODIUM (test code=NA) 144 mmol/L 136-145 POTASSIUM (test code=K) 5.1 mmol/L 3.5-5.1 RESULT VERIFIED BY REPEAT ANALYSIS CHLORIDE (test code=CL) 111.0 mmol/L 98-107 CARBON DIOXIDE (test code=CO2) 19.0 mmol/L 21-32 ANION GAP (test code=GAP) 19.1 10-20 GLUCOSE (test code=GLU) 194 mg/dL 74-106 BLOOD UREA NITROGEN (test code=BUN) 45 mg/dL 7-18 GLOMERULAR FILTRATION RATE (test code=GFR) 17 mL/min >=60 Estimated GFR by using Modified MDRD formula.Chronic kidney disease is defined as either kidney damageor GFR <60 mL/min/1.73 m2 for >3 months. CREATININE (test code=CREAT) 2.70 mg/dL 0.55-1.02 Note change in reference range due to change in reagent. BUN/CREATININE RATIO (test code=BUN/CREA) 16.7 10-20 TOTAL PROTEIN (test code=PROT) 5.0 gram/dL 6.4-8.2 ALBUMIN (test code=ALB) 2.2 g/dL 3.4-5.0 GLOBULIN (test code=GLOB) 2.8 gram/dL 2.7-4.2 ALBUMIN/GLOBULIN RATIO (test code=A/G) 0.8 0.75-1.50 CALCIUM (test code=CA) 6.6 mg/dL 8.5-10.1 BILIRUBIN TOTAL (test code=BILT) 1.40 mg/dL 0.0-1.0 SGOT/AST (test code=AST) 128 IUnit/L 15-37 SGPT/ALT (test code=ALT) 52 IUnit/L 12-78 ALKALINE PHOSPHATASE TOTAL (test code=ALKP) 38 IUnit/L 45-117 Note change in reference range due to change in reagent. COMPREHENSIVE METABOLIC [id number] 03:56:00* Test Item Value Reference Range Comments SODIUM (test code=NA) 144 mmol/L 136-145 POTASSIUM (test code=K) 5.1 mmol/L 3.5-5.1 RESULT VERIFIED BY REPEAT ANALYSIS CHLORIDE (test code=CL) 111.0 mmol/L 98-107 CARBON DIOXIDE (test code=CO2) mmol/L 21-32 ANION GAP (test code=GAP) 10-20 GLUCOSE (test code=GLU) mg/dL 74-106 BLOOD UREA NITROGEN (test code=BUN) mg/dL 7-18 GLOMERULAR FILTRATION RATE (test code=GFR) mL/min >=60 CREATININE (test code=CREAT) mg/dL 0.55-1.02 BUN/CREATININE RATIO (test code=BUN/CREA) 10-20 TOTAL PROTEIN (test code=PROT) gram/dL 6.4-8.2 ALBUMIN (test code=ALB) g/dL 3.4-5.0 GLOBULIN (test code=GLOB) gram/dL 2.7-4.2 ALBUMIN/GLOBULIN RATIO (test code=A/G) 0.75-1.50 CALCIUM (test code=CA) mg/dL 8.5-10.1 BILIRUBIN TOTAL (test code=BILT) mg/dL 0.0-1.0 SGOT/AST (test code=AST) IUnit/L 15-37 SGPT/ALT (test code=ALT) IUnit/L 12-78 ALKALINE PHOSPHATASE TOTAL (test code=ALKP) IUnit/L 45-117 [id number] 02:50:00* Test Item Value Reference Range Comments PHOSPHORUS (test code=PHOS) 4.9 mg/dL 2.5-4.9 [id number] 02:50:00* Test Item Value Reference Range Comments MAGNESIUM (test code=MAG) 1.8 mg/dL 1.8-2.4 [id number] 02:50:00* Test Item Value Reference Range Comments TROPONIN-I (test code=TROPI) 4.650 ng/mL 0-0.045 Results called to [id number] by TANYA 11/04/18 0249Critical results verified and read back by Nurse? Y CALCIUM [id number] 02:50:00* Test Item Value Reference Range Comments CALCIUM IONIZED (test code=LON) 1.00 mmol/L 1.12-1.32 - XR CHEST 1 [id number] 02:46:00 FAX: Nahnu Malave MD [phone] [place]: St: ADM FAX: Nusrat Rey NP [phone] FAX: Miki Aldrich MD [phone] Name: NEREIDA CHANG [facility] : 1940 Age/S: 78/F [address] [facility] Unit #: [id number] Loc: [address] [address] Phys: Nusrat Rey NP Acct: [id number] Dis Date: Status: ADM IN ONE #: [phone] Exam Date: 11/04/2018 0232 FAX #: [phone] Reason: CONFIRM CENTRAL LINE PLACEMENT EXAMS: CPT CODE: [id number] XR CHEST 1 V [id number] AFTER HOURS SE RVICE ON: 11/04/2018 2:44 AM AP Portable Chest Locati on Code M12 HISTORY: CONFIRM CENTRAL LINE PLACEMENT FINDINGS: There is pulmonary vascular congestion. Patchy bilater al perihilar alveolar infiltrates also noted. Findings appear stable from 1953 hours but worsened from 0936 hours. No pleural effusion or pneu mothorax seen. ETT and NGT are adequately in place. There is a right IJ line projecting over the right atrium. There is no pneumothorax. IMPRESSION: New right IJ line projecting over the r ight atrium. No pneumothorax. Slightly worsening pulmonary va scular congestion and bilateral perihilar alveolar infiltrates. at 0246 Reported and signed by: Enrike Juarez M.D. CC: Nahun Malave MD; Nusrat Rey NP; Miki Hathaway MD Technologist: Kim Keller Trnscrd Date/Time/By: 11/04/2018 (0246) : By: [email or web address] Orig Print D/T: S: 11/04/2018 (0241) PAGE 1 Signed Report ARTERIAL BLOOD GAS 2018-11-04 02:44:00* Test Item Value Reference Range Comments ARTERIAL BLOOD GAS PH (test code=PHA) 7.33 7.35-7.45 ARTERIAL BLOOD GAS PCO2 (test code=PCO2A) 29.6 mm Hg 35-45 ARTERIAL BLOOD GAS PO2 (test code=PO2A) 153.1 mmHg 80-100 BICARBONATE TOTAL HCO3 (test code=HCO3) 15.1 mmol/L 23.0-27.0 BASE EXCESS (test code=QUINTON) -9.8 mmol/L -3.0-5.0 Results called to and read back by Rajesh 02:41 - 11/04/2018; by Mary ABG O2 SATURATION (test code=SATA) 98.0 % 90.0-98.0 ABG TYPE (test code=TYPEA) Arterial FIO2 (test code=FIO2A) 60.0 ABG VENT MODE (test code=MODEA) Assist Control ABG VENT RESP RATE (test code=RRA) 14.0 per min ABG TIDAL VOLUME (test code=TVA) 500.0 mL ABG PEEP (test code=PEEPA) 7.0 cmH2O ABG SITE (test code=SITEA) Rt RADIAL ARTERY MODIFIED ALLENS (test code=MODALL) Yes CHECK PERFORMED HEMATOCRIT (test code=HCT/ABG) 29 % 35-47 TOTAL HGB (test code=THB) 9.8 gram/dL 11.5-15.5 HGB O2 SAT (test code=HBOSAT) 97.3 % 94.00-98.00 CARBOXYHEMOGLOBIN (test code=HOHGBT) 0.3 %totalHg 0.5-1.5 Results called to and read back by Rajesh 02:41 - 11/04/2018; by Mary METHEMOGLOBIN (test code=METHGB) 0.4 % 0.0-1.50 O2 CONTENT (test code=O2CT) 13.7 % vol 18.0-22.0 [id number] 02:38:00* Test Item Value Reference Range Comments PHOSPHORUS (test code=PHOS) mg/dL 2.5-4.9 [id number] 02:38:00* Test Item Value Reference Range Comments MAGNESIUM (test code=MAG) 1.8 mg/dL 1.8-2.4 [id number] 02:38:00* Test Item Value Reference Range Comments TROPONIN-I (test code=TROPI) ng/mL 0-0.045 CALCIUM [id number] 02:38:00* Test Item Value Reference Range Comments CALCIUM IONIZED (test code=LON) 1.00 mmol/L 1.12-1.32 [id number] 02:27:00* Test Item Value Reference Range Comments PHOSPHORUS (test code=PHOS) mg/dL 2.5-4.9 [id number] 02:27:00* Test Item Value Reference Range Comments MAGNESIUM (test code=MAG) mg/dL 1.8-2.4 [id number] 02:27:00* Test Item Value Reference Range Comments TROPONIN-I (test code=TROPI) ng/mL 0-0.045 CALCIUM [id number] 02:27:00* Test Item Value Reference Range Comments CALCIUM IONIZED (test code=LON) 1.00 mmol/L 1.12-1.32 THROMBOPLASTIN TIME [id number] 02:22:00* Test Item Value Reference Range Comments THROMBOPLASTIN TIME PARTIAL (test code=PTT) 29.6 seconds 25.0-36.5 IS PATIENT ON ANTICOAGULANTS? NCBC W/AUTO [id number] 02:19:00* Test Item Value Reference Range Comments WHITE BLOOD CELL (test code=WBC) 7.2 K/mm3 4.5-12.5 RED BLOOD CELL (test code=RBC) 2.99 mill/mm3 3.7-5.2 HEMOGLOBIN (test code=HGB) 8.5 gram/dL 11.5-15.5 RESULT VERIFIED BY REPEAT ANALYSIS HEMATOCRIT (test code=HCT) 28.1 % 36.0-46.0 MEAN CELL VOLUME (test code=MCV) 94.0 fL 80-98 MEAN CELL HGB (test code=MCH) 28.4 picogram 27.0-33.0 MEAN CELL HGB CONCETRATION (test code=MCHC) 30.2 gram/dL 33.0-36.0 RED CELL DISTRIBUTION WIDTH (test code=RDW) 14.3 % 11.6-16.2 RED CELL DISTRIBUTION WIDTH SD (test code=RDW-SD) 48.8 fL 37.0-51.0 PLATELET COUNT (test code=PLT) 100 K/mm3 150-450 MEAN PLATELET VOLUME (test code=MPV) 11.5 fL 6.7-11.0 NEUTROPHIL % (test code=NT%) 76.9 % 39.0-69.0 IMMATURE GRANULOCYTE % (test code=IG%) 1.0 % 0.0-5.0 LYMPHOCYTE % (test code=LY%) 16.0 % 25.0-55.0 MONOCYTE % (test code=MO%) 5.9 % 0.0-10.0 EOSINOPHIL % (test code=EO%) 0.1 % 0.0-5.0 BASOPHIL % (test code=BA%) 0.1 % 0.0-1.0 NUCLEATED RBC % (test code=NRBC%) 0.0 % 0-0 NEUTROPHIL # (test code=NT#) 5.55 K/mm3 1.8-7.7 IMMATURE GRANULOCYTE # (test code=IG#) 0.07 x10 3/uL 0-0.03 LYMPHOCYTE # (test code=LY#) 1.16 K/mm3 1.0-5.0 MONOCYTE # (test code=MO#) 0.43 K/mm3 0-0.8 EOSINOPHIL # (test code=EO#) 0.01 K/mm3 0.0-0.5 BASOPHIL # (test code=BA#) 0.01 K/mm3 0.0-0.2 NUCLEATED RBC # (test code=NRBC#) 0.00 K/mm3 0.0-0.1 2341ARTERIAL BLOOD [id number] 01:19:00* Test Item Value Reference Range Comments ARTERIAL BLOOD GAS PH (test code=PHA) 7.29 7.35-7.45 ARTERIAL BLOOD GAS PCO2 (test code=PCO2A) 38.3 mm Hg 35-45 ARTERIAL BLOOD GAS PO2 (test code=PO2A) 128.1 mmHg 80-100 BICARBONATE TOTAL HCO3 (test code=HCO3) 17.8 mmol/L 23.0-27.0 BASE EXCESS (test code=QUINTON) -8.2 mmol/L -3.0-5.0 Results called to by DARLINE 11/04/18 0119Critical results verified and read back by Nurse? ABG O2 SATURATION (test code=SATA) 97.7 % 90.0-98.0 ABG TYPE (test code=TYPEA) Arterial FIO2 (test code=FIO2A) 100.0 HEMATOCRIT (test code=HCT/ABG) 36 % 35-47 TOTAL HGB (test code=THB) 12.4 gram/dL 11.5-15.5 HGB O2 SAT (test code=HBOSAT) 96.7 % 94.00-98.00 CARBOXYHEMOGLOBIN (test code=HOHGBT) 0.5 %totalHg 0.5-1.5 METHEMOGLOBIN (test code=METHGB) 0.5 % 0.0-1.50 O2 CONTENT (test code=O2CT) 17.1 % vol 18.0-22.0 ARTERIAL BLOOD [id number] 00:19:00* Test Item Value Reference Range Comments ARTERIAL BLOOD GAS PH (test code=PHA) 7.35 7.35-7.45 ARTERIAL BLOOD GAS PCO2 (test code=PCO2A) 40.1 mm Hg 35-45 ARTERIAL BLOOD GAS PO2 (test code=PO2A) 257.7 mmHg 80-100 BICARBONATE TOTAL HCO3 (test code=HCO3) 21.7 mmol/L 23.0-27.0 BASE EXCESS (test code=QUINTON) -3.6 mmol/L -3.0-5.0 Results called to and read back by Rajesh 00:15 - 11/04/2018; by Mary ABG O2 SATURATION (test code=SATA) 98.6 % 90.0-98.0 ABG TYPE (test code=TYPEA) Arterial FIO2 (test code=FIO2A) 100.0 ABG VENT MODE (test code=MODEA) Assist Control ABG VENT RESP RATE (test code=RRA) 14.0 per min ABG TIDAL VOLUME (test code=TVA) 500.0 mL ABG PEEP (test code=PEEPA) 7.0 cmH2O ABG SITE (test code=SITEA) Rt RADIAL ARTERY MODIFIED ALLENS (test code=MODALL) Yes CHECK PERFORMED HEMATOCRIT (test code=HCT/ABG) 31 % 35-47 TOTAL HGB (test code=THB) 10.7 gram/dL 11.5-15.5 HGB O2 SAT (test code=HBOSAT) 97.9 % 94.00-98.00 CARBOXYHEMOGLOBIN (test code=HOHGBT) 0.3 %totalHg 0.5-1.5 Results called to and read back by Rajesh 00:15 - 11/04/2018; by Mary METHEMOGLOBIN (test code=METHGB) 0.4 % 0.0-1.50 O2 CONTENT (test code=O2CT) 15.4 % vol 18.0-22.0 BASIC METABOLIC [id number] 23:40:00* Test Item Value Reference Range Comments SODIUM (test code=NA) 141 mmol/L 136-145 POTASSIUM (test code=K) 3.9 mmol/L 3.5-5.1 CHLORIDE (test code=CL) 107.0 mmol/L 98-107 CARBON DIOXIDE (test code=CO2) 18.0 mmol/L 21-32 ANION GAP (test code=GAP) 19.9 10-20 GLUCOSE (test code=GLU) 214 mg/dL 74-106 BLOOD UREA NITROGEN (test code=BUN) 46 mg/dL 7-18 GLOMERULAR FILTRATION RATE (test code=GFR) 20 mL/min >=60 Estimated GFR by using Modified MDRD formula.Chronic kidney disease is defined as either kidney damageor GFR <60 mL/min/1.73 m2 for >3 months. CREATININE (test code=CREAT) 2.30 mg/dL 0.55-1.02 Note change in reference range due to change in reagent. BUN/CREATININE RATIO (test code=BUN/CREA) 20.1 10-20 CALCIUM (test code=CA) 8.3 mg/dL 8.5-10.1 [id number] 23:40:00* Test Item Value Reference Range Comments TROPONIN-T (test code=TROPT) ng/mL BASIC METABOLIC [id number] 23:37:00* Test Item Value Reference Range Comments SODIUM (test code=NA) 141 mmol/L 136-145 POTASSIUM (test code=K) 3.9 mmol/L 3.5-5.1 CHLORIDE (test code=CL) 107.0 mmol/L 98-107 CARBON DIOXIDE (test code=CO2) mmol/L 21-32 ANION GAP (test code=GAP) 10-20 GLUCOSE (test code=GLU) mg/dL 74-106 BLOOD UREA NITROGEN (test code=BUN) mg/dL 7-18 GLOMERULAR FILTRATION RATE (test code=GFR) mL/min >=60 CREATININE (test code=CREAT) mg/dL 0.55-1.02 BUN/CREATININE RATIO (test code=BUN/CREA) 10-20 CALCIUM (test code=CA) mg/dL 8.5-10.1 [id number] 23:37:00* Test Item Value Reference Range Comments TROPONIN-T (test code=TROPT) ng/mL [id number] 20:32:00* Test Item Value Reference Range Comments TROPONIN-I (test code=TROPI) 0.052 ng/mL 0-0.045 COMMENTS TO APERTURE MASK ETCHER: COLLECT 3 HOURS AFTER PREVIOUS SAMPLE- XR CHEST 1 [id number] 20:21:00 FAX: Nahun Malave MD [phone] [place]: St: [facility] FAX: Miki Aldrich MD [phone] FAX: Sanchez Pagan DO Name: NEREIDA CHANG [facility] : 1940 Age/S: 78/F [address] Unit #: [id number] Loc: [place] [address] Phys: Sanchez Pagan DO Acct: [id number] Dis Date: Status: ADM IN ONE #: [phone] Exam Date: 11/03/20181999 FAX #: [phone] Reason: intubation EXAMS: CPT CODE: [id number] XR CHEST 1 V 56420 EXAM: Chest x- ray, one view; INFORMATION: Pneumonia, pulmonary congestion; intub ation; IMPRESSION: 1. Well-positioned endotracheal tube ; its tip is positioned 1 cm above the david. 2. Well-position ed endotracheal tube. It has been advanced into the stomach. 3. Patchy infiltrative changes in both lungs which probably represent constantino ma. These changes have progressed compared with the study obtained scottie ier today. 4. Mild cardiomegaly and aortic calcifications. at 2020 Reported and signed by: Ramses Allen M.D. CC: Nahun Malave MD; Miki Hathaway MD; Sanchez Pagan DO Technologist: Stefan Camargo, RT(R; ... Trnscrd Date/Time/By: 11/03/2018 (2020) : By: YossiGRW Orig Print D/T: S: 11/03/2018 (2023) PAGE 1 Signed Report - XR CHEST 1 [id number] 20:21:00 FAX: Nahun Malave MD [phone] [place]: St: [facility] FAX: Miki Aldrich MD [phone] FAX: Sanchez Pagan DO Name: NEREIDA CHANG [facility] : 1940 Age/S: 78/F [address] Unit #: [id number] Loc: [facility] [place] [address] Phys: Sanchez Pagan DO Acct: [id number] Dis Date: Status: ADM IN ONE #: [phone] Exam Date: 11/03/20181999 FAX #: [phone] Reason: intubation EXAMS: CPT CODE: [id number] XR CHEST 1 V 43975 EXAM: Chest x- ray, one view; INFORMATION: Pneumonia, pulmonary congestion; intub ation; IMPRESSION: 1. Well-positioned endotracheal tube ; its tip is positioned 1 cm above the david. 2. Well-position ed endotracheal tube. It has been advanced into the stomach. 3. Patchy infiltrative changes in both lungs which probably represent constantino ma. These changes have progressed compared with the study obtained scottie ier today. 4. Mild cardiomegaly and aortic calcifications. at 2020 Reported and signed by: Ramses Allen M.D. CC: Nahun Malave MD; Miki Hathaway MD; Sanchez Pagan DO Technologist: Stefan Camargo, RT(R; ... Trnscrd Date/Time/By: 11/03/2018 (2020) : By: YossiGRW Orig Print D/T: S: 11/03/2018 (2023) PAGE 1 Signed Report - XR CHEST 1 [id number] 20:21:00 FAX: Nahnu Malave MD [phone] [place]: St: ADM FAX: Miki Aldrich MD [phone] FAX: Sanchez Pagan DO Name: NEREIDA CHANG [facility] : 1940 Age/S: 78/F [address] Unit #: [id number] Loc: [place] [address] Phys: Sanchez Pagan DO Acct: [id number] Dis Date: Status: ADM IN ONE #: [phone] Exam Date: 11/03/20181999 FAX #: [phone] Reason: intubation EXAMS: CPT CODE: [id number] XR CHEST 1 V 64891 EXAM: Chest x- ray, one view; INFORMATION: Pneumonia, pulmonary congestion; intub ation; IMPRESSION: 1. Well-positioned endotracheal tube ; its tip is positioned 1 cm above the david. 2. Well-position ed endotracheal tube. It has been advanced into the stomach. 3. Patchy infiltrative changes in both lungs which probably represent constantino ma. These changes have progressed compared with the study obtained scottie ier today. 4. Mild cardiomegaly and aortic calcifications. at 2020 Reported and signed by: Ramses Allen M.D. CC: Nahun Malave MD; Miki Hathaway MD; Sanchez Pagan DO Technologist: Stefan Camargo, RTDerejeR; ... Trnscrd Date/Time/By: 11/03/2018 (2020) : By: YossiGRW Orig Print D/T: S: 11/03/2018 (2023) PAGE 1 Signed Report TROPONIN I RAPID 2018-11-03 19:51:00* Test Item Value Reference Range Comments TROPONIN I RAPID (test code=TROPIRAP) 0.03 ng/mL <0.08 Please Note New Reference Range 0.00-0.079 ng/mL - Negative>or=0.08 ng/mL - Positive The use of serial sampling and testing protocol is arecommended practice.An elevated troponin level alone is often not sufficient fordiagnosis of myocardial infarction. Troponin results obtained by different assays may vary.Evaluation of the extent of myocardial damage based onincrease of troponin would be valid only if similarmethodology is used. 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 [facility] [id number] 17:00:00* Test Item Value Reference Range Comments TROPONIN-I (test code=TROPI) 0.048 ng/mL 0-0.045 COMMENTS TO APERTURE MASK ETCHER: COLLECT 3 HOURS AFTER PREVIOUS [id number] 14:41:00* Test Item Value Reference Range Comments GLUBED (test code=GLUBED) 149 mg/dL 74-[address] 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 [facility] LACTIC [id number] 13:12:00* Test Item Value Reference Range Comments LACTIC ACID (test code=LACT) 1.0 mmol/L 0.4-1.9 LACTIC [id number] 11:00:00* Test Item Value Reference Range Comments LACTIC ACID (test code=LACT) 2.0 mmol/L 0.4-1.9 Results called to [id number] by VINICIUS 11/03/18 1100Critical results verified and read back by Nurse? Y BASIC METABOLIC [id number] 10:58:00* Test Item Value Reference Range Comments SODIUM (test code=NA) 140 mmol/L 136-145 POTASSIUM (test code=K) 4.3 mmol/L 3.5-5.1 CHLORIDE (test code=CL) 106.0 mmol/L 98-107 CARBON DIOXIDE (test code=CO2) 27.0 mmol/L 21-32 ANION GAP (test code=GAP) 11.3 10-20 GLUCOSE (test code=GLU) 168 mg/dL 74-106 BLOOD UREA NITROGEN (test code=BUN) 48 mg/dL 7-18 GLOMERULAR FILTRATION RATE (test code=GFR) 21 mL/min >=60 Estimated GFR by using Modified MDRD formula.Chronic kidney disease is defined as either kidney damageor GFR <60 mL/min/1.73 m2 for >3 months. CREATININE (test code=CREAT) 2.20 mg/dL 0.55-1.02 Note change in reference range due to change in reagent. BUN/CREATININE RATIO (test code=BUN/CREA) 21.8 10-20 CALCIUM (test code=CA) 8.6 mg/dL 8.5-10.1 HEPATIC FUNCTION [id number] 10:58:00* Test Item Value Reference Range Comments TOTAL PROTEIN (test code=PROT) 7.1 gram/dL 6.4-8.2 ALBUMIN (test code=ALB) 3.3 g/dL 3.4-5.0 GLOBULIN (test code=GLOB) 3.8 gram/dL 2.7-4.2 ALBUMIN/GLOBULIN RATIO (test code=A/G) 0.9 0.75-1.50 BILIRUBIN TOTAL (test code=BILT) 1.10 mg/dL 0.0-1.0 BILIRUBIN DIRECT (test code=BILD) 0.51 mg/dL 0.0-0.20 SGOT/AST (test code=AST) 20 IUnit/L 15-37 SGPT/ALT (test code=ALT) 19 IUnit/L 12-78 ALKALINE PHOSPHATASE TOTAL (test code=ALKP) 49 IUnit/L 45-117 Note change in reference range due to change in reagent. [id number] 10:58:00* Test Item Value Reference Range Comments TROPONIN-I (test code=TROPI) 0.049 ng/mL 0-0.045 Results called to [id number] by VINICIUS 11/03/18 1058Critical results verified and read back by Nurse? Y PROCALCITONIN (PCT)2018-11-03 10:53:00* Test Item Value Reference Range Comments PROCALCITONIN (PCT) (test code=PROCAL) 0.12 ng/ml Concentration Interpretation (ng/mL) <0.51 Sepsis is not likely. Local bacterial infection is possible. (LOW RISK for progression to Sepsis) 0.51 - 2.00 Sepsis is possible, but other conditions are known to elevate PCT as well. (MODERATE RISK for progression to Sepsis) > 2.00 Sepsis is likely, unless other causes are known. (HIGH RISK for progression to Severe Sepsis or Septic Shock) 10.00 High likelihood of Severe Sepsis or Septic or higher Shock. *Increased PCT levels may not always be related to systemic bacterial infection.*Low PCT levels do not automatically exclude the presence of bacterial infection.*All results should be interpreted taking into account the patients history. BASIC METABOLIC [id number] 10:36:00* Test Item Value Reference Range Comments SODIUM (test code=NA) 140 mmol/L 136-145 POTASSIUM (test code=K) 4.3 mmol/L 3.5-5.1 CHLORIDE (test code=CL) 106.0 mmol/L 98-107 CARBON DIOXIDE (test code=CO2) mmol/L 21-32 ANION GAP (test code=GAP) 10-20 GLUCOSE (test code=GLU) mg/dL 74-106 BLOOD UREA NITROGEN (test code=BUN) mg/dL 7-18 GLOMERULAR FILTRATION RATE (test code=GFR) mL/min >=60 CREATININE (test code=CREAT) mg/dL 0.55-1.02 BUN/CREATININE RATIO (test code=BUN/CREA) 10-20 CALCIUM (test code=CA) mg/dL 8.5-10.1 HEPATIC FUNCTION [id number] 10:36:00* Test Item Value Reference Range Comments TOTAL PROTEIN (test code=PROT) gram/dL 6.4-8.2 ALBUMIN (test code=ALB) g/dL 3.4-5.0 GLOBULIN (test code=GLOB) gram/dL 2.7-4.2 ALBUMIN/GLOBULIN RATIO (test code=A/G) 0.75-1.50 BILIRUBIN TOTAL (test code=BILT) mg/dL 0.0-1.0 BILIRUBIN DIRECT (test code=BILD) mg/dL 0.0-0.20 SGOT/AST (test code=AST) IUnit/L 15-37 SGPT/ALT (test code=ALT) IUnit/L 12-78 ALKALINE PHOSPHATASE TOTAL (test code=ALKP) IUnit/L 45-117 [id number] 10:36:00* Test Item Value Reference Range Comments TROPONIN-I (test code=TROPI) ng/mL 0-0.045 URINALYSIS [id number] 10:21:00* Test Item Value Reference Range Comments UA COLOR (test code=COLU) LIGHT YELLOW YELLOW UA APPEARANCE (test code=APPU) CLEAR CLEAR UA GLUCOSE DIPSTICK (test code=DGLUU) 50 (Trace) mg/dL NEGATIVE UA BILIRUBIN DIPSTICK (test code=BILU) NEGATIVE mg/dL NEGATIVE UA KETONE DIPSTICK (test code=KETU) Negative mg/dL NEGATIVE UA SPECIFIC GRAVITY (test code=SGU) 1.010 1.001-1.035 UA BLOOD DIPSTICK (test code=BOBBI) Negative NEGATIVE UA PH DIPSTICK (test code=AMISH) 5.0 5.0-8.0 UA PROTEIN DIPSTICK (test code=PROU) 100 (2+) mg/dL NEGATIVE UA UROBILINIOGEN DIPSTICK (test code=URO) NEGATIVE mg/dL NEGATIVE UA NITRITE DIPSTICK (test code=EMILY) NEGATIVE NEGATIVE UA LEUKOCYTE ESTERASE W REFLEX (test code=LEUUR) TRACE NEGATIVE UA WBC (test code=WBCU) 11-20 #/HPF 0-5 UA RBC (test code=RBCU) 0-2 #/HPF 0-5 UA BACTERIA (test code=BACU) MANY #/HPF NONE UA HYALINE CAST (test code=HYALU) 3-5 #/LPF 0-5 UA MUCUS (test code=MUCU) FEW #/LPF FEW Urine Source? Clean CatchPOC LACTIC [id number] 10:13:00* Test Item Value Reference Range Comments POC LACTIC ACID (test code=POCLAC) 1.88 MMOL/L 0.4-2.2 CBC W/AUTO [id number] 10:13:00* Test Item Value Reference Range Comments WHITE BLOOD CELL (test code=WBC) 5.3 K/mm3 4.5-12.5 RED BLOOD CELL (test code=RBC) 3.85 mill/mm3 3.7-5.2 HEMOGLOBIN (test code=HGB) 10.9 gram/dL 11.5-15.5 HEMATOCRIT (test code=HCT) 35.2 % 36.0-46.0 MEAN CELL VOLUME (test code=MCV) 91.4 fL 80-98 MEAN CELL HGB (test code=MCH) 28.3 picogram 27.0-33.0 MEAN CELL HGB CONCETRATION (test code=MCHC) 31.0 gram/dL 33.0-36.0 RED CELL DISTRIBUTION WIDTH (test code=RDW) 14.1 % 11.6-16.2 RED CELL DISTRIBUTION WIDTH SD (test code=RDW-SD) 47.4 fL 37.0-51.0 PLATELET COUNT (test code=PLT) 112 K/mm3 150-450 MEAN PLATELET VOLUME (test code=MPV) 11.1 fL 6.7-11.0 NEUTROPHIL % (test code=NT%) 74.7 % 39.0-69.0 IMMATURE GRANULOCYTE % (test code=IG%) 0.6 % 0.0-5.0 LYMPHOCYTE % (test code=LY%) 14.8 % 25.0-55.0 MONOCYTE % (test code=MO%) 8.6 % 0.0-10.0 EOSINOPHIL % (test code=EO%) 1.1 % 0.0-5.0 BASOPHIL % (test code=BA%) 0.2 % 0.0-1.0 NUCLEATED RBC % (test code=NRBC%) 0.0 % 0-0 NEUTROPHIL # (test code=NT#) 3.98 K/mm3 1.8-7.7 IMMATURE GRANULOCYTE # (test code=IG#) 0.03 x10 3/uL 0-0.03 LYMPHOCYTE # (test code=LY#) 0.79 K/mm3 1.0-5.0 MONOCYTE # (test code=MO#) 0.46 K/mm3 0-0.8 EOSINOPHIL # (test code=EO#) 0.06 K/mm3 0.0-0.5 BASOPHIL # (test code=BA#) 0.01 K/mm3 0.0-0.2 NUCLEATED RBC # (test code=NRBC#) 0.00 K/mm3 0.0-0.1 MANUAL DIFF REQUIRED (test code=MDIFF) NO URINALYSIS [id number] 10:11:00* Test Item Value Reference Range Comments UA COLOR (test code=COLU) LIGHT YELLOW YELLOW UA APPEARANCE (test code=APPU) CLEAR CLEAR UA GLUCOSE DIPSTICK (test code=DGLUU) 50 (Trace) mg/dL NEGATIVE UA BILIRUBIN DIPSTICK (test code=BILU) NEGATIVE mg/dL NEGATIVE UA KETONE DIPSTICK (test code=KETU) Negative mg/dL NEGATIVE UA SPECIFIC GRAVITY (test code=SGU) 1.010 1.001-1.035 UA BLOOD DIPSTICK (test code=BOBBI) Negative NEGATIVE UA PH DIPSTICK (test code=AMISH) 5.0 5.0-8.0 UA PROTEIN DIPSTICK (test code=PROU) 100 (2+) mg/dL NEGATIVE UA UROBILINIOGEN DIPSTICK (test code=URO) NEGATIVE mg/dL NEGATIVE UA NITRITE DIPSTICK (test code=EMILY) NEGATIVE NEGATIVE UA LEUKOCYTE ESTERASE W REFLEX (test code=LEUUR) TRACE NEGATIVE UA WBC (test code=WBCU) per HPF 0-5 Urine Source? Clean Catch- XR CHEST 1 [id number] 09:48:00 FAX: Zhang Ballesteros MD [phone] [place]: St: [facility] FAX: Miki Aldrich MD [phone] Name: CHARLENENEREIDASHRUTI WESTBROOK [facility] : 1940 Age/S: 78/F [address] Unit #: [id number] Loc: [place] [address] Phys: Zhang Ballesteros MD Acct: [id number] Dis Date: Status: REG ER PHONE #: [phone] Exam Date: 11/03/2018 0938 FAX #: [phone] Reason: CODE SEPSIS EXAMS: CPT CODE: [id number] XR CHEST 1 V 73890 HISTORY: Sepsis. COMPARISON: January 15, 2017. Patchy bilateral interstitial infiltrates. No effusion or congestion. Cardiomegaly. IMPRESSION: Patchy bi lateral interstitial infiltrates. at 0948 Reported and signed by: Raina Tomas M.D. CC: Zhang Ballesteros MD; Miki Hathaway MD Technologist: Angelo Oh RT(R) Trnscrd Date/Time/By: 11/03/2018 (0948) : By: [email or web address] Orig Print D/T: S: 11/03/2018 (0951) PAGE 1 Signed Report
--- NOTE | 2018-12-24 18:10 | NUR ---
PT ARRIVED INTO ER 11 VIA WC. 2 DAUGHTERS AT BEDSIDE. PTS SATS DROP QUICKLY WITH EXERTION. AFTER GETTING OUT OF THE W/C INTO THE BED HER SATS WERE INITIALLY 75%. FOR ABOUT 5 MIN SATS WERE RUNNING IN THE 80'S BUT THEN WHEN SHE SETTLED IN SAT WAS 91% WHEN DR. ABDI CAME TO BEDSIDE.
--- NOTE | 2018-12-24 18:17 | NUR ---
CALLED RESPIRATORY FOR BIPAP
[2018-12-24 18:23] LABS: BASOPHILS % 0.5 % (0.0-1.0); EOSINOPHILS # (AUTO) 0.1 (0.0-0.4); EOSINOPHILS % 2.3 % (0.0-6.0); HEMATOCRIT 30.2 % (34.2-44.1); HEMOGLOBIN 9.7 g/dL (12.0-16.0); LYMPHOCYTES # (AUTO) 0.9 (1.0-3.2); LYMPHOCYTES % 16.1 % (18.0-39.1); MEAN CORPUSCULAR HEMOGLOBIN 29.1 pg (28-32); MEAN CORPUSCULAR HGB CONC 32.1 g/dL (31-35); MEAN CORPUSCULAR VOLUME 90.7 fL (81-99); MONOCYTES # (AUTO) 0.5 (0.2-0.8); MONOCYTES % 9.5 % (4.4-11.3); NEUTROPHILS % 70.7 % (38.7-80.0); PLATELET COUNT 171 x10e3/uL (140-360); RED BLOOD COUNT 3.33 x10e6/uL (3.6-5.1)
[2018-12-24 18:26] LABS: INR 0.92; PROTHROMBIN TIME 12.8 seconds (11.9-14.5)
[2018-12-24 18:27] LABS: PARTIAL THROMBOPLASTIN TIME 34.1 seconds (23.8-35.5)
[2018-12-24] MEDS ORDERED: FUROSEMIDE INJ 10 MG/ML 4 ML VIAL IV ONE (18:30)
[2018-12-24 18:38] LABS: ALBUMIN 3.6 g/dL (3.5-5.0); ALBUMIN/GLOBULIN RATIO 0.9 (0.8-2.0); ANION GAP 18.4 mmol/L (8-16); CALCIUM 9.4 mg/dL (8.4-10.2); CREATININE, SERUM 3.55 mg/dL (0.57-1.11); POTASSIUM 4.4 mmol/L (3.5-5.1)
[2018-12-24 18:44] LABS: CREATINE KINASE MB 2.5 ng/mL (0-5.0)
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
--- NOTE | 2018-12-24 19:38 | Diagnostic Imaging Report ---
EXAMINATION: CHEST SINGLE (PORTABLE) INDICATION: Shortness of breath COMPARISON: None FINDINGS: TUBES and LINES: None. LUNGS: Lungs are well inflated. Prominence of the pulmonary interstitium bilaterally. There is mild prominence of the central pulmonary vasculature, consistent with pulmonary venous congestion. PLEURA: No pleural effusion or pneumothorax. HEART AND MEDIASTINUM: Cardiac size is mildly enlarged. BONES AND SOFT TISSUES: No acute osseous lesion. Soft tissues are unremarkable. UPPER ABDOMEN: No free air under the diaphragm. IMPRESSION: Findings suggestive decompensated CHF with bilateral pulmonary venous congestion and interstitial edema. Signed by: Dr. Rodney Mendoza M.D. on 12/24/2018 7:35 PM
[2018-12-24 21:08] LABS: ABG HCO3 25 mmol/L (23-28); ABG PCO2 43 mmHg (41-51); ABG PH 7.37 (7.31-7.41); ABG PO2 127 mmHg (80-105)
--- OUTSIDE RECORDS SUMMARY | 2018-12-24 23:29 | XMS REPORT | Summary of Care ---
Author Author [facility] [place] Organization [facility] [place] Address Unknown Phone Unavailable Encounter HQ Encntr_alias(FIN) [id number] Date(s): 12/22/18 - 12/22/18 [facility] [place] [address] [place] [address] [phone] Discharge Disposition: Home or Self Care Attending [...]
--- OUTSIDE RECORDS SUMMARY | 2018-12-24 23:29 | XMS REPORT | Continuity of Care Document ---
[...] is recommended. This exam was interpreted at [id number] for ERIC Spencer 15. 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 IMPRESSION: No acute abnormality SL: [id number] 01/04/2017 - - Read by: Bryan Davies [...] foot. 12/07/2014 - - Read by: Rashi Hucthins MD Dictated Date/time: 12/07/14 12:34 Electronically Signed by: Rashi Hutchins MD 12/07/14 12:37 FINAL REPORT [place] [facility] [place] Ext Lower Venous Doppler Bilat US [...] Gardner MD 09/30/13 09:01 FINAL REPORT [facility] [place] Vital Signs Vital Sign Value Date Comments Source Encounters Location Location Details Encounter Type Encounter Number Reason For Visit Attending Provider ADM Date DC Date Status Source [facility] [place] [facility] [id number] Miki Hathaway 07/16/2014 07/17/2014 [facility] [place] [facility] [place] [facility] [id number] Miki Hathaway 12/07/2014 12/08/2014 [facility] [place] [facility] [place] [facility] [id number] Miki Hathaway 09/29/2015 09/30/2015 [facility] [place] [facility] [place] [facility] [id number] Miki Hathaway 05/31/2016 06/01/2016 [facility] [place] [facility] [place] [facility] [id number] Miki Hathaway 12/06/2016 12/07/2016 [facility] [place] [facility] [place] [facility] [id number] Miki Hathaway 01/04/2017 01/05/2017 [facility] [place] [facility] [place] [facility] [id number] Miki Hathaway 06/04/2018 06/05/2018 [facility] [place] [facility] [place] [facility] [id number] Miki Hathaway 10/06/2018 10/07/2018 [facility] [place] [facility] [place] [facility] [id number] Miki Hathaway 12/22/2018 12/23/2018 [facility] [place] Procedures Procedure Code Date Perfomer Comments Source
[2018-12-25] VITALS (9 sets, daily range): BP systolic 95–182; BP diastolic 54–77
[2018-12-25 00:23] LABS: BACTERIA,URINE FEW /HPF; BILIRUBIN,URINE NEGATIVE (NEGATIVE); CLARITY,URINE CLEAR (CLEAR); COLOR,URINE YELLOW (YELLOW); EPITHELIAL CELLS,URINE FEW /LPF; KETONES,URINE NEGATIVE (NEGATIVE); LEUKOCYTE ESTERASE ,URINE NEGATIVE (NEGATIVE); NITRITE,URINE NEGATIVE (NEGATIVE); PROTEIN,URINE DIPSTICK NEGATIVE (NEGATIVE); RBC,URINE 0-5 /HPF (0-5); URINE UROBILINOGEN 0.2 mg/dL (0.2 - 1); WBC,URINE (MAN) 0-5 /HPF (0-5)
--- NOTE | 2018-12-25 00:36 | NUR ---
Received report from ER nurse.
--- NOTE | 2018-12-25 00:45 | NUR ---
REPORT CALLED TO [facility] RN ROOM 183.
--- NOTE | 2018-12-25 01:17 | NUR ---
Patient arrived to the floor via stretcher.
[2018-12-25] MEDS ORDERED: ASPIRIN81 MG PO (01:32)
[2018-12-25] MEDS ORDERED: BENZONATATE100 MG PO (01:32)
[2018-12-25] MEDS ORDERED: BUMETANIDE1 MG PO (01:32)
[2018-12-25] MEDS ORDERED: LEVOTHYROXINE175 MCG PO (01:32)
[2018-12-25] MEDS ORDERED: ATORVASTATIN CA40 MG PO (01:32)
[2018-12-25] MEDS ORDERED: FAMOTIDINE40 MG PO (01:32)
[2018-12-25] MEDS ORDERED: LEVEMIR100 UNIT/1 SQ (01:32)
[2018-12-25] MEDS ORDERED: AMIODARONE HCL200 MG PO (01:32)
[2018-12-25] MEDS ORDERED: DICYCLOMINE HCL20 MG PO (01:34)
[2018-12-25] MEDS ORDERED: METOPROLOL TART25 MG PO (01:34)
[2018-12-25] MEDS: LEVOTHYROXINE SODIUM 100 MCG TAB PO SCH (06:00)
[2018-12-25] MEDS: LEVOTHYROXINE SODIUM 75 MCG TAB PO SCH (06:00)
[2018-12-25 06:21] LABS: CREATINE KINASE MB 2.4 ng/mL (0-5.0)
--- NOTE | 2018-12-25 06:21 | NUR ---
Dr Mckeon on the floor to see patient. Orders received and completed.
[2018-12-25] MEDS: METOPROLOL TARTRATE 25 MG TAB PO SCH ×2 (06:27→17:54)
--- NOTE | 2018-12-25 06:31 | NUR ---
H&P cc: sob HPI: 78yoF, PCP , Nephr-, developed worsening sob. Has been taking her diuretics with good urination. no cp. PMH: Systolic CHF LVEF 35%, CKD3, Emergency HD x2 in 10/2018, NSTEMI, cardiac arrest, COPD, PSHx: HD access, Allergies; see emr FH/SH; no etoh/illicits; family involved in care Meds; see MAR ROS: no f/c/s/N/V/D/LATIF/back pain/skin rash/dizziness v/s; rev'd PE tired appearing anicteric ns1s2 REDUCED BS WITH CRACKLES soft nt nd Urinary catheter 1+ leg edema B/L skin dry flat affect alert; appropriate labs/meds; revd A/P: 78yoF AECHF- systolic Pulmonary edema Peripheral edema NALINI in CKD3 CKD3 due to DM2 N. anemia Hypothyroidism P.A.fib HLD PLAN IV diuresis; I/O Nephr consult Restart home meds PT consult Prop: heparin; pepcid Eb Mckeon MD, PhD.
[2018-12-25 06:34] LABS: CHOL/HDL RATIO 2.7 (3.0-3.6)
[2018-12-25] MEDS: HEPARIN SOD (PORCINE) 5,000 UNIT/ML VIAL SC SCH ×2 (08:55→20:10)
[2018-12-25] MEDS ORDERED: FUROSEMIDE INJ 10 MG/ML 4 ML VIAL IV SCH (09:00)
[2018-12-25] MEDS ORDERED: NON-FORMULARY MEDICATION (Levothyroxine Sodium 175 MCG) PO SCH (09:00)
[2018-12-25] MEDS: FAMOTIDINE 20 MG TAB PO SCH (09:08)
[2018-12-25] MEDS: AMIODARONE HCL 200 MG TAB PO SCH (09:08)
[2018-12-25] MEDS: BENZONATATE 100 MG CAP PO SCH ×3 (09:08→20:09)
[2018-12-25] MEDS: DICYCLOMINE HCL 20 MG TAB PO SCH ×4 (09:08→20:09)
[2018-12-25] MEDS: ASPIRIN 81 MG CHEW TAB PO SCH (09:08)
[2018-12-25] MEDS ORDERED: ACETAMINOPHEN 325 MG TAB PO PRN (09:15)
[2018-12-25 13:42] LABS: CREATINE KINASE MB 2.3 ng/mL (0-5.0)
[2018-12-25] MEDS: FUROSEMIDE INJ 10 MG/ML 4 ML VIAL IV SCH ×2 (14:21→21:02)
--- NOTE | 2018-12-25 16:16 | NUR ---
BLADDER SCAN COMPLETED POST VOID, BLADDER CONTAINS [address] [facility] TO CONTACT PHYSICIAN AND REPORT.
--- NOTE | 2018-12-25 16:20 | Diagnostic Imaging Report ---
EXAMINATION: CHEST 2 VIEWS INDICATION: CHF, shortness of breath. COMPARISON: Chest radiograph 12/24/2018. FINDINGS: TUBES and LINES: None. LUNGS: Lungs are moderately inflated. There is perihilar fullness and indistinctness of the pulmonary vasculature. There are patchy opacities in the bilateral lower lung zones. PLEURA: Trace bilateral pleural effusions. No evidence of pneumothorax. HEART AND MEDIASTINUM: Cardiac size is mildly enlarged. There are atherosclerotic calcifications within the aorta. BONES AND SOFT TISSUES: No acute osseous abnormality. UPPER ABDOMEN: No free air under the diaphragm. IMPRESSION: Mild cardiomegaly with pulmonary edema and trace bilateral pleural effusions. Patchy opacities at the lung bases may represent alveolar edema, atelectasis, or early pneumonia in the appropriate clinical setting. Suggest follow-up chest radiograph. Signed by: Dr. Joshua Cooley MD on 12/25/2018 4:17 PM
--- NOTE | 2018-12-25 16:31 | Consultation ---
DATE OF CONSULTATION: 12/25/2018 Renal Consultation REASON FOR CONSULTATION: Acute kidney injury, volume overload. HISTORY OF PRESENT ILLNESS: An 78-year-old female with history of chronic kidney disease stage 4, well known to me from outpatient clinic, who presented to [facility] with swelling and shortness of breath. The patient was recently sent to a specialist as she was being short of breath, complaining of shortness of breath by her primary care physician. Her Bumex was increased from 1 mg to 2 mg daily without significant improvement and the patient presented to the hospital. The patient was admitted and Nephrology consultation was called. REVIEW OF SYSTEMS: Positive shortness of breath. Positive swelling. Positive dyspnea on exertion. No chest pain. No nausea. No vomiting. No diarrhea. No fevers. No chills. All other systems negative. PAST MEDICAL HISTORY: 1. Stage 4 chronic kidney disease. The patient has had two episodes of acute kidney injury requiring dialysis in the past. 2. Diabetes type 2. 3. Hypertension. 4. Cirrhosis. 5. Congestive heart failure. 6. COPD. 7. Anxiety. 8. Dyslipidemia. 9. Hypothyroidism. 10. Hyperkalemia requiring dialysis in the past. 11. History of metabolic acidosis. SOCIAL HISTORY: No alcohol. No tobacco. No IV drugs. FAMILY HISTORY: Positive for diabetes. ALLERGIES: NO KNOWN DRUG ALLERGIES. CURRENT MEDICATIONS: See list. PHYSICAL EXAMINATION: VITAL SIGNS: Blood pressure 150/82, pulse 85, respiratory rate 19, temperature is 97.5. GENERAL: No apparent distress. HEENT: Oropharynx clear. No scleral icterus. Trace peripheral edema. NECK: Supple. Difficult to assess jugular venous pressure. No lymphadenopathy. CHEST: Decreased breath sounds at the bases posteriorly, otherwise clear to auscultation anteriorly as well as posteriorly. CARDIOVASCULAR: Regular rhythm. No murmurs or rubs. ABDOMEN: Soft. Positive bowel sounds. No tenderness. No rebound. EXTREMITIES: 2+ pitting edema. SKIN: Warm. IMAGING: X-ray, bilateral pulmonary infiltrates and vascular congestion. LABORATORY DATA: White count 5.6, hemoglobin 9.7, hematocrit 30.2, platelets 171. BNP 319, down from 510. Sodium 133, potassium 4.4, chloride 94, BUN 78, creatinine 3.55. Estimated GFR of 12. ASSESSMENT AND PLAN: 1. Acute kidney injury on stage 4 chronic kidney disease, suspect secondary to cardiorenal syndrome. We will rule out urinary retention that she has had retention in the past. Meanwhile, we will increase diuretics. 2. Congestive heart failure. Increase diuretics. 3. Hyponatremia. 1 L fluid restriction. 4. Anemia due to chronic kidney disease. We will check iron stores. 5. Hypertension. Blood pressure controlled. 6. Diabetes per Dr. Mckeon. MD FLO Johnson/MICHAELLE /[id number]
--- NOTE | 2018-12-25 16:55 | Consultation ---
DATE OF CONSULTATION: Pulmonary Consultation REASON FOR CONSULTATION: Hypoxemia. HISTORY OF PRESENT ILLNESS: Ms. Humphrey is an 78-year-old Latin woman, who was seen yesterday in the office by Dr. Bandar Snowden for shortness of breath. She was found there to be hypoxemic with saturation at 85%, also found to be swollen and had an x-ray consistent with pulmonary edema and was subsequently sent to the emergency department. The patient states that she has been having shortness of breath for couple of months, worse lately. She has some cough. Dyspnea with exertion. She gets occasional chest pain and anxiety. She has orthopnea. She also has a cough with thin sputum. She also notes that she has been swollen about the upper and lower extremities. PAST MEDICAL HISTORY: Apparently, she was in [facility] in October where she presented short of breath. She was hypoxemic with saturations in the 60s when they got there according to the daughter. Had a cardiac arrest requiring CPR, elevated troponin was found to have reduced ejection fraction. She has history of anemia, renal failure, hypertension, diabetes, dyslipidemia, anxiety, and hypothyroidism. SOCIAL HISTORY: No alcohol, tobacco, or drug use. FAMILY HISTORY: Diabetes. ALLERGIES: NONE. CURRENT MEDICATIONS: Reviewed and they include: 1. Lasix 80 mg q.8. 2. Amiodarone. 3. Aspirin. 4. Tessalon. PHYSICAL EXAMINATION: VITAL SIGNS: She has been afebrile since has been here. Heart rate is in the 70s to 80s. Respiratory rate is 17 to 20. Blood pressure has been as high as 170/71. Oxygen saturation has been 94% to 98% with 2 L nasal cannula. Weight is 191 pounds. GENERAL APPEARANCE: This is an obese pleasant woman, sitting in the chair. Family is with her. HEENT: Normocephalic, atraumatic. Pupils are round and reactive. Mucous membranes are moist. NECK: Short and thick. CHEST: Rales bilaterally with symmetrical expansion. HEART: Regular rate and rhythm. ABDOMEN: Soft and nontender. EXTREMITIES: Markedly edematous. A 3 to 4+ lower, 3+ upper bilaterally. SKIN: Appears intact. LABORATORY DATA: White count is 5, hemoglobin and hematocrit are 9.7 and 30 with 171,000 platelets with no left shift. ABG; pH 7.37, pCO2 of 42, pO2 of 127 on 50%. Urinalysis is unremarkable. Chemistry; sodium 133, potassium 4.4, chloride 94, bicarbonate 25, BUN and creatinine are 78 and 3.5. Albumin is 3.6. IMAGING: Chest x-ray done in the emergency department shows cardiomegaly with indistinct and large pulmonary vasculature. There is blunting of costophrenic angles as well as right greater than left mixed interstitial alveolar opacities. ASSESSMENT: 1. Acute hypoxemic respiratory failure. 2. Systolic congestive heart failure, acute. 3. Anasarca. 4. Chronic kidney disease, stage IV. 5. Anemia. 6. Personal history of cardiac arrest. 7. Personal history of myocardial infarction. 8. Obstructive sleep apnea, suspected. RECOMMENDATIONS AND PLAN: Continue oxygen therapy. Continue diuretic therapy. Monitoring of the creatinine and electrolytes, Renal has been evaluating. Monitor her weight and urine output. She will need an outpatient sleep study. We will repeat chest x-ray in the morning. Further recommendations, pending clinical course. Thanks for allowing me to participate in the care of Ms. Humphrey. MD LESLIE Brantley/MICHAELLE /[id number]
--- NOTE | 2018-12-25 17:27 | NUR ---
INITIAL MARTINES COLLECTION EMPTIED 600 ML
--- NOTE | 2018-12-25 19:28 | NUR ---
Received change of shift report from AM nurse. Walking rounds completed at bedside.
[2018-12-25] MEDS: ATORVASTATIN 40 MG TAB PO SCH (20:09)
[2018-12-25] MEDS ORDERED: NON-FORMULARY MEDICATION (Atorvastatin Calcium 40 MG) PO SCH (21:00)
[2018-12-25] MEDS: INSULIN GLARGINE 100 UNITS/ML VIAL SQ SCH (21:00)
[2018-12-25] MEDS ORDERED: NON-FORMULARY MEDICATION (Insulin Detemir (Levemir) 10 UNITS) SQ SCH (21:00)
[2018-12-26] VITALS (8 sets, daily range): BP systolic 138–170; BP diastolic 63–78
[2018-12-26 05:40] LABS: BASOPHILS % 0.2 % (0.0-1.0); EOSINOPHILS # (AUTO) 0.2 (0.0-0.4); EOSINOPHILS % 3.3 % (0.0-6.0); HEMATOCRIT 26.3 % (34.2-44.1); LYMPHOCYTES # (AUTO) 1.2 (1.0-3.2); LYMPHOCYTES % 24.6 % (18.0-39.1); MEAN CORPUSCULAR HEMOGLOBIN 28.2 pg (28-32); MEAN CORPUSCULAR HGB CONC 30.4 g/dL (31-35); MEAN CORPUSCULAR VOLUME 92.6 fL (81-99); MONOCYTES # (AUTO) 0.5 (0.2-0.8); MONOCYTES % 9.9 % (4.4-11.3); NEUTROPHILS % 61.6 % (38.7-80.0); PLATELET COUNT 148 x10e3/uL (140-360); RED BLOOD COUNT 2.84 x10e6/uL (3.6-5.1); RED CELL DISTRIBUTION WIDTH 15.9 % (11.7-14.4)
[2018-12-26 05:49] LABS: CALCIUM 8.5 mg/dL (8.4-10.2); CREATININE, SERUM 2.4 mg/dL (0.57-1.11)
[2018-12-26] MEDS: FUROSEMIDE INJ 10 MG/ML 4 ML VIAL IV SCH ×3 (06:01→21:28)
[2018-12-26] MEDS: METOPROLOL TARTRATE 25 MG TAB PO SCH ×2 (06:01→16:35)
[2018-12-26] MEDS: LEVOTHYROXINE SODIUM 100 MCG TAB PO SCH (06:02)
[2018-12-26] MEDS: LEVOTHYROXINE SODIUM 75 MCG TAB PO SCH (06:02)
[2018-12-26 06:28] LABS: FERRITIN 108.78 ng/mL (4.63-204.00)
--- NOTE | 2018-12-26 06:30 | NUR ---
IM- progress note O/N: no events ROS: no f/c/s/N/V/D/LATIF/back pain/skin rash/dizziness v/s; rev'd PE tired appearing anicteric ns1s2 REDUCED BS WITH CRACKLES soft nt nd Urinary catheter 1+ leg edema B/L skin dry flat affect alert; appropriate labs/meds; revd A/P: 78yoF AECHF- systolic Pulmonary edema Peripheral edema NALINI in CKD4 CKD4 due to DM2 N. anemia Hypothyroidism P.A.fib HLD PLAN IV diuresis; I/O Nephr consult Restart home meds PT consult Prop: heparin; pepcid Eb Mckeon MD, PhD.
--- NOTE | 2018-12-26 07:03 | NUR ---
report given to day nurse. patient is resting comfortably in bed. bed is in lowest position and call swartz is within reach.
[2018-12-26] MEDS: DICYCLOMINE HCL 20 MG TAB PO SCH ×4 (08:43→20:09)
[2018-12-26] MEDS: HEPARIN SOD (PORCINE) 5,000 UNIT/ML VIAL SC SCH ×2 (08:43→20:16)
[2018-12-26] MEDS: BENZONATATE 100 MG CAP PO SCH ×3 (08:43→20:09)
[2018-12-26] MEDS: FAMOTIDINE 20 MG TAB PO SCH (08:43)
[2018-12-26] MEDS: ASPIRIN 81 MG CHEW TAB PO SCH (08:43)
[2018-12-26] MEDS: AMIODARONE HCL 200 MG TAB PO SCH (08:43)
[2018-12-26] MEDS: SODIUM FERRIC GLUCONATE COMPLX 125 MG in SODIUM CHLORIDE 0.9% 100 ML 100 ML IV SCH (13:00)
--- NOTE | 2018-12-26 14:25 | NUR ---
SOCIAL WORK INITIAL ASSESSMENT Photographer Apprentice to bedside to discuss plan of care with patient/family. CM/SW role and care transitions discussed. Anticipated discharge plan discussed along with duration of care. CM/SW discussed patients right to make decisions in care. CM/SW work hours given. Patient lives: IN HOUSE WITH DAUGHTER Admit/Transfer: VIA ED POA/Emergency contact: PABLO ESCALANTE [phone] Current/Previous Home Health: HAS BUT DOESNT REMEMBER NAME PCP/Follow-up Care: YAHAIRA Current/Previous DME: DEBORAH Other Services: NONE Employment Status: RETIRED Areas of Concerns: NONE Referral Needs: NONE Education Needs: NONE IMM/RAPP given and signed (if applicable): UPON ADMISSION Goal for discharge: RETURN HOME CM/SW left business card at the bedside with contact information. Name and number was also written on the patients whiteboard. Patient verbalized understanding of discussion. CM will follow-up with ongoing discharge and transition of care needs.
--- NOTE | 2018-12-26 14:46 | NUR ---
Nutrition Screen Note RD Recommendation for Physician: -Continue cardiac diet as ordered -RD provided diet education on 12/26/2018. Plan of Care: RD following, monitoring for tolerance and adequacy, diet education Nutrition reason for involvement: Diagnosis Primary Diagnose(s): 1. Acute hypoxemic respiratory failure. 2. Systolic congestive heart failure, acute. 3. Anasarca. 4. Chronic kidney disease, stage IV. 5. Anemia. PMH: anemia, renal failure, hypertension, diabetes, dyslipidemia, anxiety, and hypothyroidism. Ht: 62in Wt: 189lb BMI: 34.6kg/m2 IBW: 110lb RD Assessment: (12/26/2018) Chart reviewed. Labs and meds reviewed. 78yo F, who was admitted for SOB. Visited pt in the room. Pt reported good appetite with 50-100% recorded meal intake. No complains of nausea or vomiting. Pt denied any chewing or swallowing difficulty. No recent weight loss reported. RD provided diet education and family was agreeable with plan. Will continue to monitor and follow. Current Diet: cardiac diet Malnutrition Evaluation (12/26/2018) The patient does not meet criteria for a specified degree of malnutrition at this time. Will re-evaluate at follow-up as appropriate. Diet Education Needs Assessment: Diet education indicated, pt and family were agreeable with plan. Learner(s): pt and family Time spent: 15minutes Barriers: No barriers identified. Cultural/Language Modifications: No cultural/language modifications noted. Pt and family speak Montenegrin. Readiness: Acceptance Method: Explanation, handouts Topics: Heart failure nutrition therapy Understanding/Compliance: Expect good understanding/compliance from pt. Will benefit from reinforcement. All questions have been answered. Nutrition Care Level: low Signed: Rosy Yuan, MS, RD, LD
--- NOTE | 2018-12-26 16:05 | NUR ---
report given to Kerry for patient transfer, patient and family aware of change.
[2018-12-26] MEDS: ATORVASTATIN 40 MG TAB PO SCH (20:09)
[2018-12-26] MEDS: INSULIN GLARGINE 100 UNITS/ML VIAL SQ SCH (20:31)
--- NOTE | 2018-12-26 21:00 | NUR ---
Trevizo care given.assessment done.no resp.distress.humidified o2 4 litre getting.no pain voiced.bed locked and in lowest position.phone and call light within reach.family member at bed side.
[2018-12-27] VITALS (8 sets, daily range): BP systolic 153–195; BP diastolic 66–80
[2018-12-27] MEDS: LEVOTHYROXINE SODIUM 100 MCG TAB PO SCH (05:49)
[2018-12-27] MEDS: LEVOTHYROXINE SODIUM 75 MCG TAB PO SCH (05:49)
[2018-12-27] MEDS: FUROSEMIDE INJ 10 MG/ML 4 ML VIAL IV SCH ×3 (05:49→21:58)
[2018-12-27] MEDS: METOPROLOL TARTRATE 25 MG TAB PO SCH ×2 (06:18→16:36)
--- NOTE | 2018-12-27 06:50 | NUR ---
Report given to the oncoming rn.walking rounds done.stable condition.
--- NOTE | 2018-12-27 07:00 | NUR ---
Rcvd patient in report this am. Patient is asleep in bed at this time. No s/s of distress noted
[2018-12-27 07:09] LABS: ANION GAP 12.5 mmol/L (8-16); CALCIUM 8.7 mg/dL (8.4-10.2); CREATININE, SERUM 1.91 mg/dL (0.57-1.11); POTASSIUM 3.5 mmol/L (3.5-5.1)
[2018-12-27] MEDS: HEPARIN SOD (PORCINE) 5,000 UNIT/ML VIAL SC SCH ×2 (08:25→21:00)
[2018-12-27] MEDS: AMIODARONE HCL 200 MG TAB PO SCH (08:25)
[2018-12-27] MEDS: FAMOTIDINE 20 MG TAB PO SCH (08:25)
[2018-12-27] MEDS: BENZONATATE 100 MG CAP PO SCH ×3 (08:25→21:55)
[2018-12-27] MEDS: ASPIRIN 81 MG CHEW TAB PO SCH (08:25)
[2018-12-27] MEDS: DICYCLOMINE HCL 20 MG TAB PO SCH ×4 (08:25→21:10)
[2018-12-27] MEDS: SODIUM FERRIC GLUCONATE COMPLX 125 MG in SODIUM CHLORIDE 0.9% 100 ML 100 ML IV SCH (08:44)
--- NOTE | 2018-12-27 09:55 | NUR ---
Oxygen level lowered to 2 Liters at this time. Will continue to monitor. Informed RT as well
[2018-12-27] MEDS ORDERED: POTASSIUM CHLORIDE 20 MEQ TAB CR PO NR (10:00)
[2018-12-27] MEDS: HYDRALAZINE HCL 25 MG TAB PO SCH ×2 (11:57→21:58)
--- NOTE | 2018-12-27 12:21 | Consultation ---
DATE OF CONSULTATION: 12/26/2018 Urology Consultation REASON FOR CONSULTATION: Urinary retention. HISTORY OF PRESENT ILLNESS: Sasha Humphrey is an 78-year-old woman, who has never seen a urologist. She denies previous hematuria, dysuria, or urinary tract infections. She denies any urinary incontinence. The patient was admitted to the hospital with non-urological complaints, was found to have urinary retention for 600 mL upon placement of Trevizo catheter. PAST MEDICAL AND SURGICAL HISTORY: 1. Chronic renal insufficiency. 2. congestive heart failure. 3. Diabetes mellitus. 4. Hypertension. 5. Cirrhosis. 6. COPD. 7. Anxiety. 8. Dyslipidemia. 9. Hypothyroidism. 10. History of hyperkalemia, requiring dialysis in the past. 11. History of metabolic acidosis. 12. 11, para 11. ALLERGIES: NONE KNOWN. CURRENT MEDICATIONS: Please refer to the MAR. SOCIAL HISTORY: The patient denies smoking, ethanol, and drug use. She has supportive family at the bedside. REVIEW OF SYSTEMS: Discussed as above history of present illness and past medical history, otherwise negative for all systems. PHYSICAL EXAMINATION: GENERAL: Very pleasant 78-year-old woman, lying in bed, in no apparent distress. VITAL SIGNS: She is currently afebrile. Vital signs are currently stable. ABDOMEN: Soft, nondistended, and nontender without costovertebral angle tenderness. Kidneys not palpable without hepatosplenomegaly. The patient is obese. GENITOURINARY: Trevizo catheter in place, draining clear urine out. External genitalia are unremarkable. Internal examination is deferred at present time. For the remaining physical examination systems, please refer to the admission history and physical in the chart. LABORATORY STUDIES: The patient's white blood cell count is 4840, hemoglobin is low at 8, and platelets are normal at 148,000. The patient's creatinine is 2.4. Sodium is low at 133. Urinalysis significant for being unremarkable with a very low specific gravity. ASSESSMENT: 1. Urinary retention. 2. Trevizo catheter in situ. 3. Anemia. 4. Chronic renal insufficiency. 5. Hyponatremia. 6. Obesity. PLAN: 1. Leave the Trevizo catheter in place at the present time. 2. The patient will need to follow up in the office once she is an outpatient for a urodynamic study and further evaluation. 3. Ongoing urological followup is recommended. Thank you very much for involving us in the care of your patient. We will be happy to follow her along with you as well as an outpatient. Wallace MD MAGDALENE Da Silva/MICHAELLE /[id number]
--- NOTE | 2018-12-27 14:00 | NUR ---
IV noted to be leaking. Will remove and start a new IV.
--- NOTE | 2018-12-27 17:30 | NUR ---
Met with patient and family (who interpreted) and explained the IMM letter. They verbalized understanding. Pt signed Polish IMM. Copy to her and original placed in chart.
--- NOTE | 2018-12-27 20:29 | NUR ---
IM- progress note O/N: no events ROS: no f/c/s/N/V/D/LATIF/back pain/skin rash/dizziness v/s; rev'd PE tired appearing anicteric ns1s2 REDUCED BS WITH CRACKLES soft nt nd Urinary catheter 1+ leg edema B/L skin dry flat affect alert; appropriate labs/meds; revd A/P: 78yoF AECHF- systolic Pulmonary edema Peripheral edema NALINI in CKD4 CKD4 due to DM2 N. anemia Hypothyroidism P.A.fib HLD PLAN IV diuresis; I/O Nephr consult Restart home meds PT consult Prop: heparin; pepcid Renal fn improving; Urinary retention; Eb Mckeon MD, PhD.
--- NOTE | 2018-12-27 20:45 | NUR ---
Assessment done.lyeing comfortably in the bed.no resp.distress.no pain voiced.bed locked and in lowest position.phone and call light within reach.family members at bed side.educate to call for assistance as needed.
[2018-12-27] MEDS: INSULIN GLARGINE 100 UNITS/ML VIAL SQ SCH (21:20)
[2018-12-27] MEDS: ATORVASTATIN 40 MG TAB PO SCH (21:55)
[2018-12-28] VITALS (9 sets, daily range): BP systolic 160–197; BP diastolic 70–84
[2018-12-28] MEDS: LEVOTHYROXINE SODIUM 100 MCG TAB PO SCH (05:25)
[2018-12-28] MEDS: LEVOTHYROXINE SODIUM 75 MCG TAB PO SCH (05:25)
[2018-12-28] MEDS: FUROSEMIDE INJ 10 MG/ML 4 ML VIAL IV SCH ×3 (05:34→21:18)
[2018-12-28] MEDS: HYDRALAZINE HCL 25 MG TAB PO SCH ×4 (05:34→21:19)
[2018-12-28] MEDS: METOPROLOL TARTRATE 25 MG TAB PO SCH ×2 (05:35→17:22)
[2018-12-28 06:45] LABS: ANION GAP 11.8 mmol/L (8-16); CALCIUM 9.1 mg/dL (8.4-10.2); CREATININE, SERUM 1.48 mg/dL (0.57-1.11); POTASSIUM 3.8 mmol/L (3.5-5.1)
--- NOTE | 2018-12-28 06:50 | NUR ---
Repot taken to the oncoming rn.walking rounds done.stable condition.
[2018-12-28] MEDS: SODIUM FERRIC GLUCONATE COMPLX 125 MG in SODIUM CHLORIDE 0.9% 100 ML 100 ML IV SCH (09:05)
[2018-12-28] MEDS: FAMOTIDINE 20 MG TAB PO SCH (09:12)
[2018-12-28] MEDS: AMIODARONE HCL 200 MG TAB PO SCH (09:12)
[2018-12-28] MEDS: DICYCLOMINE HCL 20 MG TAB PO SCH ×4 (09:12→21:11)
[2018-12-28] MEDS: BENZONATATE 100 MG CAP PO SCH ×3 (09:12→21:11)
[2018-12-28] MEDS: ASPIRIN 81 MG CHEW TAB PO SCH (09:12)
[2018-12-28] MEDS: HEPARIN SOD (PORCINE) 5,000 UNIT/ML VIAL SC SCH ×2 (09:13→21:16)
--- NOTE | 2018-12-28 14:38 | NUR ---
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 anemia Hypothyroidism P.A.fib HLD PLAN IV diuresis; I/O Nephr consult Restart home meds PT consult Prop: heparin; pepcid Renal fn improving; Urinary retention; d/c home f/u nephrology 5-7 days and PCP 1 week stable d/c>35mins Eb Mckeon MD, PhD.
[2018-12-28] MEDS ORDERED: HYDRALAZINE HCL25 MG PO (14:41)
[2018-12-28] MEDS ORDERED: LASIX40 MG PO (14:41)
--- NOTE | 2018-12-28 20:10 | NUR ---
Assessment done.aaox3.no rep.distress.no pain voiced.nasal cannula 1 litre o2 is getting.bed alarm on.bed locked and in lowest position.phone and call light within reach.family members at bed side. educated to call for assistance as needed.
[2018-12-28] MEDS: ATORVASTATIN 40 MG TAB PO SCH (21:11)
[2018-12-28] MEDS ORDERED: HYDRALAZINE HCL 25 MG TAB PO SCH (22:00)
[2018-12-29] VITALS (8 sets, daily range): BP systolic 148–193; BP diastolic 67–80
[2018-12-29] MEDS: HYDRALAZINE HCL 25 MG TAB PO SCH ×3 (05:00→22:02)
[2018-12-29] MEDS: FUROSEMIDE INJ 10 MG/ML 4 ML VIAL IV SCH ×3 (05:37→22:01)
[2018-12-29] MEDS: METOPROLOL TARTRATE 25 MG TAB PO SCH ×2 (05:38→17:58)
[2018-12-29] MEDS: LEVOTHYROXINE SODIUM 100 MCG TAB PO SCH (05:38)
[2018-12-29] MEDS: LEVOTHYROXINE SODIUM 75 MCG TAB PO SCH (05:38)
[2018-12-29 06:01] LABS: ANION GAP 12.7 mmol/L (8-16); CALCIUM 9.3 mg/dL (8.4-10.2); CREATININE, SERUM 1.43 mg/dL (0.57-1.11); POTASSIUM 3.7 mmol/L (3.5-5.1)
--- NOTE | 2018-12-29 06:43 | Diagnostic Imaging Report ---
EXAMINATION: CHEST 2 VIEWS INDICATION: ^F/U PULM EDEMA CHF ^[id number] ^[id number] COMPARISON: 12/25/2018 FINDINGS: PA and lateral views TUBES and LINES: None. LUNGS: Lungs are well inflated. Pulmonary vascular congestion and bilateral airspace opacities. PLEURA: No pneumothorax. HEART AND MEDIASTINUM: The cardiomediastinal silhouette is enlarged. BONES AND SOFT TISSUES: No acute osseous lesion. Soft tissues are unremarkable. UPPER ABDOMEN: No free air under the diaphragm. IMPRESSION: Enlarged cardiomediastinal silhouette, pulmonary vascular congestion, and moderate interstitial edema. No significant change from prior exam. Suspected trace bilateral pleural effusions. Signed by: Dr. Ministerio Landon MD on 12/29/2018 6:40 AM
--- NOTE | 2018-12-29 06:50 | NUR ---
Report given to the on coming rn.walking rounds done.stable condition.
--- NOTE | 2018-12-29 07:00 | NUR ---
bedside rounds complete no distress noted updated on poc vocied understanding, denies pain at this time, l fa 22g no ss of infiltration noted, o2 @ 1l nc no other co voiced call light in reach will continue to monitor
[2018-12-29] MEDS: BENZONATATE 100 MG CAP PO SCH ×3 (09:00→20:10)
[2018-12-29] MEDS: FAMOTIDINE 20 MG TAB PO SCH (09:07)
[2018-12-29] MEDS: DICYCLOMINE HCL 20 MG TAB PO SCH ×4 (09:07→20:04)
[2018-12-29] MEDS: ASPIRIN 81 MG CHEW TAB PO SCH (09:07)
[2018-12-29] MEDS: AMIODARONE HCL 200 MG TAB PO SCH (09:07)
[2018-12-29] MEDS: HEPARIN SOD (PORCINE) 5,000 UNIT/ML VIAL SC SCH ×2 (09:07→20:04)
[2018-12-29] MEDS: SODIUM FERRIC GLUCONATE COMPLX 125 MG in SODIUM CHLORIDE 0.9% 100 ML 100 ML IV SCH (09:09)
[2018-12-29] MEDS ORDERED: CARVEDILOL3.125 MG PO (14:14)
--- NOTE | 2018-12-29 14:21 | NUR ---
IM- progress note O/N: no events ROS: no f/c/s/N/V/D/LATIF/back pain/skin rash/dizziness v/s; rev'd PE tired appearing anicteric ns1s2 REDUCED BS WITH CRACKLES soft nt nd Urinary catheter 1+ leg edema B/L skin dry flat affect alert; appropriate labs/meds; revd A/P: 78yoF AECHF- systolic Pulmonary edema Peripheral edema NALINI in CKD4 CKD4 due to DM2 N. anemia Hypothyroidism P.A.fib HLD PLAN IV diuresis; I/O Nephr consult Restart home meds PT consult Prop: heparin; pepcid Renal fn improving; Urinary retention; Uncontrolled HTN- use BB; xanax; d/c planning; needs home O2. Eb Mckeon MD, PhD.
[2018-12-29] MEDS: ALPRAZOLAM 0.25 MG TAB PO SCH ×2 (14:30→16:58)
[2018-12-29] MEDS: CARVEDILOL 3.125 MG TAB PO SCH ×2 (14:30→16:58)
--- NOTE | 2018-12-29 14:30 | NUR ---
pt bp 193/82 coreg 6.125 given as per ordered will recheck bp in 1 hr Addendum: 12/29/18 at 1555 by Madiha Bello RN coreg 6.25 given as per ordered
--- NOTE | 2018-12-29 15:53 | NUR ---
bp rechecked 173/70,
[2018-12-29] MEDS ORDERED: CARVEDILOL 3.125 MG TAB PO SCH (17:00)
[2018-12-29] MEDS: ISOSORBIDE MONONITRATE 20 MG TAB PO SCH (20:05)
[2018-12-29] MEDS: ATORVASTATIN 40 MG TAB PO SCH (20:10)
[2018-12-29] MEDS ORDERED: INSULIN GLARGINE 100 UNITS/ML VIAL SQ SCH (21:00)
[2018-12-30] VITALS: BP 149/66
[2018-12-30 04:00] VITALS: BP 153/67
[2018-12-30] MEDS: LEVOTHYROXINE SODIUM 75 MCG TAB PO SCH (05:00)
[2018-12-30] MEDS: LEVOTHYROXINE SODIUM 100 MCG TAB PO SCH (05:00)
[2018-12-30] MEDS: FUROSEMIDE INJ 10 MG/ML 4 ML VIAL IV SCH ×2 (05:00→14:42)
--- NOTE | 2018-12-30 05:40 | NUR ---
IM- progress note O/N: no events ROS: no f/c/s/N/V/D/LATIF/back pain/skin rash/dizziness v/s; rev'd PE tired appearing anicteric ns1s2 REDUCED BS WITH CRACKLES soft nt nd Urinary catheter 1+ leg edema B/L skin dry flat affect alert; appropriate labs/meds; revd A/P: 78yoF AECHF- systolic Pulmonary edema Peripheral edema NALINI in CKD4 CKD4 due to DM2 N. anemia Hypothyroidism P.A.fib HLD PLAN IV diuresis; I/O Nephr consult Restart home meds PT consult Prop: heparin; pepcid Renal fn improving; Urinary retention; Uncontrolled HTN- use BB; xanax; d/c planning; needs home O2. 12/30 adjust meds; check labs; Eb Mckeon MD, PhD.
[2018-12-30] MEDS: HYDRALAZINE HCL 25 MG TAB PO SCH ×2 (05:58→12:00)
[2018-12-30 06:41] LABS: ANION GAP 10.7 mmol/L (8-16); CREATININE, SERUM 1.63 mg/dL (0.57-1.11); POTASSIUM 3.7 mmol/L (3.5-5.1)
[2018-12-30 08:08] VITALS: BP 152/67
[2018-12-30] MEDS: ALPRAZOLAM 0.25 MG TAB PO SCH ×2 (09:00→16:31)
[2018-12-30] MEDS: HEPARIN SOD (PORCINE) 5,000 UNIT/ML VIAL SC SCH (09:00)
[2018-12-30] MEDS: BENZONATATE 100 MG CAP PO SCH ×2 (09:00→14:37)
[2018-12-30] MEDS: ASPIRIN 81 MG CHEW TAB PO SCH (09:09)
[2018-12-30] MEDS: AMIODARONE HCL 200 MG TAB PO SCH (09:09)
[2018-12-30] MEDS: DICYCLOMINE HCL 20 MG TAB PO SCH ×2 (09:09→12:22)
[2018-12-30] MEDS: SODIUM FERRIC GLUCONATE COMPLX 125 MG in SODIUM CHLORIDE 0.9% 100 ML 100 ML IV SCH (09:09)
[2018-12-30] MEDS: CARVEDILOL 3.125 MG TAB PO SCH ×2 (09:09→16:34)
[2018-12-30] MEDS: FAMOTIDINE 20 MG TAB PO SCH (09:10)
[2018-12-30] MEDS: ISOSORBIDE MONONITRATE 20 MG TAB PO SCH (09:10)
[2018-12-30 10:14] VITALS: BP 152/67
[2018-12-30 12:00] VITALS: BP 109/56
--- NOTE | 2018-12-30 13:34 | NUR ---
PATIENT DISCHARGE DISPOSITION: HOME HEALTH FOR NURSING HOME EVAL, M[facility]INES C[facility], AND PT/OT EVAL AND TREAT:(DR. PRESLEY TO FOLLOW PATIENT) [facility] (P) [phone] (F)[phone] HOME OXYGEN COMPANY: [employer] Address: [address], [place] [address] FAX: [phone]
--- NOTE | 2018-12-30 14:54 | NUR ---
CM SPOKE TO BIPIN ORELLANA. REYNA IS ON THE WAY TO [facility] FROM [facility] TO DROP OFF O2 TANKS FOR HOME. PATIENT DISCHARGING WITH HOME O2 AND HOME HEALTH SERVICES DISCUSSED IN PREVIOUS NOTE. PATIENT CLEARED TO D/C BY CASE MANAGEMENT.
[2018-12-30 16:31] VITALS: BP 150/67
--- NOTE | 2018-12-30 16:37 | NUR ---
SPOKE TO DR. PARSON REGARDING HOME O2 DELIVERY TO HOSPITAL. STATES OK TO D/C PT HOME. LEFT MESSAGE WITH OFFICE STAFF FOR DR. RODRIGUEZ TO NOTIFY REGARDING DISCHARGE.
--- NOTE | 2018-12-30 17:30 | NUR ---
DISCHARGE INSTRUCTIONS AND PRESCRIPTIONS GIVEN. TEACHING DONE FOR CHANGING BETWEEN MARTINES LEG BAG AND BEDSIDE BAG. DAUGHTER AVA VERBALIZED UNDERSTANDING. HOME O2 DELIVERED TO BEDSIDE. HOME HEALTH SET UP. PHONE NUMBERS FOR EACH PROVIDED. LEFT FA IV D/C AND PRESSURE DRESSING APPLIED. PT LEFT IN STABLE CONDITION.
== END 2018-12-30 17:36 | disposition home health service (06) | DRG 291 ==
LOC: ER 17:27 → ERHOLD 23:26 → IMCU 12-25 01:20 → OBSVTOIN 12-26 14:08 → MED/SURG 12-26 16:26
PROVIDERS: ADMIT Internal Medicine; ATTEND Internal Medicine
DX: I13.0 Hypertensive heart and chronic kidney disease with heart failure and stage 1 through stage 4 chronic kidney disease, or unspecified chronic kidney disease (principal); I50.23 Acute on chronic systolic (congestive) heart failure; J96.01 Acute respiratory failure with hypoxia; E87.1 Hypo-osmolality and hyponatremia; N18.4 Chronic kidney disease, stage 4 (severe); J81.1 Chronic pulmonary edema; N17.9 Acute kidney failure, unspecified; E11.22 Type 2 diabetes mellitus with diabetic chronic kidney disease; G47.33 Obstructive sleep apnea (adult) (pediatric); E03.9 Hypothyroidism, unspecified; E78.5 Hyperlipidemia, unspecified; I48.0 Paroxysmal atrial fibrillation; D63.8 Anemia in other chronic diseases classified elsewhere; I25.2 Old myocardial infarction; R33.9 Retention of urine, unspecified; E66.9 Obesity, unspecified; Z68.32 Body mass index [BMI] 32.0-32.9, adult; Z79.4 Long term (current) use of insulin
CPT/HCPCS: 36415; 36600; 71045; 71046; 80048; 80053; 80061; 81001; 82550; 82553; 82728; 82805; 82948; 83036; 83540; 83880; 84443; 84466; 84484; 85025; 85610; 85730; 93005; 94660; 96365; 97139; 99284; G0378; J1644; J1815; J1940; J2916

== ENCOUNTER 2020-12-19 09:37 | Inpatient (IN) | payer MEDICARE, OTHER ==
[~2020-12-19] VITALS: Ht 157.5 cm; Wt 80.3 kg
[~2020-12-19 09:37] MED LIST: AMIODARONE HCL200 MG PO; ASPIRIN81 MG PO; ATORVASTATIN CA40 MG PO; BENZONATATE100 MG PO; BUMETANIDE1 MG PO; CARVEDILOL3.125 MG PO; DICYCLOMINE HCL20 MG PO; FAMOTIDINE40 MG PO; HYDRALAZINE HCL25 MG PO; LASIX40 MG PO; LEVEMIR100 UNIT/1 SQ; LEVOTHYROXINE175 MCG PO; METOPROLOL TART25 MG PO
[2020-12-19 10:41] LABS: BASOPHILS % 0.2 % (0.0-1.0); EOSINOPHILS # (AUTO) 0.1 (0.0-0.4); EOSINOPHILS % 1.2 % (0.0-6.0); HEMATOCRIT 28.2 % (34.2-44.1); HEMOGLOBIN 9.4 g/dL (12.0-16.0); LYMPHOCYTES # (AUTO) 0.9 (1.0-3.2); LYMPHOCYTES % 10.1 % (18.0-39.1); MEAN CORPUSCULAR HEMOGLOBIN 31.3 pg (28-32); MEAN CORPUSCULAR HGB CONC 33.3 g/dL (31-35); MONOCYTES # (AUTO) 0.6 (0.2-0.8); MONOCYTES % 6.8 % (4.4-11.3); NEUTROPHILS # (AUTO) 7.3 (2.1-6.9); NEUTROPHILS % 81.5 % (38.7-80.0); PLATELET COUNT 152 x10e3/uL (140-360); RED CELL DISTRIBUTION WIDTH 14.6 % (11.7-14.4)
[2020-12-19] MEDS ORDERED: FUROSEMIDE INJ 10 MG/ML 4 ML VIAL IV ONE (10:45)
[2020-12-19 10:59] LABS: INR 0.98; PROTHROMBIN TIME 13.6 seconds (11.9-14.5)
[2020-12-19 11:03] LABS: ALBUMIN 3.4 g/dL (3.5-5.0); ALBUMIN/GLOBULIN RATIO 1.1 (0.8-2.0); ANION GAP 11.8 mmol/L (8-16); CALCIUM 8.6 mg/dL (8.4-10.2); CREATININE, SERUM 2.36 mg/dL (0.57-1.11); MAGNESIUM 1.8 MG/DL (1.3-2.1); POTASSIUM 3.8 mmol/L (3.5-5.1)
[2020-12-19 11:09] LABS: CREATINE KINASE MB 0.8 ng/mL (0-5.0)
[2020-12-19] MEDS ORDERED: DEXTROSE 50% SYRINGE 50 ML IV PRN (15:30)
[2020-12-19] MEDS ORDERED: ACETAMINOPHEN 325 MG TAB PO ONE (15:30)
[2020-12-19 19:20] LABS: CLARITY,URINE CLOUDY (CLEAR); COLOR,URINE YELLOW (YELLOW); LEUKOCYTE ESTERASE ,URINE LARGE (NEGATIVE)
[2020-12-19 19:21] LABS: KETONES,URINE NEGATIVE (NEGATIVE); NITRITE,URINE NEGATIVE (NEGATIVE); PROTEIN,URINE DIPSTICK 2+ (NEGATIVE); URINE UROBILINOGEN 0.2 mg/dL (0.2 - 1)
[2020-12-19 19:33] LABS: BACTERIA,URINE MANY /HPF
[2020-12-19] MEDS: INSULIN LISPRO 100 UNIT/1 ML 3ML VIAL SQ SCH ×2 (19:34→19:50)
[2020-12-19 23:29] LABS: CREATINE KINASE MB 0.9 ng/mL (0-5.0)
[2020-12-20] MEDS ORDERED: ACETAMINOPHEN 325 MG TAB ONE (01:28)
[2020-12-20] MEDS ORDERED: ACETAMINOPHEN 325 MG TAB PO PRN (01:30)
[2020-12-20 06:28] LABS: BASOPHILS % 0.4 % (0.0-1.0); EOSINOPHILS # (AUTO) 0.2 (0.0-0.4); HEMATOCRIT 25.3 % (34.2-44.1); HEMOGLOBIN 8.5 g/dL (12.0-16.0); LYMPHOCYTES # (AUTO) 1.1 (1.0-3.2); LYMPHOCYTES % 14.4 % (18.0-39.1); MEAN CORPUSCULAR HEMOGLOBIN 31.3 pg (28-32); MEAN CORPUSCULAR HGB CONC 33.6 g/dL (31-35); MONOCYTES # (AUTO) 0.7 (0.2-0.8); NEUTROPHILS # (AUTO) 5.5 (2.1-6.9); NEUTROPHILS % 73.9 % (38.7-80.0); PLATELET COUNT 134 x10e3/uL (140-360); RED BLOOD COUNT 2.72 x10e6/uL (3.6-5.1); RED CELL DISTRIBUTION WIDTH 14.7 % (11.7-14.4)
[2020-12-20 06:51] LABS: ALBUMIN 2.9 g/dL (3.5-5.0); ALBUMIN/GLOBULIN RATIO 1.1 (0.8-2.0); ANION GAP 13.6 mmol/L (8-16); CALCIUM 8.3 mg/dL (8.4-10.2); CHOL/HDL RATIO 2.8 (3.0-3.6); CREATININE, SERUM 2.07 mg/dL (0.57-1.11); POTASSIUM 3.6 mmol/L (3.5-5.1)
[2020-12-20 07:12] LABS: CREATINE KINASE MB 0.7 ng/mL (0-5.0)
[2020-12-20] MEDS: ACETAMINOPHEN 325 MG TAB PO PRN (07:14)
[2020-12-20] MEDS ORDERED: ONDANSETRON HCL INJ 2MG/ML 2ML 2 MG/ML VIAL IV PRN (07:15)
[2020-12-20] MEDS ORDERED: CEFTRIAXONE SOD 1 GM/50 ML BAG IV SCH (07:15)
[2020-12-20] MEDS ORDERED: DOCUSATE SODIUM 100 MG CAP PO PRN (07:15)
[2020-12-20] MEDS ORDERED: SODIUM CHLORIDE 0.9% 50ML 50 ML ONE (07:30)
[2020-12-20] MEDS ORDERED: CEFTRIAXONE SOD 1 GM VIAL ONE (07:30)
[2020-12-20] MEDS: ENOXAPARIN INJ 80 MG/0.8 ML SYR SC SCH ×2 (07:42→20:41)
[2020-12-20] MEDS: LEVOTHYROXINE SODIUM 100 MCG TAB PO SCH (07:42)
[2020-12-20] MEDS: LEVOTHYROXINE SODIUM 75 MCG TAB PO SCH (07:42)
[2020-12-20 07:44] LABS: CHOL/HDL RATIO 2.8 (3.0-3.6)
[2020-12-20] MEDS: AMIODARONE HCL 200 MG TAB PO SCH (08:31)
[2020-12-20] MEDS: FUROSEMIDE INJ 10 MG/ML 4 ML VIAL IV SCH ×2 (08:31→20:57)
[2020-12-20] MEDS: ASPIRIN 81 MG CHEW TAB PO SCH (08:31)
[2020-12-20] MEDS: FAMOTIDINE 20 MG TAB PO SCH (08:31)
[2020-12-20] MEDS: INSULIN LISPRO 100 UNIT/1 ML 3ML VIAL SQ SCH ×4 (08:31→21:55)
[2020-12-20] MEDS: BENZONATATE 100 MG CAP PO SCH ×3 (08:31→20:57)
[2020-12-20] MEDS: CARVEDILOL 3.125 MG TAB PO SCH ×2 (08:31→17:18)
[2020-12-20] MEDS ORDERED: ASPIRIN 81 MG CHEW TAB PO SCH (09:00)
[2020-12-20] MEDS: HYDRALAZINE HCL 25 MG TAB PO SCH ×2 (15:37→20:57)
[2020-12-20 16:30] VITALS: BP 125/42
[2020-12-20 16:40] VITALS: BP 127/50
[2020-12-20 16:50] VITALS: BP 127/50
[2020-12-20] MEDS ORDERED: ENOXAPARIN SOD INJ 40 MG/0.4 ML SYR SC SCH (17:00)
[2020-12-20] MEDS ORDERED: CILOSTAZOL100 MG PO (18:13)
[2020-12-20] MEDS ORDERED: ALPRAZOLAM0.5 MG PO (18:13)
[2020-12-20] MEDS ORDERED: HYDRALAZINE HC100 MG PO (18:20)
[2020-12-20] MEDS ORDERED: NEURONTIN100 MG PO (18:20)
[2020-12-20] MEDS ORDERED: RAYALDEE30 MCG PO (18:20)
[2020-12-20] MEDS ORDERED: CARVEDILOL12.5 MG PO (18:20)
[2020-12-20] MEDS ORDERED: PROTONIX20 MG PO (18:20)
[2020-12-20] MEDS ORDERED: ALLOPURINOL300 MG PO (18:20)
[2020-12-20] MEDS ORDERED: METOCLOPRAMIDE10 MG PO (18:20)
[2020-12-20] MEDS ORDERED: HUMALOG MI100 UNIT/2 SQ (18:23)
[2020-12-20] MEDS ORDERED: ACIDOPHILUS1 EAC1 PO (18:23)
[2020-12-20 20:00] VITALS: BP 156/64
[2020-12-20 20:23] VITALS: BP 156/64
[2020-12-20] MEDS: ATORVASTATIN 40 MG TAB PO SCH (20:57)
[2020-12-20] MEDS ORDERED: ZOLPIDEM TARTRATE 5 MG TAB PO PRN (21:00)
[2020-12-20] MEDS: INSULIN GLARGINE 100 UNITS/ML VIAL SQ SCH (21:26)
[2020-12-21] VITALS (11 sets, daily range): BP systolic 121–165; BP diastolic 43–69
[2020-12-21] MEDS: ACETAMINOPHEN 325 MG TAB PO PRN (04:11)
[2020-12-21] MEDS: LEVOTHYROXINE SODIUM 75 MCG TAB PO SCH (05:46)
[2020-12-21] MEDS: HYDRALAZINE HCL 25 MG TAB PO SCH ×3 (05:46→21:39)
[2020-12-21] MEDS: LEVOTHYROXINE SODIUM 100 MCG TAB PO SCH (05:46)
[2020-12-21] MEDS: INSULIN LISPRO 100 UNIT/1 ML 3ML VIAL SQ SCH ×4 (07:30→21:00)
[2020-12-21] MEDS: FAMOTIDINE 20 MG TAB PO SCH (08:51)
[2020-12-21] MEDS: CEFTRIAXONE SOD 1 GM in SODIUM CHLORIDE 0.9% 50ML 50 ML IV SCH (08:52)
[2020-12-21] MEDS: FUROSEMIDE INJ 10 MG/ML 4 ML VIAL IV SCH ×2 (08:52→21:00)
[2020-12-21] MEDS: CARVEDILOL 3.125 MG TAB PO SCH ×2 (08:53→16:12)
[2020-12-21] MEDS: ASPIRIN 81 MG CHEW TAB PO SCH (08:53)
[2020-12-21] MEDS: BENZONATATE 100 MG CAP PO SCH ×3 (08:53→21:00)
[2020-12-21] MEDS: AMIODARONE HCL 200 MG TAB PO SCH (08:53)
[2020-12-21 10:04] LABS: ANION GAP 14.6 mmol/L (8-16); CALCIUM 8.4 mg/dL (8.4-10.2); CREATININE, SERUM 2.05 mg/dL (0.57-1.11); POTASSIUM 3.6 mmol/L (3.5-5.1)
[2020-12-21] MEDS: ATORVASTATIN 40 MG TAB PO SCH (21:00)
[2020-12-21] MEDS: INSULIN GLARGINE 100 UNITS/ML VIAL SQ SCH (21:00)
[2020-12-22] VITALS (8 sets, daily range): BP systolic 147–189; BP diastolic 52–79
[2020-12-22] MEDS: LEVOTHYROXINE SODIUM 100 MCG TAB PO SCH (05:05)
[2020-12-22] MEDS: HYDRALAZINE HCL 25 MG TAB PO SCH ×3 (05:05→21:31)
[2020-12-22] MEDS: LEVOTHYROXINE SODIUM 75 MCG TAB PO SCH (05:06)
[2020-12-22] MEDS: INSULIN LISPRO 100 UNIT/1 ML 3ML VIAL SQ SCH ×4 (07:30→21:00)
[2020-12-22] MEDS: ACETAMINOPHEN 325 MG TAB PO PRN ×2 (07:35→21:32)
[2020-12-22 08:25] LABS: BASOPHILS % 0.5 % (0.0-1.0); EOSINOPHILS # (AUTO) 0.2 (0.0-0.4); EOSINOPHILS % 3.2 % (0.0-6.0); HEMATOCRIT 31.2 % (34.2-44.1); HEMOGLOBIN 9.9 g/dL (12.0-16.0); LYMPHOCYTES # (AUTO) 1.3 (1.0-3.2); LYMPHOCYTES % 19.9 % (18.0-39.1); MEAN CORPUSCULAR HEMOGLOBIN 30.5 pg (28-32); MEAN CORPUSCULAR HGB CONC 31.7 g/dL (31-35); MONOCYTES # (AUTO) 0.6 (0.2-0.8); MONOCYTES % 8.8 % (4.4-11.3); NEUTROPHILS # (AUTO) 4.4 (2.1-6.9); NEUTROPHILS % 67.3 % (38.7-80.0); PLATELET COUNT 171 x10e3/uL (140-360); RED BLOOD COUNT 3.25 x10e6/uL (3.6-5.1); RED CELL DISTRIBUTION WIDTH 14.9 % (11.7-14.4)
[2020-12-22 08:40] LABS: ANION GAP 17.3 mmol/L (8-16); CALCIUM 8.9 mg/dL (8.4-10.2); CREATININE, SERUM 1.77 mg/dL (0.57-1.11); POTASSIUM 3.3 mmol/L (3.5-5.1)
[2020-12-22] MEDS ORDERED: ONDANSETRON HCL 4 MG ORAL DISINTEGRATING TAB PO PRN (09:00)
[2020-12-22] MEDS: AMIODARONE HCL 200 MG TAB PO SCH (10:21)
[2020-12-22] MEDS: FUROSEMIDE INJ 10 MG/ML 4 ML VIAL IV SCH ×2 (10:21→21:00)
[2020-12-22] MEDS: ASPIRIN 81 MG CHEW TAB PO SCH (10:21)
[2020-12-22] MEDS: BENZONATATE 100 MG CAP PO SCH ×3 (10:22→21:00)
[2020-12-22] MEDS: CARVEDILOL 3.125 MG TAB PO SCH ×2 (10:22→17:00)
[2020-12-22] MEDS: FAMOTIDINE 20 MG TAB PO SCH (10:24)
[2020-12-22] MEDS: CEFTRIAXONE SOD 1 GM in SODIUM CHLORIDE 0.9% 50ML 50 ML IV SCH (10:24)
[2020-12-22] MEDS ORDERED: SODIUM CHLORIDE 0.9% 250ML 250 ML ONE (10:58)
[2020-12-22] MEDS: ATORVASTATIN 40 MG TAB PO SCH (21:00)
[2020-12-22] MEDS: INSULIN GLARGINE 100 UNITS/ML VIAL SQ SCH (21:00)
[2020-12-23] VITALS: BP 165/52
[2020-12-23 04:00] VITALS: BP 184/71
[2020-12-23] MEDS: HYDRALAZINE HCL 25 MG TAB PO SCH ×2 (05:44→14:00)
[2020-12-23] MEDS: LEVOTHYROXINE SODIUM 100 MCG TAB PO SCH (05:45)
[2020-12-23] MEDS: LEVOTHYROXINE SODIUM 75 MCG TAB PO SCH (05:45)
[2020-12-23 07:15] LABS: CALCIUM 8.7 mg/dL (8.4-10.2); CREATININE, SERUM 1.42 mg/dL (0.57-1.11)
[2020-12-23] MEDS: INSULIN LISPRO 100 UNIT/1 ML 3ML VIAL SQ SCH ×3 (07:30→16:30)
[2020-12-23 07:51] VITALS: BP 176/58
[2020-12-23 08:00] VITALS: BP 176/58
[2020-12-23] MEDS: CEFTRIAXONE SOD 1 GM in SODIUM CHLORIDE 0.9% 50ML 50 ML IV SCH (08:00)
[2020-12-23] MEDS: FAMOTIDINE 20 MG TAB PO SCH (08:20)
[2020-12-23] MEDS ORDERED: POTASSIUM CHLORIDE 10MEQ EA PO ONE (09:15)
[2020-12-23] MEDS: ASPIRIN 81 MG CHEW TAB PO SCH (09:44)
[2020-12-23] MEDS: FUROSEMIDE INJ 10 MG/ML 4 ML VIAL IV SCH (09:44)
[2020-12-23] MEDS: AMIODARONE HCL 200 MG TAB PO SCH (09:44)
[2020-12-23] MEDS: CARVEDILOL 3.125 MG TAB PO SCH ×2 (09:45→17:07)
[2020-12-23] MEDS: BENZONATATE 100 MG CAP PO SCH ×2 (09:45→15:00)
[2020-12-23] MEDS: ACETAMINOPHEN 325 MG TAB PO PRN (10:31)
[2020-12-23 12:23] VITALS: BP 148/73
[2020-12-23 15:26] VITALS: BP 163/65
[2020-12-23] MEDS ORDERED: POTASSIUM CHLORIDE 20 MEQ TAB CR PO ONE (16:43)
[2020-12-23] MEDS ORDERED: K-DUR10 MEQ PO (16:47)
[2020-12-23] MEDS ORDERED: FUROSEMIDE40 MG PO (16:47)
[2020-12-23] MEDS ORDERED: KEFLEX125 MG/5 M PO (16:47)
[2020-12-23] MEDS ORDERED: AMIODARONE HCL200 MG PO (16:47)
[2020-12-23] MEDS ORDERED: HYDRALAZINE HCL25 MG PO (16:47)
== END 2020-12-23 20:27 | disposition home or self-care (01) | DRG 291 ==
LOC: ER 09:46 → ERHOLD 15:30 → MED/SURG3 12-20 16:20
PROVIDERS: ADMIT Internal Medicine; ATTEND Internal Medicine
DX: I13.0 Hypertensive heart and chronic kidney disease with heart failure and stage 1 through stage 4 chronic kidney disease, or unspecified chronic kidney disease (principal); I50.23 Acute on chronic systolic (congestive) heart failure; J81.1 Chronic pulmonary edema; N39.0 Urinary tract infection, site not specified; N18.4 Chronic kidney disease, stage 4 (severe); E11.22 Type 2 diabetes mellitus with diabetic chronic kidney disease; B96.20 Unspecified Escherichia coli [E. coli] as the cause of diseases classified elsewhere; I25.2 Old myocardial infarction; I48.0 Paroxysmal atrial fibrillation; Z79.01 Long term (current) use of anticoagulants; E03.9 Hypothyroidism, unspecified; E78.5 Hyperlipidemia, unspecified; Z20.822 Contact with and (suspected) exposure to COVID-19
CPT/HCPCS: 36415; 71045; 80048; 80053; 80061; 81001; 82550; 82553; 82948; 83036; 83735; 83880; 84484; 85025; 85610; 85730; 87040; 87086; 87186; 93005; 93306; 97139; 99284; J0696; J1650; J1815; J1940; J7050; U0002

== ENCOUNTER 2021-01-13 18:23 | Inpatient (IN) | payer MEDICARE, OTHER ==
[~2021-01-13] VITALS: Ht 157.5 cm; Wt 82.6 kg
[~2021-01-13 18:23] MED LIST changes: +ACIDOPHILUS1 EAC1 PO; +ALLOPURINOL300 MG PO; +ALPRAZOLAM0.5 MG PO; +CARVEDILOL12.5 MG PO; +CILOSTAZOL100 MG PO; +FUROSEMIDE40 MG PO; +HUMALOG MI100 UNIT/2 SQ; +HYDRALAZINE HC100 MG PO; +K-DUR10 MEQ PO; +KEFLEX125 MG/5 M PO; +METOCLOPRAMIDE10 MG PO; +NEURONTIN100 MG PO; +PROTONIX20 MG PO; +RAYALDEE30 MCG PO
[2021-01-13 20:50] LABS: BASOPHILS % 0.3 % (0.0-1.0); EOSINOPHILS # (AUTO) 0.2 (0.0-0.4); EOSINOPHILS % 3.6 % (0.0-6.0); HEMATOCRIT 26.1 % (34.2-44.1); HEMOGLOBIN 8.3 g/dL (12.0-16.0); LYMPHOCYTES # (AUTO) 1.1 (1.0-3.2); MEAN CORPUSCULAR HEMOGLOBIN 30.2 pg (28-32); MEAN CORPUSCULAR HGB CONC 31.8 g/dL (31-35); MEAN CORPUSCULAR VOLUME 94.9 fL (81-99); MONOCYTES # (AUTO) 0.4 (0.2-0.8); MONOCYTES % 7.2 % (4.4-11.3); NEUTROPHILS # (AUTO) 4.1 (2.1-6.9); NEUTROPHILS % 69.7 % (38.7-80.0); PLATELET COUNT 144 x10e3/uL (140-360); RED BLOOD COUNT 2.75 x10e6/uL (3.6-5.1); RED CELL DISTRIBUTION WIDTH 15.7 % (11.7-14.4)
[2021-01-13 21:10] LABS: ALANINE AMINOTRANSFERASE 20 IU/L (0-55); ALBUMIN 3.5 g/dL (3.5-5.0); ALBUMIN/GLOBULIN RATIO 1.1 (0.8-2.0); ALKALINE PHOSPHATASE 125 IU/L (40-150); BLOOD UREA NITROGEN 119 mg/dL (7-26); BUN/CREATININE RATIO 34 (6-25); CALCIUM 8.8 mg/dL (8.4-10.2); CARBON DIOXIDE 23 mmol/L (22-29); CHLORIDE 94 mmol/L (98-107); CREATINE KINASE 61 IU/L (29-168); CREATININE, SERUM 3.48 mg/dL (0.57-1.11); EST GLOMERULAR FILTRATION RATE 13 ML/MIN (60-); GLUCOSE 136 mg/dL (74-118); SODIUM 130 mmol/L (136-145)
[2021-01-13] MEDS ORDERED: FUROSEMIDE INJ 10 MG/ML 4 ML VIAL IV ONE (22:00)
[2021-01-13] MEDS ORDERED: DEXTROSE 50% SYRINGE 50 ML IV PRN (22:45)
[2021-01-13] MEDS ORDERED: SODIUM CHLORIDE FLUSH 10 ML SYR INJ PRN (22:45)
[2021-01-14] VITALS (7 sets, daily range): BP systolic 116–165; BP diastolic 50–60
[2021-01-14] MEDS ORDERED: FUROSEMIDE INJ 10 MG/ML 4 ML VIAL ONE (00:08)
[2021-01-14] MEDS ORDERED: FUROSEMIDE INJ 10 MG/ML 2 ML VIAL ONE (00:08)
[2021-01-14] MEDS ORDERED: SODIUM CHLORIDE 0.9% 100 ML ONE (00:08)
[2021-01-14 01:14] LABS: CLARITY,URINE CLOUDY (CLEAR); COLOR,URINE YELLOW (YELLOW); KETONES,URINE NEGATIVE (NEGATIVE); LEUKOCYTE ESTERASE ,URINE 1+ (NEGATIVE); NITRITE,URINE NEGATIVE (NEGATIVE); PROTEIN,URINE DIPSTICK NEGATIVE (NEGATIVE); URINE UROBILINOGEN 0.2 mg/dL (0.2 - 1)
[2021-01-14 01:15] LABS: BACTERIA,URINE MANY /HPF; EPITHELIAL CELLS,URINE FEW /LPF; WBC,URINE (MAN) >50 /HPF (0-5)
[2021-01-14] MEDS ORDERED: ACETAMINOPHEN 325 MG TAB ONE (03:35)
[2021-01-14] MEDS: ACETAMINOPHEN 325 MG TAB PO PRN ×4 (03:35→17:34)
[2021-01-14 04:38] LABS: BASOPHILS % 0.2 % (0.0-1.0); EOSINOPHILS # (AUTO) 0.2 (0.0-0.4); EOSINOPHILS % 4.3 % (0.0-6.0); HEMATOCRIT 24.8 % (34.2-44.1); LYMPHOCYTES % 22.7 % (18.0-39.1); MEAN CORPUSCULAR HEMOGLOBIN 30.4 pg (28-32); MEAN CORPUSCULAR HGB CONC 32.3 g/dL (31-35); MEAN CORPUSCULAR VOLUME 94.3 fL (81-99); MONOCYTES # (AUTO) 0.3 (0.2-0.8); MONOCYTES % 7.5 % (4.4-11.3); NEUTROPHILS # (AUTO) 2.9 (2.1-6.9); NEUTROPHILS % 65.1 % (38.7-80.0); PLATELET COUNT 129 x10e3/uL (140-360); RED BLOOD COUNT 2.63 x10e6/uL (3.6-5.1); RED CELL DISTRIBUTION WIDTH 15.7 % (11.7-14.4)
[2021-01-14 04:47] LABS: CALCIUM 7.8 mg/dL (8.4-10.2); CREATININE, SERUM 2.9 mg/dL (0.57-1.11)
[2021-01-14] MEDS: INSULIN REGULAR, HUMAN 100 UNIT/1 ML 3ML VIAL SQ SCH ×4 (07:30→21:13)
[2021-01-14] MEDS: FUROSEMIDE INJ 100 MG in SODIUM CHLORIDE 0.9% 100 ML 90 ML IV SCH ×4 (08:00→13:20)
[2021-01-14 09:22] LABS: ANION GAP 17.3 mmol/L (8-16); CALCIUM 8.4 mg/dL (8.4-10.2); CREATININE, SERUM 3.07 mg/dL (0.57-1.11); POTASSIUM 4.3 mmol/L (3.5-5.1)
[2021-01-14] MEDS ORDERED: DOCUSATE SODIUM 100 MG CAP PO PRN (10:00)
[2021-01-14] MEDS ORDERED: ZOLPIDEM TARTRATE 5 MG TAB PO PRN (10:00)
[2021-01-14] MEDS ORDERED: ONDANSETRON HCL INJ 2MG/ML 2ML 2 MG/ML VIAL IV PRN (10:00)
[2021-01-14] MEDS ORDERED: CEFTRIAXONE SOD 2 GM/100 ML ML IV SCH (10:00)
[2021-01-14 10:26] LABS: CHOL/HDL RATIO 2.9 (3.0-3.6)
[2021-01-14] MEDS ORDERED: SODIUM CHLORIDE 0.9% 250ML 250 ML ONE (11:59)
[2021-01-14] MEDS: CEFTRIAXONE SOD 1 GM in SODIUM CHLORIDE 0.9% 50ML 50 ML IV SCH (12:12)
[2021-01-14 12:59] LABS: CREATINE KINASE MB 2.1 ng/mL (0-5.0)
[2021-01-14 13:00] LABS: ANION GAP 17.3 mmol/L (8-16); CREATININE, SERUM 3.06 mg/dL (0.57-1.11); POTASSIUM 4.3 mmol/L (3.5-5.1)
[2021-01-14] MEDS: BENZONATATE 100 MG CAP PO SCH ×2 (15:00→21:00)
[2021-01-14] MEDS ORDERED: BUMETANIDE1 MG PO (16:50)
[2021-01-14] MEDS ORDERED: FERROUS SULFAT325 M1 PO (16:50)
[2021-01-14] MEDS ORDERED: EPOETIN ALFA-EPBX 10,000 UNIT/ML VIAL SC ONE (17:00)
[2021-01-14] MEDS ORDERED: CARVEDILOL 12.5 MG TAB PO SCH (17:00)
[2021-01-14] MEDS: HYDRALAZINE HCL 25 MG TAB PO SCH ×2 (17:26→22:00)
[2021-01-14] MEDS: INSULIN GLARGINE 100 UNITS/ML VIAL SQ SCH (21:13)
[2021-01-14] MEDS: GABAPENTIN 100 MG CAP PO SCH (21:13)
[2021-01-14] MEDS: ATORVASTATIN 40 MG TAB PO SCH (21:13)
[2021-01-14] MEDS: CARVEDILOL 12.5 MG TAB PO SCH (21:13)
[2021-01-15] VITALS (8 sets, daily range): BP systolic 105–151; BP diastolic 42–58
[2021-01-15] MEDS: FUROSEMIDE INJ 100 MG in SODIUM CHLORIDE 0.9% 100 ML 90 ML IV SCH ×3 (00:30→22:26)
[2021-01-15] MEDS: ACETAMINOPHEN 325 MG TAB PO PRN ×4 (00:30→23:35)
[2021-01-15] MEDS: HYDRALAZINE HCL 25 MG TAB PO SCH ×3 (06:10→21:28)
[2021-01-15] MEDS: LEVOTHYROXINE SODIUM 100 MCG TAB PO SCH (06:44)
[2021-01-15] MEDS: LEVOTHYROXINE SODIUM 75 MCG TAB PO SCH (06:44)
[2021-01-15 06:45] LABS: BASOPHILS % 0.6 % (0.0-1.0); EOSINOPHILS # (AUTO) 0.2 (0.0-0.4); EOSINOPHILS % 3.2 % (0.0-6.0); HEMATOCRIT 24.9 % (34.2-44.1); LYMPHOCYTES # (AUTO) 1.2 (1.0-3.2); LYMPHOCYTES % 22.1 % (18.0-39.1); MEAN CORPUSCULAR HEMOGLOBIN 30.3 pg (28-32); MEAN CORPUSCULAR HGB CONC 32.1 g/dL (31-35); MEAN CORPUSCULAR VOLUME 94.3 fL (81-99); MONOCYTES # (AUTO) 0.5 (0.2-0.8); MONOCYTES % 8.8 % (4.4-11.3); NEUTROPHILS # (AUTO) 3.4 (2.1-6.9); NEUTROPHILS % 64.9 % (38.7-80.0); PLATELET COUNT 127 x10e3/uL (140-360); RED BLOOD COUNT 2.64 x10e6/uL (3.6-5.1); RED CELL DISTRIBUTION WIDTH 15.8 % (11.7-14.4)
[2021-01-15 07:09] LABS: ANION GAP 15.9 mmol/L (8-16); CALCIUM 8.7 mg/dL (8.4-10.2); CREATININE, SERUM 2.64 mg/dL (0.57-1.11); MAGNESIUM 2.1 MG/DL (1.3-2.1); POTASSIUM 3.9 mmol/L (3.5-5.1)
[2021-01-15] MEDS: INSULIN REGULAR, HUMAN 100 UNIT/1 ML 3ML VIAL SQ SCH ×4 (07:30→21:29)
[2021-01-15] MEDS: ASPIRIN 81 MG CHEW TAB PO SCH (09:00)
[2021-01-15] MEDS ORDERED: ALLOPURINOL 300 MG TAB PO SCH (09:00)
[2021-01-15] MEDS: AMIODARONE HCL 200 MG TAB PO SCH (09:00)
[2021-01-15] MEDS: CILOSTAZOL 100 MG TAB PO SCH (09:00)
[2021-01-15] MEDS: ALLOPURINOL 100 MG TAB PO SCH (09:00)
[2021-01-15] MEDS: PANTOPRAZOLE SOD 40 MG TABEC PO SCH (09:00)
[2021-01-15] MEDS: CARVEDILOL 12.5 MG TAB PO SCH ×2 (09:00→21:28)
[2021-01-15] MEDS ORDERED: SODIUM CHLORIDE 0.9% 250ML 250 ML ONE ×2 (12:27→15:23)
[2021-01-15] MEDS: CEFTRIAXONE SOD 1 GM in SODIUM CHLORIDE 0.9% 50ML 50 ML IV SCH (12:30)
[2021-01-15 16:31] LABS: BASOPHILS % 0.2 % (0.0-1.0); EOSINOPHILS # (AUTO) 0.2 (0.0-0.4); EOSINOPHILS % 4.2 % (0.0-6.0); HEMATOCRIT 26.7 % (34.2-44.1); HEMOGLOBIN 8.5 g/dL (12.0-16.0); LYMPHOCYTES # (AUTO) 1.2 (1.0-3.2); LYMPHOCYTES % 24.8 % (18.0-39.1); MEAN CORPUSCULAR HEMOGLOBIN 29.9 pg (28-32); MEAN CORPUSCULAR HGB CONC 31.8 g/dL (31-35); MONOCYTES # (AUTO) 0.5 (0.2-0.8); NEUTROPHILS # (AUTO) 3.1 (2.1-6.9); NEUTROPHILS % 61.6 % (38.7-80.0); PLATELET COUNT 140 x10e3/uL (140-360); RED BLOOD COUNT 2.84 x10e6/uL (3.6-5.1); RED CELL DISTRIBUTION WIDTH 16.2 % (11.7-14.4)
[2021-01-15 16:48] LABS: ANION GAP 18.1 mmol/L (8-16); CALCIUM 8.7 mg/dL (8.4-10.2); CREATININE, SERUM 2.68 mg/dL (0.57-1.11); POTASSIUM 4.1 mmol/L (3.5-5.1)
[2021-01-15] MEDS: ALPRAZOLAM 0.5 MG TAB PO PRN (20:24)
[2021-01-15] MEDS: ATORVASTATIN 40 MG TAB PO SCH (21:27)
[2021-01-15] MEDS: GABAPENTIN 100 MG CAP PO SCH (21:27)
[2021-01-15] MEDS: INSULIN GLARGINE 100 UNITS/ML VIAL SQ SCH (21:28)
[2021-01-16] VITALS (9 sets, daily range): BP systolic 97–151; BP diastolic 39–80
[2021-01-16] MEDS: HYDRALAZINE HCL 25 MG TAB PO SCH ×3 (04:50→22:00)
[2021-01-16] MEDS: LEVOTHYROXINE SODIUM 75 MCG TAB PO SCH (05:13)
[2021-01-16] MEDS: LEVOTHYROXINE SODIUM 100 MCG TAB PO SCH (05:13)
[2021-01-16] MEDS: INSULIN REGULAR, HUMAN 100 UNIT/1 ML 3ML VIAL SQ SCH ×4 (07:28→21:00)
[2021-01-16] MEDS: CARVEDILOL 12.5 MG TAB PO SCH ×2 (07:46→21:00)
[2021-01-16] MEDS: CILOSTAZOL 100 MG TAB PO SCH (08:22)
[2021-01-16] MEDS: AMIODARONE HCL 200 MG TAB PO SCH (08:22)
[2021-01-16] MEDS: ASPIRIN 81 MG CHEW TAB PO SCH (08:22)
[2021-01-16] MEDS: PANTOPRAZOLE SOD 40 MG TABEC PO SCH (08:23)
[2021-01-16] MEDS: ALLOPURINOL 100 MG TAB PO SCH (08:23)
[2021-01-16] MEDS: FUROSEMIDE INJ 100 MG in SODIUM CHLORIDE 0.9% 100 ML 90 ML IV SCH (11:39)
[2021-01-16] MEDS: CEFTRIAXONE SOD 1 GM in SODIUM CHLORIDE 0.9% 50ML 50 ML IV SCH (11:39)
[2021-01-16 13:54] LABS: BASOPHILS % 0.2 % (0.0-1.0); EOSINOPHILS # (AUTO) 0.3 (0.0-0.4); EOSINOPHILS % 4.8 % (0.0-6.0); HEMATOCRIT 26.1 % (34.2-44.1); HEMOGLOBIN 8.5 g/dL (12.0-16.0); LYMPHOCYTES # (AUTO) 1.2 (1.0-3.2); LYMPHOCYTES % 21.1 % (18.0-39.1); MEAN CORPUSCULAR HEMOGLOBIN 30.9 pg (28-32); MEAN CORPUSCULAR HGB CONC 32.6 g/dL (31-35); MEAN CORPUSCULAR VOLUME 94.9 fL (81-99); MONOCYTES # (AUTO) 0.3 (0.2-0.8); MONOCYTES % 5.8 % (4.4-11.3); NEUTROPHILS # (AUTO) 3.9 (2.1-6.9); NEUTROPHILS % 67.6 % (38.7-80.0); PLATELET COUNT 136 x10e3/uL (140-360); RED BLOOD COUNT 2.75 x10e6/uL (3.6-5.1); RED CELL DISTRIBUTION WIDTH 16.8 % (11.7-14.4)
[2021-01-16 14:11] LABS: CALCIUM 8.5 mg/dL (8.4-10.2); CREATININE, SERUM 2.44 mg/dL (0.57-1.11)
[2021-01-16] MEDS: ACETAMINOPHEN 325 MG TAB PO PRN (14:27)
[2021-01-16] MEDS: ALPRAZOLAM 0.5 MG TAB PO PRN (16:45)
[2021-01-16] MEDS: INSULIN GLARGINE 100 UNITS/ML VIAL SQ SCH (21:00)
[2021-01-16] MEDS: GABAPENTIN 100 MG CAP PO SCH (22:02)
[2021-01-16] MEDS: ATORVASTATIN 40 MG TAB PO SCH (22:02)
[2021-01-17] VITALS (8 sets, daily range): BP systolic 114–175; BP diastolic 36–65
[2021-01-17] MEDS: FUROSEMIDE INJ 10 MG/ML 4 ML VIAL IV SCH ×3 (02:11→20:12)
[2021-01-17] MEDS: ACETAMINOPHEN 325 MG TAB PO PRN (04:00)
[2021-01-17 05:31] LABS: ANION GAP 13.8 mmol/L (8-16); CALCIUM 8.7 mg/dL (8.4-10.2); CREATININE, SERUM 2.3 mg/dL (0.57-1.11); POTASSIUM 3.8 mmol/L (3.5-5.1)
[2021-01-17] MEDS: LEVOTHYROXINE SODIUM 75 MCG TAB PO SCH (06:16)
[2021-01-17] MEDS: HYDRALAZINE HCL 25 MG TAB PO SCH ×3 (06:16→21:22)
[2021-01-17] MEDS: LEVOTHYROXINE SODIUM 100 MCG TAB PO SCH (06:16)
[2021-01-17] MEDS: INSULIN REGULAR, HUMAN 100 UNIT/1 ML 3ML VIAL SQ SCH ×4 (07:30→20:13)
[2021-01-17] MEDS: CARVEDILOL 12.5 MG TAB PO SCH ×2 (08:21→20:13)
[2021-01-17] MEDS: AMIODARONE HCL 200 MG TAB PO SCH (08:36)
[2021-01-17] MEDS: CILOSTAZOL 100 MG TAB PO SCH (08:36)
[2021-01-17] MEDS: PANTOPRAZOLE SOD 40 MG TABEC PO SCH (08:36)
[2021-01-17] MEDS: ASPIRIN 81 MG CHEW TAB PO SCH (08:36)
[2021-01-17] MEDS: ALLOPURINOL 100 MG TAB PO SCH (08:37)
[2021-01-17] MEDS: CEFTRIAXONE SOD 1 GM in SODIUM CHLORIDE 0.9% 50ML 50 ML IV SCH (12:21)
[2021-01-17] MEDS: ALPRAZOLAM 0.5 MG TAB PO PRN (14:35)
[2021-01-17] MEDS: GABAPENTIN 100 MG CAP PO SCH (20:13)
[2021-01-17] MEDS: ATORVASTATIN 40 MG TAB PO SCH (20:13)
[2021-01-17] MEDS: INSULIN GLARGINE 100 UNITS/ML VIAL SQ SCH (20:13)
[2021-01-18] VITALS (8 sets, daily range): BP systolic 99–150; BP diastolic 44–62
[2021-01-18] MEDS: ACETAMINOPHEN 325 MG TAB PO PRN ×2 (02:02→23:47)
[2021-01-18] MEDS: HYDRALAZINE HCL 25 MG TAB PO SCH ×3 (06:00→22:00)
[2021-01-18] MEDS: LEVOTHYROXINE SODIUM 100 MCG TAB PO SCH (06:12)
[2021-01-18] MEDS: LEVOTHYROXINE SODIUM 75 MCG TAB PO SCH (06:12)
[2021-01-18 06:58] LABS: ANION GAP 13.7 mmol/L (8-16); CREATININE, SERUM 2.44 mg/dL (0.57-1.11); POTASSIUM 3.7 mmol/L (3.5-5.1)
[2021-01-18] MEDS: INSULIN REGULAR, HUMAN 100 UNIT/1 ML 3ML VIAL SQ SCH ×4 (07:30→21:00)
[2021-01-18] MEDS: CARVEDILOL 12.5 MG TAB PO SCH ×2 (09:00→22:09)
[2021-01-18] MEDS: FUROSEMIDE INJ 10 MG/ML 4 ML VIAL IV SCH (09:15)
[2021-01-18] MEDS: ASPIRIN 81 MG CHEW TAB PO SCH (09:16)
[2021-01-18] MEDS: AMIODARONE HCL 200 MG TAB PO SCH (09:16)
[2021-01-18] MEDS: PANTOPRAZOLE SOD 40 MG TABEC PO SCH (09:18)
[2021-01-18] MEDS: ALLOPURINOL 100 MG TAB PO SCH (09:18)
[2021-01-18] MEDS: CILOSTAZOL 100 MG TAB PO SCH (09:18)
[2021-01-18] MEDS: CEFTRIAXONE SOD 1 GM in SODIUM CHLORIDE 0.9% 50ML 50 ML IV SCH (10:40)
[2021-01-18] MEDS ORDERED: ONDANSETRON HCL 4 MG ORAL DISINTEGRATING TAB PO PRN (12:00)
[2021-01-18] MEDS: ALPRAZOLAM 0.5 MG TAB PO PRN (13:39)
[2021-01-18 14:11] LABS: ALPHA 2 GLOBULIN URINE PEP 6.5 % (.)
[2021-01-18] MEDS: ATORVASTATIN 40 MG TAB PO SCH (22:09)
[2021-01-18] MEDS: GABAPENTIN 100 MG CAP PO SCH (22:09)
[2021-01-18] MEDS: INSULIN GLARGINE 100 UNITS/ML VIAL SQ SCH (23:41)
[2021-01-19] VITALS: BP 131/41
[2021-01-19 04:00] VITALS: BP 103/48
[2021-01-19 05:40] LABS: CALCIUM 8.8 mg/dL (8.4-10.2); CREATININE, SERUM 2.26 mg/dL (0.57-1.11)
[2021-01-19] MEDS: HYDRALAZINE HCL 25 MG TAB PO SCH ×2 (06:00→13:05)
[2021-01-19] MEDS: LEVOTHYROXINE SODIUM 100 MCG TAB PO SCH (06:10)
[2021-01-19] MEDS: LEVOTHYROXINE SODIUM 75 MCG TAB PO SCH (06:11)
[2021-01-19] MEDS: INSULIN REGULAR, HUMAN 100 UNIT/1 ML 3ML VIAL SQ SCH ×2 (07:30→12:13)
[2021-01-19 07:33] VITALS: BP 141/48
[2021-01-19 07:41] VITALS: BP 141/48
[2021-01-19] MEDS: ASPIRIN 81 MG CHEW TAB PO SCH (08:20)
[2021-01-19] MEDS: AMIODARONE HCL 200 MG TAB PO SCH (08:20)
[2021-01-19] MEDS: CILOSTAZOL 100 MG TAB PO SCH (08:21)
[2021-01-19] MEDS: PANTOPRAZOLE SOD 40 MG TABEC PO SCH (08:21)
[2021-01-19] MEDS: CARVEDILOL 12.5 MG TAB PO SCH (08:21)
[2021-01-19] MEDS: ALLOPURINOL 100 MG TAB PO SCH (08:21)
[2021-01-19] MEDS: CEFTRIAXONE SOD 1 GM in SODIUM CHLORIDE 0.9% 50ML 50 ML IV SCH (10:34)
[2021-01-19 11:42] VITALS: BP 150/72
== END 2021-01-19 15:31 | disposition home or self-care (01) | DRG 291 ==
LOC: ER 20:48 → ERHOLD 22:35 → MED/SURG 01-14 09:34
PROVIDERS: ADMIT Internal Medicine; ATTEND Internal Medicine
DX: I13.0 Hypertensive heart and chronic kidney disease with heart failure and stage 1 through stage 4 chronic kidney disease, or unspecified chronic kidney disease (principal); I50.21 Acute systolic (congestive) heart failure; N17.9 Acute kidney failure, unspecified; Z20.822 Contact with and (suspected) exposure to COVID-19; N18.4 Chronic kidney disease, stage 4 (severe); N39.0 Urinary tract infection, site not specified; E87.2 Acidosis; E11.9 Type 2 diabetes mellitus without complications; I48.0 Paroxysmal atrial fibrillation; E11.40 Type 2 diabetes mellitus with diabetic neuropathy, unspecified; E11.42 Type 2 diabetes mellitus with diabetic polyneuropathy; F41.9 Anxiety disorder, unspecified; G47.00 Insomnia, unspecified; J44.9 Chronic obstructive pulmonary disease, unspecified; E78.5 Hyperlipidemia, unspecified; E03.9 Hypothyroidism, unspecified; E87.5 Hyperkalemia; E11.22 Type 2 diabetes mellitus with diabetic chronic kidney disease; D63.1 Anemia in chronic kidney disease; R33.9 Retention of urine, unspecified
CPT/HCPCS: 36415; 51700; 71045; 80048; 80053; 80061; 81001; 82270; 82550; 82553; 82948; 83036; 83540; 83735; 83880; 84100; 84166; 84466; 84484; 85025; 85379; 93005; 96372; 97139; 99251; 99284; 99285; J0696; J1815; J1817; J1940; J7050; U0002